=== PATIENT | male | born 1955 | race Caucasian/White ===

== ENCOUNTER → 2020-07-17 09:44 | Outpatient (BNV) | payer MEDICAID, MEDICARE, SELFPAY | PROVIDERS: Visit Provider Internal Medicine | DX: D69.6 Thrombocytopenia, unspecified (principal) | CPT/HCPCS: 99212; 99213; 99214 ==

== ENCOUNTER → 2020-08-08 09:58 | Outpatient (BNVA) | payer MEDICAID, SELFPAY | PROVIDERS: PCP Registered Nurse; Visit Provider Urology ==

== ENCOUNTER → 2020-12-04 10:11 | Outpatient (BNVA) | payer MEDICAID, SELFPAY | PROVIDERS: PCP General Practice; Visit Provider Surgery Vascular Surgery | DX: I71.4 Abdominal aortic aneurysm, without rupture (principal) | CPT/HCPCS: 99212 ==

== ENCOUNTER 2021-01-06 09:40 | Outpatient (REF) | payer MEDICAID, SELFPAY ==
--- NOTE | ~2021-01-06 | CT_ITS ---
EXAMINATION: CT ANGIOGRAM ABDOMEN AND PELVIS CLINICAL INFORMATION: Abdominal aortic aneurysm. COMPARISON: Ultrasound abdomen 07/16/2019. TECHNIQUE: Multiple axial images were obtained through the abdomen and pelvis following the administration of 80 mL of Omnipaque 350 intravenous contrast. Images were reviewed on a dedicated 3-D workstation. This CT examination was performed using dose optimization techniques as appropriate, variously including the following: *Automated exposure control. *Adjustment of mA and/or kV according to patient size (this includes techniques or standardized protocols for targeted exams where dose is matched to indication/reason for exam; i.e. extremities or head). *Use of iterative reconstruction technique. DLP: 220 mGy-cm VASCULAR FINDINGS: There is aneurysmal dilatation of the infrarenal abdominal aorta with a maximal dimension of 4.5 x 4.3 cm. At the time of the patient's prior ultrasound, measurements were 5.2 x 4.3 cm which may have been an exaggeration secondary to measuring technique. Mural thrombus is present within the aneurysm. The aneurysm begins at least 5 cm below the level of the renal arteries. The aneurysm ends at the aortic bifurcation but there is aneurysmal dilatation of the right common iliac artery at 2.2 cm. The iliac bifurcations are patent. Moderate atherosclerotic changes present in both internal iliac arteries. The external iliac arteries show [id number] atherosclerotic changes. Common femoral arteries are mildly diseased. Femoral bifurcations are patent with proximal patent profunda femoris and superficial femoral arteries. The celiac and SMA are patent. The [place] is patent and arises just above the level of the beginning of the aneurysm. Single renal arteries are present on both sides which are patent. NONVASCULAR FINDINGS: LUNG BASES: Dependent ground-glass changes are present in the lungs. Some peripheral bullae are present (503:45) along with a tiny 2 mm right lower lobe nodule (503:45). LIVER, GALLBLADDER, AND BILIARY TREE: The liver is normal in size, shape, and attenuation. No focal hepatic lesion or biliary ductal dilatation is present. The gallbladder is unremarkable with no evidence of radiopaque gallstones, gallbladder wall thickening, or obvious pericholecystic inflammatory changes. PANCREAS: Unremarkable. SPLEEN: Unremarkable. ADRENAL GLANDS: Unremarkable. KIDNEYS AND URETERS: The kidneys are normal in size, shape, and attenuation. A left renal cyst is present. No solid renal mass is seen. No hydronephrosis, hydroureter, or calculi seen. No perinephric stranding. BLADDER: Unremarkable. GASTROINTESTINAL TRACT: Colonic diverticular changes are present without diverticulitis. The small and large bowel are otherwise unremarkable. The appendix is unremarkable. ABDOMINAL WALL: No significant hernia is appreciated. There has been prior lower abdominal wall surgery. LYMPH NODES: No retroperitoneal lymphadenopathy. PELVIC VISCERA: Minimal prostatic enlargement. Seminal vesicles are normal. OSSEOUS STRUCTURES: Degenerative changes are noted in the spine most prominent from L3 through L5. CT/CT angio abdomen pelvis IMPRESSION: 1. A 4.5 cm infrarenal abdominal aortic aneurysm that ends at the aortic bifurcation. 2. Separate aneurysmal dilatation of the right common iliac artery at 2.2 cm. 3. Incidental nonvascular findings include a tiny 2 mm lung nodule, peripheral bullous changes in the lungs, left renal cysts, colonic diverticulosis, mild BPH and degenerative changes in the spine.
== END 2021-01-06 09:41 | disposition home or self-care (01) ==
LOC: HO.CT 09:40
PROVIDERS: Visit Provider Surgery Vascular Surgery
DX: I71.4 Abdominal aortic aneurysm, without rupture (principal)
CPT/HCPCS: 74174

== ENCOUNTER 2021-01-27 10:17 | Outpatient (REF) | payer MEDICAID, SELFPAY ==
[2021-01-27 14:09] LABS: H Pylori Breath Test Positive (Negative)
== END 2021-01-27 10:18 | disposition home or self-care (01) ==
LOC: HO.LNP 10:17
PROVIDERS: PCP General Practice; Referring Provider General Practice; Visit Provider Nurse Practitioner Family
DX: R13.12 Dysphagia, oropharyngeal phase (principal); K21.9 Gastro-esophageal reflux disease without esophagitis
CPT/HCPCS: 83013; 99202

== ENCOUNTER → 2021-02-13 09:30 | Outpatient (BNVA) | payer MEDICAID, SELFPAY | PROVIDERS: PCP General Practice; Visit Provider Surgery Vascular Surgery | DX: I71.4 Abdominal aortic aneurysm, without rupture (principal) | CPT/HCPCS: 99212 ==

== ENCOUNTER → 2021-03-26 08:10 | Outpatient (BNVA) | payer MEDICAID, SELFPAY | PROVIDERS: PCP General Practice; Referring Provider General Practice; Visit Provider Nurse Practitioner Family | DX: K21.9 Gastro-esophageal reflux disease without esophagitis (principal) | CPT/HCPCS: 99212 ==

== ENCOUNTER 2021-04-03 08:48 | Outpatient (REF) | payer MEDICAID, SELFPAY ==
--- NOTE | ~2021-04-03 | US_ITS ---
EXAMINATION: US RETROPERITONEAL LIMITED (AORTA) CLINICAL INFORMATION: History of AAA without rupture. COMPARISON: CT abdomen and pelvis exam 01/06/2021. TECHNIQUE: Vazquez-scale, color Doppler and spectral Doppler evaluation of the abdominal aorta. FINDINGS: The aorta is normal. The measurements of the aorta in maximum AP and transverse dimensions respectively are as follows: Proximal: 2.4 x 2.5 cm. Mid: 2.4 x 2.4 cm. Distal: Aneurysmal outer lumen measures p 4.5 x 4.3 cm. The inner lumen measures 2.7 x 2.4 cm. There is echogenic thrombus seen between the 2 layers. PSV: 62.2 cm/s. The measurements of the common iliac arteries in maximum AP and TRV dimensions are as follows: Right Common Iliac Artery: 1.7 x 1.2 cm. Left Common Iliac Artery: 1.3 x 1.5 cm. US/US abdominal aortic aneurysm IMPRESSION: Aneurysmal dilatation of distal abdominal aorta measuring 4.5 x 4.[address] abdomen exam 01/06/2021, aneurysm measured 4.5 x 4.3 cm.
== END 2021-04-03 08:49 | disposition home or self-care (01) ==
LOC: HO.US 08:48
PROVIDERS: PCP General Practice; Visit Provider General Practice
DX: I71.4 Abdominal aortic aneurysm, without rupture (principal)
CPT/HCPCS: 76706

== ENCOUNTER → 2021-04-15 09:04 | Outpatient (BNVA) | payer MEDICAID, SELFPAY | PROVIDERS: PCP General Practice; Visit Provider Surgery Vascular Surgery ==

== ENCOUNTER → 2021-06-04 09:36 | Outpatient (BNVA) | payer MEDICAID, SELFPAY | PROVIDERS: PCP General Practice; Referring Provider General Practice; Visit Provider Nurse Practitioner Family | DX: K21.9 Gastro-esophageal reflux disease without esophagitis (principal); K59.01 Slow transit constipation; R14.0 Abdominal distension (gaseous) | CPT/HCPCS: 99212 ==

== ENCOUNTER 2021-08-06 09:53 | Outpatient (REF) | payer MEDICAID, SELFPAY ==
--- NOTE | ~2021-08-06 | XR_ITS ---
EXAMINATION: XR LUMBAR SPINE XR BILATERAL KNEE CLINICAL INFORMATION: Low back pain. Knee pain. COMPARISON: None TECHNIQUE: Lumbar spine 3 views. 4 views each knee. FINDINGS: LUMBAR SPINE: There is abnormal segmentation of lumbar spine with 6 lumbar vertebrae. There is mild straightening of lumbar lordosis. The vertebral heights and alignment is normal. There is loss of L4-L5 and L5-S1 disc heights with moderate ventral bridging osteophytes at L4-L5 and L5-L6 disc level. No visible acute fracture, lytic or sclerotic process seen. SI joints are symmetrical and normal. The soft tissues are normal. LEFT KNEE: There is mild loss of lateral compartment joint space. No loose bodies, bony erosive changes or joint effusion seen. There is minimal superior patellar spurring. The soft tissues are normal. There is no acute fracture or dislocation. RIGHT KNEE: The tricompartment joint space is normal. No visible acute fracture, dislocation or subluxation seen. No bony erosive changes. No abnormal joint effusion. No acute fracture or dislocation. XR/XR lumbar spine 2-3V IMPRESSION: Abnormal segmentation of lumbar spine with degenerative disc changes L4-L5 and L5-L6 disc levels with bridging osteophytes. No acute fracture or lytic process. Mild degenerative disc changes lateral compartment left knee with mild spurring superior patella. Unremarkable right knee exam.
--- NOTE | ~2021-08-06 | XR_ITS ---
EXAMINATION: XR LUMBAR SPINE XR BILATERAL KNEE CLINICAL INFORMATION: Low back pain. Knee pain. COMPARISON: None TECHNIQUE: Lumbar spine 3 views. 4 views each knee. FINDINGS: LUMBAR SPINE: There is abnormal segmentation of lumbar spine with 6 lumbar vertebrae. There is mild straightening of lumbar lordosis. The vertebral heights and alignment is normal. There is loss of L4-L5 and L5-S1 disc heights with moderate ventral bridging osteophytes at L4-L5 and L5-L6 disc level. No visible acute fracture, lytic or sclerotic process seen. SI joints are symmetrical and normal. The soft tissues are normal. LEFT KNEE: There is mild loss of lateral compartment joint space. No loose bodies, bony erosive changes or joint effusion seen. There is minimal superior patellar spurring. The soft tissues are normal. There is no acute fracture or dislocation. RIGHT KNEE: The tricompartment joint space is normal. No visible acute fracture, dislocation or subluxation seen. No bony erosive changes. No abnormal joint effusion. No acute fracture or dislocation. XR/XR knee RT 4V IMPRESSION: Abnormal segmentation of lumbar spine with degenerative disc changes L4-L5 and L5-L6 disc levels with bridging osteophytes. No acute fracture or lytic process. Mild degenerative disc changes lateral compartment left knee with mild spurring superior patella. Unremarkable right knee exam.
--- NOTE | ~2021-08-06 | XR_ITS ---
EXAMINATION: XR LUMBAR SPINE XR BILATERAL KNEE CLINICAL INFORMATION: Low back pain. Knee pain. COMPARISON: None TECHNIQUE: Lumbar spine 3 views. 4 views each knee. FINDINGS: LUMBAR SPINE: There is abnormal segmentation of lumbar spine with 6 lumbar vertebrae. There is mild straightening of lumbar lordosis. The vertebral heights and alignment is normal. There is loss of L4-L5 and L5-S1 disc heights with moderate ventral bridging osteophytes at L4-L5 and L5-L6 disc level. No visible acute fracture, lytic or sclerotic process seen. SI joints are symmetrical and normal. The soft tissues are normal. LEFT KNEE: There is mild loss of lateral compartment joint space. No loose bodies, bony erosive changes or joint effusion seen. There is minimal superior patellar spurring. The soft tissues are normal. There is no acute fracture or dislocation. RIGHT KNEE: The tricompartment joint space is normal. No visible acute fracture, dislocation or subluxation seen. No bony erosive changes. No abnormal joint effusion. No acute fracture or dislocation. XR/XR knee LT 4V IMPRESSION: Abnormal segmentation of lumbar spine with degenerative disc changes L4-L5 and L5-L6 disc levels with bridging osteophytes. No acute fracture or lytic process. Mild degenerative disc changes lateral compartment left knee with mild spurring superior patella. Unremarkable right knee exam.
== END 2021-08-06 09:54 | disposition home or self-care (01) ==
LOC: HO.XRAY 09:53
PROVIDERS: PCP General Practice; Visit Provider General Practice
DX: M54.50 Low back pain, unspecified (principal); M25.561 Pain in right knee; M25.562 Pain in left knee
CPT/HCPCS: 72100; 73564

== ENCOUNTER → 2021-08-29 09:42 | Outpatient (BNVA) | payer MEDICAID, SELFPAY | PROVIDERS: PCP General Practice; Visit Provider Orthopaedic Surgery | DX: M54.16 Radiculopathy, lumbar region (principal) | CPT/HCPCS: 99202 ==

== ENCOUNTER 2021-09-22 10:48 | Outpatient (REF) | payer MEDICAID, SELFPAY ==
[2021-09-22 11:56] LABS: Hematocrit 42.6 % (42.0-52.0); Hemoglobin 13.8 g/dl (14.0-18.0); Mean Corpuscular HGB Conc 32.4 g/dl (31.0-36.0); Mean Corpuscular Hemoglobin 34.2 pg (27.0-33.0); Mean Corpuscular Volume 105.4 fL (80.0-98.0); Mean Platelet Volume 12.9 fL (9.4-12.4); Platelet Count 105 X10*3/uL (160-400); Red Blood Count 4.04 X10*6/uL (4.60-5.80); Red Cell Distribution Width 12.3 % (11.0-16.0); White Blood Count 6.6 X10*3/uL (4.8-10.8)
[2021-09-22 12:31] LABS: Alanine Aminotransferase 9 U/L (0-40); Albumin Level 4.1 g/dL (3.5-5.0); Alkaline Phosphatase 75 U/L (39-117); Anion Gap 10 (12-20); Aspartate Amino Transferase 11 U/L (5-37); Bilirubin Total 0.2 mg/dL (0.0-1.0); Blood Urea Nitrogen 20 mg/dL (9-16); Calcium 9.5 mg/dL (8.4-10.2); Carbon Dioxide 27 mmol/L (22-29); Chloride 109 mmol/L (96-108); Estimated Glomerular Filt Rate > 60; Glucose Random 94 mg/dL (60-115); Lipase 48 U/L (8-78); Potassium 4.5 mmol/L (3.3-5.1); Sodium 141 mmol/L (135-145)
[2021-09-22 12:53] LABS: TSH reflex Free T4 1.51 uIU/mL (0.32-4.0)
[2021-09-22 13:05] LABS: Folate > 20.0 ng/mL (> or = 4.0); Vitamin B12 1644 pg/mL (200-900)
[2021-09-26 16:06] LABS: Vitamin D 25-OH, D2 <4 ng/mL; Vitamin D 25-OH, D3 75 ng/mL; Vitamin D 25-OH, Total 75 ng/mL (30-100)
== END 2021-09-22 10:49 | disposition home or self-care (01) ==
LOC: HO.LAB 10:48
PROVIDERS: PCP General Practice; Visit Provider Nurse Practitioner Family
DX: K21.9 Gastro-esophageal reflux disease without esophagitis (principal); R13.10 Dysphagia, unspecified; E55.9 Vitamin D deficiency, unspecified; R14.0 Abdominal distension (gaseous)
CPT/HCPCS: 36415; 80053; 82306; 82607; 82746; 83690; 84443; 85027; 99212

== ENCOUNTER → 2021-09-29 08:24 | Outpatient (BNVA) | payer MEDICAID, SELFPAY | PROVIDERS: PCP General Practice; Visit Provider Nurse Practitioner Family | DX: M47.26 Other spondylosis with radiculopathy, lumbar region (principal); N39.41 Urge incontinence | CPT/HCPCS: 99202 ==

== ENCOUNTER 2021-10-15 15:06 | Outpatient (REF) | payer MEDICAID, SELFPAY ==
--- NOTE | ~2021-10-15 | MR_ITS ---
MR LUMBAR SPINE WITHOUT CONTRAST CLINICAL INFORMATION: Spondylosis without myelopathy or radiculopathy. COMPARISON: Lumbar spine radiographs 08/06/2021. TECHNIQUE: MRI of the lumbar spine was obtained using routine sequences without contrast. FINDINGS: There are 5 nonrib-bearing lumbar-type vertebral bodies. L5 shows a pseudoarticulation with the sacrum on the right side. Hypoplastic ribs the lowermost thoracic type segment. Grade 1 retrolisthesis of L4 on L5. There is moderate to severe disc volume loss at the L3-L4 and L4-L5 levels. There is disc desiccation at all lumbar levels the exception of L1 on L2. Intraosseous hemangioma within the L1 vertebral body. Modic type I endplate signal changes at L4-L5 greater than L3-L4. There is no additional bone marrow edema. There are no acute fractures. Conus terminates at the T12-L1 level. There is a left renal cyst. A 4.5 cm infrarenal abdominal aortic aneurysm is likely unchanged, difficult to compare due to obscuration by the saturation band used for this exam. T12-L1: Diffuse annular disc bulge. No central canal stenosis. Left lateral disc osteophyte and facet arthropathy result in mild left-sided foraminal encroachment. L1-L2: Small annular disc bulge and mild bilateral facet arthropathy. No central canal stenosis and no foraminal stenosis. L2-L3: There is an annular disc bulge eccentric to the left side and there is moderate bilateral facet arthropathy. Central canal remains patent. Disc contacts without compressing the traversing left L3 nerve root within the left subarticular zone. Disc osteophyte and facet arthropathy result in mild bilateral foraminal encroachment. Right lateral annular fissure. L3-L4: Diffuse disc osteophyte eccentric to the left and moderate lateral hypertrophic facet arthropathy and ligamentum flavum thickening. Small superiorly migrating left paracentral disc extrusion. Left lateral disc osteophyte protrusion. Findings in concert result in left subarticular zone stenosis with mass effect on the traversing left L4 nerve root and a left lateral disc osteophyte protrusion results in moderate to severe left foraminal stenosis with compression of the foraminal and extraforaminal segments of the exiting left L3 nerve root. L4-L5: There is a broad-based right paracentral disc protrusion that compresses the traversing right L5 nerve root within the right subarticular zone. Background disc osteophyte and severe right and moderate left hypertrophic facet arthropathy. A right lateral disc osteophyte protrusion results in severe right-sided foraminal stenosis and compression of the foraminal and extraforaminal segments of the exiting right L4 nerve root. L5-S1: At the transitional level, there is a diffuse annular disc bulge and there is right greater than left hypertrophic facet arthropathy. No central canal stenosis. Mild left-sided foraminal encroachment. MR/MR lumbar spine wo con IMPRESSION: - There is transitional anatomy. For the purposes of this report, hypoplastic ribs are considered at the lowermost thoracic type segment and L5 is sacralized, sharing a pseudoarticulation with the sacrum on the right side. Please correlate with plain films prior to any percutaneous or surgical intervention. - At L4-L5, a right paracentral disc protrusion compresses the traversing right L5 nerve root within the right subarticular zone and a right lateral disc osteophyte and advanced right facet arthropathy result in severe right foraminal stenosis with compression of the foraminal and extraforaminal segments of the exiting right L4 nerve root. - At L3-L4, multifactorial degenerative changes result in left subarticular zone stenosis with mass effect on the traversing left L4 nerve root and a left lateral disc osteophyte protrusion results in moderate to severe left foraminal stenosis with compression of the foraminal and extraforaminal segments of the exiting left L3 nerve root. There is a small superiorly migrating left paracentral disc extrusion at this level as well. - At L2-L3, disc contacts without compressing the traversing left L3 nerve root within the left subarticular zone. There is a right lateral annular fissure at this level. - A 4.5 cm infrarenal abdominal aortic aneurysm is likely unchanged, difficult to compare due to obscuration by the saturation band used for this exam.
== END 2021-10-15 15:07 | disposition home or self-care (01) ==
LOC: HO.MRI 15:06
PROVIDERS: Visit Provider Nurse Practitioner Family
DX: M47.816 Spondylosis without myelopathy or radiculopathy, lumbar region (principal); M54.16 Radiculopathy, lumbar region
CPT/HCPCS: 72148

== ENCOUNTER → 2021-10-21 10:20 | Outpatient (BNVA) | payer MEDICAID, SELFPAY | PROVIDERS: PCP General Practice; Visit Provider Nurse Practitioner Family | DX: M47.816 Spondylosis without myelopathy or radiculopathy, lumbar region (principal); M54.16 Radiculopathy, lumbar region; M53.9 Dorsopathy, unspecified; I71.4 Abdominal aortic aneurysm, without rupture | CPT/HCPCS: 99212 ==

== ENCOUNTER → 2021-11-24 09:45 | Outpatient (BNVA) | payer MEDICAID, SELFPAY | PROVIDERS: PCP General Practice; Visit Provider Nurse Practitioner Family | DX: R13.10 Dysphagia, unspecified (principal); K21.9 Gastro-esophageal reflux disease without esophagitis; K58.2 Mixed irritable bowel syndrome | CPT/HCPCS: 99212 ==

== ENCOUNTER 2021-12-03 09:26 | Outpatient (REF) | payer MEDICAID, SELFPAY ==
--- NOTE | ~2021-12-03 | FL_ITS ---
EXAMINATION: FL BARIUM SWALLOW CLINICAL INFORMATION: Dysphagia. COMPARISON: None. TECHNIQUE: Barium swallow examination is performed using fluoroscopic evaluation in addition to multiple fluoroscopic spot views. The patient is imaged both upright and prone and using both thick and thin sulfate along with effervescent granules. Fluoroscopy time: 2.2 minutes. DAP: 3.273 Gycm2. Images: 64. FINDINGS: Following oral administration of thick barium and barium-coated chicken and solid food there is normal propagation of bolus from the oral cavity through the pharynx and esophagus into the stomach without any evidence of laryngeal penetration or aspiration. No retention of food seen in the piriform sinuses or valleculae. There is no obstructing or constricting lesions seen. Occasional tertiary peristalsis seen in distal esophagus. FL/FL barium swallow IMPRESSION: Occasional tertiary peristalsis in distal esophagus. No evidence of obstruction, laryngeal penetration or aspiration.
== END 2021-12-03 09:27 | disposition home or self-care (01) ==
LOC: HO.XRAY 09:26
PROVIDERS: Visit Provider Nurse Practitioner Family
DX: R13.10 Dysphagia, unspecified (principal)
CPT/HCPCS: 74220

== ENCOUNTER 2022-02-27 10:09 | Outpatient (REF) | payer MEDICAID, SELFPAY ==
--- NOTE | ~2022-02-27 | US_ITS ---
EXAMINATION: US RETROPERITONEAL LIMITED (AORTA) CLINICAL INFORMATION: AAA without rupture. COMPARISON: Ultrasound aorta 04/03/2021 and 05/16/2019. TECHNIQUE: Vazquez-scale, color Doppler and spectral Doppler evaluation of the abdominal aorta. FINDINGS: There is atherosclerotic disease. The measurements of the aorta in maximum AP and transverse dimensions respectively are as follows: Proximal: 2.1 x 2.4 cm. Mid: 2.7 x 2.6 cm. Distal: 4.5 x 4.7 cm. PSV: 60 cm/s. The measurements of the common iliac arteries in maximum AP and TRV dimensions are as follows: Right Common Iliac Artery: 2.4 x 2.5 cm. Left Common Iliac Artery: 1.1 x 1.3 cm. US/US abdominal aortic aneurysm IMPRESSION: Infrarenal abdominal aortic aneurysm measuring 4.7 cm (previously 4.5 cm). Recommend CTA or MRA for further evaluation given increase in size.
== END 2022-02-27 10:10 | disposition home or self-care (01) ==
LOC: HO.US 10:09
PROVIDERS: Visit Provider Surgery Vascular Surgery
DX: I71.40 Abdominal aortic aneurysm, without rupture, unspecified (principal)
CPT/HCPCS: 76706

== ENCOUNTER → 2022-03-12 13:07 | Outpatient (BNVA) | payer MEDICAID, SELFPAY | PROVIDERS: PCP General Practice; Visit Provider Urology | DX: N39.41 Urge incontinence (principal); N40.1 Benign prostatic hyperplasia with lower urinary tract symptoms; R35.0 Frequency of micturition; R35.1 Nocturia | CPT/HCPCS: 51798; 99202 ==

== ENCOUNTER → 2022-04-21 10:02 | Outpatient (BNVA) | payer MEDICAID, SELFPAY | PROVIDERS: PCP General Practice; Visit Provider Surgery Vascular Surgery | DX: I71.40 Abdominal aortic aneurysm, without rupture, unspecified (principal) | CPT/HCPCS: 99212 ==

== ENCOUNTER 2022-04-22 10:07 | Outpatient (REF) | payer MEDICAID, SELFPAY ==
[2022-04-22 12:17] LABS: PSA,Total (Free>4and<10) 1.22 ng/mL (0.00-4.00)
[2022-04-30 15:34] LABS: Testosterone, Free 57.7 pg/mL (35.0-155.0); Testosterone, Total 424 ng/dL (250-1100)
== END 2022-04-22 10:08 | disposition home or self-care (01) ==
LOC: HO.LAB 10:07
PROVIDERS: PCP General Practice; Visit Provider Urology
DX: Z12.5 Encounter for screening for malignant neoplasm of prostate (principal); N52.1 Erectile dysfunction due to diseases classified elsewhere
CPT/HCPCS: 36415; 84153; 84402; 84403

== ENCOUNTER → 2022-06-03 12:35 | Outpatient (BNVA) | payer MEDICAID, SELFPAY | PROVIDERS: PCP General Practice; Visit Provider Urology | DX: N52.9 Male erectile dysfunction, unspecified (principal) | CPT/HCPCS: 51798; 99212 ==

== ENCOUNTER 2022-09-29 09:08 | Outpatient (REF) | payer MEDICARE, MEDICAID, SELFPAY ==
--- NOTE | ~2022-09-29 | US_ITS ---
EXAMINATION: US RETROPERITONEAL LIMITED (AORTA) CLINICAL INFORMATION: Abdominal aortic aneurysm, without rupture. COMPARISON: US retroperitoneal limited (aorta) 02/27/2022 and 04/03/2021. TECHNIQUE: Vazquez-scale, color Doppler and spectral Doppler evaluation of the abdominal aorta. FINDINGS: The measurements of the aorta in maximum AP and transverse dimensions respectively are as follows: Proximal: 2.5 x 2.6 cm. Mid: 2.2 x 2.3 cm. Distal: 4.1 x 4.7 cm. Previously this measured 4.5 x 4.7 cm. Currently the lumen measures 1.4 x 1.5 cm compared to 2.2 x 2.5 cm. PSV: 47 cm/s. The measurements of the common iliac arteries in maximum AP and TRV dimensions are as follows: Right Common Iliac Artery: 2.6 x 2.3 cm. Stable, previously measuring 2.5 x 2.4 cm. Left Common Iliac Artery: 1.0 x 1.2 cm. US/US abdominal aortic aneurysm IMPRESSION: Stable size of infrarenal abdominal aortic aneurysm. The patent lumen is decreased in diameter measuring 1.4 x 1.5 cm compared to 2.2 x 2.5 cm. Best Practice Recommendation: Based on published guidelines in J Am Irlanda Radiol 2013; 10(10):789-794 and J Vasc Surg. 2018; 67:2-77, the recommendation for an aneurysm of 4.5-5.4 cm is: Recommend follow-up every 6 months and continue care with vascular specialist. Stable right common iliac artery aneurysm.
== END 2022-09-29 09:09 | disposition home or self-care (01) ==
LOC: HO.US 09:08
PROVIDERS: PCP General Practice; Visit Provider Surgery Vascular Surgery
DX: I71.40 Abdominal aortic aneurysm, without rupture, unspecified (principal)
CPT/HCPCS: 76706

== ENCOUNTER 2022-10-08 09:37 | Outpatient (AMB) | payer MEDICARE, MEDICAID, SELFPAY ==
--- NOTE | 2022-10-08 07:29 | A.OFFVIS_ITS ---
Intake Intake Visit Reasons: 4 month follow up Intake Note: Patient presents today for a follow-up on Erectile Dysfunction: Meds- Cialis & Tamsulosin Allergies to Antibiotic- No Known Allergies Blood Thinner- None PSA- 1.22 ng/mL 04/22/2022 Test Engineering Intern Required: Yes Test Engineering Intern Language: Leasing Agent Name: NATHALY Yañez/JACINTO MARTINEZ Information Interpreted: non-clinical & clinical Accompanied by: Self / Same As Patient Allergies No Known Allergies [No Known Allergies*] Allergy (Verified 10/08/22 10:56) HPI HPI Comments History of Present Illness Details Curt is a 66-year-old male who presents to the office for FU erectile dysfunction and OAB symptoms. 10/08/2022-- Curt is a 67-year-old male who presents today to the office for a follow up on erectile dysfunction. He was last seen on 06/03/22. Significant PMH: PVD. He was prescribed Cialis 5 mg daily. He states that he has not been sexually active because he is unablt to maintain an erection. He was informed cigarette smoking is a risk factor for erectile dysfunction. He was prescribed oxybutynin 10 mg daily for LUTS of urinary freq/urgency I have discussed adding Cialis 20 mg 2 x a week, Alternative treatment for erectile dysfunction including penile pump surgically, and using injectable medications discussed Review of chart: 06/03/2022-- I? reviewed with him PSA and testosterone levels. Levels are within normal limits.? The patient has history of peripheral vascular disease . I have discussed with him that this is also co-morbidity for ED. Discussed Cialis 5 mg daily. Total PSA levels reviewed?04/22/2022-- 1.22. Total testosterone levels reviewed--04/22/22--424. Evaluation today: Blood: negative, Leukocytes: 15 Cristi/uL. Bladder scan PVR: 28 mL. Plan: Cialis 5 mg QD was ordered. Follow-up after 4 months.? 10/17/22-Evaluation today UA: leukocytes: negative; blood: negative. Plan: Cont oxybutynin 10 mg daily, tamsulosin 0.4 mg daily Continue Cialis 5mg daily Start Cialis 20 mg 2 times a week prn with sexual intercourse; patient instructed not to use Cialis 20 mg more than 2 days in a week. Follow up in 2 months televisit. [facility] Medical History AAA (abdominal aortic aneurysm) without rupture Alcohol abuse with withdrawal Alcohol withdrawal seizure History of depression HTN (hypertension) Orthostatic hypotension Proteus mirabilis infection Thrombocytopenia Surgical History Hx of colonoscopy Hx of hernia repair Family History Sister Cancer Father Diabetes mellitus Mother No problems noted. Social History Household Members: Caregiver Housing: Apartment Alcohol intake: former Patient Tobacco Use Status: Current everyday Tobacco user Tobacco use type: Cigarette service: No Current occupational status: retired and disabled Review of Systems Const Reports no additional complaints Eyes Reports no additional complaints ENT Denies neck pain Card Denies leg edema Resp Denies cough GI Denies constipation Musc Reports no additional complaints and Denies neck pain Skin/Breast Denies rash and Denies unusual bruising Neuro Reports no additional complaints Psych Reports no additional complaints Endo Reports no additional complaints Casa/Lymph Reports no additional complaints Aller/Immun Reports no additional complaints Physical Exam Const General: no acute distress and well developed Orientation/consciousness: patient oriented x3 HEENT Head: Yes normocephalic and Yes atraumatic Eyes Conjunctivae: conjunctivae normal Neck Neck: Yes normal visual inspection Chest Chest palpation & inspection: normal inspection of the chest Resp Effort & Inspection: normal respiratory effort Cardio Rate: regular rate GI Inspection: Yes normal to inspection Other: Prostate Exam: Smooth no suspicious nodules, nontender Skin General skin exam: no rashes or lesions noted Neuro General: patient oriented x3 Extrem General: No pedal edema Psych Appearance: grossly normal Affect: normal affect Results AMB Urinalysis, Automated UA Leukoctes 0 Cristi/uL Last Edit by Karsten Price, A on 10/08/22 10:54 UA Nitrite Negative Last Edit by Karsten Price, [facility] on 10/08/22 10:54 UA Urobilinogen 0.2 mg/dL Last Edit by Karsten Price, A on 10/08/22 10:5 4 UA Protein 30 mg/dL Last Edit by Karsten Price, [facility] on 10/08/22 10:54 1+ Karsten Price 10/08/22 10:54 UA pH 6.0 Last Edit by Karsten Price, A on 10/08/22 10:54 UA Blood 0 Srinivas/uL Last Edit by Karsten Price, [facility] on 10/08/22 10:54 UA Specific [place] 1.025 Last Edit by Karsten Price, [facility] on 10/08/22 10: 54 UA Ketone Negative Last Edit by Karsten Price, [facility] on 10/08/22 10:54 UA Bilirubin 0 mg/dL Last Edit by Karsten Price, [facility] on 10/08/22 10:54 UA Glucose 0 mg/dL Last Edit by Karsten Price, [facility] on 10/08/22 10:54 Results Reviewed Results Reviewed: Laboratory Last Values Urine pH (Auto) 6.0 10/08/22 10:52 Specific [place] (Auto) 1.025 10/08/22 10:52 Urine Protein (Auto) 30 mg/dL 10/08/22 10:52 Glucose (UA)(Auto) 0 mg/dL 10/08/22 10:52 Urine Ketones (Auto) Negative 10/08/22 10:52 Urine Blood (Auto) 0 Srinivas/uL 10/08/22 10:52 Urine Nitrite (Auto) Negative 10/08/22 10:52 Urine Bilirubin (Auto) 0 mg/dL 10/08/22 10:52 Urine Urobilinogen (Auto) 0.2 mg/dL 10/08/22 10:52 Leukocyte Esterase (Auto) 0 Cristi/uL 10/08/22 10:52 Assessment & Plan Assessment & Plan (1) Erectile dysfunction: Code(s): N52.9 - Male erectile dysfunction, unspecified (2) Nicotine dependence: Code(s): F17.200 - Nicotine dependence, unspecified, uncomplicated (3) Urge incontinence: Code(s): N39.41 - Urge incontinence (4) Urinary frequency: Code(s): R35.0 - Frequency of micturition (5) BPH associated with nocturia: Code(s): N40.1 - Benign prostatic hyperplasia with lower urinary tract symptoms; R35.1 - Nocturia Plan Cont oxybutynin 10 mg daily, tamsulosin 0.4 mg daily Continue Cialis 5mg daily Start Cialis 20 mg 2 times a week prn with sexual intercourse; patient instructed not to use Cialis 20 mg more than 2 days in a week. Follow up in 2 months televisit. Orders: Orders AMB Urinalysis Automated 10/08/22 Z13.9 - Encounter for screening, unspecified Patient Instructions: The patient had an opportunity to ask questions regarding treatment plan. All questions were answered. Laboratory studies and physical exam results were discussed and reviewed in detail. No major barriers to understanding were identified. The patient expressed understanding and agreement with the above treatment plan.? ? ? The patient is aware they should contact our office by phone for worsening of their current condition or the appearance of new symptoms. Compliance is encouraged with any medications and followup testing that is ordered.? ? ? It is a privilege to be allowed the opportunity to participate in the urologic care of your patient. If you have any questions or concerns regarding treatment for the above conditions please do not hesitate to contact me. The office telephone contact is [phone].? ? ? This note is constructed in part using voice recognition software. While every effort has been made to ensure accuracy armament installer errors may have been included.? ? ? Yours sincerely,? ? ? Orlando Buck MD? Coding Level of Care Code Est Pt Level 4 (49435) Diagnoses Erectile dysfunction N52.9 Nicotine dependence F17.200 Urge incontinence N39.41 Urinary frequency R35.0 BPH associated with nocturia N40.1; R35.1
== END 2022-10-08 11:21 | disposition home or self-care (01) ==
PROVIDERS: PCP General Practice; Visit Provider Urology
DX: N52.9 Male erectile dysfunction, unspecified (principal); F17.200 Nicotine dependence, unspecified, uncomplicated; N39.41 Urge incontinence; R35.0 Frequency of micturition; N40.1 Benign prostatic hyperplasia with lower urinary tract symptoms; R35.1 Nocturia
CPT/HCPCS: 99214

== ENCOUNTER → 2022-10-08 09:37 | Outpatient (BNVA) | payer MEDICARE, MEDICAID, SELFPAY | PROVIDERS: PCP General Practice; Visit Provider Urology | DX: N52.9 Male erectile dysfunction, unspecified (principal); N40.1 Benign prostatic hyperplasia with lower urinary tract symptoms; R35.1 Nocturia; R35.0 Frequency of micturition; N39.41 Urge incontinence; F17.210 Nicotine dependence, cigarettes, uncomplicated; Z79.899 Other long term (current) drug therapy | CPT/HCPCS: 99212 ==

== ENCOUNTER 2022-11-20 13:40 | Outpatient (REF) | payer MEDICARE, MEDICAID, SELFPAY ==
[2022-11-20 16:01] LABS: MANUAL DIFF FLAG NO
[2022-11-20 16:12] LABS: Prothrombin Time 12.4 SEC (11.1-13.3)
[2022-11-20 16:17] LABS: Basophils Absolute Auto 0.1 X10*3/uL (0.0-0.2); Basophils Percent Auto 0.7 % (0-2); Eosinophils Absolute Auto 0.2 X10*3/uL (0.0-0.4); Eosinophils Percent Auto 1.8 % (0-4); Hematocrit 42.6 % (42.0-52.0); Hemoglobin 13.9 g/dl (14.0-18.0); Imm Gran Abs Auto 0.06 X10*3/uL (0.00-0.03); Imm Gran Pct Auto 0.5 % (0.0-0.4); Lymphocytes Absolute Auto 3.7 X10*3/uL (1.2-4.9); Lymphocytes Percent Auto 30.4 % (20-40); Mean Corpuscular HGB Conc 32.6 g/dl (31.0-36.0); Mean Corpuscular Volume 107.3 fL (80.0-98.0); Mean Platelet Volume 13.5 fL (9.4-12.4); Monocytes Absolute Auto 0.7 X10*3/uL (0.1-1.2); Monocytes Percent Auto 5.7 % (2-11); Neutrophils Absolute Auto 7.4 x10*3/uL (2.0-8.3); Neutrophils Percent Auto 60.9 % (45-73); Platelet Count 129 X10*3/uL (160-400); Red Blood Count 3.97 X10*6/uL (4.60-5.80); Red Cell Distribution Width 13.1 % (11.0-16.0); White Blood Count 12.2 X10*3/uL (4.8-10.8)
[2022-11-20 16:25] LABS: Alanine Aminotransferase 9 U/L (0-40); Albumin Level 4.1 g/dL (3.5-5.0); Alkaline Phosphatase 70 U/L (39-117); Anion Gap 12 (12-20); Aspartate Amino Transferase 17 U/L (5-37); Bilirubin Total 0.5 mg/dL (0.0-1.0); Blood Urea Nitrogen 10 mg/dL (9-16); Calcium 9.9 mg/dL (8.4-10.2); Carbon Dioxide 27 mmol/L (22-29); Chloride 106 mmol/L (96-108); Estimated Glomerular Filt Rate 57; Glucose Random 86 mg/dL (60-115); Potassium 4.5 mmol/L (3.3-5.1); Sodium 140 mmol/L (135-145); Total Protein 7.7 g/dL (6.5-8.0)
== END 2022-11-20 13:41 | disposition home or self-care (01) ==
LOC: HO.HHCL 13:40
PROVIDERS: Visit Provider General Practice
DX: F10.20 Alcohol dependence, uncomplicated (principal); I71.40 Abdominal aortic aneurysm, without rupture, unspecified; I42.0 Dilated cardiomyopathy
CPT/HCPCS: 36415; 80053; 85025; 85610

== ENCOUNTER 2022-11-24 09:28 | Outpatient (AMB) | payer MEDICARE, MEDICAID, SELFPAY ==
--- NOTE | 2022-11-24 09:33 | A.OFFVIS_ITS ---
Intake Vital Signs 11/24/22 09:38 Height 5 ft 6 in Weight 132 lb BMI 21.3 Intake Visit Reasons: Follow Up 09/29 Ultrasound Intake Note: 6 months fu AAA S/P abd aortic us on 09/29/22 pt states he's still having trouble swallowing but denies having stomach pain General Operations Agent Required: Yes General Operations Agent Language: Teletray Operator Name: nuvia tomas Information Interpreted: clinical only Allergies No Known Allergies [No Known Allergies*] Allergy (Verified 10/08/22 10:56) HPI Follow Up 09/29 Ultrasound HPI Details Very pleasant 66-year-old gentleman presents from follow-up evaluation regarding his aorta. This had routine surveillance ultrasound. He reports no interval issues. In general appears to be doing well. Now for routine surveillance follow-up. [facility] Medical History AAA (abdominal aortic aneurysm) without rupture Alcohol abuse with withdrawal Alcohol withdrawal seizure History of depression HTN (hypertension) Orthostatic hypotension Proteus mirabilis infection Thrombocytopenia Surgical History Hx of colonoscopy Hx of hernia repair Family History Sister Cancer Father Diabetes mellitus Mother No problems noted. Social History Household Members: Caregiver Housing: Apartment Alcohol intake: former Patient Tobacco Use Status: Current everyday Tobacco user Tobacco use type: Cigarette service: No Current occupational status: retired and disabled Review of Systems Const All systems reviewed & are unremarkable except as noted in HPI and below Reports no additional complaints ENT Reports Normal hearing present Card Denies chest pain, Denies chest pain at rest, Denies chest pain with activity and Denies pedal edema Resp Denies cough GI Denies abdominal pain Musc Denies abnormal gait, Denies muscle cramps and Denies radiating pain into limb Skin/Breast Denies skin ulcer and Denies wounds Neuro Reports Normal hearing present and Denies abnormal gait Psych Reports no additional complaints Physical Exam Vital Signs: BMI result Body Mass Index 21.3 Const General: cooperative, healthy appearing and comfortable Orientation/consciousness: oriented to person, oriented to place and oriented to time HEENT Head: Yes normal to inspection Neck Neck: Yes normal visual inspection Carotids: no bruits Chest Chest palpation & inspection: normal inspection of the chest Resp Effort & Inspection: normal respiratory effort and able to speak in complete se ntences Auscultation: clear to auscultation bilaterally, no crackles, no rales, no rhonchi and no wheezes Cardio Rate: regular rate Rhythm: regular rhythm Heart sounds: S1 normal heart sound present and S2 normal heart sound present Bruits: no carotid bruits Peripheral pulses: Peripheral pulses 2+ throughout GI Inspection: Yes normal to inspection Skin Wounds: no wounds Hair: normal Neuro General: oriented to person, oriented to place and oriented to time Cranial nerves: Yes CN's II-XII intact bilaterally and Yes Normal hearing present Cognition (Neuro): normal cognition Motor exam (neuro): 5/5 motor strength present throughout Extrem Other: venous exam: No significant superficial varicosities or spider telangiectasi as, minimal edema General: No clubbing, No cyanosis and No edema Psych Appearance: grossly normal Mental Status: mental status grossly normal Speech and movement: Normal speech and movement present Results Reviewed Results Reviewed: Aortic testing dated 09/29/2022 demonstrates aortic aneurysm and the distal portion measuring 4.1 x 4.7 cm. Approximately similar to prior findings. Written report and images were reviewed. Assessment & Plan Assessment & Plan (1) AAA (abdominal aortic aneurysm) without rupture: Code(s): I71.4 - Abdominal aortic aneurysm, without rupture Qualifiers: Abdominal aorta location: infrarenal aorta Qualified Code(s): I71.43 - Infrarenal abdominal aortic aneurysm, without rupture Plan: In short patient has radiologic evidence of a AAA on 4.1 cm on ultrasound. We have discussed the pathophysiology of aortic aneurysms and the risk of ruptures. We have discussed rupture risk based on size. In addition we have discussed conservative measures and risk factor modification for prevention of increase in size of the aneurysm. the patient is scheduled for surveillance follow-up in approximately 1 year. Thank you for allowing us to participate in the care of this patient Orders: Orders US abdominal aortic aneurysm 364 Days I71.43 - Infrarenal abdominal aortic aneurysm, without rupture Coding Level of Care Code Est Pt Level 4 (67249) Diagnoses Infrarenal abdominal aortic aneurysm (AAA) without rupture I71.43 Abdominal aorta location: infrarenal aorta
[2022-11-24 09:38] VITALS: BMI 21.3
== END 2022-11-24 09:57 | disposition home or self-care (01) ==
PROVIDERS: PCP General Practice; Visit Provider Surgery Vascular Surgery
DX: I71.43 Infrarenal abdominal aortic aneurysm, without rupture (principal)
CPT/HCPCS: 99213

== ENCOUNTER → 2022-11-24 09:28 | Outpatient (BNVA) | payer MEDICARE, MEDICAID, SELFPAY | PROVIDERS: PCP General Practice; Visit Provider Surgery Vascular Surgery | DX: I71.43 Infrarenal abdominal aortic aneurysm, without rupture (principal) | CPT/HCPCS: 99212 ==

== ENCOUNTER 2023-08-09 09:56 | Outpatient (REF) | payer MEDICARE, MEDICAID, SELFPAY ==
--- NOTE | 2023-08-09 12:30 | MHC.AU.HA1 ---
Hearing Aid Evaluation Date of Visit: 08/09/23 Job Training Specialist Used: Welsh- In Person Historical Information: Description of Hearing: Mild to moderate sensorineural hearing loss, bilateral. Current personal amplification information, if applicable: None, described past use of OTC devices. Summary: Seen for evaluation. Amplification recommended. Reviewed options. Recommended [facility]. Pt. selected rechargeable. Has an Android phone he may want to pair with. Pt. notes difficulty hearing his LIABILITY CLAIMS MANAGER at home. Encouraged bringing LIABILITY CLAIMS MANAGER to fitting appointment so they can learn about hearing aid care and maintenance as well. Hearing Aid Prescription: Based on the individual?s shared listening needs, communication environments, dexterity, desire for connectivity, and personal preferences, the following prescription for amplification has been made: Right ear: Make, Model, Color: Phonak Audeo L 70 R silver Battery Size: Rechargeable Durability Technician/Slim Tube: 2M Type of Earmold/Dome/CShell/SlimTip: sm vented Left ear: Make, Model, Color: Phonak Audeo L70 R silver Battery Size: Rechargeable Durability Technician/Slim Tube: 2M Type of Earmold/Dome/CShell/SlimTip: small vented Plan of Care: Patient wishes to purchase hearing aids as prescribed Action Taken/Action Needed: Medical Clearance to be requested from PCP/ENT Hearing Instrument Fitting to be scheduled when materials arrive Primary Diagnosis: H90.3 Bilateral Sensorineural Hearing Loss Signature: Provider: Luis Fernando Miller, CCC-A
== END 2023-08-09 09:57 | disposition home or self-care (01) ==
LOC: HO.SH 09:56
PROVIDERS: Visit Provider General Practice
DX: Z01.118 Encounter for examination of ears and hearing with other abnormal findings (principal); Z46.1 Encounter for fitting and adjustment of hearing aid; H90.3 Sensorineural hearing loss, bilateral
CPT/HCPCS: 92557; 92591

== ENCOUNTER 2023-08-31 09:55 | Outpatient (REF) | payer MEDICARE, MEDICAID, SELFPAY ==
[2023-08-31 11:51] LABS: Prostate Specific Antigen 1.19 ng/mL (<0.05-4.0)
[2023-08-31 15:05] LABS: ~HepC Num1 0.13 S/CO (0.00-0.79); ~Hepatitis C Antibody Nonreactive (Nonreactive)
== END 2023-08-31 09:56 | disposition home or self-care (01) ==
LOC: HO.HHCL 09:55
PROVIDERS: Visit Provider General Practice
DX: Z12.5 Encounter for screening for malignant neoplasm of prostate (principal); Z11.59 Encounter for screening for other viral diseases; N40.1 Benign prostatic hyperplasia with lower urinary tract symptoms
CPT/HCPCS: 36415; 84153; 86803

== ENCOUNTER 2023-09-09 09:35 | Outpatient (REF) | payer MEDICARE, MEDICAID, SELFPAY ==
--- NOTE | 2023-09-09 10:26 | MHC.AU.HA2 ---
Hearing Instrument Fitting- Adult- Binaural Date of Visit: 09/09/23 Hearing Instruments Dispensed: Right Ear: Make, Model, Color, Serial Number: Phonak Audeo L 70 R silver S#[id number] Glue Line Operator Repair Warranty: 09/11/2026 Glue Line Operator Loss and Damage Warranty: 09/11/2026 [facility] Service Plan: 09/08/24 Battery Size: Rechargeable Engraved Roller Inspector/Slim Tube: 2M Earmold/Dome/CShell/SlimTip: sm vented Type of Wax Guard: cerustop Left Ear: Make, Model, Color, Serial Number: Phonak Audeo L70 R silver S#[id number] Glue Line Operator Repair Warranty: 09/11/2026 Glue Line Operator Loss and Damage Warranty: 09/11/2026 [facility] Service Plan: 09/08/24 Battery Size: Rechargeable Engraved Roller Inspector/Slim Tube: 2M Earmold/Dome/CShell/SlimTip: small vented Type of Wax Guard: cerustop Accessories/Assistive Technology: Phonak gearman ease [id number] Summary of Fitting: Fit with and oriented to binaural Phonak Audeo L70 R HAs. Accompanied by CENTRIFUGAL CHILLER TECHNICIAN. [facility] commercial drone software developer present. Verified to [facility] adult 5 targets. Practiced insertion and removal. Demonstrated charging. Reviewed maintenance and precautions. Not connected with a phone at this time. VC disabled. Good subjective comfort and benefit reported. Recommendations: Recommendations: Hearing instrument care and maintenance were discussed and practiced. A hearing instrument follow-up was scheduled. Diagnosis Code(s): Primary Diagnosis: H90.3 Bilateral Sensorineural Hearing Loss Signature: Provider: Luis Fernando Miller, [facility]
== END 2023-09-09 09:36 | disposition home or self-care (01) ==
LOC: HO.HAP 09:35
PROVIDERS: Visit Provider General Practice
DX: Z46.1 Encounter for fitting and adjustment of hearing aid (principal); H90.3 Sensorineural hearing loss, bilateral
CPT/HCPCS: V5011; V5020; V5160; V5261

== ENCOUNTER 2023-10-01 09:13 | Outpatient (REF) | payer MEDICARE, MEDICAID, SELFPAY | END 2023-10-01 09:14 | disposition home or self-care (01) | LOC: HO.HAP 09:13 | PROVIDERS: Visit Provider General Practice | DX: Z13.89 Encounter for screening for other disorder (principal) ==

== ENCOUNTER 2023-10-21 08:56 | Outpatient (REF) | payer MEDICARE, MEDICAID, SELFPAY ==
--- NOTE | 2023-10-21 09:43 | MHC.AU.HA3 ---
Hearing Instrument Follow-Up- Binaural Date of Visit: 10/21/23 Right Ear: Shon, Model, Color, Serial Number: Ousmane Gar 70 R roxanne S#[id number] Site Acquisition Specialist Repair Warranty: 09/11/2026 Site Acquisition Specialist Loss and Damage Warranty: 09/11/2026 [facility] Service Plan: 09/08/24 Battery Size: Rechargeable Engine Emission Technician/Slim Tube: 2M Earmold/Dome/CShell/SlimTip:sm vented Type of Wax Guard: cerustop Dispensed By: [facility] Date of Fittin09/09/23 Left Ear: Shon, Model, Color, Serial Number: Ousmane Gar70 Sunshine oliveira [id number] Site Acquisition Specialist Repair Warranty: 09/11/2026 Site Acquisition Specialist Loss and Damage Warranty: 09/11/2026 [facility] Service Plan: 09/08/24 Battery Size: Rechargeable Engine Emission Technician/Slim Tube: 2M Earmold/Dome/CShell/SlimTip: small vented Type of Wax Guard: cerustop Dispensed By: [facility] Date of Fittin09/09/23 Follow-Up Summary: Here for follow up. Phone electro mechanical technologist used. Once again arrived with domes not in ear canals. Curt reports difficulty feeling the hearing aids with his hands. Recommended custom earmolds to help with insertion and retention. Curt is amenable to this. Impressions taken without incidence Au. His hearing aids are stored here on the shelf. He has his smelter charger at home. Needs appointment for earmold fitting. Recommendations: Recommendations: Patient will be contacted when materials have arrived. Diagnosis Code(s): Primary Diagnosis: H90.3 Bilateral Sensorineural Hearing Loss Signature: Provider: Luis Fernando Miller, [facility]
== END 2023-10-21 08:57 | disposition home or self-care (01) ==
LOC: HO.HAP 08:56
PROVIDERS: Visit Provider General Practice
DX: Z46.1 Encounter for fitting and adjustment of hearing aid (principal); H90.3 Sensorineural hearing loss, bilateral
CPT/HCPCS: V5275

== ENCOUNTER 2023-11-18 09:16 | Outpatient (REF) | payer MEDICARE, MEDICAID, SELFPAY | END 2023-11-18 09:17 | disposition home or self-care (01) | LOC: HO.HAP 09:16 | PROVIDERS: Visit Provider General Practice | DX: Z46.1 Encounter for fitting and adjustment of hearing aid (principal); H90.3 Sensorineural hearing loss, bilateral | CPT/HCPCS: V5264 ==

== ENCOUNTER 2023-11-23 08:42 | Outpatient (REF) | payer MEDICARE, MEDICAID, SELFPAY ==
--- NOTE | ~2023-11-23 | US_ITS ---
EXAMINATION: US ABDOMINAL AORTA CLINICAL INFORMATION: Infrarenal abdominal aortic aneurysm. COMPARISON: Aortic ultrasound 09/29/2022. TECHNIQUE: Grayscale, color Doppler and spectral Doppler evaluation of the abdominal aorta. FINDINGS: The measurements of the aorta in maximum AP and transverse dimensions respectively are as follows: PROXIMAL: 2.2 x 2.4 cm. MID: 2.6 x 2.7 cm. DISTAL: 4.3 x 4.4 cm. The aneurysm measured 4.1 x 4.7 cm on 09/29/2022 and 4.5 x 4.7 cm on 02/27/2022. Likely no significant change from prior. There is mural thrombus. The patent lumen measures 1.8 x 2.4 cm, which is similar to prior. The measurements of the common iliac arteries in maximum AP dimension are as follows: RIGHT COMMON ILIAC ARTERY: 2.6 x 2.4 cm. Stable, previously measuring 2.6 x 2.3 cm. LEFT COMMON ILIAC ARTERY: 1.2 x 1.3 cm. US/US abdominal aortic aneurysm IMPRESSION: Stable infrarenal abdominal aortic aneurysm. Stable right common iliac artery aneurysm. Electronically signed by: Riaz Salinas MD 11/24/2023 10:36 AM EDT
== END 2023-11-23 08:43 | disposition home or self-care (01) ==
LOC: HO.US 08:42
PROVIDERS: PCP General Practice; Visit Provider Surgery Vascular Surgery
DX: I71.43 Infrarenal abdominal aortic aneurysm, without rupture (principal)
CPT/HCPCS: 76706

== ENCOUNTER 2024-01-11 10:39 | Outpatient (AMB) | payer MEDICARE, MEDICAID, SELFPAY ==
[2024-01-11 10:52] VITALS: BP 112/68; BMI 21.8
--- NOTE | 2024-01-11 10:52 | A.OFFVIS_ITS ---
Vital Signs 01/11/24 10:52 Height 5 ft 6 in Weight 135 lb BMI 21.8 BP 112/68 Blood Pressure Location Lt brachial Position Sitting Intake Visit Reasons: 1yr follow up s/p AAA US 11/23/23 Intake Note: Curt is a 68 year old male who presents to the office today for a 1 year follow up s/p AAA US 11/23/23. Pt states sometimes he will have pain in his abdomen but states otherwise he is feeling okay. Gear Milling Machine Set Up Operator Required: Yes Gear Milling Machine Set Up Operator Language: Hand Box Folder Services: Gear Milling Machine Set Up Operator Present Gear Milling Machine Set Up Operator Name: Rj Noland ([id number]) Allergies No Known Allergies [No Known Allergies*] Allergy (Verified 01/11/24 10:55) HPI HPI 1yr follow up s/p AAA US 11/23/23: Details: Very pleasant 68-year-old gentleman presents for routine aortic surveillance. He has had no interval issues. Appears to be doing relatively well. He now presents for routine surveillance follow-up. [facility] Medical History AAA (abdominal aortic aneurysm) without rupture History of depression Orthostatic hypotension HTN (hypertension) Thrombocytopenia Proteus mirabilis infection Alcohol withdrawal seizure Alcohol abuse with withdrawal Surgical History Hx of colonoscopy Hx of hernia repair Family History Sister Cancer Father Diabetes mellitus Mother No problems noted. Social History Household Members: Caregiver Housing: Apartment Alcohol intake: former Patient Tobacco Use Status: Current everyday Tobacco user Tobacco use type: Cigarette service: No Current occupational status: retired and disabled Review of Systems Const All systems reviewed & are unremarkable except as noted in HPI and below Reports no additional complaints ENT Reports Normal hearing present Card Denies chest pain, Denies chest pain at rest, Denies chest pain with activity and Denies pedal edema Resp Denies cough GI Denies abdominal pain Musc Denies abnormal gait, Denies muscle cramps and Denies radiating pain into limb Skin/Breast Denies skin ulcer and Denies wounds Neuro Reports Normal hearing present and Denies abnormal gait Psych Reports no additional complaints Physical Exam Vital Signs: Last Vital Signs BP 112/68 01/11/24 10:52 BMI result Body Mass Index 21.8 Const General: cooperative, healthy appearing and comfortable Orientation/consciousness: oriented to person, oriented to place and oriented to time HEENT Head: Yes normal to inspection Neck Neck: Yes normal visual inspection Carotids: no bruits Chest Chest palpation & inspection: normal inspection of the chest Resp Effort & Inspection: normal respiratory effort and able to speak in complete sentences Auscultation: clear to auscultation bilaterally, no crackles, no rales, no rhonchi and no wheezes Cardio Rate: regular rate Rhythm: regular rhythm Heart sounds: S1 normal heart sound present and S2 normal heart sound present Bruits: no carotid bruits Peripheral pulses: Peripheral pulses 2+ throughout GI Inspection: Yes normal to inspection Skin Wounds: no wounds Hair: normal Neuro General: oriented to person, oriented to place and oriented to time Cranial nerves: Yes CN's II-XII intact bilaterally and Yes Normal hearing present Cognition (Neuro): normal cognition Motor exam (neuro): 5/5 motor strength present throughout Extrem Other: venous exam: No significant superficial varicosities or spider telangiectasias, minimal edema General: No clubbing, No cyanosis and No edema Psych Appearance: grossly normal Mental Status: mental status grossly normal Speech and movement: Normal speech and movement present Results Reviewed Results Reviewed: Noninvasive arterial testing dated 11/23/2023 demonstrates distal aorta measuring 4.3 x 4.4 cm. Written report and images were reviewed. Assessment & Plan Assessment & Plan (1) AAA (abdominal aortic aneurysm) without rupture: Code(s): I71.4 - Abdominal aortic aneurysm, without rupture Category: Medical Qualifiers: Abdominal aorta location: infrarenal aorta Qualified Code(s): I71.43 - Infrarenal abdominal aortic aneurysm, without rupture Plan: In short patient has radiologic evidence of a AAA on on ultrasound. We have discussed the pathophysiology of aortic aneurysms and the risk of ruptures. We have discussed rupture risk based on size. In addition we have discussed conservative measures and risk factor modification for prevention of increase in size of the aneurysm. the patient is scheduled for surveillance follow-up in approximately 1 year. Thank you for allowing us to participate in the care of this patient Orders: Orders US abdominal aortic aneurysm 1 Year I71.43 - Infrarenal abdominal aortic aneurysm, without rupture Coding Level of Care Code Est Pt Level 4 (10396) Diagnoses Infrarenal abdominal aortic aneurysm (AAA) without rupture I71.43 Abdominal aorta location: infrarenal aorta
== END 2024-01-11 11:17 | disposition home or self-care (01) ==
PROVIDERS: PCP General Practice; Visit Provider Surgery Vascular Surgery
DX: I71.43 Infrarenal abdominal aortic aneurysm, without rupture (principal)
CPT/HCPCS: 99214

== ENCOUNTER → 2024-01-11 10:39 | Outpatient (BNVA) | payer MEDICARE, MEDICAID, SELFPAY | PROVIDERS: PCP General Practice; Visit Provider Surgery Vascular Surgery | DX: I71.43 Infrarenal abdominal aortic aneurysm, without rupture (principal) | CPT/HCPCS: 99212 ==

== ENCOUNTER 2024-04-07 08:42 | Outpatient (REF) | payer MEDICARE, MEDICAID, SELFPAY ==
--- OUTSIDE RECORDS SUMMARY | 2024-04-10 09:02 | XMS_ITS | Encounter Summary ---
Author Organization [employer] Address [address] [facility] 7t [place] [address] Care Team Providers Care Yard Caller Name Role Phone Chasity Rincon MD Primary Care Provider [phone] Reason for Visit * Reason Onset Date Comments recall 03/17/2024 Encounter Details Date Type Department Care Team ([facility] st Contact Info) Description 03/17/2024 Telephone [facility] MEDICINE [address] [place], [place] [phone] Taisha Macedo MA recall Social History Tobacco Use Types Packs/Day Years Used Date Smoking Tobacco: Every Day Cigarettes Smokeless Tobacco: Never Alcohol Use Standard Drinks/Week Comments Never 0 (1 standard drink = 0.6 oz pur e alcohol) Alcohol Answer Date Recorded Frequency of Alcohol Consumption Not on file 08/30/2023 Average Number of Drinks Not on file 024 Frequency of Binge Drinking Not on file 03/2023 Score 0 08/30/2023 Depression Answer Date Recorded Patient Health Questionnaire-9 Score 0 08/30/2023 Patient Health Questionnaire-9 Score 0 08/30/2023 Last PHQ-9: Questionnaire Data Not on file 0 08/30/2023 Housing Stability Answer Date Recorded What is your housing situation today? I have vasiliy spence 08/19/[address] you li ve. Do you have problems with any of the following? None of the above 08/19/2023 Food Insecurity Answer Date Recorded Within the past 12 months, y ou worried that your food would run out before you got money to buy more: Never True 08/19/2023 Within the past 12 months,th e food you bought just didn't last and you didn't have enough money to get more: Never True Transportation Answer Date Recorded In the past 12 months, has l ack of transportation kept you from medical appts, meetings, work or from getting things needed for daily living? Yes, it has kept me from medical appointments or getting medications. 08/30/2023 Utilities Answer Date Recorded In the past 12 months, has t he electric, gas, oil or water company threatened to shut off services in your home? No 08/19/2023 Depression Answer Date Recorded Patient Health Questionnaire-2 Score 0 08/30/2023 Internet Access Answer Date Recorded Internet Access Q1 Yes 11/01/2023 Internet Access Q2 Not on file 11/01/2023 Sex and Gender Information Value Date Recorded Sex Assigned at Male 12/29/2021 10:21 AM EDT Legal Sex Male 10:21 AM EDT Gender Identity Male 12/29/2021 10:21 AM EDT Sexual Orientation Choose not to disclose 2021 10:21 AM EDT documented as of this encounter Miscellaneous Notes * Telephone Encounter - Taisha Macedo MA - 03/17/2024 12:59 PM EST T/C placed spoke with pt, pt agreed to come in on 05/12/24 at 9:30am documented in this encounter Plan of Treatment Upcoming Encounters Date Type Department Care Team (Late st Contact Info) Description 05/12/2024 9:30 AM EDT Office Visit [facility] MEDICINE [address] [place] [address] Chasity Rincon MD [address] [place] [address] documented as of this encounter Visit Diagnoses Not on filedocumented in this encounter Additional Health Concerns Assessment Noted Time PHQ-9 Depression Total Score: 0 08/30/19 24 1:31 PM EDT documented as of this encounter Care Teams Yard Caller Relationship Specialty Start Date End Date Chasity Rincon MD [address] [place] [id number] PCP - General Family Medicine 10/21/20 documented as of this encounter
--- OUTSIDE RECORDS SUMMARY | 2024-04-10 09:02 | XMS_ITS | Encounter Summary ---
Author Organization [employer] [facility] Address [address] [place] [address] 7[address] [place] [address] Care Team Providers Care Bookmobile Driver Name Role Phone Chasity Rincon MD Primary Care Provider [phone] Encounter Details Date Type Department Care Team (Late Contact Info) Description 05/06/2022 Orders Only [facility] MEDICINE [address] [place] [address] Chasity Rincon MD [address] [place] [address] [phone] Erectile dysfunction, unspecified erectile dysfunction type (Primary Dx) Social History Tobacco Use Types Packs/Day Years Used Date Smoking Tobacco: Never Assessed Sex and Gender Information Value Date Recorded Sex Assigned at Male 12/29/2021 10:21 AM EDT Legal Sex Male 10:21 AM EDT Gender Identity Male 12/29/2021 10:21 AM EDT Sexual Orientation Choose not to disclose 2021 10:21 AM EDT documented as of this encounter Plan of Treatment Upcoming Encounters Date Type Department Care Team (Late st Contact Info) Description 05/12/2024 9:30 AM EDT Office Visit [facility] MEDICINE [address] [place] [phone] Chasity Rincon MD [address] [place] [address] [phone] documented as of this encounter Visit Diagnoses Diagnosis Erectile dysfunction, unspecified erectile dysfunction type- Primary documented in this encounter Care Teams Bookmobile Driver Relationship Specialty Start Date End Date Chasity Rincon MD [address] [place] [address] [phone] PCP - General Family Medicine 10/21/20 documented as of this encounter
--- OUTSIDE RECORDS SUMMARY | 2024-04-10 09:02 | XMS_ITS | Encounter Summary ---
Author Organization [employer] Address [address] [facility] 7t [place] [address] Care Team Providers Care Supervisor Filling And Packing Name Role Phone Chasity Rincon MD Primary Care Provider [phone] Reason for Visit * Reason Comments Dentures Encounter Details Date Type Department Care Team ([facility] st Contact Info) Description 04/05/2024 9:00 AM EST Office Visit [facility] ADULT DENTAL [address] [place], [place] [phone] Tremayne Rose DDS [address] [place] [address] Ill-fitting dentures (Primary Dx) Social History Tobacco Use Types [...] the past 12 months, has t he [employer], gas, oil or water company threatened to [...] AM EDT documented as of this encounter Last Filed Vital Signs Vital Sign Reading Time Taken Comments Blood Pressure 128/74 04/05/2024 8:41 AM EST Pulse - - Temperature - - Respiratory Rate - - Oxygen Saturation - - Inhaled Oxygen Concentration - - Weight - - Height - - Body Mass Index - - documented in this encounter Progress Notes * Tremayne Rose DDS - 04/05/2024 9:00 AM EST Dental procedures in this visit D0140 - LIMITED ORAL EVALUATION - PROBLEM FOCUSED (Completed) Service provider: Tremayne Rose DDS Billing provider: Tremayne Rose DDS [id number] - ADJUNCTIVE GENERAL SERVICES - PROFESSIONAL VISITS - CASE PRESENTATION, SUBSEQUENT TO DETAILED AND EXTENSIVE TREATMENT PLANNING (Completed) Service provider: Tremayne Rose DDS Billing provider: Tremayne Rose DDS Patient ID: Curt Ramires is a 68 y.o. male. Time Out: Timeout Date: 04/05/24 (broken partial), Timeout Time: 0841 Location: [facility] Tooth: Mandible Procedure: Dentures Verified the above with patient, automotive service assistant, and provider. Confirmed via patient's chart, intraorally and by radiographs. Twisting Operator: not applicable Chief Complaint Patient presents with Dentures Medical Hx: Vitals: Blood pressure 128/74. Past Medical History: Diagnosis Date AAA (abdominal aortic aneurysm) without rupture (CMS/HCC) Alcohol dependence with alcohol-induced persisting dementia (CMS/HCC) Arthritis BPH (benign prostatic hyperplasia) ED (erectile dysfunction) HLD (hyperlipidemia) Hypertension Medications: Outpatient Encounter Medications as of 04/05/2024 Medication Sig Dispense Refill acetaminophen (Tylenol) 500 MG tablet Take 1 tablet (500 mg) by mouth every 6 (six) hours if neededfor mild pain for up to 20 doses. 20 tablet 0 Artificial Tears 1.4 % ophthalmic solution PLACE 1 DROP INTO THE AFFECTED EYE(S) 4-6 TIMES DAILY ASNEEDED ascorbid acid ER (Vitamin C) 500 MG ER capsule TAKE 1 CAPSULE BY MOUTH EVERY OTHER DAY IN THE MORNING WITH WATER 45 capsule 3 atorvastatin (Lipitor) 20 MG tablet TAKE 1 Tablet BY MOUTH AT BEDTIME 90 tablet 3 buPROPion SR (Wellbutrin SR) 150 MG 12 hr tablet TAKE 1 TABLET BY MOUTH TWICE DAILY IN THE MORNING AND IN THE EVENING cyanocobalamin (Vitamin B-12) 1000 MCG tablet Take 1,000 mcg by mouth at bedtime. D3 Super Strength 50 MCG (2000 UT) capsule TAKE 1 CAPSULE BY MOUTH EVERY MORNING 90 capsule 3 docusate sodium (Colace) 100 MG capsule TAKE 1 CAPSULE BY MOUTH TWICE DAILY NEEDED FOR CONSTIPATION 180 capsule 3 DULoxetine (Cymbalta) [address] capsule Take 60 mg by mouth in the evening. Ferrous Sulfate (iron) 325 (65 Fe) MG tablet TAKE 1 TABLET BY MOUTH EVERY OTHER DAY IN THE MORNING WITH WATER OR ORANGE JUICE 45 tablet 3 fluticasone (Flonase) 50 MCG/ACT nasal spray USE 2 SPRAYS IN EACH NOSTRIL EVERY MORNING 48 g 5 folic acid (Folvite) 1 MG tablet TAKE 1 TABLET BY MOUTH EVERY MORNING 90 tablet 3 gabapentin (Neurontin) 300 MG capsule TAKE 1 CAPSULE BY MOUTH THREE TIMES DAILY IN THE MORNING, EVENING, AND BEDTIME 90 capsule 11 ketorolac (Acular) 0.5 % ophthalmic solution PLACE 1 DROP IN THE AFFECTED EYE THREE TIMES DAILY DIRECTED STARTING 2 DAYS BEFORE YOUR SURGERY, CONTINUE DIRECTED Lidoderm 5 % patch APPLY 2 PATCHES TOPICALLY TO AFFECTED AREA(S) ONCE DAILY FOR PAIN loratadine (Claritin) 10 MG tablet TAKE 1 TABLET BY MOUTH EVERY MORNING 90 tablet 3 Multiple Vitamin (Multivitamin) tablet TAKE 1 TABLET BY MOUTH EVERY MORNING 90 tablet 3 OLANZapine (ZyPREXA) 2.5 MG tablet Take 1 tablet by mouth in the morning. omeprazole (PriLOSEC) [address] capsule TAKE 1 CAPSULE BY MOUTH TWICE DAILY DO NOT BREAK, CRUSH, DISSOLVE OR CHEW 180 capsule 3 oxybutynin XL (Ditropan-XL) 10 MG 24 hr tablet Take 10 mg by mouth at bedtime. sildenafil (Viagra) 50 MG tablet Take 0.5-1 tablets (25-50 mg) by mouth if needed each day for erectile dysfunction. 15 tablet 3 thiamine (Vitamin B-1) 100 MG tablet TAKE 1 TABLET BY MOUTH EVERY MORNING 90 tablet 3 traZODone (Desyrel) 150 MG tablet TAKE 2 TABLETS BY MOUTH EVERY DAY AT BEDTIME (NO MORE THAN 2 TABLETS NIGHTLY) 60 tablet 11 [DISCONTINUED] atorvastatin (Lipitor) 20 MG tablet TAKE 1 TABLET BY MOUTH AT BEDTIME 90 tablet 3 [DISCONTINUED] docusate sodium (Colace) 100 MG capsule TAKE 1 CAPSULE BY MOUTH TWICE DAILY NEEDED FOR CONSTIPATION 180 capsule 3 No facility-administered encounter medications on file as of 04/05/2024. Subjective: Pain: No Duration: No Objective: Tooth: #23, #24, #25, and #26 Radiographs Taken: No Radiographic Findings: No Clinical Findings: Fractured devonte. RPD involving teeth #s 23 to 26 Swelling: No Endo Testing: N/A Perio: Stable Other Findings: Max. Denture good retention Diagnosis: Ill-fitting devonte. RPD Assessment/Plan: Wash impressions taken / sent to [facility] Repair devonte. RPD fractured flange / add a mesh / lingual bar to it. Prescriptions: No Pt tolerated procedure well, all questions answered. Dismissed in good condition. NV: Delivery repair Marine Operations Coordinator: Maira Carrasco Dentist: Tremayne Rose DDS documented in this encounter Plan of Treatment Upcoming Encounters Date Type Department Care Team (Late st Contact Info) Description 05/12/2024 9:30 AM EDT Office Visit [facility] MEDICINE [address] [place] [address] Chasity Rincon MD [address] [place] [address] Scheduled Orders Name Type Priority Associated Diagnoses Orde r Schedule PROSTHODONTICS (REMOVABLE) - REPAIRS TO PARTIAL DENTURES - REPAIR RESIN PARTIAL DENTURE BASE, MANDIBULAR Dental Routine [address] arting 04/05/2024 documented as of this encounter Procedures Procedure Name Priority Date/Time Associated Diagnosis Comments LIMITED ORAL EVALUATION - PROBLEM FOCUSED Routine 04/05/2024 9:00 AM EST ADJUNCTIVE GENERAL SERVICES - PROFESSIONAL VISITS - CASE PRESENTATION, SUBSEQUENT TO DETAILED AND EXTENSIVE TREATMENT PLANNING Routine 04/05/2024 9:00 AM EST documented in this encounter Visit Diagnoses Diagnosis Ill-fitting dentures- Primary documented in this encounter Additional Health Concerns Assessment Noted Time PHQ-9 Depression Total Score: 0 08/30/19 24 1:31 PM EDT documented as of this encounter Care Teams Supervisor Filling And Packing Relationship Specialty Start Date End Date Chasity Rincon MD [address] [place] [address] PCP - General Family Medicine 10/21/20 documented as of this encounter
--- OUTSIDE RECORDS SUMMARY | 2024-04-10 09:02 | XMS_ITS | Encounter Summary ---
Author Organization [email or web address] Address [address] [place] [address] [address] [place] [address] Care Team Providers Care Community Health Program Coordinator Name Role Phone Chasity Rincon MD Primary Care Provider [phone] Reason for Visit * Reason Comments Med Refill Encounter Details Date Type Department Care Team ([facility] Contact Info) Description 12/02/2022 Refill [facility] CHC MED & PEDS [address] [place], [place] [phone] Chasity Rincon MD [address] [place], [place] [phone] Gastroesophageal reflux disease without esophagitis Social History Tobacco Use Types Packs/Day Years Used Date Smoking Tobacco: Every Day Cigarettes Smokeless Tobacco: Never Alcohol Use Standard Drinks/Week Comments Never 0 (1 standard drink = 0.6 oz pur e alcohol) PHQ-2 Answer Date Recorded Patient Health Questionnaire-2 Score 0 07/20/2022 Depression Answer Date Recorded Patient Health Questionnaire-2 Score 0 07/20/2022 Sex and Gender Information Value Date Recorded Sex Assigned at Male 12/29/2021 10:21 AM EDT Legal Sex Male 10:21 AM EDT Gender Identity Male 12/29/2021 10:21 AM EDT Sexual Orientation Choose not to disclose 2021 10:21 AM EDT documented as of this encounter Plan of Treatment Upcoming Encounters Date Type Department Care Team ([facility] Contact Info) Description 05/12/2024 9:30 AM EDT Office Visit [facility] MEDICINE [address] [place], [place] [phone] Chasity Rincon MD [address] [place], [place] [phone] documented as of this encounter Visit Diagnoses Diagnosis Gastroesophageal reflux disease without esophagitis Esophageal reflux documented in this encounter Care Teams Community Health Program Coordinator Relationship Specialty Start Date End Date Chasity Rincon MD [address] [place] [phone] PCP - General Family Medicine 10/21/20 documented as of this encounter
--- OUTSIDE RECORDS SUMMARY | 2024-04-10 09:02 | XMS_ITS | Encounter Summary ---
Author Organization [facility] Address [address] [place] [address] 7t [place] [address] Care Team Providers Care Powerhouse Oiler Name Role Phone Chasity Rincon MD Primary Care Provider [phone] Encounter Details Date Type Department Care Team (Late st Contact Info) Description 03/13/2022 Orders Only [facility] MEDICINE [address] [place], [place] [phone] Ioana Blood LPN Social History Tobacco Use Types Packs/Day Years Used Date Smoking Tobacco: Never Assessed Sex and Gender Information Value Date Recorded Sex Assigned at Male 12/29/2021 10:21 AM EDT Legal Sex Male 10:21 AM EDT Gender Identity Male 12/29/2021 10:21 AM EDT Sexual Orientation Choose not to disclose 2021 10:21 AM EDT documented as of this encounter Miscellaneous Notes * Result Encounter Note - Chasity Rincon MD - 03/13/2022 8:42 AM EST Please let patient know normal testosterone levels and normal prostate function. documented in this encounter Plan of Treatment Upcoming Encounters Date Type Department Care Team (Late st Contact Info) Description 05/12/2024 9:30 AM EDT Office Visit [facility] MEDICINE [address] [place], [place] [phone] Chasity Rincon MD [address] [place], [place] [phone] documented as of this encounter Procedures Procedure Name Priority Date/Time Associated Diagnosis Comments PSA, TOTAL WITH REFLEX TO PSA, FREE Routine 04/22/2022 10:41 AM EST TESTOSTERONE, FREE (DIALYSIS) AND TOTAL,MS Routine 04/22/2022 10:41 AM EST documented in this encounter Results * Testosterone, Free (Dialysis) And Total, MS (04/22/2022 10:41 AM EST) Testosterone, Total 424 250 - 1100 ng/dL [facility] Comment:Men with clinically significant hypogonadalsymptoms and testosterone values repeatedly inthe range of the 200-300 ng/dL or less, maybenefit from testosterone treatment afteradequate risk and benefits counseling.For additional information, please refer tohttp://[email or web address]/faq/[email or web address](This link is being provided for informational/educational purposes only.)This test was developed and its analytical performancecharacteristics have been determined by [place] It hasnot been cleared or approved by the U.S. Food and DrugAdministration. This assay has been validated pursuantto the CLIA regulations and is used for clinicalpurposes. Testosterone, Free 57.7 35.0 - 155.0 pg/mL [facility] Comment:This test was develo ped and its analytical performancecharacteristics have been determined by [employer] [place], [place]. It hasnot been cleared or approved by the U.S. Food and DrugAdministration. This assay has been validated pursuantto the CLIA regulations and is used for clinicalpurposes.THIS TEST WAS PERFORMED AT:[employer] [id number] [place] [id number] DE LA VEGA MD,PHD 04/22/2022 10:4 1 AM EST 04/22/2022 10:41 AM EST us [facility] External Provider LAB BLO OD ORDERABLES Final Result [facility] [address] [place] [address] [phone] * PSA, Total With Reflex to PSA, Free (04/22/2022 10:41 AM EST) PSA,Total (Free>4and<10) 1.22 0.00 - 4.00 ng/mL [facility] Comment:A Free PSA was not p erformed: The percentage of Free PSA can be used to enhance the differentiation of prostate cancer from benign prostatic disease in subjects whose PSA levels are between 4.0 and 10.0 ng/mL. For subjects whose PSA levels are below 4.0 or above 10.0 ng/mL, the risk of prostate cancer is determined on the basis of the PSA alone. Therefore the % Free PSA is recommended only for those subjects whose PSA levels are between 4.0 and 10.0 ng/mL.PSA methodology: [employer] ChemiluminescentMicroparticle Immunoassay (CMIA) 04/22/2022 10:4 1 AM EST 04/22/2022 10:41 AM EST [facility] External Provider LAB BLO OD ORDERABLES Final Result [facility] [address] [place] [address] [phone] documented in this encounter Visit Diagnoses Not on filedocumented in this encounter Care Teams Powerhouse Oiler Relationship Specialty Start Date End Date Chasity Rincon MD [address] [place] [phone] PCP - General Family Medicine 10/21/20 documented as of this encounter
--- OUTSIDE RECORDS SUMMARY | 2024-04-10 09:02 | XMS_ITS | Clinical Summary ---
Author Organization [employer] Address [address] [place] [address] 7[address] [place] [address] Care Team Providers Care Passenger Train Braker Name Role Phone Chasity Rincon MD Primary Care Provider [phone] Allergies No known active allergies Medications fluticasone (Flonase) 50 MCG/ACT nasal sprayIndications: Allergic rhinitis, unspecified seasonality, unspecified trigger USE 2 SPRAYS IN EACH NOSTRIL EVERY MORNING 48 g 5 023 Active cyanocobalamin (Vitamin B-12) 1000 MCG tablet Take 1,000 mcg by mouth at bedtime. 022 Active Lidoderm 5 % patch APPLY 2 PATCHES TOPICALLY TO AFFECTED AREA(S) ONCE DAILY FOR PAIN Active Artificial Tears 1.4 % ophthalmic solution PLACE 1 DROP INTO THE AFFECTED EYE(S) 4-6 TIMES DAILY NEEDED 022 Active sildenafil (Viagra) 50 MG tabletIndications :Erectile dysfunction, unspecified erectile dysfunction type Take 0.5-1 tablets (25-50 mg) by mouth if needed each day for erectile dysfunction. 15 tablet 3 023 Active traZODone (Desyrel) 150 MG tabletIndications :Primary insomnia TAKE 2 TABLETS BY MOUTH EVERY DAY AT BEDTIME (NO MORE THAN 2 TABLETS NIGHTLY) 60 tablet 11 023 Active buPROPion SR (Wellbutrin SR) 150 MG 12 hr tablet TAKE 1 TABLET BY MOUTH TWICE DAILY IN THE MORNING AND IN THE EVENING Active DULoxetine (Cymbalta) [address] capsule Take 60 mg by mouth in the evening. 023 Active oxybutynin XL (Ditropan-XL) 10 MG 24 hr tablet Take 10 mg by mouth at bedtime. 023 Active folic acid (Folvite) 1 MG tabletIndications :Alcoholism (CMS/HCC) TAKE 1 TABLET BY MOUTH EVERY MORNING 90 tablet 3 024 Active D3 Super Strength 50 MCG (1999 UT) capsuleIndication s:Alcoholism (CMS/HCC) TAKE 1 CAPSULE BY MOUTH EVERY MORNING 90 capsule 3 024 Active thiamine (Vitamin B-1) 100 MG tabletIndications :Alcoholism (CMS/HCC) TAKE 1 TABLET BY MOUTH EVERY MORNING 90 tablet 3 024 Active ketorolac (Acular) 0.5 % ophthalmic solution PLACE 1 DROP IN THE AFFECTED EYE THREE TIMES DAILY DIRECTED STARTING 2 DAYS BEFORE YOUR SURGERY, CONTINUE DIRECTED Active acetaminophen (Tylenol) 500 MG tablet Take 1 tablet (500 mg) by mouth every 6 (six) hours if needed for mild pain for up to 20 doses. 20 tablet 024 Active Ferrous Sulfate (iron) 325 (65 Fe) MG tablet TAKE 1 TABLET BY MOUTH EVERY OTHER DAY IN THE MORNING WITH WATER OR ORANGE JUICE 45 tablet 3 024 Active ascorbid acid ER (Vitamin C) 500 MG ER capsule TAKE 1 CAPSULE BY MOUTH EVERY OTHER DAY IN THE MORNING WITH WATER 45 capsule 3 024 Active OLANZapine (ZyPREXA) 2.5 MG tablet Take 1 tablet by mouth in the morning. 024 Active omeprazole (PriLOSEC) [address] capsule TAKE 1 CAPSULE BY MOUTH TWICE DAILY DO NOT BREAK, CRUSH, DISSOLVE OR CHEW 180 capsule 3 024 Active loratadine (Claritin) 10 MG tablet TAKE 1 TABLET BY MOUTH EVERY MORNING 90 tablet 3 024 Active Multiple Vitamin (Multivitamin) tabletIndications :Healthcare maintenance TAKE 1 TABLET BY MOUTH EVERY MORNING 90 tablet 3 024 Active gabapentin (Neurontin) 300 MG capsule TAKE 1 CAPSULE BY MOUTH THREE TIMES DAILY IN THE MORNING, EVENING, AND BEDTIME 90 capsule 11 025 Active atorvastatin (Lipitor) 20 MG tabletIndications :Secondary nonischemic congestive cardiomyopathy (CMS/HCC) TAKE 1 Tablet BY MOUTH AT BEDTIME 90 tablet 3 025 Active docusate sodium (Colace) 100 MG capsuleIndication s:Other constipation TAKE 1 CAPSULE BY MOUTH TWICE DAILY NEEDED FOR CONSTIPATION 180 capsule 3 025 Active docusate sodium (Colace) 100 MG capsuleIndication s:Other constipation TAKE 1 CAPSULE BY MOUTH TWICE DAILY NEEDED FOR CONSTIPATION 180 capsule 3 024 2024 Discontinued atorvastatin (Lipitor) 20 MG tabletIndications :Secondary nonischemic congestive cardiomyopathy (CMS/HCC) TAKE 1 TABLET BY MOUTH AT BEDTIME 90 tablet 3 024 2024 Discontinued Active Problems Problem Noted Date Diagnosed Date Ill-fitting dentures 04/05/2024 Severe dental caries 08/31/2023 Pre-op evaluation 06/25/2023 Assessment & Plan (06/25/2023 1:54 PM EDT): Patient is average risk for low risk procedure Hold NSAIDs and ASA 5-7 days prior to procedure Routine pain control Mixed conductive and sensori neural hearing loss of both ears 06/25/2023 Assessment & Plan (06/25/2023 1:52 PM EDT): Referral to audiology Tried over the counter hearing aids, but they were not useful Partial edentulism 2022 Periodontal disease 2022 Blurry vision 07/20/2022 Assessment & Plan (11/24/2022 12:06 PM EDT): Called vision center and confirmed that patient can go down and make an appointment Abdominal aortic aneurysm without rupture 2022 Assessment & Plan (08/31/2023 6:59 AM EDT): Stable in size < 5cm Continue f/u with Dr Jayla Dotson for annual ultrasound, gave him the order to [facility] radiology Assessment & Plan (11/24/2022 12:05 PM EDT): Stable in size < 5cm Continue f/u with Dr Dickerson Assessment & Plan (07/20/2022 10:55 AM EDT): Follow up with vascular for annual exam Last measurement AAA at 4.5cm Assessment & Plan (03/29/2022 6:15 PM EST): Follow up with vascular for annual exam Closed fracture of iliac wing 03/27/2022 Urge incontinence of urine 03/27/2022 Lumbar radiculopathy 11/24/2021 Osteoarthritis of left knee 11/24/2021 Assessment & Plan (08/31/2023 7:02 AM EDT): Walk with cane for gait aid and safety Can use NSAIDs sparingly, Ibuprofen 400-600mg Continue Cymbalta 60mg daily Continue prn Tylenol Explained that the risks of opioid use probably outweigh the benefits for him If he changes his mind about injections or surgery, he can always return to orthopedics Assessment & Plan (07/20/2022 10:56 AM EDT): Walk with cane Can use NSAIDs sparingly, Ibuprofen 600mg ordered Assessment & Plan (03/29/2022 6:15 PM EST): Continue to walk as tolerated Weight bearing exercise Max 3gm of Tylenol daily Can reconsult ortho if he desires Postural dizziness 11/24/2021 Erectile dysfunction 11/25/2020 Assessment & Plan (08/31/2023 7:00 AM EDT): Sees urology at [facility], Catherine Bunn Continue prn Viagra Alcoholism 05/26/2017 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 Tremor 05/26/2017 Allergic rhinitis 12/05/2014 Cigarette smoker 12/05/2014 Assessment & Plan (08/31/2023 7:05 AM EDT): Declines cessation aids Encouraged this as it could help with pain and aneurysm 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 Assessment & Plan (08/31/2023 6:58 AM EDT): Encouraged continued abstinence, to the greatest degree possible Essential hypertension 12/05/2014 Assessment & Plan (08/31/2023 6:59 AM EDT): Maintenance: Lisinipril-hydrochlorothiazide 20/25 BMP: Cr 1.12 eGFR > 60 Lipid Panel: On Atorvastatin 20mg ASCVD Risk: The 10-year ASCVD risk score (Sydney GRACIA, et al., 2019) is: 20.4% Values used to calculate the score: Age: 68 years Sex: Male Is Non- : No Diabetic: No Tobacco smoker: Yes Systolic Blood Pressure: 150 mmHg Is BP treated: No HDL Cholesterol: 41 mg/dL Total Cholesterol: 135 mg/dL EKG: Obtain baseline at f/u - Aerobic exercise to reduce BP. Initial goal of 30 min walk 3-5x/week. Increase as tolerated. - low-sodium diet (goal: <2g/day) and heart healthy diet such as DASH to reduce BP and prevent ASCVD. - Home BP monitoring 1-2 x day with goal of <140/90. - Seek immediate medical attention for chest pain, palpitations, SOB, syncope, or sudden changes in mental status. - Do not change or discontinue current prescriptions without first consulting health care provider Assessment & Plan (07/20/2022 10:57 AM EDT): Maintenance: Lisinipril-hydrochlorothiazide 20/25 BMP: Cr 1.12 eGFR > 60 Lipid Panel: On Atorvastatin 20mg ASCVD Risk: Calculate pending updated labs EKG: Obtain baseline at f/u - Aerobic exercise to reduce BP. Initial goal of 30 min walk 3-5x/week. Increase as tolerated. - low-sodium diet (goal: <2g/day) and heart healthy diet such as DASH to reduce BP and prevent ASCVD. - Home BP monitoring 1-2 x day with goal of <140/90. - Seek immediate medical attention for chest pain, palpitations, SOB, syncope, or sudden changes in mental status. - Do not change or discontinue current prescriptions without first consulting health care provider Assessment & Plan (03/29/2022 6:17 PM EST): Maintenance: LIsinipril-hydrochlorothiazide 20/25 BMP: Cr 0.8. eGFR > 90 Lipid Panel: On Atorva 20mg ASCVD Risk: Calculate pending updated labs EKG: Obtain baseline at f/u - Aerobic exercise to reduce BP. Initial goal of 30 min walk 3-5x/week. Increase as tolerated. - low-sodium diet (goal: <2g/day) and heart healthy diet such as DASH to reduce BP and prevent ASCVD. - Home BP monitoring 1-2 x day with goal of <140/90. - Seek immediate medical attention for chest pain, palpitations, SOB, syncope, or sudden changes in mental status. - Do not change or discontinue current prescriptions without first consulting health care provider Vitamin D deficiency 12/05/2014 Encounters Date Type Department Care Team Description 04/05/2024 9:00 AM EST Office Visit [facility] [address] [place] [address] Tremayne Rose DDS Ill-fitting dentures (Primary Dx) 04/04/2024 Refill [facility] [address] [place] [address] Chasity Rincon MD Secondary nonischemic congestive cardiomyopathy (CMS/HCC); Other constipation 03/17/2024 Telephone [facility] [address] [place] [address] Taisha Macedo MS recall 03/03/2024 Refill [facility] [address] [place] [address] Chasity Rincon MD 02/22/2024 Refill [facility] [address] [place] [address] Chasity Rincon MD Healthcare maintenance 01/25/2024 Refill [facility] [address] [place] [address] Chasity Rincon MD 01/10/2024 Telephone [facility] [address] [place] [address] Chasity Rincon MD from Last 3 Months Immunizations Name Administration Dates Next Due Influenza High-dose Quadrivalent Preservative Fr ee 01/06/2022 Influenza, Split (incl. purified surface antigen ) 01/23/2013,12/10/2011 Pneumococcal Polysaccharide PPSV23 12/03/2010 Td (adult), 5 Lf tetanus tox oid, preservative free, adsorbed 11/29/2013 Tdap 10/24/2015,12/03/2010 Family History Medical History Relation Name Comments Diabetes Father Relation Name Status Comments Father Social History Tobacco Use Types Packs/Day Years Used Date Smoking Tobacco: Every Day Cigarettes Smokeless Tobacco: Never Tobacco Cessation:Ready to Q uit: Not Asked; Counseling Given: Not Answered Alcohol Use Standard Drinks/Week Comments Never 0 [...] the past 12 months, has t he [employer], gas, oil or water company threatened to [...] not to disclose 2021 10:21 AM EDT Last Filed Vital Signs Vital Sign Reading Time Taken Comments Blood Pressure 128/74 04/05/2024 8:41 AM EST Pulse 80 08/31/2023 8:51 AM EDT Temperature 36.3 ??C (97.3 ??F) 08/30/2023 1:29 PM ED T Respiratory Rate 20 08/30/2023 1:29 PM EDT Oxygen Saturation 98% 12/01/2022 11:20 AM EDT Inhaled Oxygen Concentration - - Weight 62 kg (136 lb 9.6 oz) 08/30/2023 1:29 PM EDT Height 170.2 cm (5' 7 ) 08/30/2023 1:29 PM EDT Body Mass Index 21.39 08/30/2023 1:29 PM EDT Plan of Treatment Upcoming Encounters Date Type Department Care Team (Late st Contact Info) Description 05/12/2024 9:30 AM EDT Office Visit [facility] [address] [place], [place] [phone] Chasity Rincon MD [address] [place], [place] [phone] Health Maintenance Due Date Last Done Comments CT Colonography 1957 Colonoscopy 1957 Colorectal Cancer Screening 1957 FIT DNA/Cologuard 1957 FIT 1957 FOBT 1957 Sigmoidoscopy 1957 Hepatitis A Vaccines (1 of 2 - Risk 2-dose series) 1976 Zoster Vaccines (1 of 2) 08/11/2007 Pneumococcal Vaccine: 50+ Years (2 of 2 - PCV) 12/04/2011 12/03/2010 Dental X-Ray: Bitewings 11/16/2015 11/14/2014, 11/05 Dental Prophylaxis 02/26/2023 08/26/2022, 0 06/07/2020, 01/13/2016, Additional history exists COVID-19 Vaccine ( season) 2023 03/14/2021, 09/10/2020, 08/20/2020 Influenza Vaccine (#1) 2023 , 01/23/2013, 12/10/2011 Dental Oral Exam 03/03/2024 08/31/2023, 01/2023, 06/07/2020, Additional history exists Alcohol/Substance Use Screening 08/29/2024 08/30/2023 Depression Screening 08/29/2024 08/30/2023, 08/30/19 24 SDOH Screening 08/29/2024 08/30/2023 Tobacco Screening 04/05/2025 04/05/2024 Dental X-Ray: Full Mouth 08/11/2025 023, 05/30/2013, 11/05/2010 DTaP/Tdap/Td Vaccines (4 - Td or Tdap) 10/23/2025 10/24/2015, 11/29/2013, 12/03/2010 Lipid Panel 01/16/2027 01/16/2022, 04/29/2020 RSV Patients and Patients Aged 60 years or older (1 - 1-dose 75+ series) 2032 Hepatitis C Screening Completed 08/31/2023 HIB Vaccines Aged Out No longer eligi ble based on patient's age to complete this topic HPV Vaccines Aged Out No longer eligi ble based on patient's age to complete this topic Hepatitis B Vaccines Aged Out No long er eligible based on patient's age to complete this topic IPV Vaccines Aged Out No longer eligi ble based on patient's age to complete this topic Meningococcal Vaccine Aged Out No becky sabrina eligible based on patient's age to complete this topic RSV under 20 months Aged Out No longe r eligible based on patient's age to complete this topic Rotavirus Vaccines Aged Out No longer eligible based on patient's age to complete this topic Procedures Procedure Name Priority Date/Time Associated Diagnosis Comments ADJUNCTIVE GENERAL SERVICES - PROFESSIONAL VISITS - CASE PRESENTATION, SUBSEQUENT TO DETAILED AND EXTENSIVE TREATMENT PLANNING Routine 04/05/2024 9:00 AM EST LIMITED ORAL EVALUATION - PROBLEM FOCUSED Routine 04/05/2024 9:00 AM EST HEPATITIS C AB W/REFL TO HCV RNA, QN, PCR Routine 08/31/2023 10:02 AM EDT Need for hepatitis C screening test PERIODIC ORAL EVALUATION - ESTABLISHED PATIENT Routine 08/31/2023 9:00 AM EDT PROPHYLAXIS - ADULT Routine 08/26/2022 1 1:00 AM EDT PANORAMIC RADIOGRAPHIC IMAGE Routine 2022 11:00 AM EDT LIPID PANEL, STANDARD Routine 01/16/2022 8:40 AM EST BITEWINGS - 4 RADIOGRAPHIC IMAGES Routine 11/14/2014 12:00 AM EDT from Last 3 Months or Most Recently Relevant to Health Maintenance Results * Hepatitis C Antibody with Reflex to HCV, RNA, Quantitative, Real-Time PCR (08/31/2023 10:02 AM EDT) Hepatitis C Antibody Nonreactive Nonreactive [facility] Comment:Antibodies to HCV no t detected; does not exclude early acuteHCV infection. Blood Venous blood specimen / Unknown 08/31/2023 10:02 AM EDT 08/31/2023 10:58 AM EDT us Chasity Rincon MD LAB BLOOD ORDERABLES Final Res ult Performing Organization Address City/State/[facility] Co de Phone Number [facility] [address] [place] [phone] * LIPID PANEL, STANDARD (01/16/2022 8:40 AM EST) Chol/HDLC Ratio 3.3 <5.0 (calc) [facility] Cholesterol, Total 135 <200 mg/dL [facility] HDL Cholesterol 41 > OR = 40 mg/dL [facility] LDL Cholesterol 72 mg/dL (calc) [facility] Comment: Reference range: <100 ?? Desirable range <100 mg/dL for primary prevention; ?? <70 mg/dL for patients with CHD or diabetic patients ?? with > or = 2 CHD risk factors. ?? LDL-C is now calculated using the Kavya ?? calculation, which is a validated novel method providing ?? better accuracy than the Friedewald equation in the ?? estimation of LDL-C. ?? Royal DELACRUZ et al. SAURAV. 2013;310(19): 8416-2711 ?? (http://education.Bitcast/faq/MML267) Non-HDL Cholesterol 94 <130 mg/dL (calc) [facility] Comment: For patients with diabetes plus 1 major ASCVD risk ?? factor, treating to a non-HDL-C goal of <100 mg/dL ?? (LDL-C of <70 mg/dL) is considered a therapeutic ?? option. Triglycerides 135 <150 mg/dL [facility] 01/16/2022 8:40 AM EST us Chasity Rincon MD LAB BLOOD ORDERABLES Final Res ult [facility] from Last 3 Months or Most Recently Relevant to Health Maintenance Insurance [facility] STANDARD MEDICARE DENTAL-[facility] MEDICAID STAND ADULT Care Teams Passenger Train Braker Relationship Specialty Start Date End Date Chasity Rincon MD [address] [place] [phone] PCP - General Family Medicine 10/21/20
--- OUTSIDE RECORDS SUMMARY | 2024-04-10 09:02 | XMS_ITS | Encounter Summary ---
Author Organization [employer] [facility] Address [address] [place] [address] [address] [place] [address] Care Team Providers Care Associate Field Service Engineer Name Role Phone Chasity Rincon MD Primary Care Provider [phone] Encounter Details Date Type Department Care Team (Latest Contact Info) Description 06/07/2020 Abstract [facility] CONVERSIONS Dental, Provider, DDS Social History Tobacco Use Types Packs/Day Years [...] Description 05/12/2024 9:30 AM EDT Office Visit [facility] [address] [place] [address] Chasity Rincon MD [address] [place] [address] documented as of this encounter Visit Diagnoses Not on filedocumented in this encounter Care Teams Associate Field Service Engineer Relationship Specialty Start Date End Date Chasity Rincon MD [address] [place] [address] PCP - General Family Medicine 10/21/20 documented as of this encounter
--- OUTSIDE RECORDS SUMMARY | 2024-04-10 09:02 | XMS_ITS | Encounter Summary ---
Author Organization [employer] Address [address] [facility] [address] [place] [address] Care Team Providers Care Loading Machine Adjuster Name Role Phone Chasity Rincon MD Primary Care Provider [phone] Reason for Visit * Reason Comments Med Refill Encounter Details Date Type Department Care Team (Late st Contact Info) Description 04/04/2024 Refill [facility] [address] [place] [address] Chasity Rincon MD [address] [place] [address] Secondary nonischemic congestive cardiomyopathy (CMS/HCC); Other constipation Social History Tobacco Use Types Packs/Day Years [...] the past 12 months, has t he [employer], gas, oil or water company threatened to [...] Description 05/12/2024 9:30 AM EDT Office Visit [facility] [address] [place] [address] Chasity Rincon MD [address] [place] [address] documented as of this encounter Visit Diagnoses Diagnosis Secondary nonischemic congestive cardiomyopathy (CMS/HCC) Other constipation documented in this encounter Additional Health Concerns Assessment Noted Time PHQ-9 Depression Total Score: 0 08/30/19 24 1:31 PM EDT documented as of this encounter Care Teams Loading Machine Adjuster Relationship Specialty Start Date End Date Chasity Rincon MD [address] [place] [address] PCP - General Family Medicine 10/21/20 documented as of this encounter
--- OUTSIDE RECORDS SUMMARY | 2024-04-10 09:02 | XMS_ITS | Encounter Summary ---
Author Organization [employer] Address [address] [place] [address] [address] [place] [address] Care Team Providers Care Sheriff Detective Name Role Phone Chasity Rincon MD Primary Care Provider [phone] Reason for Visit * Reason Comments Med Refill Encounter Details Date Type Department Care Team ([facility] Contact Info) Description 12/01/2022 Refill [facility] [address] [place], [place] [phone] Chasity Rincon MD [address] [place], [place] [phone] Gastroesophageal reflux disease without esophagitis Social History [...] Upcoming Encounters Date Type Department Care Team ([facility] Contact Info) Description 05/12/2024 9:30 AM EDT Office Visit [facility] [address] [place], [place] [phone] Chasity Rincon MD [address] [place], [place] [phone] documented as of this encounter Visit Diagnoses Diagnosis Gastroesophageal reflux disease without esophagitis Esophageal reflux documented in this encounter Care Teams Sheriff Detective Relationship Specialty Start Date End Date Chasity Rincon MD [address] [place] [phone] PCP - General Family Medicine 10/21/20 documented as of this encounter
== END 2024-04-07 08:43 | disposition home or self-care (01) ==
LOC: HO.HOSX 08:42
PROVIDERS: Visit Provider Physician Assistant
DX: Z13.89 Encounter for screening for other disorder (principal)

== ENCOUNTER 2024-05-12 10:04 | Outpatient (REF) | payer MEDICARE, MEDICAID, SELFPAY ==
[2024-05-12 11:23] LABS: MANUAL DIFF FLAG NO
[2024-05-12 11:39] LABS: Basophils Absolute Auto 0.1 X10*3/uL (0.0-0.2); Basophils Percent Auto 0.5 % (0-2); Eosinophils Absolute Auto 0.1 X10*3/uL (0.0-0.4); Eosinophils Percent Auto 0.9 % (0-4); Hematocrit 42.9 % (42.0-52.0); Hemoglobin 14.3 g/dl (14.0-18.0); Imm Gran Abs Auto 0.07 X10*3/uL (0.00-0.03); Imm Gran Pct Auto 0.5 % (0.0-0.4); Lymphocytes Percent Auto 21.7 % (20-40); Mean Corpuscular HGB Conc 33.3 g/dl (31.0-36.0); Mean Corpuscular Hemoglobin 33.4 pg (27.0-33.0); Mean Corpuscular Volume 100.2 fL (80.0-98.0); Mean Platelet Volume 12.5 fL (9.4-12.4); Monocytes Absolute Auto 0.8 X10*3/uL (0.1-1.2); Monocytes Percent Auto 5.5 % (2-11); Neutrophils Absolute Auto 9.8 x10*3/uL (2.0-8.3); Neutrophils Percent Auto 70.9 % (45-73); Platelet Count 167 X10*3/uL (160-400); Red Blood Count 4.28 X10*6/uL (4.60-5.80); Red Cell Distribution Width 12.9 % (11.0-16.0); White Blood Count 13.9 X10*3/uL (4.8-10.8)
[2024-05-12 11:55] LABS: Alanine Aminotransferase 31 U/L (0-40); Albumin Level 3.8 g/dL (3.5-5.0); Alkaline Phosphatase 86 U/L (39-117); Anion Gap 11 (12-20); Aspartate Amino Transferase 38 U/L (5-37); Bilirubin Total 0.4 mg/dL (0.0-1.0); Blood Urea Nitrogen 11 mg/dL (9-16); Calcium 9.5 mg/dL (8.4-10.2); Carbon Dioxide 26 mmol/L (22-29); Chloride 110 mmol/L (96-108); Cholesterol 151 mg/dL (<200); Estimated Glomerular Filt Rate > 60; Glucose Random 97 mg/dL (60-115); HDL Cholesterol 32 mg/dL (>40); LDL Cholesterol Calculated 78 mg/dL (<100); Potassium 3.6 mmol/L (3.3-5.1); Sodium 143 mmol/L (135-145); Total Protein 7.6 g/dL (6.5-8.0); Triglycerides 205 mg/dL (<150)
== END 2024-05-12 10:05 | disposition home or self-care (01) ==
LOC: HO.HHCL 10:04
PROVIDERS: Visit Provider General Practice
DX: I10 Essential (primary) hypertension (principal); F10.27 Alcohol dependence with alcohol-induced persisting dementia
CPT/HCPCS: 36415; 80053; 80061; 85025

== ENCOUNTER 2024-06-12 09:14 | Outpatient (REF) | payer MEDICARE, MEDICAID, SELFPAY ==
--- NOTE | ~2024-06-12 | XR_ITS ---
EXAMINATION: XR SOFT TISSUE NECK CLINICAL INDICATION: feels something stuck in his thorat COMPARISON: Correlation made with CT neck 10/21/2018. TECHNIQUE: 2 views of the soft tissue neck were obtained. FINDINGS: Soft tissue films of the neck demonstrate a normal larynx, pharynx and upper trachea. Normal epiglottis. Patent airway. No prevertebral soft tissue swelling or radiopaque foreign body is demonstrated. There are hearing aids in place. The maxilla is edentulous. The paranasal sinuses demonstrate no evidence of of fluid levels. There are bilateral moderate carotid bulb calcifications. Lung apices are clear. Moderate degenerative spondylosis of the cervical spine most significant at C6-7. XR/XR soft tissue neck IMPRESSION: 1. No radiopaque foreign body identified. 2. Soft tissue structures appear normal. 3. Degenerative changes of the cervical spine. Electronically signed by: Mathew Sinha MD 06/12/2024 09:36 AM EDT
--- OUTSIDE RECORDS SUMMARY | 2024-06-12 10:11 | XMS_ITS | Clinical Summary ---
Author Organization [employer] Address [address] [place] [address] [address] [place] [address] Care Team Providers Care Foreign Legal Consultant Name Role Phone Chasity Rincon MD Primary Care Provider [phone] Allergies No known active allergies Medications fluticasone (Flonase) 50 MCG/ACT nasal sprayIndications: Allergic rhinitis, unspecified seasonality, unspecified trigger USE 2 SPRAYS IN EACH NOSTRIL EVERY MORNING 48 g 5 023 Active cyanocobalamin (Vitamin B-12) 1000 MCG tablet Take 1,000 mcg by mouth at bedtime. 022 Active Artificial Tears 1.4 % ophthalmic solution PLACE 1 DROP INTO THE AFFECTED EYE(S) 4-6 TIMES DAILY NEEDED 022 Active traZODone (Desyrel) 150 MG tabletIndications :Primary insomnia TAKE 2 TABLETS BY MOUTH EVERY DAY AT BEDTIME (NO MORE THAN 2 TABLETS NIGHTLY) 60 tablet 11 023 Active DULoxetine (Cymbalta) [address] capsule Take 60 mg by mouth in the evening. 023 Active Ferrous Sulfate (iron) 325 (65 Fe) [...] FOR CONSTIPATION 180 capsule 3 025 Active thiamine (Vitamin B-1) 100 MG tabletIndications :Alcoholism (CMS/HCC) TAKE 1 TABLET BY MOUTH EVERY MORNING 90 tablet 3 025 Active D3 Super Strength 50 MCG (1999 UT) capsuleIndication s:Alcoholism (CMS/HCC) TAKE 1 CAPSULE BY MOUTH EVERY MORNING 90 capsule 3 025 Active folic acid (Folvite) 1 MG tabletIndications :Alcoholism (CMS/HCC) TAKE 1 TABLET BY MOUTH EVERY MORNING 90 tablet 3 025 Active buPROPion SR (Wellbutrin SR) 150 MG 12 hr tablet Take 1 tablet (150 mg) by mouth 2 times daily. Do not crush, chew, or split. 180 tablet 3 025 Active Lidoderm 5 % patch APPLY 2 PATCHES TOPICALLY TO AFFECTED AREA(S) ONCE DAILY FOR PAIN 022 2024 Discontinued(T herapy completed) sildenafil (Viagra) 50 MG tabletIndications :Erectile dysfunction, unspecified erectile dysfunction type Take 0.5-1 tablets (25-50 mg) by mouth if needed each day for erectile dysfunction. 15 tablet 3 023 2024 Discontinued(T herapy completed) buPROPion SR (Wellbutrin SR) 150 MG 12 hr tablet TAKE 1 TABLET BY MOUTH TWICE DAILY IN THE MORNING AND IN THE EVENING 023 2024 Discontinued(R eorder (will not trigger notification to Pharmacy)) oxybutynin XL (Ditropan-XL) 10 MG 24 hr tablet Take 10 mg by mouth at bedtime. 023 2024 Discontinued(T herapy completed) ketorolac (Acular) 0.5 % ophthalmic solution PLACE 1 DROP IN THE AFFECTED EYE THREE TIMES DAILY DIRECTED STARTING 2 DAYS BEFORE YOUR SURGERY, CONTINUE DIRECTED 024 2024 Discontinued(T herapy completed) acetaminophen (Tylenol) 500 MG tablet Take 1 tablet (500 mg) by mouth every 6 (six) hours if needed for mild pain for up to 20 doses. 20 tablet 024 2024 Discontinued(T herapy completed) oxyCODONE-acetami nophen (Percocet) 5-325 MG tabletIndications :Primary osteoarthritis of left knee TAKE 1 TABLET BY MOUTH DAILY NEEDED FOR SEVERE PAIN 8 tablet 025 2024 Active Problems Problem Noted Date Diagnosed Date Throat pain in adult 06/12/2024 Oropharyngeal dysphagia 06/12/2024 Assessment & Plan (06/12/2024 9:21 AM EDT): Getting worse for the past 2 months. Concerned about malignancy due to strong history of smoking. Will order x-rays of the neck to rule out foreign body obstruction Order upper GI series with barium swallow Reach out to GI for an appointment then reach out to his DOUBLE END PRODUCTION GRINDER who keeps track of his appointments. Continue pantoprazole for GERD Advised to quit smoking Ill-fitting dentures 04/05/2024 Severe dental caries 08/31/2023 Mixed conductive and sensori neural hearing loss [...] < 5cm Continue f/u with Dr Dickerson Overdchelsy for annual ultrasound, gave him the order to [facility] radiology Assessment & Plan (11/24/2022 12:05 [...] of left knee 11/24/2021 Assessment & Plan (05/17/2024 11:58 AM EDT): Walk with cane for gait aid and safety Can use NSAIDs sparingly, Ibuprofen 400-600mg Continue Cymbalta 60mg daily Continue prn Tylenol Offered trial of Percocet 5/325mg once daily x 30 days F/u with me after that time to evaluate pain relief and conduct UDS prior to ongoing prescriptions Assessment & Plan (08/31/2023 7:02 AM EDT): [...] (08/31/2023 7:00 AM EDT): Sees urology at [facility], Catherine Bunn Continue prn Viagra Alcoholism 05/26/2017 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 Assessment & Plan (05/17/2024 11:58 AM EDT): Walk as much as tolerated Smoking cessation advised Tremor 05/26/2017 Allergic rhinitis 12/05/2014 Cigarette smoker [...] Risk: The 10-year ASCVD risk score (Sydney DK, et al., 2019) is: 20.4% Values used [...] health care provider Vitamin D deficiency 12/05/2014 Resolved Problems Problem Noted Date Diagnosed Date Resolved Date Diabetes due to undrl condit ion w oth diabetic neuro comp 05/12/2024 05/17/2024 Pre-op evaluation 06/25/2023 05/17/2024 Assessment & Plan (06/25/2023 1:54 PM EDT): Patient is average risk for low risk procedure Hold NSAIDs and ASA 5-7 days prior to procedure Routine pain control Encounters Date Type Department Care Team Description 06/12/2024 8:40 AM EDT Office Visit [facility] [address] [place] [phone] Throat pain in adult (Primary Dx); Oropharyngeal dysphagia 06/12/2024 Telephone [facility] [address] [place] [phone] Chasity Rincon MD Appointment Confirmation 06/12/[address] [address] Chasity Rincon MD refill 06/12/2024 Travel 05/17/2024 Telephone [facility] [address] [place] [phone] Chasity Rincon MD Results 05/12/2024 9:30 AM EDT Office Visit [address] [address] Chasity Rincon MD Primary osteoarthritis of left knee (Primary Dx); Essential hypertension; Moderate dementia associated with alcoholism, without behavioral disturbance, psychotic disturbance, mood disturbance, or anxiety (CMS/HCC); Abdominal aortic aneurysm (AAA) without rupture, unspecified part (CMS/HCC); Secondary nonischemic congestive cardiomyopathy (CMS/HCC); Cigarette smoker; Mixed conductive and sensorineural hearing loss of both ears 05/12/2024 Refill [facility] [address] [place] [phone] Chasity Rincon MD Primary osteoarthritis of left knee 05/12/2024 Travel 05/04/2024 Patient Outreach [address] [address] Chasity Rincon MD Pre-visit Planning (SDOH screening negative and tobacco screening negative) 05/02/2024 Refill [facility] [address] [place] [phone] Chasity Rincon MD Alcoholism (CMS/HCC) 04/20/2024 9:30 AM EST Office Visit [facility] [address] [place] [phone] Tremayne Rose DDS Partial edentulism, unspecified edentulism class (Primary Dx) 04/05/2024 9:00 AM EST Office Visit [facility] [address] [place] [phone] Tremayne Rose DDS Ill-fitting dentures (Primary Dx) 04/04/2024 Refill [facility] [address] [place], [place] [phone] Chasity Rincon MD Secondary nonischemic congestive cardiomyopathy (CMS/HCC); Other constipation 03/17/2024 Telephone [facility] [address] [place], [place] [phone] Taisha Macedo [place] recall from Last 3 Months Immunizations Name Administration [...] Used Date Smoking Tobacco: Every Day Cigarettes Passive Smoke Exposure: Current Smokeless Tobacco: Never Tobacco Cessation:Ready to Q [...] from getting things needed for daily living? No 05/04/2024 Intimate Partner Violence Answer Date R ecorded Within the last year, have y ou been afraid of your partner or ex-partner? 2 05/17/2024 Within the last year, have y ou been humiliated or emotionally abused in other ways by your partner or ex-partner? 2 Within the last year, have y ou been kicked, hit, slapped, or otherwise physically hurt by your partner or ex-partner? 2 05/17/2024 Within the last year, have y ou been raped or forced to have any kind of sexual activity by your partner or ex-partner? 2 05/17/2024 Utilities Answer Date Recorded In the past [...] Sign Reading Time Taken Comments Blood Pressure 153/82 06/12/2024 8:43 AM EDT Pulse 94 06/12/2024 8:43 AM EDT Temperature 36.4 ??C (97.6 ??F) 06/12/2024 8:43 AM ED T Respiratory Rate 18 05/12/2024 9:10 AM EDT Oxygen Saturation 98% 06/12/2024 8:43 AM EDT Inhaled Oxygen Concentration - - Weight 67.3 kg (148 lb 6 oz) 06/12/2024 8:43 AM EDT Height 170.2 cm (5' 7 ) 06/12/2024 8:43 AM EDT Body Mass Index 23.24 06/12/2024 8:43 AM EDT Plan of Treatment Upcoming Encounters Date Type Department Care Team (Late st Contact Info) Description 07/11/2024 11:30 AM EDT Office Visit [facility] [address] [place] [address] Chasity Rincon MD [address] [place] [address] Health Maintenance Due Date Last Done Comments CT Colonography 1955 Colonoscopy 1955 Colorectal Cancer Screening 1955 FIT DNA/Cologuard 1955 FIT 1955 FOBT 1955 Sigmoidoscopy 1955 Zoster Vaccines (1 of 2) 08/11/2007 Pneumococcal [...] Screening 08/29/2024 08/30/2023, 08/30/19 24 SDOH Screening 05/04/2025 05/04/2024 Tobacco Screening 05/17/2025 05/17/2024 Dental X-Ray: Full Mouth 08/11/2025 023, 05/30/2013, 11/05/2010 DTaP/Tdap/Td Vaccines (4 - Td or Tdap) 10/23/2025 10/24/2015, 11/29/2013, 12/03/2010 Lipid Panel 05/12/2029 05/12/2024, 12/30, 04/29/2020 RSV Patients and Patients Aged 60 years or older (1 - 1-dose 75+ series) 2032 Hepatitis C Screening Completed 08/31/2023 HIB Vaccines Aged Out No longer eligi ble based on patient's age to complete this topic HPV Vaccines Aged Out No longer eligi ble based on patient's age to complete this topic Hepatitis A Vaccines Aged Out No long er eligible [...] Procedure Name Priority Date/Time Associated Diagnosis Comments XR NECK SOFT TISSUE Routine 06/12/2024 9 :15 AM EDT Throat pain in adult CBC WITH AUTO DIFFERENTIAL Routine 05/12/2024 10:07 AM EDT Moderate dementia associated with alcoholism, without behavioral disturbance, psychotic disturbance, mood disturbance, or anxiety (CMS/HCC) LIPID PANEL, STANDARD Routine 05/12/2024 10:07 AM EDT Essential hypertension COMPREHENSIVE METABOLIC PANEL Routine 05/12/2024 10:07 AM EDT Essential hypertension CASE PRESENTATION, DETAILED AND EXTENSIVE TREATMENT PLANNING Routine 04/20/2024 9:30 AM EST REPAIR RESIN PARTIAL DENTURE BASE, NYASIA Routine 04/20/2024 9:30 AM EST CASE PRESENTATION, DETAILED AND EXTENSIVE TREATMENT PLANNING Routine 04/05/2024 [...] RADIOGRAPHIC IMAGE Routine 2022 11:00 AM EDT BITEWINGS - 4 RADIOGRAPHIC IMAGES Routine 11/14/2014 12:00 AM EDT from Last 3 Months or Most Recently Relevant to Health Maintenance Results * XR Neck Soft Tissue (06/12/2024 9:15 AM EDT) Anatomical Region Laterality Modality Head, Neck Radiographic Zaida ging 06/12/2024 9:15 AM EDT Narrative 06/12/2024 9:39 AM EDT ?[facility] ?[address] ?[place] [address] ?XRay Report ? Signed ? Patient: Curt Saravia ?MR#: [id number] ?? [id number] ? : 1955 ?Acct:[id number] ? Age/Sex: 68 / M ?ADM Date: 06/12/24 ? Loc: HO.HHCX ? Attending Dr: Reanna Trevizo MD ? Ordering Physician: Reanna Trevizo MD ?? Date of Service: 06/12/24 ?? Procedure(s): XR soft tissue neck ?? Accession Number(s): [id number] ? cc: Reanna Trevizo MD ? EXAMINATION: ?? XR SOFT TISSUE NECK ? CLINICAL INDICATION: ?? feels something stuck in his thorat ? COMPARISON: ?? Correlation made with CT neck 10/21/2018. ? TECHNIQUE: ?? 2 views of the soft tissue neck were obtained. ? FINDINGS: ?? Soft tissue films of the neck demonstrate a normal larynx, pharynx and ?? upper trachea. Normal epiglottis. Patent airway. ?? No prevertebral soft tissue swelling or radiopaque foreign body is ?? demonstrated. ?? There are hearing aids in place. ?? The maxilla is edentulous. ?? The paranasal sinuses demonstrate no evidence of of fluid levels. ? There are bilateral moderate carotid bulb calcifications. ?? Lung apices are clear. ? Moderate degenerative spondylosis of the cervical spine most ?? significant at C6-7. ? XR/XR soft tissue neck ?? IMPRESSION: ?? 1. No radiopaque foreign body identified. ?? 2. Soft tissue structures appear normal. ?? 3. Degenerative changes of the cervical spine. ? Electronically signed by: ??Mathew Sinha MD ??06/12/2024 09:36 AM EDT RP ?? Work[id number] ? Dictated By: ?Mathew Sinha MD ? Signed By: ?<Electronically signed by Mathew Sinha MD in OV> ?06/12/24 0936 ? DD/ 0915 ? TD/TT: 06/12/24 0930 ? Bolting Machine Operator: ? Procedure Note Donjayantomegadentonter, Image - 06/12/[address] [address] XRay Report Signed Patient: Curt SaraviaMR#: [id number] : 8Acct:[id number] Age/Sex: 68 / MADM Date: 06/12/24 Loc: HO.HHCX Attending Dr: Reanna Trevizo MD Ordering Physician: Reanna Trevizo MD Date of Service: 06/12/24 Procedure(s): XR soft tissue neck Accession Number(s): [id number] cc: Reanna Trevizo MD EXAMINATION: XR SOFT TISSUE NECK CLINICAL INDICATION: feels something stuck in his thorat COMPARISON: Correlation made with CT neck 10/21/2018. TECHNIQUE: 2 views of the soft tissue neck were obtained. FINDINGS: Soft tissue films of the neck demonstrate a normal larynx, pharynx and upper trachea. Normal epiglottis. Patent airway. No prevertebral soft tissue swelling or radiopaque foreign body is demonstrated. There are hearing aids in place. The maxilla is edentulous. The paranasal sinuses demonstrate no evidence of of fluid levels. There are bilateral moderate carotid bulb calcifications. Lung apices are clear. Moderate degenerative spondylosis of the cervical spine most significant at C6-7. XR/XR soft tissue neck IMPRESSION: 1. No radiopaque foreign body identified. 2. Soft tissue structures appear normal. 3. Degenerative changes of the cervical spine. Electronically signed by: Mathew Sinha MD 06/12/2024 09:36 AM EDT Dictated By: Mathew Sinha MD Signed By: <Electronically signed by Mathew Sinha MD in OV> 06/12/2436 DD/ 4 TD/TT: 06/12/24929 Bolting Machine Operator: Reanna Trevizo MD IMG XR PROCEDURES Edited Result - Final * (ABNORMAL) CBC auto differential (05/12/2024 10:07 AM EDT) White Blood Count 13.9(H) 4.8 - 10.8 X10*3/uL [facility] Red Blood Count 4.28(L) 4.60 - 5.80 X10*6/uL [facility] Hemoglobin 14.3 14.0 - 18.0 g/dl [facility] Hematocrit 42.9 42.0 - 52.0 % [facility] Mean Corpuscular Volume 100.2(H) 80.0 - 98.0 fL [facility] Mean Corpuscular Hemoglobin 33.4(H) 27.0 - 33.0 pg [facility] Mean Corpuscular HGB Conc 33.3 31.0 - 36.0 g/dl [facility] Red Cell Distribution Width 12.9 11.0 - 16.0 % [facility] Platelet Count 167 160 - 400 X10*3/uL [facility] Mean Platelet Volume 12.5(H) 9.4 - 12.4 fL [facility] Neutrophils Percent Auto 70.9 45 - 73 % [facility] Imm Gran Pct Auto 0.5(H) 0.0 - 0.4 % [facility] Lymphocytes Percent Auto 21.7 20 - 40 % [facility] Monocytes Percent Auto 5.5 2 - 11 % [facility] Eosinophils Percent Auto 0.9 0 - 4 % [facility] Basophils Percent Auto 0.5 0 - 2 % [facility] NRBC Pct Auto 0.0 0.0 - 0.2 /100WBC [facility] Neutrophils Absolute Auto 9.8(H) 2.0 - 8.3 x10*3/uL [facility] Imm Gran Abs Auto 0.07(H) 0.00 - 0.03 X10*3/uL [facility] Lymphocytes Absolute Auto 3.0 1.2 - 4.9 X10*3/uL [facility] Monocytes Absolute Auto 0.8 0.1 - 1.2 X10*3/uL [facility] Eosinophils Absolute Auto 0.1 0.0 - 0.4 X10*3/uL [facility] Basophils Absolute Auto 0.1 0.0 - 0.2 X10*3/uL [facility] NRBC Abs Auto 0.000 0.0 - 0.012 X10*3/uL [facility] Blood Venous blood specimen / Unknown 05/12/2024 10:07 AM EDT 05/12/2024 11:15 AM EDT us Chasity Rincon MD LAB BLOOD ORDERABLES Final Res ult [facility] [address] [place] [phone] * (ABNORMAL) Lipid Panel, Standard (05/12/2024 10:07 AM EDT) Triglycerides 205(H) <150 mg/dL [facility] Comment:Desirable Triglyceri de: less than 150 mg/dLBorderline High Triglyceride 150-199 mg/dLHigh Triglyceride: 200-499 mg/dLVery High Triglyceride: greater than or equal to 5OO mg/dL Cholesterol 151 <200 mg/dL [facility] Comment:Desirable Cholestero l: less than 200 mg/dLBorderline High Cholesterol: 200-239 mg/dLHigh Cholesterol: greater than 239 mg/dL LDL Cholesterol Calculated 78 <100 mg/dL [facility] Comment:Desirable LDL: less than 100 mg/dLNear Optimal/Above Optimal LDL: 110- 129 mg/dLBorderline High LDL: 130-159 mg/dLHigh LDL: 160-189 mg/dLVery High LDL: greater than or equal to 190 mg/dL HDL Cholesterol 32(L) >40 mg/dL [facility] Comment:Desirable HDL: great er than 40 mg/dL Note: This HDL assay may give artificially low results in patients with liver disease. Blood Venous blood specimen / Unknown 05/12/2024 10:07 AM EDT 05/12/2024 11:15 AM EDT us Chasity Rincon MD LAB BLOOD ORDERABLES Final Res ult [facility] [address] [place] [phone] * (ABNORMAL) Comprehensive Metabolic Panel (05/12/2024 10:07 AM EDT) Sodium 143 135 - 145 mmol/L [facility] Potassium 3.6 3.3 - 5.1 mmol/L [facility] Chloride 110(H) 96 - 108 mmol/L [facility] Carbon Dioxide 26 22 - 29 mmol/L [facility] Anion Gap 11(L) 12 - 20 [facility] Urea Nitrogen (BUN) 11 9 - 16 mg/dL [facility] Creatinine, Serum 0.77 0.5 - 1.4 mg/dL [facility] Estimated Glomerular Filt Rate >60 [facility] Comment:Chronic Kidney Disea se: Estimated GFR < 60 mL/min/[id number] Kidney Disease: Estimated GFR < 15 mL/min/1.73m2 Glucose 97 60 - 115 mg/dL [facility] Calcium 9.5 8.4 - 10.2 mg/dL [facility] Bilirubin, Total 0.4 0.0 - 1.0 mg/dL [facility] Aspartate Amino Transferase 38(H) 5 - 37 U/L [facility] Alanine Aminotransferase 31 0 - 40 U/L [facility] Total Protein 7.6 6.5 - 8.0 g/dL [facility] Albumin Level 3.8 3.5 - 5.0 g/dL [facility] Alkaline Phosphatase 86 39 - 117 U/L [facility] Blood Venous blood specimen / Unknown 05/12/2024 10:07 AM EDT 05/12/2024 11:15 AM EDT us Chasity Rincon MD LAB BLOOD ORDERABLES Final Res ult Performing Organization Address [facility]/ZIP Co de Phone Number [facility] [address] [place] [phone] * Hepatitis C Antibody with Reflex to HCV, RNA, Quantitative, Real-Time PCR (08/31/2023 10:02 AM EDT) Hepatitis C Antibody Nonreactive Nonreactive [facility] Comment:Antibodies to HCV no t detected; does not exclude early acuteHCV infection. Blood Venous blood specimen / Unknown 08/31/2023 10:02 AM EDT 08/31/2023 10:58 AM EDT us Chasity Rincon MD LAB BLOOD ORDERABLES Final Res ult Performing Organization Address [facility] Co de Phone Number [facility] [address] [place] [phone] from Last 3 Months or Most Recently Relevant to Health Maintenance Insurance [facility] STANDARD MEDICARE [place] ST[place] AD[place] Care Teams Foreign Legal Consultant Relationship Specialty Start Date End Date Chasity Rincon MD [address] [place] [address] PCP - General Family Medicine 10/21/20
--- OUTSIDE RECORDS SUMMARY | 2024-06-12 10:11 | XMS_ITS | Encounter Summary ---
Author Organization [employer] Address [address] [place] [address] Care Team Providers Care Pig Iron Loader Name Role Phone Chasity Rincon MD Primary Care Provider [phone] Reason for Visit * Reason Onset Date Comments refill 06/12/2024 Encounter Details Date Type Department Care Team ([facility] st Contact Info) Description 06/12/2024 Telephone [facility] [address] [place], [place] [phone] Chasity Rincon MD [address] [place], [place] [phone] refill Social History Tobacco Use Types Packs/Day Years Used Date Smoking Tobacco: Every Day Cigarettes Passive Smoke Exposure: Current Smokeless Tobacco: Never Alcohol Use Standard Drinks/Week [...] the past 12 months, has t he [employer], gas, oil or water company threatened to [...] encounter Miscellaneous Notes * Telephone Encounter - Alysha Vaughan RN - 06/12/2024 9:51 AM EDT [facility] reviewed 06/12/24, last p/u on 05/19/24 for a 7 day supply. Per OV note on 05/12/24: Osteoarthritis of left knee - Primary Current Assessment & Plan Walk with cane for gait aid and safety Can use NSAIDs sparingly, Ibuprofen 400-600mg Continue Cymbalta 60mg daily Continue prn Tylenol Offered trial of Percocet 5/325mg once daily x 30 days F/u with me after that time to evaluate pain relief and conduct UDS prior to ongoing prescriptions Please review and advise if agreeable to refill Oxycodone-Acetaminophen 5-325 (RN will pend if needed). Thank you! * Telephone Encounter - Gabriela Soto - 06/12/2024 9:43 AM EDT Pt walked in requesting refill for Percocet. documented in this encounter Plan of Treatment Upcoming Encounters Date Type Department Care Team (Late st Contact Info) Description 07/11/2024 11:30 AM EDT Office Visit [facility] [address] [place] [address] Chasity Rincon MD [address] [place] [phone] documented as of this encounter Visit Diagnoses Not on filedocumented in this encounter Additional Health Concerns Assessment Noted Time PHQ-9 Depression Total Score: 0 08/30/19 24 1:31 PM EDT documented as of this encounter Care Teams Pig Iron Loader Relationship Specialty Start Date End Date Chasity Rincon MD [address] [place] [phone] PCP - General Family Medicine 10/21/20 documented as of this encounter
--- OUTSIDE RECORDS SUMMARY | 2024-06-12 10:11 | XMS_ITS | Encounter Summary ---
Author Organization [employer] [facility] Address [address] [place] [address] 7[address] [place] [address] Care Team Providers Care Building Admin Name Role Phone Chasity Rincon MD Primary Care Provider [phone] Encounter Details Date Type Department Care Team (Late st Contact Info) Description 03/13/2022 Orders Only [facility] [address] [place], [place] [phone] Ioana Blood LPN Social History Tobacco Use [...] Description 07/11/2024 11:30 AM EDT Office Visit [facility] [address] [place], [place] [phone] Chasity Rincon MD [address] [place], [place] [phone] documented as of this encounter Procedures Procedure Name Priority Date/Time Associated Diagnosis Comments PSA, TOTAL WITH REFLEX TO PSA, FREE Routine 04/22/2022 10:41 AM EST TESTOSTERONE, FREE (DIALYSIS) AND TOTAL,MS Routine 04/22/2022 10:41 AM EST documented in this encounter Results * Testosterone, Free (Dialysis) And Total, MS (04/22/2022 10:41 AM EST) Testosterone, Total 424 250 - 1100 ng/dL [facility] Comment:Men with clinically significant hypogonadalsymptoms and testosterone values repeatedly inthe range of the 200-300 ng/dL or less, maybenefit from testosterone treatment afteradequate risk and benefits counseling.For additional information, please refer tohttp://education.Isonas/faq/CxhhzRtbjqqccfkevEMJNJRHXH686(This link is being provided for informational/educational purposes only.)This test was developed and its analytical performancecharacteristics have been determined by [employer] [place]. It hasnot been cleared or approved by the U.S. Food and DrugAdministration. This assay has been validated pursuantto the CLIA regulations and is used for clinicalpurposes. Testosterone, Free 57.7 35.0 - 155.0 pg/mL [facility] Comment:This test was develo ped and its analytical performancecharacteristics have been determined by [employer] [place], [place]. It hasnot been cleared or approved by the U.S. Food and DrugAdministration. This assay has been validated pursuantto the CLIA regulations and is used for clinicalpurposes.THIS TEST WAS PERFORMED AT:[employer] [id number] [place] [address]YLLONHCKUSH DE LA VEGA MD,PHD 04/22/2022 10:4 1 AM EST 04/22/2022 10:41 AM EST us [facility] External Provider LAB BLO OD ORDERABLES Final Result [facility] [address] [place] [address] [phone] * PSA, Total With Reflex to PSA, Free (04/22/2022 10:41 AM EST) PSA,Total (Free>4and<10) 1.22 0.00 - 4.00 ng/mL [facility] Comment:A Free PSA was not p [...] are between 4.0 and 10.0 ng/mL.PSA methodology: divorce360nity i ChemiluminescentMicroparticle Immunoassay (CMIA) 04/22/2022 10:4 1 AM EST 04/22/2022 10:41 AM EST [facility] External Provider LAB BLO OD ORDERABLES Final Result [facility] [address] [place] [address] [phone] documented in this encounter Visit Diagnoses Not on filedocumented in this encounter Care Teams Building Admin Relationship Specialty Start Date End Date Chasity Rincon MD [address] [place] [phone] PCP - General Family Medicine 10/21/20 documented as of this encounter
--- OUTSIDE RECORDS SUMMARY | 2024-06-12 10:11 | XMS_ITS | Encounter Summary ---
Author Organization [employer] Address [address] [place] [address] [address] [address] Care Team Providers Care Supervisor Carbon Paper Coating Name Role Phone Chasity Rincon MD Primary Care Provider [phone] Reason for Visit * Reason Comments Med Refill Encounter Details Date Type Department Care Team ([facility] Contact Info) Description 12/01/2022 Refill [facility] MED & PEDS [address] [place], [place] [phone] Chasity Rincon MD [address] [place], [place] [phone] Gastroesophageal reflux disease without esophagitis Social History [...] Upcoming Encounters Date Type Department Care Team ([facility] Contact Info) Description 07/11/2024 11:30 AM EDT Office Visit [facility] MEDICINE [address] [place], [place] [phone] Chasity Rincon MD [address] [place], [place] [phone] documented as of this encounter Visit Diagnoses Diagnosis Gastroesophageal reflux disease without esophagitis Esophageal reflux documented in this encounter Care Teams Supervisor Carbon Paper Coating Relationship Specialty Start Date End Date Chasity Rincon MD [address] [place] [phone] PCP - General Family Medicine 10/21/20 documented as of this encounter
--- OUTSIDE RECORDS SUMMARY | 2024-06-12 10:11 | XMS_ITS | Encounter Summary ---
Author Organization [employer] Address [address] [facility] 7t [place] [address] Care Team Providers Care Junior Recruiter Name Role Phone Chasity Rincon MD Primary Care Provider [phone] Encounter Details Date Type Department Care Team (Latest Contact Info) Description 06/12/2024 Travel Social History Tobacco Use Types Packs/Day Years [...] Description 07/11/2024 11:30 AM EDT Office Visit [facility] [address] [place] [address] Chasity Rincon MD [address] [place] [address] documented as of this encounter Visit Diagnoses Not on filedocumented in this encounter Additional Health Concerns Assessment Noted Time PHQ-9 Depression Total Score: 0 08/30/19 24 1:31 PM EDT documented as of this encounter Care Teams Junior Recruiter Relationship Specialty Start Date End Date Chasity Rincon MD [address] [place] [phone] PCP - General Family Medicine 10/21/20 documented as of this encounter
--- OUTSIDE RECORDS SUMMARY | 2024-06-12 10:11 | XMS_ITS | Encounter Summary ---
Author Organization [employer] Address [address] [place] [address] 7[address] [place] [address] Care Team Providers Care Spray Pilot Name Role Phone Chasity Rincon MD Primary Care Provider [phone] Reason for Visit * Reason Comments Med Refill Encounter Details Date Type Department Care Team ([facility] Contact Info) Description 12/02/2022 Refill [facility] MED & PEDS [address] [place], [place] [phone] Chasity Rincon MD [address] [place], [place] [phone] Gastroesophageal reflux disease without esophagitis Social History [...] Upcoming Encounters Date Type Department Care Team ([facility] Contact Info) Description 07/11/2024 11:30 AM EDT Office Visit [facility] MEDICINE [address] [place], [place] [phone] Chasity Rincon MD [address] [place], [place] [phone] documented as of this encounter Visit Diagnoses Diagnosis Gastroesophageal reflux disease without esophagitis Esophageal reflux documented in this encounter Care Teams Spray Pilot Relationship Specialty Start Date End Date Chasity Rincon MD [address] [place] [phone] PCP - General Family Medicine 10/21/20 documented as of this encounter
--- OUTSIDE RECORDS SUMMARY | 2024-06-12 10:11 | XMS_ITS | Encounter Summary ---
Author Organization [employer] [facility] Address [address] [place] [address] 7t [place] [address] Care Team Providers Care Editor Book Name Role Phone Chasity Rincon MD Primary Care Provider [phone] Encounter Details Date Type Department Care Team (Latest Contact Info) Description 06/07/2020 Abstract [facility] Dental, Provider, DDS Social History Tobacco [...] Description 07/11/2024 11:30 AM EDT Office Visit [facility] [address] [place] [address] Chasity Rincon MD [address] [place] [address] documented as of this encounter Visit Diagnoses Not on filedocumented in this encounter Care Teams Editor Book Relationship Specialty Start Date End Date Chasity Rincon MD [address] [place] [address] PCP - General Family Medicine 10/21/20 documented as of this encounter
--- OUTSIDE RECORDS SUMMARY | 2024-06-12 10:11 | XMS_ITS | Encounter Summary ---
Author Organization [facility] [facility] Address [address] [place] [address] 7t [place] [address] Care Team Providers Care Print And Pattern Designer Name Role Phone Chasity Rincon MD Primary Care Provider [phone] Encounter Details Date Type Department Care Team (Late Contact Info) Description 05/06/2022 Orders Only [facility]ICINE [address] [place] [address] Chasity Rincon MD [address] [place] [address] [phone] Erectile dysfunction, unspecified erectile dysfunction type (Primary [...] Encounters Date Type Department Care Team (Late Contact Info) Description 07/11/2024 11:30 AM EDT Office Visit [facility] MEDICINE [address] [place] [phone] Chasity Rincon MD [address] [place] [address] [phone] documented as of this encounter Visit Diagnoses Diagnosis Erectile dysfunction, unspecified erectile dysfunction type- Primary documented in this encounter Care Teams Print And Pattern Designer Relationship Specialty Start Date End Date Chasity Rincon MD [address] [place] [address] [phone] PCP - General Family Medicine 10/21/20 documented as of this encounter
--- OUTSIDE RECORDS SUMMARY | 2024-06-12 10:11 | XMS_ITS | Encounter Summary ---
Author Organization [employer] Address [address] [place] [address] 7t [place] [address] Care Team Providers Care Agricultural Crop Farm Manager Name Role Phone Chasity Rincon MD Primary Care Provider Reason for Referral * Imaging (Routine) - Authorized Specialty Diagnoses / Procedures Referred By Marino telles Referred To Contact Radiology Diagnoses Throat pain in adult Oropharyngeal dysphagia Procedures FL Upper GI w/air w/Barium Swallow Reanna Trevizo MD [address] [place] [address] Phone: tel: fax: [facility] [address] [place] [address] Phone: tel: fax: Referral ID Status Reason Start Date Expiration Date Visits Requested Visits Authorized [id number] Authorized Perform Procedure 06/12/2024 06/12/2025 1 1 Reason for Visit * Reason Comments Throat Problem Encounter Details Date Type Department Care Team (Late st Contact Info) Description 06/12/2024 8:40 AM EDT Office Visit [facility] [address] [place] [address] Throat pain in adult (Primary Dx); Oropharyngeal dysphagia Social History Tobacco Use Types Packs/Day Years [...] Frequency of Binge Drinking Not on file 070 03/2023 Score 0 08/30/2023 Depression Answer Date [...] 06/12/2024 8:43 AM ED T Respiratory Rate - - Oxygen Saturation 98% 06/12/2024 8:43 AM EDT Inhaled Oxygen Concentration - - Weight 67.3 kg (148 lb 6 oz) 06/12/2024 8:43 AM EDT Height 170.2 cm (5' 7 ) 06/12/2024 8:43 AM EDT Body Mass Index 23.24 06/12/2024 8:43 AM EDT documented in this encounter Miscellaneous Notes * Assessment & Plan Note - Reanna Trevizo MD - 06/12/2024 9:19 AM EDT Associated Problem(s): Oropharyngeal dysphagia Getting worse for the past 2 months. Concerned about malignancy due to strong history of smoking. Will order x-rays of the neck to rule out foreign body obstruction Order upper GI series with barium swallow Reach out to GI for an appointment then reach out to his INSTALLER HELPER who keeps track of his appointments. Continue pantoprazole for GERD Advised to quit smoking documented in this encounter Plan of Treatment Upcoming Encounters Date Type Department Care Team (Late st Contact Info) Description 07/11/2024 11:30 AM EDT Office Visit [facility]INE [address] [place] [address] Chasity Rincon MD [address] [place] [address] Scheduled Orders Name Type Priority Associated Diagnoses Orde r Schedule FL Upper GI w/air w/Barium Swallow Imaging Routine Throat pain in adult Oropharyngeal dysphagia Expected: 06/12/2024 (Approximate), Expires: 06/12/2025 documented as of this encounter Procedures Procedure Name Priority Date/Time Associated Diagnosis Comments XR NECK SOFT TISSUE Routine 06/12/2024 9 :15 AM EDT Throat pain in adult documented in this encounter Results * XR Neck Soft Tissue (06/12/2024 9:15 AM EDT) Anatomical Region Laterality Modality Head, Neck Radiographic Zaida ging 06/12/2024 9:15 AM EDT Narrative 06/12/2024 9:39 AM EDT ?[facility] ?[address] ?[place] [address] ?XRay Report ? Signed ? Patient: Curt Saravia ?MR#: [id number] ?? [id number] ? : 1955 ?Acct:[id number] ? Age/Sex: 68 / M ?ADM Date: 06/12/24 ? Loc: HO.HHCX ? Attending Dr: Reanna Trevizo MD ? Ordering Physician: Reanna Trevizo MD ?? Date of Service: 06/12/24 ?? Procedure(s): XR soft tissue neck ?? Accession Number(s): [id number] ? cc: Raenna Trevizo MD ? EXAMINATION: ?? XR SOFT [...] Sinha MD ??06/12/2024 09:36 AM EDT RP ? Dictated By: ?Mathew Sinha MD ? Signed By: ?<Electronically signed by Mathew Sinha MD in OV> ?06/12/24 0936 ? DD/ 0915 ? TD/TT: 06/12/24 0930 ? Computing Architect: ? Procedure Note Donotuseinterpreter, Image - 06/12/[address] [address] XRay Report Signed Patient: Meagan Saravia#: [id number] : 8Acct:[id number] Age/Sex: 68 / MADM Date: 06/12/24 Loc: .HHCX Attending Dr: Reanna Trevizo MD Ordering Physician: Reanna Trevizo MD Date of Service: 06/12/24 Procedure(s): XR soft tissue neck Accession Number(s): [id number] cc: Reanna Trevizo MD EXAMINATION: XR SOFT [...] Mathew Sinha MD 06/12/2024 09:36 AM EDT RP Dictated By: Mathew Sinha MD Signed By: <Electronically signed by Mathew Sinha MD in OV> 06/12/24935 DD/ 4 TD/TT: 06/12/24929 Computing Architect: Reanna Trevizo MD IMG XR PROCEDURES Edited Result - Final documented in this encounter Visit Diagnoses Diagnosis Throat pain in adult- Primary Oropharyngeal dysphagia Dysphagia, oropharyngeal phase documented in this encounter Additional Health Concerns Assessment Noted Time PHQ-9 Depression Total Score: 0 08/30/19 24 1:31 PM EDT documented as of this encounter Care Teams Agricultural Crop Farm Manager Relationship Specialty Start Date End Date Chasity Rincon MD [address] [place] [address] PCP - General Family Medicine 10/21/20 documented as of this encounter
--- OUTSIDE RECORDS SUMMARY | 2024-06-12 10:11 | XMS_ITS | Encounter Summary ---
Author Organization [employer] Address [address] [facility] 7t [place] [address] Care Team Providers Care Jewel Gauger Name Role Phone Chasity Rincon MD Primary Care Provider Reason for Visit * Reason Onset Date Comments Appointment Confirmation 06/12/2024 Encounter Details Date Type Department Care Team ([facility] st Contact Info) Description 06/12/2024 Telephone [facility] MEDICINE [address] [place], [place] [phone] Chasity Rincon MD [address] [place], [place] [phone] Appointment Confirmation Social History Tobacco Use Types Packs/Day Years [...] the past 12 months, has t he [place], gas, oil or water [employer] threatened to shut off services in your [...] encounter Miscellaneous Notes * Telephone Encounter - Olga Ring MA - 06/12/2024 9:51 AM EDT [place] [facility] [place] any upcoming appt for pt. [facility] [place] didn't answer. I called [facility] ONCOLOGY RESEARCH, and provided GI office phone number so RN ONCOLOGY RESEARCH can schedule appt for pt. RN ONCOLOGY RESEARCH agreed to schedule and stated pt didn't want to attend last appt. documented in this encounter Plan of Treatment Upcoming Encounters Date Type Department Care Team (Late st Contact Info) Description 07/11/2024 11:30 AM EDT Office Visit [facility] MEDIC[facility] [address] [place] [address] Chasity Rincon MD [address] [place] [address] documented as of this encounter Visit Diagnoses Not on filedocumented in this encounter Additional Health Concerns Assessment Noted Time PHQ-9 Depression Total Score: 0 08/30/19 24 1:31 PM EDT documented as of this encounter Care Teams Jewel Gauger Relationship Specialty Start Date End Date Chasity Rincon MD [address] [place] [address] PCP - General Family Medicine 10/21/20 documented as of this encounter
== END 2024-06-12 09:15 | disposition home or self-care (01) ==
LOC: HO.HHCX 09:14
PROVIDERS: Visit Provider Internal Medicine
DX: R07.0 Pain in throat (principal)
CPT/HCPCS: 70360

== ENCOUNTER → 2024-06-12 09:15 | Outpatient (BNV) | payer MEDICARE, MEDICAID, SELFPAY | PROVIDERS: Visit Provider Radiology Diagnostic Radiology | DX: R22.1 Localized swelling, mass and lump, neck (principal) | CPT/HCPCS: 70360 ==

== ENCOUNTER 2024-09-21 08:02 | Outpatient (REF) | payer MEDICARE, MEDICAID, SELFPAY ==
--- OUTSIDE RECORDS SUMMARY | 2024-09-21 08:05 | XMS_ITS | Encounter Summary ---
Author Organization [facility] [facility] Address [address] [facility] 7t [place] [address] Care Team Providers Care Welt Treater Name Role Phone Chasity Rincon MD Primary Care Provider [phone] Encounter Details Date Type Department Care Team (Late Contact Info) Description 05/06/2022 Orders Only [facility] MEDICINE [address] [place] [phone] Chasity Rincon MD [address] [place] [address] [phone] Erectile dysfunction, unspecified erectile dysfunction type (Primary [...] Department Care Team (Late Contact Info) Description 10/13/2024 9:45 AM EDT Office Visit [facility] MEDICINE [address] [place] [phone] Chasity Rincon MD [address] [place] [address] [phone] documented as of this encounter Visit Diagnoses Diagnosis Erectile dysfunction, unspecified erectile dysfunction type- Primary documented in this encounter Care Teams Welt Treater Relationship Specialty Start Date End Date Chasity Rincon MD [address] [place] [address] [phone] PCP - General Family Medicine 10/21/20 documented as of this encounter
== END 2024-09-21 08:03 | disposition home or self-care (01) ==
LOC: HO.XRAY 08:02
PROVIDERS: PCP Internal Medicine; Visit Provider Internal Medicine
DX: Z13.89 Encounter for screening for other disorder (principal)

== ENCOUNTER 2024-10-04 13:08 | Outpatient (AMB) | payer MEDICARE, MEDICAID, SELFPAY ==
--- NOTE | 2024-10-04 13:09 | A.OFFVIS_ITS ---
Vital Signs 10/04/24 13:20 Height 5 ft 6 in Weight 142 lb BMI 22.9 BP 140/70 H Blood Pressure Location Rt brachial Position Sitting Pulse 94 Pulse Source Pulse Oximeter Pulse Oximetry (%) 93 Oxygen Delivery Method Room Air Intake Visit Reasons: 30 m. FREDRICK 2021. Dysphagia + screening Intake Note: New pt for colo consult + mgmt of dysphagia. [facility] 2021. CC: Pt is a poor historian and does not remember much about his medical history. He states that his medications are same as always but is not sure what he takes. Pt does not recall ever having a colonoscopy despite one being on record. Pt only reports that he is experiencing dysphagia and a foreign body sensation in the esophagus for ~ 1 year. Claims Supervisor Required: Yes Claims Supervisor Services: Claims Supervisor Present Claims Supervisor Name: Sarai [id number] Information Interpreted: clinical only Accompanied by: Family/Other Allergies No Known Allergies (No Known Allergies*) Allergy (Verified 10/04/24 13:10) HPI HPI 30 m. FREDRICK 2021. Dysphagia + screening: Details: LAST VISIT: 11/24/2021 GERD (gastroesophageal reflux disease) Continue pantoprazole. Discussed with patient avoiding dietary triggers. Patient was encouraged to go and get stool sample for H pylori testing. We will schedule him for upper endoscopy Dysphagia Patient reports trouble swallowing even coffee. Patient reports that he is taking pantoprazole every morning. However patient is very forgetful. Has not done for barium swallow yet. We made an appointment for him for December 03. Written instructions given to him. Patient was reminded to get his stool sample to the lab. Patient states that he does have the containers at home and will try to bring them in. We will also schedule upper endoscopy to further evaluate as mentioned above patient had history of Schatzki ring ballooned in 2013. IBS (irritable bowel syndrome) FODMAP diet discussed with patient. Patient has occasional loose stools, then he will be constipated. Patient was encouraged to eat more fiber. Drink plenty fluids I will see him after his barium swallow to discuss upper endoscopy. Patient is agreeable to this plan and verbalizes understanding of instructions. He was given the opportunity to ask questions and all questions answered. ? Thank you for allowing me to participate in his care TODAY'S VISIT Patient is here today for requested visit. Last office visit in October of 2021. Patient has been worked up for dysphagia in the past. Barium swallow did not show anything in 2021 except for tertiary peristalsis. Patient is taking pantoprazole every morning. Patient reports that he actually feels small round ball when he presses on the right side of his neck that when he swallows it hurts and he is unable to swallow well. X-ray of soft tissue and neck from May did not show any acute findings. Patient continues to smoke cigarettes. Patient denies choking episodes. Reports dysphagia and odynophagia without dyspepsia. Patient never had colonoscopy in the past. [facility] Medical History AAA (abdominal aortic aneurysm) without rupture History of depression Orthostatic hypotension HTN (hypertension) Thrombocytopenia Proteus mirabilis infection Alcohol withdrawal seizure Alcohol abuse with withdrawal Surgical History Hx of colonoscopy Hx of hernia repair Family History Sister Cancer Father Diabetes mellitus Mother No problems noted. Social History Household Members: Caregiver Housing: Apartment Alcohol intake: former Patient Tobacco Use Status: Current everyday Tobacco user Tobacco use type: Cigarette service: No Current occupational status: retired and disabled Review of Systems Const Denies weight gain and Denies weight loss ENT Reports no additional complaints, Reports dysphagia and Reports odynophagia Card Reports no additional complaints Resp Reports no additional complaints GI Denies abdominal pain, Denies belching, Denies melena, Denies bloating, Denies change in bowel habits, Reports dysphagia, Denies excessive flatus, Denies dyspepsia, Denies heartburn, Denies diarrhea, Denies loose stools, Denies nausea, Reports odynophagia and Denies vomiting Reports no additional complaints Musc Reports no additional complaints Neuro Reports no additional complaints Psych Reports no additional complaints Endo Reports no additional complaints Physical Exam Const General: healthy appearing, no acute distress and well developed Nutritional Appearance: well nourished Orientation/consciousness: patient oriented x3 HEENT Head: Yes normal to inspection Mouth: Normal oral and palatal mucosa present, tongue normal and oropharynx normal Throat: No tonsils normal (Enlarged tonsils bilaterally) Neck Neck: Yes normal visual inspection, Yes no lymphadenopathy and Yes trachea midline Resp Effort & Inspection: normal respiratory effort, able to speak in complete sentences, no tracheal deviation and symmetric chest movement Auscultation: clear to auscultation bilaterally Cardio Rate: regular rate GI Inspection: Yes normal to inspection and No distended Palpation (GI): Soft to palpation, not firm, nontender and No hepatosplenomegaly present Auscultation: normal bowel sounds General: Yes no CVA tenderness Back/Spine/Pelvis Back: no CVA tenderness Skin General skin exam: elasticity normal, turgor normal and dry skin Neuro General: patient oriented x3 Psych Appearance: grossly normal Mental Status: mental status grossly normal Results Reviewed Results Reviewed: UPPER GI WITH BARIUM SWALLOW 12/03/2021 FINDINGS: Following oral administration of thick barium and barium-coated chicken and solid food there is normal propagation of bolus from the oral cavity through the pharynx and esophagus into the stomach without any evidence of laryngeal penetration or aspiration. No retention of food seen in the piriform sinuses or valleculae. There is no obstructing or constricting lesions seen. Occasional tertiary peristalsis seen in distal esophagus. FL/FL barium swallow IMPRESSION: Occasional tertiary peristalsis in distal esophagus. No evidence of obstruction, laryngeal penetration or aspiration. Assessment & Plan Assessment & Plan (1) Gastroesophageal reflux disease: Code(s): K21.9 - Gastro-esophageal reflux disease without esophagitis Qualifiers: Esophagitis presence: esophagitis presence not specified Qualified Code(s): K21.9 - Gastro-esophageal reflux disease without esophagitis (2) Dysphagia: Code(s): R13.10 - Dysphagia, unspecified Qualifiers: Dysphagia type: oropharyngeal phase Qualified Code(s): R13.12 - Dysphagia, oropharyngeal phase (3) Irritable bowel syndrome: Code(s): K58.9 - Irritable bowel syndrome, unspecified Qualifiers: Irritable bowel syndrome type: without diarrhea Qualified Code(s): K58.9 - Irritable bowel syndrome, unspecified Plan Patient will be sent to ENT. Will send him for CT soft tissue neck with IV contrast. Will order modified barium swallow with speech therapy. Patient was encouraged to chew well and eat small bites. He will return in 6 weeks, sooner on as needed basis. He is agreeable to this plan and verbalizes understanding of instructions. He was given the opportunity to ask questions and all questions answered Thank you for allowing me to participate in his care Orders: Orders FL Modified Barium Swallow Today R13.10 - Dysphagia, unspecified CT soft tissue neck w IV con Today R13.10 - Dysphagia, unspecified Comprehensive Met. Panel Today K21.9 - Gastro-esophageal reflux disease without esophagitis Referrals Ear/Nose/Throat Referral R13.10 - Dysphagia, unspecified Coding Level of Care Code Est Pt Level 4 (45639) Complex EM visit Add On G2211 Diagnoses Gastroesophageal reflux disease, unspecified whether esophagitis present K21.9 Esophagitis presence: esophagitis presence not specified Oropharyngeal dysphagia R13.12 Dysphagia type: oropharyngeal phase Irritable bowel syndrome without diarrhea K58.9 Irritable bowel syndrome type: without diarrhea Time Spent (min) 40 Comment 25 minutes spent with patient and additional 15 minutes spent reviewing his records
[2024-10-04 13:20] VITALS: BP 140/70; PULSE 94; O2SAT 93; BMI 22.9
--- OUTSIDE RECORDS SUMMARY | 2024-10-04 13:42 | XMS_ITS | Encounter Summary ---
Author Organization [employer] [facility] Address [address] [facility] 7t [place] [address] Care Team Providers Care Mathematics Lecturer Name Role Phone Chasity Rincon MD Primary Care Provider [phone] Encounter Details Date Type Department Care Team (Late Contact Info) Description 05/06/2022 Orders Only [facility] [address] [place] [phone] Chasity Rincon MD [address] [place] [address] [phone] Erectile dysfunction, unspecified erectile dysfunction type (Primary [...] Description 10/13/2024 9:45 AM EDT Office Visit [facility] [address] [place] [address] [phone] Chasity Rincon MD [address] [place] [address] [phone] documented as of this encounter Visit Diagnoses Diagnosis Erectile dysfunction, unspecified erectile dysfunction type- Primary documented in this encounter Care Teams Mathematics Lecturer Relationship Specialty Start Date End Date Chasity Rincon MD [address] [place] [address] [phone] PCP - General Family Medicine 10/21/20 documented as of this encounter
== END 2024-10-04 13:55 | disposition home or self-care (01) ==
LOC: HO.HGI 13:08
PROVIDERS: Visit Provider Nurse Practitioner Family
DX: K21.9 Gastro-esophageal reflux disease without esophagitis (principal); R13.12 Dysphagia, oropharyngeal phase; K58.9 Irritable bowel syndrome, unspecified
CPT/HCPCS: 99214; G2211

== ENCOUNTER → 2024-10-04 13:08 | Outpatient (BNVA) | payer MEDICARE, MEDICAID, SELFPAY | PROVIDERS: Visit Provider Nurse Practitioner Family | DX: K21.9 Gastro-esophageal reflux disease without esophagitis (principal); K58.9 Irritable bowel syndrome, unspecified; R13.12 Dysphagia, oropharyngeal phase | CPT/HCPCS: 99212 ==

== ENCOUNTER 2024-10-05 08:07 | Outpatient (REF) | payer MEDICARE, MEDICAID, SELFPAY ==
--- OUTSIDE RECORDS SUMMARY | 2024-10-05 08:11 | XMS_ITS | Encounter Summary ---
Author Organization [facility] Address [address] [facility] 7t [place] [address] Care Team Providers Care Bonding Machine Operator Name Role Phone Chasity Rincon MD Primary Care Provider [phone] Encounter Details Date Type Department Care Team (Late Contact Info) Description 05/06/2022 Orders Only [facility] [address] [place] [phone] Chasity Rincon MD [address] [place] [address] [phone] Erectile dysfunction, unspecified erectile dysfunction type (Primary [...] Description 10/13/2024 9:45 AM EDT Office Visit [facility] [address] [place] [phone] Chasity Rincon MD [address] [place] [address] [phone] documented as of this encounter Visit Diagnoses Diagnosis Erectile dysfunction, unspecified erectile dysfunction type- Primary documented in this encounter Care Teams Bonding Machine Operator Relationship Specialty Start Date End Date Chasity Rincon MD [address] [place] [address] [phone] PCP - General Family Medicine 10/21/20 documented as of this encounter
[2024-10-05 09:05] LABS: Alanine Aminotransferase 11 U/L (0-40); Albumin Level 4.0 g/dL (3.5-5.0); Alkaline Phosphatase 88 U/L (39-117); Anion Gap 12 (12-20); Aspartate Amino Transferase 18 U/L (5-37); Blood Urea Nitrogen 11 mg/dL (9-16); Calcium 9.4 mg/dL (8.4-10.2); Carbon Dioxide 27 mmol/L (22-29); Chloride 107 mmol/L (96-108); Estimated Glomerular Filt Rate > 60; Potassium 3.7 mmol/L (3.3-5.1); Sodium 142 mmol/L (135-145); Total Protein 7.3 g/dL (6.5-8.0)
== END 2024-10-05 08:08 | disposition home or self-care (01) ==
LOC: HO.LAB 08:07
PROVIDERS: PCP General Practice; Visit Provider Nurse Practitioner Family
DX: K21.9 Gastro-esophageal reflux disease without esophagitis (principal)
CPT/HCPCS: 36415; 80053

== ENCOUNTER 2024-10-13 10:31 | Outpatient (REF) | payer MEDICARE, MEDICAID, SELFPAY ==
--- NOTE | ~2024-10-13 | XR_ITS ---
EXAMINATION: XR CHEST 2 VIEWS HISTORY: SOB with minimal exertion COMPARISON: Comparison is made with the prior examination dated 05/29/2017. FINDINGS: PA and lateral views of the chest are submitted. The lungs are expanded and clear. There is no pleural effusion, pneumothorax, or pulmonary vascular congestion. The heart is normal in size. The bones are intact. XR/XR chest 2V IMPRESSION: No acute cardiopulmonary abnormality. Electronically signed by: Champ Grewal MD 10/13/2024 12:13 PM EDT
--- OUTSIDE RECORDS SUMMARY | 2024-10-13 10:37 | XMS_ITS | Encounter Summary ---
Author Organization [employer] Address [address] [facility] 7t [place] [address] Care Team Providers Care Back End Engineer Name Role Phone Chasity Rincon MD Primary Care Provider [phone] Encounter Details Date Type Department Care Team (Late st Contact Info) Description 05/06/2022 Orders Only [facility] [address] [place], [place] [phone] Chasity Rincon MD [address] [place], [place] [phone] Erectile dysfunction, unspecified erectile dysfunction type (Primary [...] as of this encounter Plan of Treatment Not on file documented as of this encounter Visit Diagnoses Diagnosis Erectile dysfunction, unspecified erectile dysfunction type- Primary documented in this encounter Care Teams Back End Engineer Relationship Specialty Start Date End Date Chasity Rincon MD [address] [place], [place] [phone] PCP - General Family Medicine 10/21/20 documented as of this encounter
[2024-10-13 13:29] LABS: MANUAL DIFF FLAG NO
[2024-10-13 13:42] LABS: Hematocrit 41.9 % (42.0-52.0); Hemoglobin 13.4 g/dl (14.0-18.0); Imm Gran Abs Auto 0.02 X10*3/uL (0.00-0.03); Imm Gran Pct Auto 0.2 % (0.0-0.4); Lymphocytes Absolute Auto 3.4 X10*3/uL (1.2-4.9); Mean Corpuscular HGB Conc 32.0 g/dl (31.0-36.0); Mean Corpuscular Hemoglobin 32.4 pg (27.0-33.0); Mean Corpuscular Volume 101.2 fL (80.0-98.0); NRBC Abs Auto 0.000 X10*3/uL (0.0-0.012); NRBC Pct Auto 0.0 /100WBC (0.0-0.2); Platelet Count 158 X10*3/uL (160-400); Red Blood Count 4.14 X10*6/uL (4.60-5.80); White Blood Count 9.4 X10*3/uL (4.8-10.8)
== END 2024-10-13 10:32 | disposition home or self-care (01) ==
LOC: HO.HHCX 10:31
PROVIDERS: PCP General Practice; Visit Provider General Practice
DX: R06.02 Shortness of breath (principal); J18.9 Pneumonia, unspecified organism; R59.0 Localized enlarged lymph nodes
CPT/HCPCS: 36415; 71046; 83615; 85025; 85652

== ENCOUNTER → 2024-10-13 10:45 | Outpatient (BNV) | payer MEDICARE, MEDICAID, SELFPAY | PROVIDERS: PCP General Practice; Visit Provider Radiology Diagnostic Radiology | DX: R06.02 Shortness of breath (principal) | CPT/HCPCS: 71046 ==

== ENCOUNTER 2024-10-18 13:39 | Outpatient (REF) | payer MEDICARE, MEDICAID, SELFPAY ==
--- NOTE | ~2024-10-18 | CT_ITS ---
EXAMINATION: CT SOFT TISSUE NECK WITH CONTRAST CLINICAL INFORMATION: Dysphagia unspecified. COMPARISON: None available. TECHNIQUE: Following the intravenous administration of 100 mL of Omnipaque 350 intravenous contrast, helical imaging was performed in the axial plane with generation of coronal and sagittal reformatted images. This CT examination was performed using dose optimization techniques as appropriate, variously including the following: *Automated exposure control *Adjustment of mA and/or kV according to patient size (this includes techniques or standardized protocols for targeted exams where dose is matched to indication/reason for exam; i.e. extremities or head) *Use of iterative reconstruction technique FINDINGS: Lymph Nodes: -Normal. None enlarged by size criteria. Carotid Sheath Structures: -There are moderate bilateral carotid bulb calcifications. -The jugular veins are patent. Salivary Glands: -Normal. Tongue Base/Floor of Mouth: -Normal Mucosal Space: -There is a small enhancing nodular focus involving the right area epiglottic fold, for which direct visualization is recommended. This is best seen (series 2, image 78; series 5, image 42). -Remainder of the mucosal space is normal in appearance. No additional enhancing abnormality. Visceral Space: -Thyroid gland: Normal. -Larynx is normal. -Subglottic trachea is normal. -Cervical esophagus is normal. Retropharangeal Space: -Normal. Parapharyngeal Fat Planes: -Normal. Tableau Developer Spaces: -Normal. Anterior Cervical Space: -Normal. Imaged Intracranial Contents: -No mass effect, edema, or abnormal enhancement. Cortical and dural venous sinuses are patent. The skull base is normal. Globes and Orbits: -Normal. Paranasal Sinuses/Mastoids/Tympanic Spaces: -Moderate mucosal thickening and fluid noted in both maxillary sinuses with small air-fluid levels. -Remainder of the paranasal sinuses are normally aerated. -Mastoids and tympanic cavities are aerated. Lung Apices and Superior Mediastinal Structures: -Imaged lung apices demonstrate moderate paraseptal emphysema, with right apical scarring. No suspicious nodule evident. There are a few calcified granulomata. -Imaged superior mediastinal structures is straightening moderate to heavy calcific atheromatous disease of the great vessels and aorta. Bony Structures: -No suspicious bone lesions. No fractures. -Normal TM joints. -Moderate degenerative spondylosis of the cervical spine most significant at C5-6 and C6-7. -The maxilla is edentulous. CT/CT soft tissue neck w IV con IMPRESSION: 1. Nodular focus of enhancement involving the right aryepiglottic fold, suspicious, for which direct visualization is recommended. 2. No abnormal lymphadenopathy within the neck. 3. Maxillary paranasal sinus disease with thickening and air-fluid levels bilaterally. 4. Paraseptal emphysematous changes in the imaged lung apices. 5. Moderate to heavy calcific atheromatous disease of the arterial structures. Electronically signed by: Mathew Sinha MD 10/18/2024 03:28 PM EDT
--- OUTSIDE RECORDS SUMMARY | 2024-10-18 14:36 | XMS_ITS | Encounter Summary ---
Author Organization [facility] Address [address] [facility] 7t [place] [address] Care Team Providers Care Automotive Glazier Name Role Phone Chasity Rincon MD Primary Care Provider [phone] Encounter Details Date Type Department Care Team (Late st Contact Info) Description 05/06/2022 Orders Only [facility] [address] [place], [place] [phone] Chasity Rincon MD [address] [place], [place] [phone] Erectile dysfunction, unspecified erectile dysfunction type (Primary [...] Primary documented in this encounter Care Teams Automotive Glazier Relationship Specialty Start Date End Date Chasity Rincon MD [address] [place], [place] [phone] PCP - General Family Medicine 10/21/20 documented as of this encounter
[2024-10-18] MEDS: iohexoL 350 MG/ML 100 ML INFUS..BTL 85 ML IV (15:10)
== END 2024-10-18 13:40 | disposition home or self-care (01) ==
LOC: HO.CT 13:39
PROVIDERS: PCP General Practice; Visit Provider Nurse Practitioner Family
DX: R13.10 Dysphagia, unspecified (principal)
CPT/HCPCS: 70491; Q9967

== ENCOUNTER → 2024-10-18 13:41 | Outpatient (BNV) | payer MEDICARE, MEDICAID, SELFPAY | PROVIDERS: PCP General Practice; Visit Provider Radiology Diagnostic Radiology | DX: R22.2 Localized swelling, mass and lump, trunk (principal) | CPT/HCPCS: 70491 ==

== ENCOUNTER 2024-12-12 13:54 | Outpatient (REF) | payer OTHER, SELFPAY ==
--- NOTE | ~2024-12-12 | FL_ITS ---
EXAMINATION: Modified Barium Swallow CLINICAL INFORMATION: Dysphagia COMPARISON: None TECHNIQUE: Modified barium swallow was performed under lateral fluoroscopy with patient in standing position. Barium mixed with solids and liquids of different consistencies was administered by the speech pathologist. Examination was recorded in the fluoroscopy suite. FINDINGS: Patient was administered multiple consistencies. There was flash laryngeal penetration on thin liquids. There was no subglottic aspiration present. FLUOROSCOPY TIME: 47 seconds Number of Spot Images: N/A DOSE AREA PRODUCT: 328 uGy-m2 (microgray-meter squared) FL/FL Modified Barium Swallow IMPRESSION: Flash laryngeal penetration on thin liquids. No subglottic aspiration. Please refer to the full speech therapy report to follow for further detail. Electronically signed by: Mathew Sinha MD 12/12/2024 02:43 PM EDT RP
--- NOTE | 2024-12-12 16:28 | MHC.SL.IMP ---
Date of Plan of Treatment: 12/12/24 Onset of Symptoms/Illness: 12/13/23 Date Treatment Started: 12/12/24 Admitting Diagnosis: Hx Schatzki ring Primary Speech & Language Diagnosis: R13.14 Pharyngoesophageal Phase Dysphagia Reason for Today's Visit: 32308 Modified Barium Swallow Study Pre-evaluation Dietary Consistencies: Regular Pre-evaluation Liquid Consistency: Thin Pre-evaluation Medication Administration: UNK Medical History: Modified Barium Swallow Study Fluoroscopic Evaluation of Swallowing Function CPT Code 97639 Evaluation Year: 2024 Reason for Study: Pt reporting difficulty swallowing. Referring Physician: Racquel Finch CURTAIN CLEANER-BC Evaluating Clinician: Mona Hernandez MA, CCC-MECHANICAL METER TESTER Study Number: 1 Patient Name: Curt Ramires Status: Outpatient, Ambulatory Age: 69 Sex: Male Medical History Medical History (Reviewed 10/04/24 @ 13:09 by Cliff Villareal [facility]) AAA (abdominal aortic aneurysm) without rupture History of depression Orthostatic hypotension HTN (hypertension) Thrombocytopenia Proteus mirabilis infection Alcohol withdrawal seizure Alcohol abuse with withdrawal Surgical History (Reviewed 10/04/24 @ 13:09 by Cliff Villareal [facility]) Hx of colonoscopy Hx of hernia repair Current (pre-evaluation) Intake/Diet: Route: PO Diet Grade: Regular Liquid Consistencies: Thin Pre-Study Functional Oral Intake Scale (FOIS): 7- Total oral intake with no restrictions Pain: None reported at time of study SUBJECTIVE: Patient is a 69 year old male referred for a modified barium swallow study by the GI office. Patient reports a foreign body sensation in his esophagus for approximately 1 year. Patient reports feeling a ?small round ball? when he presses on the right side of his neck. He also reports pain with swallowing and ?effortful swallowing? in order to get food and liquid down. He denies choking, vomiting, or regurgitating any food. Patient?s history is significant for Schatzki ring ballooned in 2013. He reportedly has been taking pantoprazole daily. His Chest X-Ray 10/13 showed no acute cardiopulmonary abnormality. 10/[address] showed, ?1. Nodular focus of enhancement involving the right aryepiglottic fold, suspicious, for which direct visualization is recommended. 2. No abnormal lymphadenopathy within the neck. 3. Maxillary paranasal sinus disease with thickening and air-fluid levels bilaterally. 4. Paraseptal emphysematous changes in the imaged lung apices. 5. Moderate to heavy calcific atheromatous disease of the arterial structures.? Oral Motor Exam Facial Symmetry: Symmetrical Mouth Occlusion: Normal Oral-Facial Teeth Characteristics: Dentures Oral-Facial Teeth Miscellaneous Observation: Partials Oral-Facial Lip Pucker Description: Normal Oral-Facial Smile (Lips) Description: Normal Oral-Facial Puff Cheeks Description: Normal Tongue Size: Normal Tongue Excursion Description: Normal Tongue Range of Movement Description: Normal Tongue Speed of Movement Description: Normal Tongue Strength of Movement (against opposing pressure): Normal Tongue Movement Characteristics: Normal/Absent Food and Liquid Trials: Oral Impairment: Lip Closure: 1=Interlabial escape; no progression to anterior tip Oral Impairment: Tongue Control During Bolus Hold: 2=Posterior escape of less than half of bolus Oral Impairment: Bolus Preparation/Mastication: 1=Slow prolonged chewing/mashing with complete re-collection Oral Impairment: Bolus Transport/Lingual Motion: 2=Slowed tongue motion Oral Impairment: Oral Residue: 2=Residue collection on oral structures Oral Impairment:Initiation of Pharyngeal Swallow: 3=Bolus head in pyriforms Pharyngeal Impairment: Soft Palate Elevation: 0=No bolus between soft palate (SP)/pharyngeal wall (PW) Pharyngeal Impairment: Laryngeal Elevation: 1=Partial thyroid cartilage/arytenoids to epiglottic petiole movement Pharyngeal Impairment: Anterior Hyoid Excursion: 1=Partial anterior movement Pharyngeal Impairment: Epiglottic Movement: 1=Partial inversion Pharyngeal Impairment: Laryngeal Vestibular Closure:: 1=Incomplete: narrow column air/contrast in laryngeal vestibule Pharyngeal Impairment: Pharyngeal Stripping Wave: 0=Present: complete Pharyngeal Impairment: Pharyngeal Contraction: Did not test Pharyngeal Impairment: Pharyngoesophageal Segment Openin=Complete distension and complete duration: no obstruction of flow Pharyngeal Impairment: Tongue Base (TB) Retraction: 2=Narrow column of contrast/air between TB and posterior PW Pharyngeal Impairment: Pharyngeal Residue: 2=Collection of residue within or on pharyngeal structures Pharyngeal Impairment: Esophageal Clearance Upright Position: Did not test Impressions and Recommendations OBJECTIVE: Time-out: performed at 14:30 Evaluation Start: 14:00; Stop: 14:10 Patient Positioning: Standing Viewing Planes: LATERAL ONLY Contrast: MBSImP? Standardized Protocol using commercially prepared, standardized Barium viscosities, including: Varibar? THIN LIQUID (40% w/v, <15 cps) , Varibar? PUDDING (40% w/v, <7525-0612 cps) , 1/2 Shortbread Cookie (1 x1 x.25 ) [facility] ID: [id number] Results: Lip closure for intraoral bolus containment resulted in interlabial escape, without progression to the anterior lip. Tongue control during bolus hold resulted in posterior escape of less than half of the bolus. Bolus preparation and mastication resulted in slow, prolonged chewing/mashing but with complete re-collection. Bolus transport/lingual motion was with slowed tongue motion. Oral residue was a collection on oral structures. Initiation of the pharyngeal swallow occurred when the bolus head was in the pyriform sinuses. Soft palate elevation resulted in no bolus between the soft palate and the pharyngeal wall. Laryngeal elevation was decreased, with partial superior movement of the thyroid cartilage/partial approximation of the arytenoids to the epiglottic petiole. Anterior hyoid excursion demonstrated partial anterior movement. Epiglottic movement resulted in partial inversion. Laryngeal vestibular closure was incomplete, with a narrow column of air/contrast noted within the laryngeal vestibule at the height of the swallow. Pharyngeal stripping wave was present and complete. Pharyngeal contraction could not be determined due to logistical reasons not related to physiologic impairment. Pharyngoesophageal segment opening was completely distended for complete duration with no obstruction of bolus flow. Tongue base retraction allowed a narrow column of contrast or air between the retracted tongue base and the posterior pharyngeal wall. Pharyngeal residue was a collection of residue within or on pharyngeal structures. Esophageal clearance in the upright position could not be assessed due to logistical reasons not related to physiologic impairment. Oral Impairment Score: 10 Pharyngeal Impairment Score: 8 (absence of score, component 13) Esophageal Impairment Score: --- (absence of score, component 17) Laryngeal Penetration and Aspiration: Neither penetration nor aspiration was observed in today's study with Cookie, Pudding-thick. Penetration was observed in today's study. Thin Contrast entered the airway, remained above the vocal folds, and was ejected from the airway. ASSESSMENT: This exam was performed by the radiologist and the speech pathologist. Patient was able to feed himself independently. He trialed the following consistencies: -Thin liquid (via individual cup sips) -Puree (mixture applesauce with barium pudding) -Regular solid (shortbread cookies coated in barium pudding) There was trace contrast escaping into the interlabial space. Also appreciated premature posterior escape from the oral cavity, with contrast pooling to the valleculae prior to initiation of the pharyngeal swallow trigger. Mastication was mildly slowed, characterized by piece meal deglutition pattern. Posterior lingual motion was delayed and slowed. Pharyngeal swallow trigger was also delayed, initiated as the bolus reached the pyriforms. Post-swallow, there was mild collection of residue on the tongue and palate, which cleared on secondary swallows. No evidence of nasopharyngeal reflux. Partial laryngeal elevation with partial epiglottic inversion and partial laryngeal vestibular closure. There was flash penetration seen with thin liquids. A trace amount of contrast entered the airway above the vocal folds and spontaneously cleared. No evidence of aspiration during this exam. Trace residue in the valleculae on trials of solids. More pooling seen in the valleculae and pyriforms with liquids, but still minimal and cleared with subsequent swallows. Liquid Intake Recommendation: Thin Liquid Intake Strategies: Dietary Recommendations: Regular Medication Administration: Whole with Liquid Please contact the pharmacy regarding appropriate crushable or liquid drug formulations that are available whenever modified delivery is recommended. Compensatory Strategies Recommended: Sitting Upright (90 deg) Small Bites and Sips Alternate Liquids/Solids Rate of Ingestion Change Recommendation for Speech Therapy: NA:Typical Evaluation Text Comment: Intake Recommendations: Route: PO Diet Grade: Regular Liquid Consistencies: Thin Post-Study Functional Oral Intake Scale (FOIS): 7- Total oral intake with no restrictions Flash penetration seen with thin liquids, but no subsequent aspiration. Minimal residue on the tongue and in the valleculae and pyriforms cleared with secondary swallows. Suggested Referrals: The patient might benefit from a referral to: Gastroenterology Indication for Referral: Follow up as indicated, patient c/o of globus sensation/ ?foreign body sensation?; MBSS w/ good oral and pharyngeal clearance. Therapy Recommendations: Diet modification and speech therapy are not indicated at this time. Patient to follow-up with [facility]. as indicated. Clinician - Supplemental, Miscellaneous Communication: It is important to note MBSS objective studies are snapshots in time and Patient function might vary with factors such as time of day or concomitant medical conditions. For this reason, the final treatment plan for this patient should rest with their medical care team. Additional recommendations should be considered with the totality of the Patient in mind. Thank for the opportunity to participate in the care of this patient. If you have any questions about the content of this report, please contact the [facility] at [facility]. Education: Education regarding findings from today's study and plans for therapy were provided to Patient only through Verbal Instruction. Understanding was expressed by the Patient only. Seismograph Observer Clinician/Clinical Fellow: No Supervisory Statement: N/A Speech Language Pathologist: Mona Hernandez M.A., CCC-MECHANICAL METER TESTER
--- OUTSIDE RECORDS SUMMARY | 2024-12-12 16:54 | XMS_ITS | Encounter Summary ---
Author Organization [facility] Address [address] [place] [address] Care Team Providers Care Journeyman Electrician Pv Installer Name Role Phone Chasity Rincon MD Primary Care Provider [phone] Encounter Details Date Type Department Care Team (Late st Contact Info) Description 03/13/2022 Orders Only [facility] [address] [place], [place] [phone] Ioana Blood LPN Social History Tobacco Use [...] Care Team (Late st Contact Info) Description 12/19/2024 9:00 AM EDT Office Visit [facility] ADULT DENTAL [address], [place] [phone] Tremayne Rose DDS [address], [place] [phone] documented as of this encounter Procedures Procedure Name Priority Date/Time Associated Diagnosis Comments PSA, TOTAL WITH REFLEX TO PSA, FREE Routine 04/22/2022 10:41 AM EST TESTOSTERONE, FREE (DIALYSIS) AND TOTAL,MS Routine 04/22/2022 10:41 AM EST documented in this encounter Results * Testosterone, Free (Dialysis) And Total, MS (04/22/2022 10:41 AM EST) Testosterone, Total 424 250 - 1100 ng/dL [facility] Comment:Men with clinically significant hypogonadalsymptoms and testosterone values repeatedly inthe range of the 200-300 ng/dL or less, maybenefit from testosterone treatment afteradequate risk and benefits counseling.For additional information, please refer tohttp://education.AudioEye/faq/[email or web address](This link is being provided for informational/educational purposes only.)This test was developed and its analytical performancecharacteristics have been determined by [employer] [place], [place]. It hasnot been cleared or approved by the U.S. Food and DrugAdministration. This assay has been validated pursuantto the CLIA regulations and is used for clinicalpurposes. Testosterone, Free 57.7 35.0 - 155.0 pg/mL [facility] Comment:This test was develo ped and its analytical performancecharacteristics have been determined by [employer] [place], [place]. It hasnot been cleared or approved by the U.S. Food and DrugAdministration. This assay has been validated pursuantto the CLIA regulations and is used for clinicalpurposes.THIS TEST WAS PERFORMED AT:[id number] [place] [id number] DE LA VEGA MD,PHD 04/22/2022 10:4 1 AM EST 04/22/2022 10:41 AM EST us [facility] External Provider LAB BLO OD ORDERABLES Final Result [facility] [address] [place] [phone] * PSA, Total With Reflex to PSA, Free (04/22/2022 10:41 AM EST) PSA,Total (Free>4and<10) 1.22 0.00 - 4.00 ng/mL [facility] Comment:A Free PSA was [...] are between 4.0 and 10.0 ng/mL.PSA methodology: Apricot Treesnity i ChemiluminescentMicroparticle Immunoassay (CMIA) 04/22/2022 10:4 1 AM EST 04/22/2022 10:41 AM EST us [facility] External Provider LAB BLO OD ORDERABLES Final Result [facility] [address] [place] [address] [phone] documented in this encounter Visit Diagnoses Not on filedocumented in this encounter Care Teams Journeyman Electrician Pv Installer Relationship Specialty Start Date End Date Chasity Rincon MD [address] [place] [phone] PCP - General Family Medicine 10/21/20 documented as of this encounter
--- OUTSIDE RECORDS SUMMARY | 2024-12-12 16:54 | XMS_ITS | Encounter Summary ---
Author Organization [employer] [facility] Address [address] [facility] 7t [place] [address] Care Team Providers Care Manufacturing Scheduler Name Role Phone Chasity Rincon MD Primary Care Provider [phone] Encounter Details Date Type Department Care Team (Late Contact Info) Description 05/06/2022 Orders Only [facility] [address] [place] [address] Chasity Rincon MD [address] [place] [address] Erectile dysfunction, unspecified erectile dysfunction type (Primary [...] Department Care Team (Late Contact Info) Description 12/19/2024 9:00 AM EDT Office Visit [facility] [address] [place] [address] Tremayne Rose DDS [address] [place] [address] documented as of this encounter Visit Diagnoses Diagnosis Erectile dysfunction, unspecified erectile dysfunction type- Primary documented in this encounter Care Teams Manufacturing Scheduler Relationship Specialty Start Date End Date Chasity Rincon MD [address] [place] [address] PCP - General Family Medicine 10/21/20 documented as of this encounter
--- OUTSIDE RECORDS SUMMARY | 2024-12-12 16:55 | XMS_ITS | Clinical Summary ---
Author Organization [employer] Address [address] [facility] 7t [place] [address] Care Team Providers Care Level Vial Marker Name Role Phone Chasity Rincon MD Primary Care Provider [phone] Allergies No known active allergies Medications fluticasone [...] by mouth in the evening. 023 Active OLANZapine (ZyPREXA) 2.5 MG tablet Take 1 tablet by mouth in the morning. 024 Active loratadine (Claritin) 10 MG tablet [...] MG tabletIndications :Secondary nonischemic congestive cardiomyopathy (CMS/HCC) (HCC) TAKE 1 Tablet BY MOUTH AT BEDTIME 90 tablet 3 025 Active docusate sodium (Colace) 100 MG capsuleIndication s:Other constipation TAKE 1 CAPSULE BY MOUTH TWICE DAILY NEEDED FOR CONSTIPATION 180 capsule 3 025 Active thiamine (Vitamin B-1) 100 MG tabletIndications :Alcoholism ([facility]) ([facility]) TAKE 1 TABLET BY MOUTH EVERY MORNING 90 tablet 3 025 Active D3 Super Strength 50 MCG (2000 UT) capsuleIndication s:Alcoholism (CMS/[facility]) ([facility]) TAKE 1 CAPSULE BY MOUTH EVERY MORNING 90 capsule 3 025 Active folic acid (Folvite) 1 MG tabletIndications :Alcoholism ([facility]) ([facility]) TAKE 1 TABLET BY MOUTH EVERY MORNING 90 tablet 3 025 Active buPROPion SR (Wellbutrin SR) 150 MG 12 hr tablet Take 1 tablet (150 mg) by mouth 2 times daily. Do not crush, chew, or split. 180 tablet 3 025 Active Lidocaine 5 % cream Apply 1 Application topically 3 times daily. 30 g 1 025 Active ascorbid acid ER (Vitamin C) 500 MG ER capsule TAKE 1 CAPSULE BY MOUTH EVERY OTHER DAY IN THE MORNING (WITH WATER) 45 capsule 3 025 Active Ferrous Sulfate (iron) 325 (65 Fe) MG tablet TAKE 1 TABLET BY MOUTH EVERY OTHER DAY IN THE MORNING WITH WATER OR ORANGE JUICE 45 tablet 3 025 Active Lidocaine, Anorectal, 5 % creamIndications: Primary osteoarthritis of left knee APPLY TO THE AFFECTED AREA(S) TOPICALLY THREE TIMES DAILY 025 Active omeprazole (PriLOSEC) [address] capsule TAKE 1 CAPSULE BY MOUTH TWICE DAILY DO NOT BREAK, CRUSH, DISSOLVE OR CHEW 180 capsule 3 025 Active omeprazole (PriLOSEC) [address] capsule TAKE 1 CAPSULE BY MOUTH TWICE DAILY DO NOT BREAK, CRUSH, DISSOLVE OR CHEW 180 capsule 3 024 2024 Discontinued Active Problems Problem Noted Date Diagnosed Date Chronic use of opiate drug for therapeutic purpo se 10/16/2024 Overview (10/16/2024): Dx: Bilateral knee OA Rx: Percocet 5/325 BID Last PRINTER TECHNICIAN agreement: 06/2024 Tier II (visit every 3 [...] this test, I cannot find UGIS on [employer]) Reach out to GI for an appointment then reach out to his EMERGENCY MEDICINE PHYSICIAN who keeps track of his appointments. Continue [...] annual ultrasound, gave him the order to [facility] radiology Assessment & Plan (11/24/2022 12:05 PM EDT): Stable in size < 5cm Continue f/u with Dr Dickerson Assessment & Plan (07/20/2022 10:55 AM EDT): Follow up with vascular for annual exam Last measurement AAA at 4.5cm Assessment & Plan (03/29/2022 6:15 PM EST): Follow up with vascular for annual exam Closed fracture of iliac wing ([facility]) 03/27/19 23 Urge incontinence of urine 03/27/2022 Lumbar radiculopathy 11/24/2021 Assessment & Plan (07/14/2024 7:15 AM EDT): Perocet daily prn Will need to discuss at next visit whether he accepts risks and benefits of continuing this medication, will need to come to PRINTER TECHNICIAN program if so Osteoarthritis of left knee [...] (08/31/2023 7:00 AM EDT): Sees urology at [facility], Catherine Bunn Continue prn Viagra Alcoholism ([facility]) 05/26/2017 Secondary nonischemic congestive cardiomyopathy ([facility]) 05/26/2017 Assessment & Plan (05/17/2024 11:58 AM EDT): Walk as much as tolerated Smoking cessation advised Tremor 05/26/2017 Allergic rhinitis 12/05/2014 Cigarette smoker 12/05/2014 Assessment & Plan (08/31/2023 7:05 AM EDT): Declines cessation aids Encouraged this as it could help with pain and aneurysm Dementia associated with alcoholism ([facility]) Assessment & Plan (08/31/2023 6:58 AM EDT): [...] Date Resolved Date Throat pain in adult 06/12/202410/16/ 025 Diabetes due to undrl condit ion w oth diabetic neuro comp 05/12/2024 05/17/2024 Pre-op evaluation 06/25/2023 05/17/2024 Assessment & Plan (06/25/2023 1:54 PM EDT): Patient is average risk for low risk procedure Hold NSAIDs and ASA 5-7 days prior to procedure Routine pain control Encounters Date Type Department Care Team Description 12/12/2024 Orders Only [facility] External Provider, [facility] 11/20/2024 Refill [facility] [address] [place] [phone] Chasity Rincon MD 10/18/2024 Results Follow-Up [address] [address] Soft Tissue Neck w/ Contrast 10/18/2024 Orders Only [facility] External Provider, [facility] 10/17/[address] [address] Tiara Kaba RN Medication Follow Up 10/13/2024 9:45 AM EDT Office Visit [address] [address] Chasity Rincon MD Pneumonia of upper lobe [...] for therapeutic purpose 10/13/2024 Travel 10/11/[address] [address] Chasity Rincon MD chart prep 10/04/2024 Patient Outreach [address] [address] Chasity Rincon MD Pre-visit Planning ([facility] screening completed on 05/04/2024) from Last 3 [...] 10/13/2024 9:48 AM EDT Plan of Treatment Upcoming Encounters Date Type Department Care Team (Late st Contact Info) Description 12/19/2024 9:00 AM EDT Office Visit [facility] [address] [place] [address] Tremayne Rose DDS [address] [place] [address] Health Maintenance Due Date Last Done Comments [...] 03/14/2021, 09/10/2020, 08/20/2020 Influenza Vaccine (#1) 2024 , 01/23/2013, 12/10/2011 Depression Monitoring 04/15/2025 10/13/2024, 025 [...] Procedure Name Priority Date/Time Associated Diagnosis Comments FL BARIUM SWALLOW MODIFIED Routine 12/12/2024 2:[address] SOFT TISSUE NECK W CONTRAST Routine [...] Recently Relevant to Health Maintenance Results * FL BARIUM SWALLOW MODIFIED (12/12/2024 2:13 PM EDT) Anatomical Region Laterality Modality Head, Neck Radiographic Zaida ging 12/12/2024 2:13 PM EDT Narrative 12/12/2024 2:46 PM EDT [address] [address] Fluoroscopy Report Signed Patient: Curt Saravia MR#: [id number] : 1955 Acct:[id number] Age/Sex: 69 / M ADM Date: 12/12/24 Loc: [facility] Attending Dr: Racquel Finch SEWAGE SCREEN OPERATOR- Ordering Physician: Racquel Finch SEWAGE SCREEN OPERATOR-MARC Date of Service: 12/12/24 Procedure(s): FL Modified Barium Swallow Accession Number(s): [id number] cc: Chasity Rincon; Racquel Finch SEWAGE SCREEN OPERATOR-MARC Reason for Exam: R13.10 - Dysphagia, unspecified EXAMINATION: Modified Barium Swallow CLINICAL INFORMATION: Dysphagia COMPARISON: None TECHNIQUE: Modified barium swallow was performed under lateral fluoroscopy with patient in standing position. Barium mixed with solids and liquids of different consistencies was administered by the speech pathologist. Examination was recorded in the fluoroscopy suite. FINDINGS: Patient was administered multiple consistencies. There was flash laryngeal penetration on thin liquids. There was no subglottic aspiration present. FLUOROSCOPY TIME: 47 seconds Number of Spot Images: N/A DOSE AREA PRODUCT: 328 uGy-m2 (microgray-meter squared) FL/FL Modified Barium Swallow IMPRESSION: Flash laryngeal penetration on thin liquids. No subglottic aspiration. Please refer to the full speech therapy report to follow for further detail. Electronically signed by: Mathew Sinha MD 12/12/2024 02:43 PM EDT Dictated By: Mathew Sinha MD Signed By: <Electronically signed by Mathew Sinha MD in OV> 12/12/24 1443 DD/ 1413 TD/TT: 12/12/24 1422 Glass Furnace Operator: Procedure Note Donotuseinterpreter, Image - 12/12/2024 [place] [address] Fluoroscopy Report Signed Patient: Curt Saravia#: [id number] : 8Acct:[id number] Age/Sex: 69 / MADM Date: 12/12/24 Loc: [facility] Attending Dr: Racquel Finch [facility]- Ordering Physician: Racquel FinchP-MARC Date of Service: 12/12/24 Procedure(s): FL Modified Barium Swallow Accession Number(s): [id number] cc: Chasity Rincon; Racquel Finch [facility]-MARC Reason for Exam: R13.10 - Dysphagia, unspecified EXAMINATION: Modified Barium Swallow CLINICAL INFORMATION: Dysphagia COMPARISON: None TECHNIQUE: Modified barium swallow was performed under lateral fluoroscopy with patient in standing position. Barium mixed with solids and liquids of different consistencies was administered by the speech pathologist. Examination was recorded in the fluoroscopy suite. FINDINGS: Patient was administered multiple consistencies. There was flash laryngeal penetration on thin liquids. There was no subglottic aspiration present. FLUOROSCOPY TIME: 47 seconds Number of Spot Images: N/A DOSE AREA PRODUCT: 328 uGy-m2 (microgray-meter squared) FL/FL Modified Barium Swallow IMPRESSION: Flash laryngeal penetration on thin liquids. No subglottic aspiration. Please refer to the full speech therapy report to follow for further detail. Electronically signed by: Mathew Sinha MD 12/12/2024 02:43 PM EDT Dictated By: Mathew Sinha MD Signed By: <Electronically signed by Mathew Sinha MD in OV> 12/12/24 1443 DD/ 1413 TD/TT: 12/12/24 1422 Glass Furnace Operator: [facility] External Provider IMG FLU OROSCOPY PROCEDURES Final Result * CT Soft Tissue Neck w/ Contrast (10/18/2024 2:41 PM EDT) Anatomical Region Laterality Modality Head, Neck Computed Tomogra phy 10/18/2024 2:41 PM EDT Narrative 10/18/2024 3:30 PM EDT [address] [address] [address] Scan Report Signed Patient: Curt Saravia MR#: [id number] : 1955 Acct:[id number] Age/Sex: 69 / M ADM Date: 10/18/24 Loc: HO.CT Attending Dr: Racquel Finch SEWAGE SCREEN OPERATOR- Ordering Physician: Racquel Finch Date of Service: 10/18/24 Procedure(s): CT soft tissue neck w IV con Accession Number(s): [id number] cc: Chasity Rincon; Racquel Finch [facility]- Report Number: [id number]: Total DLP = 240.00 mGy-cm EXAMINATION: CT [...] Retropharangeal Space: -Normal. Parapharyngeal Fat Planes: -Normal. Drain Cleaner Plumber Spaces: -Normal. Anterior Cervical Space: -Normal. Imaged [...] Mathew Sinha MD 10/18/2024 03:28 PM EDT RP Dictated By: Mathew Sinha MD Signed By: <Electronically signed by Mathew Sinha MD in OV> 10/18/24 1528 DD/ 1441 TD/TT: 10/18/24 1511 Glass Furnace Operator: Procedure Note Donotuseinterpreter, Image - 10/18/[address] [place] [address] [address] Scan Report Signed Patient: Curt SaraviaMR#: [id number] : 8Acct:[id number] Age/Sex: 69 / MADM Date: 10/18/24 Loc: HO.CT Attending Dr: Racquel RIVERA-MARC Ordering Physician: Racquel Finch Date of Service: 10/18/24 Procedure(s): CT soft tissue neck w IV con Accession Number(s): [id number] cc: Chasity Rincon; Racquel Finch [facility]- Report Number: [id number]: Total DLP = 240.00 mGy-cm EXAMINATION: CT [...] Retropharangeal Space: -Normal. Parapharyngeal Fat Planes: -Normal. Drain Cleaner Plumber Spaces: -Normal. Anterior Cervical Space: -Normal. Imaged [...] 10/18/24 1528 DD/ 1441 TD/TT: 10/18/24 1511 Glass Furnace Operator: [facility] External Provider IMG CT PROCEDURES Final Result * (ABNORMAL) CBC auto differential (10/13/2024 11:02 AM EDT) White Blood Count 9.4 4.8 - 10.8 X10*3/uL [facility] Red Blood Count 4.14(L) 4.60 - 5.80 X10*6/uL [facility] Hemoglobin 13.4(L) 14.0 - 18.0 g/dl [facility] Hematocrit 41.9(L) 42.0 - 52.0 % [facility] Mean Corpuscular Volume 101.2(H) 80.0 - 98.0 fL [facility] Mean Corpuscular Hemoglobin 32.4 27.0 - 33.0 pg [facility] Mean Corpuscular HGB Conc 32.0 31.0 - 36.0 g/dl [facility] Red Cell Distribution Width 12.6 11.0 - 16.0 % [facility] Platelet Count 158(L) 160 - 400 X10*3/uL [facility] Mean Platelet Volume 13.0(H) 9.4 - 12.4 fL [facility] Neutrophils Percent Auto 53.1 45 - 73 % [facility] Imm Gran Pct Auto 0.2 0.0 - 0.4 % [facility] Lymphocytes Percent Auto 35.7 20 - 40 % [facility] Monocytes Percent Auto 7.7 2 - 11 % [facility] Eosinophils Percent Auto 2.2 0 - 4 % [facility] Basophils Percent Auto 1.1 0 - 2 % [facility] NRBC Pct Auto 0.0 0.0 - 0.2 /100WBC [facility] Neutrophils Absolute Auto 5.0 2.0 - 8.3 x10*3/uL [facility] Imm Gran Abs Auto 0.02 0.00 - 0.03 X10*3/uL [facility] Lymphocytes Absolute Auto 3.4 1.2 - 4.9 X10*3/uL [facility] Monocytes Absolute Auto 0.7 0.1 - 1.2 X10*3/uL [facility] Eosinophils Absolute Auto 0.2 0.0 - 0.4 X10*3/uL [facility] Basophils Absolute Auto 0.1 0.0 - 0.2 X10*3/uL [facility] NRBC Abs Auto 0.000 0.0 - 0.012 X10*3/uL [facility] Blood Venous blood specimen / Unknown 10/13/2024 11:02 AM EDT 10/13/2024 1:25 PM EDT Chasity Rincon MD LAB BLOOD ORDERABLES Final Res ult Performing Organization Address City/[facility]/ZIP Co de Phone Number [facility] [address] [place] [phone] * (ABNORMAL) Sed Rate by Modified Torey (10/13/2024 11:02 AM EDT) Erythrocyte Sedimentation Rate 75(H) 0 - 15 MM/HR [facility] Comment:Patients with polycy themia and many hemoglobin abnormalitiesmay have depressed sed rates whereas patients with anemiamay have elevated sed rates. Blood Venous blood specimen / Unknown 10/13/2024 11:02 AM EDT 10/13/2024 1:25 PM EDT Chasity Rincon MD LAB BLOOD ORDERABLES Final Res ult Performing Organization Address City/[facility]/ZIP Co de Phone Number [facility] [address] [place] [phone] * Lactate Dehydrogenase (LD) (10/13/2024 11:02 AM EDT) Lactate Dehydrogenase 185 118 - 273 U/L [facility] Blood Venous blood specimen / Unknown 10/13/2024 11:02 AM EDT 10/13/2024 1:25 PM EDT Chasity Rincon MD LAB BLOOD ORDERABLES Final Res ult [facility] [address] [place] [phone] [phone] * XR Chest 2 Views (10/13/2024 10:05 AM EDT) Anatomical Region Laterality Modality Chest Radiographic Zaida ging 10/13/2024 10:0 5 AM EDT Narrative 10/13/2024 12:17 PM EDT [address] [address] XRay Report Signed Patient: Curt Saravia MR#: [id number] : 1955 Acct:[id number] Age/Sex: 69 / M ADM Date: 10/13/24 Loc: HO.HHCX Attending Dr: Chasity Rincon MD Ordering Physician: Chasity Rincon Date of Service: 10/13/24 Procedure(s): XR chest 2V Accession Number(s): [id number] cc: Chasity Rincon EXAMINATION: XR CHEST 2 [...] Champ Grewal MD 10/13/2024 12:13 PM EDT RP Dictated By: Champ Grewal MD Signed By: <Electronically signed by Champ Grewal MD in OV> 08/15/25 1213 DD/ 1005 TD/TT: 10/13/24 1015 Glass Furnace Operator: Procedure Note Cameronter, Image - 10/13/2024 [facility] [address] [place] [address] XRay Report Signed Patient: Curt SaraviaMR#: [id number] : 8Acct:[id number] Age/Sex: 69 / MADM Date: 10/13/24 Loc: HO.HHCX Attending Dr: Chasity Rincon MD Ordering Physician: Chasity Rincon Date of Service: 10/13/24 Procedure(s): XR chest 2V Accession Number(s): [id number] cc: Chasity Rincon EXAMINATION: XR CHEST 2 [...] Champ Grewal MD 10/13/2024 12:13 PM EDT RP Dictated By: Champ Grewal MD Signed By: <Electronically signed by Champ Grewal MD in OV> 10/13/24 1213 DD/ 1005 TD/TT: 10/13/24 1015 Glass Furnace Operator: Chasity Rincon MD IMG XR PROCEDURES Final Result * (ABNORMAL) Comprehensive Metabolic Panel (10/05/2024 8:15 AM EDT) Sodium 142 135 - 145 mmol/L [facility] Potassium 3.7 3.3 - 5.1 mmol/L [facility] Chloride 107 96 - 108 mmol/L [facility] Carbon Dioxide 27 22 - 29 mmol/L [facility] Anion Gap 12 12 - 20 [facility] Urea Nitrogen (BUN) 11 9 - 16 mg/dL [facility] Creatinine, Serum 1.06 0.5 - 1.4 mg/dL [facility] Estimated Glomerular Filt Rate >60 [facility] Comment:Chronic Kidney Disea se: Estimated GFR < 60 mL/min/1.88c2Fqgevr Kidney Disease: Estimated GFR < 15 mL/min/1.73m2 Glucose 133(H) 60 - 115 mg/dL [facility] Calcium 9.4 8.4 - 10.2 mg/dL [facility] Bilirubin, Total 0.5 0.0 - 1.0 mg/dL [facility] Aspartate Amino Transferase 18 5 - 37 U/L [facility] Alanine Aminotransferase 11 0 - 40 U/L [facility] Total Protein 7.3 6.5 - 8.0 g/dL [facility] Albumin Level 4.0 3.5 - 5.0 g/dL [facility] Alkaline Phosphatase 88 39 - 117 U/L [facility] 10/05/2024 8:15 AM EDT 10/05/2024 8:18 AM EDT us Generic External Data Provider LAB BLOOD ORDERAB LES Final Result Performing Organization Address City/State/[facility] Co de Phone Number [facility] [address] [place] [phone] * (ABNORMAL) Lipid Panel, Standard (05/12/2024 10:07 AM EDT) Triglycerides 205(H) <150 mg/dL [facility] Comment:Desirable Triglyceri de: less than 150 mg/dLBorderline High Triglyceride 150-199 mg/dLHigh Triglyceride: 200-499 mg/dLVery High Triglyceride: greater than or equal to 5OO mg/dL Cholesterol 151 <200 mg/dL [facility] Comment:Desirable Cholestero l: less than 200 mg/dLBorderline High Cholesterol: 200-239 mg/dLHigh Cholesterol: greater than 239 mg/dL LDL Cholesterol Calculated 78 <100 mg/dL [facility] Comment:Desirable LDL: less than 100 mg/dLNear Optimal/Above Optimal LDL: 110- 129 mg/dLBorderline High LDL: 130-159 mg/dLHigh LDL: 160-189 mg/dLVery High LDL: greater than or equal to 190 mg/dL HDL Cholesterol 32(L) >40 mg/dL [facility] Comment:Desirable HDL: great er than 40 mg/dL Note: This HDL assay may give artificially low results in patients with liver disease. Blood Venous blood specimen / Unknown 05/12/2024 10:07 AM EDT 05/12/2024 11:15 AM EDT us Chasity Rincon MD LAB BLOOD ORDERABLES Final Res ult Performing Organization Address [facility] [place] [facility] Co de Phone Number [facility] [address] [place] [phone] [phone] * Hepatitis C Antibody with Reflex to HCV, RNA, Quantitative, Real-Time PCR (08/31/2023 10:02 AM EDT) Hepatitis C Antibody Nonreactive Nonreactive [facility] Comment:Antibodies to HCV no t detected; does not exclude early acuteHCV infection. Blood Venous blood specimen / Unknown 08/31/2023 10:02 AM EDT 08/31/2023 10:58 AM EDT us Chasity Rincon MD LAB BLOOD ORDERABLES Final Res ult Performing Organization Address [facility] [place] [facility] Co de Phone Number [facility] [address] [place] [phone] from Last 3 Months or Most Recently Relevant to Health Maintenance Insurance [facility] STANDARD MEDICARE DENTAL-[facility] MEDICAID STAND ADULT Care Teams Level Vial Marker Relationship Specialty Start Date End Date Chasity Rincon MD [address] [place] [address] PCP - General Family Medicine 10/21/20
--- OUTSIDE RECORDS SUMMARY | 2024-12-12 16:55 | XMS_ITS | Encounter Summary ---
Author Organization [employer] [facility] Address [address] [facility] [address] [place] [address] Care Team Providers Care Medical Social Consultant Name Role Phone Chasity Rincon MD Primary Care Provider [phone] Encounter Details Date Type Department Care Team (Latest Contact Info) Description 06/07/2020 Abstract [facility] CONVERSIONS Dental, Provider, DDS Social History [...] Description 12/19/2024 9:00 AM EDT Office Visit [facility] ADULT [facility] [address] [place] [address] Tremayne Rose DDS [address] [place] [address] documented as of this encounter Visit Diagnoses Not on filedocumented in this encounter Care Teams Medical Social Consultant Relationship Specialty Start Date End Date Chasity Rincon MD [address] [place] [address] PCP - General Family Medicine 10/21/20 documented as of this encounter
--- OUTSIDE RECORDS SUMMARY | 2024-12-12 16:55 | XMS_ITS | Encounter Summary ---
Author Organization [employer] Address [address] [facility] 7t [place] [address] Care Team Providers Care Procurement Professional Name Role Phone Chasity Rincon MD Primary Care Provider [phone] Reason for Visit * Reason Comments Med Refill Encounter Details Date Type Department Care Team ([facility] Contact Info) Description 12/01/2022 Refill [facility] [address] [place] [address] Chasity Rincon MD [address] [place] [address] Gastroesophageal reflux disease without esophagitis Social History [...] Upcoming Encounters Date Type Department Care Team ([facility] Contact Info) Description 12/19/2024 9:00 AM EDT Office Visit [facility] [address] [place] [address] Tremayne Rose DDS [address] [place], [place] [phone] documented as of this encounter Visit Diagnoses Diagnosis Gastroesophageal reflux disease without esophagitis Esophageal reflux documented in this encounter Care Teams Procurement Professional Relationship Specialty Start Date End Date Chasity Rincon MD [address] [place] [address] PCP - General Family Medicine 10/21/20 documented as of this encounter
--- OUTSIDE RECORDS SUMMARY | 2024-12-12 16:55 | XMS_ITS | Encounter Summary ---
Author Organization [employer] Address [address] [facility] [address] [place] [address] Care Team Providers Care Concrete Inspector Name Role Phone Chasity Rincon MD Primary Care Provider [phone] Reason for Visit * Reason Comments Med Refill Encounter Details Date Type Department Care Team ([facility] Contact Info) Description 12/02/2022 Refill [facility] PEDS [address] [place] [address] Chasity Rincon MD [address] [place] [address] Gastroesophageal reflux disease without esophagitis Social History [...] Upcoming Encounters Date Type Department Care Team ([facility] Contact Info) Description 12/19/2024 9:00 AM EDT Office Visit [facility] ADULT DENTAL [address] [place] [address] Tremayne Rose DDS [address] [place], [place] [phone] documented as of this encounter Visit Diagnoses Diagnosis Gastroesophageal reflux disease without esophagitis Esophageal reflux documented in this encounter Care Teams Concrete Inspector Relationship Specialty Start Date End Date Chasity Rincon MD [address] [place] [address] PCP - General Family Medicine 10/21/20 documented as of this encounter
--- OUTSIDE RECORDS SUMMARY | 2024-12-12 16:55 | XMS_ITS | Encounter Summary ---
Author Organization [employer] Address [address] [facility] [facility] [address] [place] [address] Care Team Providers Care Video Software Engineer Name Role Phone Chasity Rincon MD Primary Care Provider [phone] Encounter Details Date Type Department Care Team (Late st Contact Info) Description 12/12/2024 Orders Only [facility] External Provider, [facility] Social History Tobacco Use Types Packs/Day Years [...] Description 12/19/2024 9:00 AM EDT Office Visit [facility] ADULT DENTAL [address] [place] [address] Tremayne Rose DDS [address] [place] [address] documented as of this encounter Procedures Procedure Name Priority Date/Time Associated Diagnosis Comments FL BARIUM SWALLOW MODIFIED Routine 12/12/2024 2:13 PM EDT documented in this encounter Results * FL BARIUM SWALLOW MODIFIED (12/12/2024 2:13 PM EDT) Anatomical Region Laterality Modality Head, Neck Radiographic Zaida ging 12/12/2024 2:13 PM EDT Narrative 12/12/2024 2:46 PM EDT [address] [address] Fluoroscopy Report Signed Patient: Curt Saravia MR#: [id number] : 1955 Acct:[id number] Age/Sex: 69 / M ADM Date: 12/12/24 Loc: HO.BOOGIEAY Attending Dr: Racquel Finch [facility]- Ordering Physician: Racquel Finhc [facility] Date of Service: 12/12/24 Procedure(s): FL Modified Barium Swallow Accession Number(s): [id number] cc: Chasity Rincon; Racquel Finch [facility] Reason for Exam: R13.10 - Dysphagia, unspecified [...] 12/12/24 1443 DD/ 1413 TD/TT: 12/12/24 1422 French Folding Machine Operator: Procedure Note Donotuseinterpreter, Image - 12/12/[address] [address] Fluoroscopy Report Signed Patient: Curt SaraviaMR#: [id number] : 1955cct:[id number] Age/Sex: 69 / MADM Date: 12/12/24 Loc: CHUCK Attending Dr: Racquel Finch [facility] Ordering Physician: Racquel Finch Date of Service: 12/12/24 Procedure(s): FL Modified Barium Swallow Accession Number(s): [id number] cc[facility]ity [facility]incon; [facility] Reason for Exam: R13.10 - Dysphagia, unspecified [...] 12/12/24 1443 DD/ 1413 TD/TT: 12/12/24 1422 French Folding Machine Operator: [facility] External Provider IMG FLU OROSCOPY PROCEDURES Final Result documented in this encounter Visit Diagnoses Not on filedocumented in this encounter Additional Health Concerns Assessment Noted Time PHQ-9 Depression Total Score: 15 025 9:50 AM EDT documented as of this encounter Care Teams Video Software Engineer Relationship Specialty Start Date End Date Chasity Rincon MD [address] [place] [address] PCP - General Family Medicine 10/21/20 documented as of this encounter
== END 2024-12-12 13:55 | disposition home or self-care (01) ==
LOC: HO.XRAY 13:54
PROVIDERS: PCP General Practice; Visit Provider Nurse Practitioner Family
DX: R13.14 Dysphagia, pharyngoesophageal phase (principal)
CPT/HCPCS: 74230; 92611

== ENCOUNTER → 2024-12-12 14:00 | Outpatient (BNV) | payer OTHER, SELFPAY | PROVIDERS: PCP General Practice; Visit Provider Radiology Diagnostic Radiology | DX: R13.10 Dysphagia, unspecified (principal) | CPT/HCPCS: 74230 ==

== ENCOUNTER 2024-12-13 07:57 | Day surgery (SDC) | payer OTHER, SELFPAY ==
--- OUTSIDE RECORDS SUMMARY | 2024-11-09 18:22 | XMS_ITS | Encounter Summary ---
Author Organization [employer] Address [address] [facility] [address]t [place] [address] Care Team Providers Care Hospital Carrier Name Role Phone Chasity Rincon MD Primary Care Provider [phone] Encounter Details Date Type Department Care Team (Late st Contact Info) Description 05/06/2022 Orders Only [facility] [address] [place], [place] [phone] Chasity Rincon MD [address] [place], [place] [phone] Erectile dysfunction, unspecified erectile dysfunction type (Primary [...] Primary documented in this encounter Care Teams Hospital Carrier Relationship Specialty Start Date End Date Chasity Rincon MD [address] [place], [place] [phone] PCP - General Family Medicine 10/21/20 documented as of this encounter
--- OUTSIDE RECORDS SUMMARY | 2024-11-09 18:22 | XMS_ITS | Encounter Summary ---
Author Organization [employer] Address [address] [facility] [address] [place] [address] Care Team Providers Care Temporary Receptionist Name Role Phone Chasity Rincon MD Primary Care Provider [phone] Encounter Details Date Type Department Care Team (Late st Contact Info) Description 03/13/2022 Orders Only [facility] [address] [place] [address] Ioana Blood LPN Social History Tobacco Use [...] documented in this encounter Plan of Treatment Not on file documented as of this encounter Procedures Procedure Name Priority Date/Time Associated Diagnosis Comments PSA, TOTAL WITH REFLEX TO PSA, FREE Routine 04/22/2022 10:41 AM EST TESTOSTERONE, FREE (DIALYSIS) AND TOTAL,MS Routine 04/22/2022 10:41 AM EST documented in this encounter Results * Testosterone, Free (Dialysis) And Total, MS (04/22/2022 10:41 AM EST) Testosterone, Total 424 250 - 1100 ng/dL [facility] Comment:Men with clinically significant hypogonadalsymptoms and testosterone values repeatedly inthe range of the 200-300 ng/dL or less, maybenefit from testosterone treatment afteradequate risk and benefits counseling.For additional information, please refer [email or web address]/[email or web address](This link is being provided for informational/educational purposes only.)This test was developed and its analytical performancecharacteristics have been determined by [employer] [facility], [place]. It hasnot been cleared or approved by the U.S. Food and DrugAdministration. This assay has been validated pursuantto the CLIA regulations and is used for clinicalpurposes. Testosterone, Free 57.7 35.0 - 155.0 pg/mL [facility] Comment:This test was develo ped and its analytical performancecharacteristics have been determined by [employer] [place], [place]. It hasnot been cleared or approved by the U.S. Food and DrugAdministration. This assay has been validated pursuantto the CLIA regulations and is used for clinicalpurposes.THIS TEST WAS PERFORMED AT:[employer] [id number] [place] [id number] DE LA VEGA MD,PHD 04/22/2022 10:4 1 AM EST 04/22/2022 10:41 AM EST us [facility] External Provider LAB BLO OD ORDERABLES Final Result [facility] [address] [place] [phone] * PSA, Total With Reflex to PSA, Free (04/22/2022 10:41 AM EST) PSA,Total (Free>4and<10) 1.22 0.00 - 4.00 ng/mL [facility] Comment:A Free PSA was not [...] are between 4.0 and 10.0 ng/mL.PSA methodology: [employer] Alinity i ChemiluminescentMicroparticle Immunoassay (CMIA) 04/22/2022 10:4 1 AM EST 04/22/2022 10:41 AM EST [facility] External Provider LAB BLO OD ORDERABLES Final Result [facility] [address] [place] [phone] documented in this encounter Visit Diagnoses Not on filedocumented in this encounter Care Teams Temporary Receptionist Relationship Specialty Start Date End Date Chasity Rincon MD [address] [place] [phone] PCP - General Family Medicine 10/21/20 documented as of this encounter
--- OUTSIDE RECORDS SUMMARY | 2024-11-09 18:22 | XMS_ITS | Encounter Summary ---
Author Organization [employer] Address [address] [facility] 7t [place] [address] Care Team Providers Care Dispatcher Service Chief Name Role Phone Chasity Rincon MD Primary Care Provider [phone] Encounter Details Date Type Department Care Team (Latest Contact Info) Description 06/07/2020 Abstract [facility] CONVERSIONS Dental, Provider, DDS Social History Tobacco [...] on filedocumented in this encounter Care Teams Dispatcher Service Chief Relationship Specialty Start Date End Date Chasity Rincon MD [address] [place] [address] PCP - General Family Medicine 10/21/20 documented as of this encounter
--- OUTSIDE RECORDS SUMMARY | 2024-11-09 18:23 | XMS_ITS | Encounter Summary ---
Author Organization [employer] Address [address] [facility] 7t [place] [address] Care Team Providers Care Highway Safety Engineer Name Role Phone Chasity Rincon MD Primary Care Provider [phone] Reason for Visit * Reason Comments Med Refill Encounter Details Date Type Department Care Team ([facility] st Contact Info) Description 12/01/2022 Refill C [facility] [address] [place], [place] [phone] Chasity Rincon MD [address] [place], [place] [phone] Gastroesophageal reflux disease without esophagitis Social History [...] reflux documented in this encounter Care Teams Highway Safety Engineer Relationship Specialty Start Date End Date Chasity Rincon MD [address] [place], [place] [phone] PCP - General Family Medicine 10/21/20 documented as of this encounter
--- OUTSIDE RECORDS SUMMARY | 2024-11-09 18:23 | XMS_ITS | Encounter Summary ---
Author Organization [employer] Address [address] [facility] [address]t [place] [address] Care Team Providers Care Correspondence Review Clerk Name Role Phone Chasity Rincon MD Primary Care Provider [phone] Reason for Visit * Reason Comments Med Refill Encounter Details Date Type Department Care Team ([facility] st Contact Info) Description 12/02/2022 Refill C [facility] [address] [place], [place] [phone] Chasity Rincon MD [address] [place], [place] [phone] Gastroesophageal reflux disease without esophagitis Social History [...] reflux documented in this encounter Care Teams Correspondence Review Clerk Relationship Specialty Start Date End Date Chasity Rincon MD [address] [place], [place] [phone] PCP - General Family Medicine 10/21/20 documented as of this encounter
--- OUTSIDE RECORDS SUMMARY | 2024-11-09 18:23 | XMS_ITS | Clinical Summary ---
Author Organization [employer] Address [address] [facility] [address] [place] [address] Care Team Providers Care B2B Sales Manager Name Role Phone Chasity Rincon MD Primary Care Provider [phone] Allergies No known active allergies Medications fluticasone (Flonase) 50 MCG/ACT nasal sprayIndications:A llergic rhinitis, unspecified seasonality, unspecified trigger USE 2 SPRAYS IN EACH NOSTRIL EVERY MORNING 48 g 5 03/13/19 23 Active cyanocobalamin (Vitamin B-12) 1000 MCG tablet Take 1,000 mcg by mouth at bedtime. 02/21/20 22 Active Artificial Tears 1.4 % ophthalmic solution PLACE 1 DROP INTO THE AFFECTED EYE(S) 4-6 TIMES DAILY NEEDED 04/24/19 22 Active traZODone (Desyrel) 150 MG tabletIndications: Primary insomnia TAKE 2 TABLETS BY MOUTH EVERY DAY AT BEDTIME (NO MORE THAN 2 TABLETS NIGHTLY) 60 tablet 11 05/20/19 23 Active DULoxetine (Cymbalta) [address] capsule Take 60 mg by mouth in the evening. 07/03/19 23 Active OLANZapine (ZyPREXA) 2.5 MG tablet Take 1 tablet by mouth in the morning. 08/03/19 24 Active omeprazole (PriLOSEC) [address] capsule TAKE 1 CAPSULE BY MOUTH TWICE DAILY DO NOT BREAK, CRUSH, DISSOLVE OR CHEW 180 capsule 3 10/25/19 24 Active loratadine (Claritin) 10 MG tablet TAKE 1 TABLET BY MOUTH EVERY MORNING 90 tablet 3 01/25/20 24 Active Multiple Vitamin (Multivitamin) tabletIndications: Healthcare maintenance TAKE 1 TABLET BY MOUTH EVERY MORNING 90 tablet 3 02/22/20 24 Active gabapentin (Neurontin) 300 MG capsule TAKE 1 CAPSULE BY MOUTH THREE TIMES DAILY IN THE MORNING, EVENING, AND BEDTIME 90 capsule 11 03/03/19 25 Active atorvastatin (Lipitor) 20 MG tabletIndications: Secondary nonischemic congestive cardiomyopathy (CMS/HCC) TAKE 1 Tablet BY MOUTH AT BEDTIME 90 tablet 3 04/04/19 25 Active docusate sodium (Colace) 100 MG capsuleIndications :Other constipation TAKE 1 CAPSULE BY MOUTH TWICE DAILY NEEDED FOR CONSTIPATION 180 capsule 3 04/04/19 25 Active thiamine (Vitamin B-1) 100 MG tabletIndications: Alcoholism (CMS/HCC) TAKE 1 TABLET BY MOUTH EVERY MORNING 90 tablet 3 05/03/19 25 Active D3 Super Strength 50 MCG (2000 UT) capsuleIndications :Alcoholism (CMS/HCC) TAKE 1 CAPSULE BY MOUTH EVERY MORNING 90 capsule 3 05/03/19 25 Active folic acid (Folvite) 1 MG tabletIndications: Alcoholism (CMS/HCC) TAKE 1 TABLET BY MOUTH EVERY MORNING 90 tablet 3 05/03/19 25 Active buPROPion SR (Wellbutrin SR) 150 MG 12 hr tablet Take 1 tablet (150 mg) by mouth 2 times daily. Do not crush, chew, or split. 180 tablet 3 05/18/19 25 Active Lidocaine 5 % cream Apply 1 Application topically 3 times daily. 30 g 1 07/12/19 25 Active ascorbid acid ER (Vitamin C) 500 MG ER capsule TAKE 1 CAPSULE BY MOUTH EVERY OTHER DAY IN THE MORNING (WITH WATER) 45 capsule 3 08/03/19 25 Active Ferrous Sulfate (iron) 325 (65 Fe) MG tablet TAKE 1 TABLET BY MOUTH EVERY OTHER DAY IN THE MORNING WITH WATER OR ORANGE JUICE 45 tablet 3 08/03/19 25 Active Lidocaine, Anorectal, 5 % creamIndications:P rimary osteoarthritis of left knee APPLY TO THE AFFECTED AREA(S) TOPICALLY THREE TIMES DAILY 07/12/19 25 Active doxycycline (Vibramycin) 100 MG capsuleIndications :Pneumonia of upper lobe due to infectious organism, unspecified laterality Take 1 capsule (100 mg) by mouth 2 times daily for 7 days. Take with at least 8 ounces (large glass) of water, do not lie down for 30 minutes after 14 capsule 10/14/19 25 025 amoxicillin-clavul anate (Augmentin) 875-125 MG tabletIndications: Pneumonia of upper lobe due to infectious organism, unspecified laterality Take 1 tablet by mouth 2 times daily for 7 days. 14 tablet 10/14/19 25 025 Active Problems Problem Noted Date Diagnosed Date Chronic use of opiate drug for therapeutic purpo se 10/16/2024 Overview (10/16/2024): Dx: Bilateral knee OA Rx: Percocet 5/325 BID Last CUSTOM STOCK MAKER agreement: 06/2024 Tier II (visit every 3 months) Additional considerations: Timeline: Cervical lymphadenopathy 10/16/2024 Oropharyngeal dysphagia 06/12/2024 Assessment & Plan (06/12/2024 4:46 PM EDT): Getting worse for the past 2 months. Concerned about malignancy due to strong history of smoking. Will order x-rays of the neck to rule out foreign body obstruction Order upper GI series with barium swallow (patient apparently had had an appointment last year but she does not recall going to have this test, I cannot find [facility] on [employer]) Reach out to GI for an appointment then reach out to his OBJECT ORIENTED PROGRAMMER who keeps track of his appointments. Continue pantoprazole for GERD Advised to quit smoking Patient to follow-up with PCP as scheduled Ill-fitting dentures 04/05/2024 Severe dental caries 08/31/2023 [...] annual ultrasound, gave him the order to [facility] radiology Assessment & Plan (11/24/2022 12:05 PM [...] incontinence of urine 03/27/2022 Lumbar radiculopathy 11/24/2021 Assessment & Plan (07/14/2024 7:15 AM EDT): Perocet daily prn Will need to discuss at next visit whether he accepts risks and benefits of continuing this medication, will need to come to CUSTOM STOCK MAKER program if so Osteoarthritis of left knee 11/24/2021 Assessment & [...] 7:00 AM EDT): [place] [facility] [place] Catherine Bunn Continue prn Viagra Alcoholism 05/26/2017 [...] ASCVD Risk: The 10-year ASCVD risk score (ySdney GRACIA, et al., 2019) is: 20.4% Values [...] Problem Noted Date Diagnosed Date Resolved Date Throat pain in adult 06/12/2024 025 Diabetes due to undrl condit ion w oth diabetic neuro comp 05/12/2024 05/17/2024 Pre-op evaluation 06/25/2023 05/17/2024 Assessment & Plan (06/25/2023 1:54 PM EDT): Patient is average risk for low risk procedure Hold NSAIDs and ASA 5-7 days prior to procedure Routine pain control Encounters Date Type Department Care Team Description 10/18/2024 Results Follow-Up [address] [address] [address] Soft Tissue Neck w/ Contrast 10/18/2024 Orders Only [facility] External Provider, [facility] 10/17/[address] [address] Tiara Kaba RN Medication Follow Up 10/13/2024 9:45 AM EDT Office Visit [address] [address] Chasity Rincon MD Pneumonia of upper lobe due to infectious organism, unspecified laterality (Primary Dx); Cervical lymphadenopathy; Secondary nonischemic congestive cardiomyopathy (CMS/HCC); Essential hypertension; Mixed conductive and sensorineural hearing loss of both ears; Oropharyngeal dysphagia; Moderate dementia associated with alcoholism, without behavioral disturbance, psychotic disturbance, mood disturbance, or anxiety (CMS/HCC); Primary osteoarthritis of left knee; Chronic use of opiate drug for therapeutic purpose 10/13/2024 Travel 10/11/[address] [address] Chasity Rincon MD chart prep 10/04/2024 Patient Outreach [address] [address] Chasity Rincon MD Pre-visit Planning ([facility] screening completed on 05/04/2024) from Last 3 Months Immunizations Immunization Administration Dates Next Due Influenza High-dose Quadrivalent [...] Answer Date Recorded Patient Health Questionnaire-9 Score 15 10/13/2024 Patient Health Questionnaire-9 Score 15 10/13/2024 Last PHQ-9: Questionnaire Data Not on file 0 10/13/2024 Housing Stability Answer Date Recorded What is your housing situation today? I have vasiliyakshat spence 08/19/[address] you [...] Answer Date Recorded Patient Health Questionnaire-2 Score 2 10/13/2024 Internet Access Answer Date Recorded Internet Access Q1 No 10/13/2024 Internet Access Q2 I do not want or need it 09/29 Sex and Gender Information Value Date Recorded Sex Assigned at Male 12/29/2021 10:21 AM EDT Legal Sex Male 10:21 AM EDT Gender Identity Male 12/29/2021 10:21 AM EDT Sexual Orientation Choose not to disclose 2021 10:21 AM EDT Last Filed Vital Signs Vital Sign Reading Time Taken Comments Blood Pressure 139/64 10/13/2024 9:48 AM EDT Pulse 78 10/13/2024 9:48 AM EDT Temperature 36.1 C (97 F) 10/13/2024 9:48 AM EDT Respiratory Rate 20 10/13/2024 9:48 AM EDT Oxygen Saturation 98% 10/13/2024 9:48 AM EDT Inhaled Oxygen Concentration - - Weight 65.7 kg (144 lb 12.8 oz) 10/13/2024 9:48 AM EDT Height 170.2 cm (5' 7 ) 10/13/2024 9:48 AM EDT Body Mass Index 22.68 10/13/2024 9:48 AM EDT Plan of Treatment Health Maintenance Due Date Last Done Comments CT Colonography 1955 Colonoscopy 1955 Colorectal Cancer Screening 1955 FIT DNA/Cologuard 1955 FIT 1955 FOBT 1955 Sigmoidoscopy 1957 Alcohol/Substance Use Screening 1969 Zoster Vaccines (1 of 2) 08/11/2007 Pneumococcal Vaccine: 50+ Years (2 of 2 - PCV) 12/04/2011 12/03/2010 Dental X-Ray: Bitewings 11/16/2015 11/14/2014, 11/05 Dental Prophylaxis 02/26/2023 08/26/2022, 0 06/07/2020, 01/13/2016, Additional history exists Dental Oral Exam 03/03/2024 08/31/2023, 01/2023, 06/07/2020, Additional history exists COVID-19 Vaccine ( season) 2024 03/14/2021, 09/10/2020, 08/20/2020 Influenza Vaccine (#1) 2024 2, 01/23/2013, 12/10/2011 Depression Monitoring 04/15/2025 10/13/2024, 025 Dental X-Ray: Full Mouth 08/11/2025 023, 05/30/2013, 11/05/2010 SDOH Screening 10/13/2025 10/13/2024 Tobacco Screening 10/16/2025 10/16/2024 DTaP/Tdap/Td Vaccines (4 - Td or Tdap) [...] patient's age to complete this topic Meningococcal B Vaccine Aged Out No l onger eligible based on patient's age to complete [...] Procedure Name Priority Date/Time Associated Diagnosis Comments CT SOFT TISSUE NECK W CONTRAST Routine 10/18/2024 2:41 PM EDT LD Routine 10/13/2024 11:02 AM EDT Cervical lymphadenopathy SED RATE BY MODIFIED WESTERGREN Routine 10/13/2024 11:02 AM EDT Cervical lymphadenopathy CBC WITH AUTO DIFFERENTIAL Routine 10/13/2024 11:02 AM EDT Cervical lymphadenopathy XR CHEST 2 VIEWS Routine 10/13/2024 10:0 5 AM EDT Pneumonia of upper lobe due to infectious organism, unspecified laterality COMPREHENSIVE METABOLIC PANEL Routine 10/05/2024 8:15 AM EDT LIPID PANEL, STANDARD Routine 05/12/2024 10:07 AM EDT Essential hypertension HEPATITIS C AB W/REFL TO HCV RNA, [...] Recently Relevant to Health Maintenance Results * CT Soft Tissue Neck w/ Contrast (10/18/2024 2:41 PM EDT) Anatomical Region Laterality Modality Head, Neck Computed Tomogra phy 10/18/2024 2:41 PM EDT Narrative 10/18/2024 3:30 PM EDT [place] [address] CT Scan Report Signed Patient: Curt Saravia MR#: [id number] : 1955 Acct:[id number] Age/Sex: 69 / M ADM Date: 10/18/24 Loc: HO.CT Attending Dr: Racquel RIVERA-BC Ordering Physician: Racquel Finch Date of Service: 10/18/24 Procedure(s): CT soft tissue neck w IV con Accession Number(s): [id number] cc: Chasity Rincon; Racquel Finch-BC Report Number: [id number]: Total DLP = 240.00 mGy-cm EXAMINATION: CT SOFT TISSUE NECK WITH CONTRAST CLINICAL INFORMATION: Dysphagia unspecified. COMPARISON: None available. TECHNIQUE: Following the intravenous administration of 100 mL of Omnipaque 350 intravenous contrast, helical imaging was performed in the axial plane with generation of coronal and sagittal reformatted images. This CT examination was performed using dose optimization techniques as appropriate, variously including the following: *Automated exposure control *Adjustment of mA and/or kV according to patient size (this includes techniques or standardized protocols for targeted exams where dose is matched to indication/reason for exam; i.e. extremities or head) *Use of iterative reconstruction technique FINDINGS: Lymph Nodes: -Normal. None enlarged by size criteria. Carotid Sheath Structures: -There are moderate bilateral carotid bulb calcifications. -The jugular veins are patent. Salivary Glands: -Normal. Tongue Base/Floor of Mouth: -Normal Mucosal Space: -There is a small enhancing nodular focus involving the right area epiglottic fold, for which direct visualization is recommended. This is best seen (series 2, image 78; series 5, image 42). -Remainder of the mucosal space is normal in appearance. No additional enhancing abnormality. Visceral Space: -Thyroid gland: Normal. -Larynx is normal. -Subglottic trachea is normal. -Cervical esophagus is normal. Retropharangeal Space: -Normal. Parapharyngeal Fat Planes: -Normal. Hot Blaster Spaces: -Normal. Anterior Cervical Space: -Normal. Imaged Intracranial Contents: -No mass effect, edema, or abnormal enhancement. Cortical and dural venous sinuses are patent. The skull base is normal. Globes and Orbits: -Normal. Paranasal Sinuses/Mastoids/Tympanic Spaces: -Moderate mucosal thickening and fluid noted in both maxillary sinuses with small air-fluid levels. -Remainder of the paranasal sinuses are normally aerated. -Mastoids and tympanic cavities are aerated. Lung Apices and Superior Mediastinal Structures: -Imaged lung apices demonstrate moderate paraseptal emphysema, with right apical scarring. No suspicious nodule evident. There are a few calcified granulomata. -Imaged superior mediastinal structures is straightening moderate to heavy calcific atheromatous disease of the great vessels and aorta. Bony Structures: -No suspicious bone lesions. No fractures. -Normal TM joints. -Moderate degenerative spondylosis of the cervical spine most significant at C5-6 and C6-7. -The maxilla is edentulous. CT/CT soft tissue neck w IV con IMPRESSION: 1. Nodular focus of enhancement involving the right aryepiglottic fold, suspicious, for which direct visualization is recommended. 2. No abnormal lymphadenopathy within the neck. 3. Maxillary paranasal sinus disease with thickening and air-fluid levels bilaterally. 4. Paraseptal emphysematous changes in the imaged lung apices. 5. Moderate to heavy calcific atheromatous disease of the arterial structures. Electronically signed by: Mathew Sinha MD 10/18/2024 03:28 PM EDT Dictated By: Mathew Sinha MD Signed By: <Electronically signed by Mathew Sinha MD in OV> 10/18/24 1528 DD/ 1441 TD/TT: 10/18/24 1511 [employer] Director: Procedure Note Donotuseinterpreter, Image - 10/18/[address] [place] [address] [address] Scan Report Signed Patient: Curt Saravia#: [id number] : 8Acct:[id number] Age/Sex: 69 / MADM Date: 10/18/24 Loc: HO.CT Attending Dr: Racquel Finch [facility]- Ordering Physician: Racquel Finch Date of Service: 10/18/24 Procedure(s): CT soft tissue neck w IV con Accession Number(s): [id number] cc: Chasity Rincon; Racquel Finch [facility]- Report Number: [id number]: Total DLP = 240.00 mGy-cm EXAMINATION: CT SOFT TISSUE NECK WITH CONTRAST CLINICAL INFORMATION: Dysphagia unspecified. COMPARISON: None available. TECHNIQUE: Following the intravenous administration of 100 mL of Omnipaque 350 intravenous contrast, helical imaging was performed in the axial plane with generation of coronal and sagittal reformatted images. This CT examination was performed using dose optimization techniques as appropriate, variously including the following: *Automated exposure control *Adjustment of mA and/or kV according to patient size (this includes techniques or standardized protocols for targeted exams where dose is matched to indication/reason for exam; i.e. extremities or head) *Use of iterative reconstruction technique FINDINGS: Lymph Nodes: -Normal. None enlarged by size criteria. Carotid Sheath Structures: -There are moderate bilateral carotid bulb calcifications. -The jugular veins are patent. Salivary Glands: -Normal. Tongue Base/Floor of Mouth: -Normal Mucosal Space: -There is a small enhancing nodular focus involving the right area epiglottic fold, for which direct visualization is recommended. This is best seen (series 2, image 78; series 5, image 42). -Remainder of the mucosal space is normal in appearance. No additional enhancing abnormality. Visceral Space: -Thyroid gland: Normal. -Larynx is normal. -Subglottic trachea is normal. -Cervical esophagus is normal. Retropharangeal Space: -Normal. Parapharyngeal Fat Planes: -Normal. Hot Blaster Spaces: -Normal. Anterior Cervical Space: -Normal. Imaged Intracranial Contents: -No mass effect, edema, or abnormal enhancement. Cortical and dural venous sinuses are patent. The skull base is normal. Globes and Orbits: -Normal. Paranasal Sinuses/Mastoids/Tympanic Spaces: -Moderate mucosal thickening and fluid noted in both maxillary sinuses with small air-fluid levels. -Remainder of the paranasal sinuses are normally aerated. -Mastoids and tympanic cavities are aerated. Lung Apices and Superior Mediastinal Structures: -Imaged lung apices demonstrate moderate paraseptal emphysema, with right apical scarring. No suspicious nodule evident. There are a few calcified granulomata. -Imaged superior mediastinal structures is straightening moderate to heavy calcific atheromatous disease of the great vessels and aorta. Bony Structures: -No suspicious bone lesions. No fractures. -Normal TM joints. -Moderate degenerative spondylosis of the cervical spine most significant at C5-6 and C6-7. -The maxilla is edentulous. CT/CT soft tissue neck w IV con IMPRESSION: 1. Nodular focus of enhancement involving the right aryepiglottic fold, suspicious, for which direct visualization is recommended. 2. No abnormal lymphadenopathy within the neck. 3. Maxillary paranasal sinus disease with thickening and air-fluid levels bilaterally. 4. Paraseptal emphysematous changes in the imaged lung apices. 5. Moderate to heavy calcific atheromatous disease of the arterial structures. Electronically signed by: Mathew Sinha MD 10/18/2024 03:28 PM EDT Dictated By: Mathew Sinha MD Signed By: <Electronically signed by Mathew Sinha MD in OV> 10/18/24 1528 DD/ 1441 TD/TT: 10/18/24 1511 [employer] Director: [facility] External Provider IMG CT PROCEDURES Final Result * (ABNORMAL) CBC auto differential (10/13/2024 11:02 AM EDT) White Blood Count 9.4 4.8 - 10.8 X10*3/uL [facility] Red Blood Count 4.14(L) 4.60 - 5.80 X10*6/uL [facility] Hemoglobin 13.4(L) 14.0 - 18.0 g/dl [facility] Hematocrit 41.9(L) 42.0 - 52.0 % [facility] Mean Corpuscular Volume 101.2(H) 80.0 - 98.0 fL [facility] Mean Corpuscular Hemoglobin 32.4 27.0 - 33.0 pg [facility] Mean Corpuscular HGB Conc 32.0 31.0 - 36.0 g/dl [facility] Red Cell Distribution Width 12.6 11.0 - 16.0 % [facility] Platelet Count 158(L) 160 - 400 X10*3/uL [facility] Mean Platelet Volume 13.0(H) 9.4 - 12.4 fL [facility] Neutrophils Percent Auto 53.1 45 - 73 % [facility] Imm Gran Pct Auto 0.2 0.0 - 0.4 % [facility] Lymphocytes Percent Auto 35.7 20 - 40 % [facility] Monocytes Percent Auto 7.7 2 - 11 % [facility] Eosinophils Percent Auto 2.2 0 - 4 % [facility] Basophils Percent Auto 1.1 0 - 2 % [facility] NRBC Pct Auto 0.0 0.0 - 0.2 /100WBC [facility] Neutrophils Absolute Auto 5.0 2.0 - 8.3 x10*3/uL [facility] Imm Gran Abs Auto 0.02 0.00 - 0.03 X10*3/uL [facility] Lymphocytes Absolute Auto 3.4 1.2 - 4.9 X10*3/uL [facility] Monocytes Absolute Auto 0.7 0.1 - 1.2 X10*3/uL [facility] Eosinophils Absolute Auto 0.2 0.0 - 0.4 X10*3/uL [facility] Basophils Absolute Auto 0.1 0.0 - 0.2 X10*3/uL [facility] NRBC Abs Auto 0.000 0.0 - 0.012 X10*3/uL [facility] Blood Venous blood specimen / Unknown 10/13/2024 11:02 AM EDT 10/13/2024 1:25 PM EDT Chasity Rincon MD LAB BLOOD ORDERABLES Final Res ult Performing Organization Address [facility]/ZIP Co de Phone Number [facility] [address] [place] [phone] * (ABNORMAL) Sed Rate by Modified Ntaalyren (10/13/2024 11:02 AM EDT) Erythrocyte Sedimentation Rate 75(H) 0 - 15 MM/HR [facility] Comment:Patients with polycy themia and many hemoglobin abnormalitiesmay have depressed sed rates whereas patients with anemiamay have elevated sed rates. Blood Venous blood specimen / Unknown 10/13/2024 11:02 AM EDT 10/13/2024 1:25 PM EDT us Chasity Rincon MD LAB BLOOD ORDERABLES Final Res ult Performing Organization Address City/[facility]/ZIP Co de Phone Number [facility] [address] [place] [phone] * Lactate Dehydrogenase (LD) (10/13/2024 11:02 AM EDT) Lactate Dehydrogenase 185 118 - 273 U/L [facility] Blood Venous blood specimen / Unknown 10/13/2024 11:02 AM EDT 10/13/2024 1:25 PM EDT us Chasity Rincon MD LAB BLOOD ORDERABLES Final Res ult [facility] [address] [place] [address] [phone] * XR Chest 2 Views (10/13/2024 10:05 AM EDT) Anatomical Region Laterality Modality Chest Radiographic Zaida ging 10/13/2024 10:0 5 AM EDT Narrative 10/13/2024 12:17 PM EDT [address] [address] XRay Report Signed Patient: Curt Saravia MR#: [id number] : 1955 Acct:[id number] Age/Sex: 69 / M ADM Date: 10/13/24 Loc: HO.HHCX Attending Dr: Chasity Rincon MD Ordering Physician: Chasity Rincon Date of Service: 10/13/24 Procedure(s): XR chest 2V Accession Number(s): [id number] cc: Chasity Rincon EXAMINATION: XR CHEST 2 VIEWS HISTORY: SOB with minimal exertion COMPARISON: Comparison is made with the prior examination dated 05/29/2017. FINDINGS: PA and lateral views of the chest are submitted. The lungs are expanded and clear. There is no pleural effusion, pneumothorax, or pulmonary vascular congestion. The heart is normal in size. The bones are intact. XR/XR chest 2V IMPRESSION: No acute cardiopulmonary abnormality. Electronically signed by: Champ Grewal MD 10/13/2024 12:13 PM EDT Dictated By: Champ Grewal MD Signed By: <Electronically signed by Champ Grewal MD in OV> 10/13/24 1213 DD/ 1005 TD/TT: 10/13/24 1015 [employer] Director: Procedure Note Donotuseinterpreter, Image - 10/13/2024 [facility] [address] [place] [address] XRay Report Signed Patient: Curt SaraviaMR#: [id number] : 8Acct:[id number] Age/Sex: 69 / MADM Date: 10/13/24 Loc: HO.HHCX Attending Dr: Chasity Rincon MD Ordering Physician: Chasity Rincon Date of Service: 10/13/24 Procedure(s): XR chest 2V Accession Number(s): [id number] cc: Chasity Rincon EXAMINATION: XR CHEST 2 VIEWS HISTORY: SOB with minimal exertion COMPARISON: Comparison is made with the prior examination dated 05/29/2017. FINDINGS: PA and lateral views of the chest are submitted. The lungs are expanded and clear. There is no pleural effusion, pneumothorax, or pulmonary vascular congestion. The heart is normal in size. The bones are intact. XR/XR chest 2V IMPRESSION: No acute cardiopulmonary abnormality. Electronically signed by: Champ Grewal MD 10/13/2024 12:13 PM EDT Dictated By: Champ Grewal MD Signed By: <Electronically signed by Champ Grewal MD in OV> 10/13/24 1213 DD/ 1005 TD/TT: 10/13/24 1015 [employer] Director: Chasity Rincon MD IMG XR PROCEDURES Final Result * (ABNORMAL) Comprehensive Metabolic Panel (10/05/2024 8:15 AM EDT) Sodium 142 135 - 145 mmol/L [facility] Potassium 3.7 3.3 - 5.1 mmol/L [facility] Chloride 107 96 - 108 mmol/L [facility] Carbon Dioxide 27 22 - 29 mmol/L [facility] Anion Gap 12 12 - 20 [facility] Urea Nitrogen (BUN) 11 9 - 16 mg/dL [facility] Creatinine, Serum 1.06 0.5 - 1.4 mg/dL [facility] Estimated Glomerular Filt Rate >60 [facility] Comment:Chronic Kidney Disea se: Estimated GFR < 60 mL/min/1.99s5Gtwvev Kidney Disease: Estimated GFR < 15 mL/min/1.73m2 Glucose 133(H) 60 - 115 mg/dL [facility] Calcium 9.4 8.4 - 10.2 mg/dL [facility] Bilirubin, Total 0.5 0.0 - 1.0 mg/dL [facility] Aspartate Amino Transferase 18 5 - 37 U/L [facility] Alanine Aminotransferase 11 0 - 40 U/L [facility] Total Protein 7.3 6.5 - 8.0 g/dL [facility] LABS Albumin Level 4.0 3.5 - 5.0 g/dL [facility] Alkaline Phosphatase 88 39 - 117 U/L [facility] 10/05/2024 8:15 AM EDT 10/05/2024 8:18 AM EDT us Generic External Data Provider LAB BLOOD ORDERAB LES Final Result [facility] [address] [place] [address] [phone] * (ABNORMAL) Lipid Panel, Standard (05/12/2024 10:07 AM EDT) Triglycerides 205(H) <150 mg/dL [facility] Comment:Desirable Triglyceri de: less than 150 mg/dLBorderline High Triglyceride 150-199 mg/dLHigh Triglyceride: 200-499 mg/dLVery High Triglyceride: greater than or equal to 5OO mg/dL Cholesterol 151 <200 mg/dL [facility] Comment:Desirable Cholestero l: less than 200 mg/dLBorderline High Cholesterol: 200-239 mg/dLHigh Cholesterol: greater than 239 mg/dL LDL Cholesterol Calculated 78 <100 mg/dL [facility] Comment:Desirable LDL: less than 100 mg/dLNear Optimal/Above Optimal LDL: 110- 129 mg/dLBorderline High LDL: 130-159 mg/dLHigh LDL: 160-189 mg/dLVery High LDL: greater than or equal to 190 mg/dL HDL Cholesterol 32(L) >40 mg/dL [facility] Comment:Desirable HDL: great er than 40 mg/dL Note: This HDL assay may give artificially low results in patients with liver disease. Blood Venous blood specimen / Unknown 05/12/2024 10:07 AM EDT 05/12/2024 11:15 AM EDT us Chasity Rincon MD LAB BLOOD ORDERABLES Final Res ult Performing Organization Address City/[facility] Co de Phone Number [facility] [address] [place] [address] [phone] * Hepatitis C Antibody with Reflex to HCV, RNA, Quantitative, Real-Time PCR (08/31/2023 10:02 AM EDT) Hepatitis C Antibody Nonreactive Nonreactive [facility] Comment:Antibodies to HCV no t detected; does not exclude early acuteHCV infection. Blood Venous blood specimen / Unknown 08/31/2023 10:02 AM EDT 08/31/2023 10:58 AM EDT us Chasity Rincon MD LAB BLOOD ORDERABLES Final Res ult Performing Organization Address [facility] Co de Phone Number [facility] [address] [place] [phone] from Last 3 Months or Most Recently Relevant to Health Maintenance [facility] MEDICAID STAND ADULT Care Teams B2B Sales Manager Relationship Specialty Start Date End Date Chasity Rincon MD [address] [place] [address] PCP - General Family Medicine 10/21/20
--- NOTE | 2024-12-08 11:35 | HO.ANESPROP2 ---
Documented by User: Rosie Mercer NP 12/08/24 11:37 HPI - Anesthesia Eval Consult details Narrative: 69 yr old male for Upper Endoscopy and Colonoscopy AAA: follows [facility], last visit 10/2023, screening US done then showed stable AAA 4.3 x 4.4 cm, advised to repeat in 1 yr (which has not yet been done). PMFSH Active Problems Active Problems: All Active Problems Nicotine dependence (Acute) Erectile dysfunction (Acute) BPH associated with nocturia (Acute) Urinary frequency (Acute) Screening PSA (prostate specific antigen) (Acute) Erectile disorder due to medical condition in male (Acute) Multilevel degenerative disc disease (Acute) AAA (abdominal aortic aneurysm) without rupture (Acute) Lumbar spondylosis (Acute) Urge incontinence (Acute) Lumbar radiculopathy (Acute) Thrombocytopenia (Chronic) Past Medical History Medical History AAA (abdominal aortic aneurysm) without rupture History of depression Orthostatic hypotension HTN (hypertension) Thrombocytopenia Proteus mirabilis infection Alcohol withdrawal seizure Alcohol abuse with withdrawal Family History Family History Sister Cancer Father Diabetes mellitus Mother No problems noted. Surgical History Surgical History Hx of colonoscopy Hx of hernia repair Social History Social History Household Members: Caregiver Housing: Apartment Alcohol intake: former Patient Tobacco Use Status: Current everyday Tobacco user Tobacco use type: Cigarette Use of substances other than those prescribed or required for medical reasons: No Advance Directives: No Advance Directives Information Provided: Yes service: No Current occupational status: retired and disabled Meds Allergies Allergy/AdvReac Type Severity Reaction Status Date / Time No Known Allergies (No Known Allergy Verified 10/04/24 13:10 Allergies*) Home Medications ?Medication ?Instructions ?Recorded ?Confirmed ?Last Taken ?Type folic acid 1 mg tablet 1 mg PO DAILY 07/17/20 12/08/24 Unknown History gabapentin 300 mg capsule 300 mg PO TID 07/17/20 12/08/24 Unknown History lisinopril 10 mg tablet 10 mg PO DAILY 07/17/20 12/08/24 Unknown History multivitamin 1 tab PO DAILY 07/17/20 12/08/24 Unknown History tamsulosin 0.4 mg capsule 0.4 mg PO DAILY 07/17/20 12/08/24 Unknown History thiamine HCl (vitamin B1) 100 mg 100 mg PO DAILY 07/17/20 12/08/24 Unknown History tablet cholecalciferol (vitamin D3) 50 50 mcg PO QAM 12/04/20 12/08/24 Unknown History mcg (2,000 unit) capsule docusate sodium 100 mg capsule 100 mg PO BID PRN constipation 12/04/20 12/08/24 Unknown History naproxen 250 mg tablet 250 mg PO DAILY PRN Pain 06/04/21 12/08/24 Unknown History ascorbic acid (vitamin C) 500 mg 0 mg PO 09/29/21 06/03/22 Unknown History capsule,extended release atorvastatin 20 mg tablet 20 mg PO BEDTIME 09/29/21 12/08/24 Unknown History ferrous sulfate 325 mg (65 mg 325 mg PO Q OTHER DAY 09/29/21 12/08/24 Unknown History iron) tablet (FeroSul) fluticasone propionate 50 2 spray intranasal [facility] 09/29/21 12/08/24 Unknown History mcg/actuation nasal spray,suspension trazodone 150 mg tablet 300 mg PO BEDTIME 09/29/21 12/08/24 Unknown History bupropion HCl 150 mg tablet,12 hr 150 mg PO BID 10/04/24 12/08/24 Unknown History sustained-release duloxetine 60 mg capsule,delayed 60 mg PO DAILY 10/04/24 12/08/24 Unknown History release loratadine 10 mg tablet 10 mg PO QAM 10/04/24 12/08/24 Unknown History olanzapine 2.5 mg tablet 2.5 mg PO BEDTIME 10/04/24 12/08/24 Unknown History Documented by User: Jose Pascal MD 12/13/24 09:02 [facility] Past Medical History Medical History AAA (abdominal aortic aneurysm) without rupture History of depression Orthostatic hypotension HTN (hypertension) Thrombocytopenia Proteus mirabilis infection Alcohol withdrawal seizure Alcohol abuse with withdrawal Family History Family History Sister Cancer Father Diabetes mellitus Mother No problems noted. Family history of problems with anesthesia: No Surgical History Surgical History Hx of colonoscopy Hx of hernia repair History of Problems with Anesthesia: No Social History Social History Household Members: Caregiver Housing: Apartment Alcohol intake: former Patient Tobacco Use Status: Current everyday Tobacco user Tobacco use type: Cigarette Use of substances other than those prescribed or required for medical reasons: No Advance Directives: No Advance Directives Information Provided: Yes service: No Current occupational status: retired and disabled Meds Allergies Allergy/AdvReac Type Severity Reaction Status Date / Time No Known Allergies (No Known Allergy Verified 10/04/24 13:10 Allergies*) Home Medications ?Medication ?Instructions ?Recorded ?Confirmed ?Last Taken ?Type folic acid 1 mg tablet 1 mg PO DAILY 07/17/20 12/08/24 Unknown History gabapentin 300 mg capsule 300 mg PO TID 07/17/20 12/08/24 Unknown History lisinopril 10 mg tablet 10 mg PO DAILY 07/17/20 12/08/24 Unknown History multivitamin 1 tab PO DAILY 07/17/20 12/08/24 Unknown History tamsulosin 0.4 mg capsule 0.4 mg PO DAILY 07/17/20 12/08/24 Unknown History thiamine HCl (vitamin B1) 100 mg 100 mg PO DAILY 07/17/20 12/08/24 Unknown History tablet cholecalciferol (vitamin D3) 50 50 mcg PO QAM 12/04/20 12/08/24 Unknown History mcg (2,000 unit) capsule docusate sodium 100 mg capsule 100 mg PO BID PRN constipation 12/04/20 12/08/24 Unknown History naproxen 250 mg tablet 250 mg PO DAILY PRN Pain 06/04/21 12/08/24 Unknown History ascorbic acid (vitamin C) 500 mg 0 mg PO 09/29/21 06/03/22 Unknown History capsule,extended release atorvastatin 20 mg tablet 20 mg PO BEDTIME 09/29/21 12/08/24 Unknown History ferrous sulfate 325 mg (65 mg 325 mg PO Q OTHER DAY 09/29/21 12/08/24 Unknown History iron) tablet (FeroSul) fluticasone propionate 50 2 spray intranasal QAM 09/29/21 12/08/24 Unknown History mcg/actuation nasal spray,suspension trazodone 150 mg tablet 300 mg PO BEDTIME 09/29/21 12/08/24 Unknown History bupropion HCl 150 mg tablet,12 hr 150 mg PO BID 10/04/24 12/08/24 Unknown History sustained-release duloxetine 60 mg capsule,delayed 60 mg PO DAILY 10/04/24 12/08/24 Unknown History release loratadine 10 mg tablet 10 mg PO QAM 10/04/24 12/08/24 Unknown History olanzapine 2.5 mg tablet 2.5 mg PO BEDTIME 10/04/24 12/08/24 Unknown History Exam Exam Date and Time: 12/13/2024 Airway Mallampati Class: II TM Dist: >3cm Neck ROM: Full Loose/Missing/Broken Teeth: Yes (multiple missing tooth. poor dentition) Heart: rrr Lungs: cta Other: normal Assessment and Plan Assessment Anesthesia Assessment: Anesthesia Plan Discussed and Smoking Cess. Discussed Final Anesthetic Review Family History of Problems with Anesthesia: No History of Problems with Anesthesia: No NPO: Yes ASA Class: III Final Preanesthetic Review: No Changes in Pt Med Stat, Meds/Allgs Chart Reviewed, Consent Obtained/Reviewed and Anes Risks/Benef Reviewed Patient Risk: Low Procedure Risk: Low Anesthetic Plan Anesthetic Plan: MAC: Disposition: Standard PACU
[2024-12-08 11:56] VITALS: BMI 22.9
[2024-12-13 08:23] VITALS: BP 168/79; PULSE 86; RESP 16; TEMP 36.4; O2SAT 98
[2024-12-13] MEDS: Lactated Ringers 1,000 ML 100 ML IVCONT (08:26)
--- NOTE | 2024-12-13 08:44 | MHC.SHP ---
Pre-Procedural Eval Section A - 24 Hr Update-Section A only Date of Service: 12/13/24 Section B - Complete if H&P > 30 days Chief Complaint: screening,dysphagia Relevant Family History (Specify if Yes): No Relevant Social History: Tobacco Use Present Medications: see Short Stay Collaborative assessment Medical History: Significant History (AAA (abdominal aortic aneurysm) without rupture History of depression Orthostatic hypotension HTN (hypertension) Thrombocytopenia Proteus mirabilis infection Alcohol withdrawal seizure Alcohol abuse with withdrawal) History of Previous Operations: Relevant previous surgery/procedure and date(s) ( Hx of colonoscopy Hx of hernia repair) Allergies: Allergies Allergy/AdvReac Type Severity Reaction Status Date / Time No Known Allergies (No Known Allergy Verified 10/04/24 13:10 Allergies*) Review of Systems Sugical H&P ROS: Negative: Constitution, Cardiovascular, Respiratory, Neurological, Psychiatric, Hem-Onc, Allergic/Immunologic, Gastrointestinal, Genitourinary, Musculoskeletal, Integumentary, Endocrine and Eyes/Ears/Nose/Throat Exam Surgical H&P Exam: Normal: HEENT, Normal: Heart, Normal: Lungs, Normal: Extremities, Normal: Abdomen, Normal: Skin and Normal: Neurological Plan Diagnosis/Plan: Unchanged I have reviewed the history and physical and performed a pertinent physical examination on my patient. No changes have occurred unless specified. Time Spent With Patient Time: Total time managing care of this patient today ____ minutes.
--- NOTE | 2024-12-13 09:08 | PM.ANESCN ---
History of Present Illness Consult details Consult date: 12/13/24 Review of Systems Review of Systems: Yes all other systems are reviewed and are negative Constitutional: Constitutional: Reports as per HPI and Reports no additional constitutional complaints Eyes: Eyes: Reports as per HPI and Reports no additional eye complaints ENT: Reports system reviewed and no additional complaints, except as documented Cardiovascular: Cardiovascular: Reports as per HPI Respiratory: Respiratory: Reports as per HPI Gastrointestinal: Gastrointestinal: Reports as per HPI Genitourinary: Genitourinary: Reports no additional male genitourinary complaints Musculoskeletal: Musculoskeletal: Reports no additional musculoskeletal complaints Integumentary/Breasts: Skin/Breast: Reports system reviewed and no additional complaints, except as docu Neurologic: Reports system reviewed and no additional complaints, except as documented Psychiatric: Psychiatric: Reports no additional psychiatric complaints Endocrine: Endocrine: Reports no additional endocrine complaints Hematologic/Lymphatic: Hematologic/Lymphatic: Reports no additional hematologic/lymphatic complaints Allergic/Immunologic: Allergic/Immunologic: Reports no additional allergic/immunologic complaints PMFSH Past Medical History Medical History AAA (abdominal aortic aneurysm) without rupture History of depression Orthostatic hypotension HTN (hypertension) Thrombocytopenia Proteus mirabilis infection Alcohol withdrawal seizure Alcohol abuse with withdrawal Family History Family History Sister Cancer Father Diabetes mellitus Mother No problems noted. Surgical History Surgical History Hx of colonoscopy Hx of hernia repair Social History Social History Household Members: Caregiver Housing: Apartment Alcohol intake: former Patient Tobacco Use Status: Current everyday Tobacco user Tobacco use type: Cigarette Use of substances other than those prescribed or required for medical reasons: No Advance Directives: No Advance Directives Information Provided: Yes service: No Current occupational status: retired and disabled Meds Allergies Allergy/AdvReac Type Severity Reaction Status Date / Time No Known Allergies (No Known Allergy Verified 10/04/24 13:10 Allergies*) Active Medications: Current Medications Lactated Ringer's (Lr) 1,000 mls @ 100 mls/hr IVCONT .Q10H LELAND Last Admin: 12/13/24 08:26 Dose: 100 mls/hr Home Medications ?Medication ?Instructions ?Recorded ?Confirmed ?Last Taken ?Type folic acid 1 mg tablet 1 mg PO DAILY 07/17/20 12/08/24 Unknown History gabapentin 300 mg capsule 300 mg PO TID 07/17/20 12/08/24 Unknown History lisinopril 10 mg tablet 10 mg PO DAILY 07/17/20 12/08/24 Unknown History multivitamin 1 tab PO DAILY 07/17/20 12/08/24 Unknown History tamsulosin 0.4 mg capsule 0.4 mg PO DAILY 07/17/20 12/08/24 Unknown History thiamine HCl (vitamin B1) 100 mg 100 mg PO DAILY 07/17/20 12/08/24 Unknown History tablet cholecalciferol (vitamin D3) 50 50 mcg PO QAM 12/04/20 12/08/24 Unknown History mcg (2,000 unit) capsule docusate sodium 100 mg capsule 100 mg PO BID PRN constipation 12/04/20 12/08/24 Unknown History naproxen 250 mg tablet 250 mg PO DAILY PRN Pain 06/04/21 12/08/24 Unknown History ascorbic acid (vitamin C) 500 mg 0 mg PO 09/29/21 06/03/22 Unknown History capsule,extended release atorvastatin 20 mg tablet 20 mg PO BEDTIME 09/29/21 12/08/24 Unknown History ferrous sulfate 325 mg (65 mg 325 mg PO Q OTHER DAY 09/29/21 12/08/24 Unknown History iron) tablet (FeroSul) fluticasone propionate 50 2 spray intranasal QAM 09/29/21 12/08/24 Unknown History mcg/actuation nasal spray,suspension trazodone 150 mg tablet 300 mg PO BEDTIME 09/29/21 12/08/24 Unknown History bupropion HCl 150 mg tablet,12 hr 150 mg PO BID 10/04/24 12/08/24 Unknown History sustained-release duloxetine 60 mg capsule,delayed 60 mg PO DAILY 10/04/24 12/08/24 Unknown History release loratadine 10 mg tablet 10 mg PO QAM 10/04/24 12/08/24 Unknown History olanzapine 2.5 mg tablet 2.5 mg PO BEDTIME 10/04/24 12/08/24 Unknown History Physical Exam Vital Signs: Vital Signs: Last Vital Signs Temp 97.5 F 12/13/24 08:23 Pulse 86 10/15/25 08:23 Resp 16 12/13/24 08:23 BP 168/79 H 12/13/24 08:23 Pulse Ox 98 12/13/24 08:23 O2 Del Method Room Air 12/13/24 08:23 BMI result Body Mass Index 22.9 Results Labs Labs: All other labs normal. Procedures Date of Service Date of Service: 12/13/24
--- NOTE | 2024-12-13 09:59 | W.PM.OPN ---
Operative Note Operative Note Date of Service: 12/13/24 Narrative: Procedure Description: EGD Indication: dysphagia Anesthesia: MAC FLEXIBLE TRANSORAL UPPER GASTROINTESTINAL ENDOSCOPY UPPER ENDOSCOPY Consent: Indications for the procedure and potential complications of bleeding, perforation, reaction to medications and missed diagnosis were discussed with the patient and informed consent was obtained. Instrument: Olympus GIF H 190 J mid size upper endoscope Monitoring: Vital signs and clinical assessment, continuous EKG monitoring, Pulse oximetry, Carbon Dioxide monitoring and blood pressure monitoring were done throughout the procedure. Procedure: The patient was placed in the left lateral decubitis position and pre-procedure medications were administered and a bite block was placed. The endoscope was inserted into the mouth and advanced under direct vision to the third part of duodenum. A careful inspection was made as the upper endoscope was withdrawn including a retroflexed examination of the proximal stomach; Findings and interventions are described below. Findings: Larynx: mass like lesion noted on right arytenoid area and whitish lesion on true vocal cord Esophagus: GE junction at 40 cm, diaphragm hiatus at 44 cm, schatzki ring noted dialted using ballon to 18 mm with superficial tears seen, also proximal esophagus dilated to 15 mm, no tears seen, bx taken from distal and proximal esophagus Stomach: patchy erythema and granularity. . Biopsies were obtained. Grade 2 flap valve on retroflexed examination of the cardia. Duodenum: Normal bulb and descending duodenum, Intervention: Biopsies as noted above, balloon dilation Impression/Findings: gastritis schatzki ring 4 cm fixed hiatal hernia patulous GEJ arytenoid mass/lesion PLAN: refer ENT CT head,neck and chest IV contrast GERD precautions cont with PPI
[2024-12-13 10:03] VITALS: BP 114/61; PULSE 70; RESP 16; TEMP 36.1; O2SAT 95
[2024-12-13 10:18] VITALS: BP 161/75; PULSE 72; RESP 16; TEMP 36.1; O2SAT 97
[2024-12-13] MEDS: Mag&Al/Sim/Diphenhyd/Lidocaine 10 ML ORAL.SUSP PO (10:31)
== END 2024-12-13 10:58 | disposition home or self-care (01) ==
PROVIDERS: PCP General Practice; Visit Provider Internal Medicine Gastroenterology
PROC: (CPT 43239; principal; 2024-12-13 09:30)
DX: R13.10 Dysphagia, unspecified (principal); K58.9 Irritable bowel syndrome, unspecified; K21.9 Gastro-esophageal reflux disease without esophagitis; K29.70 Gastritis, unspecified, without bleeding; K44.9 Diaphragmatic hernia without obstruction or gangrene; B96.89 Other specified bacterial agents as the cause of diseases classified elsewhere; K22.89 Other specified disease of esophagus; K31.89 Other diseases of stomach and duodenum; Q40.8 Other specified congenital malformations of upper alimentary tract; J38.7 Other diseases of larynx
CPT/HCPCS: 43239; 43249; 43245; 88305; 88313; 88342; J2704; J3010

== ENCOUNTER → 2024-12-13 07:57 | Outpatient (BNV) | payer OTHER, SELFPAY | PROVIDERS: PCP General Practice; Visit Provider Internal Medicine Gastroenterology | DX: R13.10 Dysphagia, unspecified (principal); K22.2 Esophageal obstruction; J38.7 Other diseases of larynx; K29.70 Gastritis, unspecified, without bleeding | CPT/HCPCS: 43239; 43249 ==

== ENCOUNTER 2025-01-12 07:39 | Outpatient (REF) | payer OTHER, SELFPAY ==
--- OUTSIDE RECORDS SUMMARY | 2025-01-09 11:00 | XMS_ITS | Encounter Summary ---
Author Organization [employer] Address [address] [facility] [address] [place] [address] Care Team Providers Care Rock Singer Name Role Phone Chasity Rincon MD Primary Care Provider [phone] Encounter Details Date Type Department Care Team (Late st Contact Info) Description 01/09/2025 11:00 AM EST Office Visit [facility] ADULT DENTAL [address] [place], [place] [phone] Tremayne Rose DDS [address] [place], [place] [phone] Complete edentulism, unspecified edentulism class (Primary Dx) Social History Tobacco Use Types [...] the past 12 months, has t he [employer], gas, oil or water company threatened to [...] AM EDT documented as of this encounter Progress Notes * Tremayne Rose, DDS - 01/09/2025 11:00 AM EST Patient ID: Curt Ramires is a 69 y.o. male. Time Out: Timeout Date: 01/09/25, Timeout Time: 1036 Location: [facility] Tooth: Mandible Procedure: Dentures Verified the above with patient, education assistant, and provider. Confirmed via patient's chart, intraorally and by radiographs. Glass Edger: not applicable No chief complaint on file. Medical Hx: Vitals: There were no vitals taken for this visit. Medications, Med Hx reviewed with patient and updated in chart. Consent Obtained: The risks, benefits, indications, potential complications, and alternatives were explained to the patient and informed consent was obtained with good understanding. Treatment Provided: Dental procedures in this visit D5750.2 - DENTURE FOLLOWUP (Completed) Service provider: Tremayne Rose DDS Billing provider: Tremayne Rose DDS D5110.7 - DENTURE IMPRESSION (Completed) Service provider: Tremayne Rose DDS Billing provider: Tremayne Rose DDS Impression taken with [place] of Mandible / upper denture for bite reg. (Returned to [facility]) Case sent to lab to fabricate custom trays. Lab used: [email or web address] Lab Due Date: 01-15-25 Patient discharged alert, oriented, and in stable condition. NV: Bite reg Remote Sensing Scientist: Maira Carrasco Dentist: Tremayne Rose DDS documented in this encounter Plan of Treatment Upcoming Encounters Date Type Department Care Team (Late st Contact Info) Description 01/23/2025 8:00 AM EST Office Visit [facility] ADULT DENTAL [address] [place] [phone] Tremayne Rose DDS [address] [place] [address] 03/28/2025 10:45 AM EST Office Visit [facility] MEDICINE [address] [place] [address] Chasity Rincon MD [address] [place] [address] Scheduled Orders Name Type Priority Associated Diagnoses Orde r Schedule BITE REGISTRATION Dental Routine 1 Occur rences starting 01/09/2025 WAX TRY IN Dental Routine 1 Occurrences starting 01/09/2025 Vicente Vicente COMPLETE DENTURE - MANDIBULAR Dental Routine 1 Occurrenc es starting 01/09/2025 documented as of this encounter Procedures Procedure Name Priority Date/Time Associated Diagnosis Comments DENTURE FOLLOWUP Routine 01/09/2025 11:00 AM EST DENTURE IMPRESSION Routine 01/09/2025 11:00 AM EST documented in this encounter Visit Diagnoses Diagnosis Complete edentulism, unspecified edentulism class- Primary documented in this encounter Additional Health Concerns Assessment Noted Time PHQ-9 Depression Total Score: 15 025 9:50 AM EDT documented as of this encounter Care Teams Rock Singer Relationship Specialty Start Date End Date Chasity Rincon MD [address] [place] [address] PCP - General Family Medicine 10/21/20 documented as of this encounter
--- NOTE | ~2025-01-12 | US_ITS ---
CLINICAL HISTORY: I71.43 - Infrarenal abdominal aortic aneurysm, without rupture US Abdomen (AAA) Comparison: US/SC/SR - US ABDOMINAL AORTIC ANEURYSM - 11/23/23 09:01 EDT Findings: Aorta proximal 2.6 x 2.5 cm. Aorta mid 2.7 x 2.8 cm. Aorta distal 4.5 x 5.3 cm with peripheral thrombus. Previously, it measured 4.3 x 4.4 cm. The patent central component measures 1.9 x 2.6 cm in diameter. Peak systolic velocity within the distal aorta measures 34.4 cm/sec. Right common iliac artery size cm. Left common iliac artery 2.6 x 2.6 1.3 x 1.7 cm. IMPRESSION: Distal abdominal aorta measures up to 4.5 x 5.3cm with peripheral mural thrombus. It has increased in size compared to prior exam. This document has been electronically signed by: Fozia Orellana MD on 01/12/2025 19:43:12
--- OUTSIDE RECORDS SUMMARY | 2025-01-12 07:41 | XMS_ITS | Clinical Summary ---
Author Organization [employer] Address [address] [facility] [address] [place] [address] Care Team Providers Care Parachute Marker Name Role Phone Chasity Rincon MD Primary Care Provider [phone] Allergies No known active allergies Medications fluticasone [...] mouth in the morning. 08/03/19 24 Active loratadine (Claritin) 10 MG tablet [...] MG tabletIndications: Secondary nonischemic congestive cardiomyopathy (CMS/HCC) (HCC) TAKE 1 Tablet BY MOUTH AT BEDTIME 90 tablet 3 04/04/19 25 Active docusate sodium (Colace) 100 MG capsuleIndications :Other constipation TAKE 1 CAPSULE BY MOUTH TWICE DAILY NEEDED FOR CONSTIPATION 180 capsule 3 04/04/19 25 Active thiamine (Vitamin B-1) 100 MG tabletIndications: Alcoholism (CMS/HCC) ([facility]) TAKE 1 TABLET BY MOUTH EVERY MORNING 90 tablet 3 05/03/19 25 Active D3 Super Strength 50 MCG (1999 UT) capsuleIndications :Alcoholism (CMS/HCC) ([facility]) TAKE 1 CAPSULE BY MOUTH EVERY MORNING 90 capsule 3 05/03/19 25 Active folic acid (Folvite) 1 MG tabletIndications: Alcoholism (CMS/HCC) ([facility]) TAKE 1 TABLET BY MOUTH EVERY MORNING [...] TOPICALLY THREE TIMES DAILY 07/12/19 25 Active omeprazole (PriLOSEC) [address] capsule TAKE 1 CAPSULE BY MOUTH TWICE DAILY DO NOT BREAK, CRUSH, DISSOLVE OR CHEW 180 capsule 3 11/22/19 25 Active acetaminophen (Tylenol 8 Hour) 650 MG ER tablet Take 1 tablet (650 mg) by mouth every 8 (eight) hours if needed for mild pain. Do not crush, chew, or split. 30 tablet 12/20/19 25 Active amoxicillin (Amoxil) 500 MG capsule Take 1 capsule (500 mg) by mouth every 8 (eight) hours for 7 days. 21 capsule 12/20/19 25 025 Active Problems Problem Noted Date Diagnosed Date Complete edentulism 01/09/2025 Mass of larynx 12/26/2024 Assessment & Plan (12/26/2024 1:12 PM EDT): Initially noted on CT: Nodular focus of enhancement involving the right aryepiglottic fold, suspicious, for which direct visualization is recommended. Pt underwent EGD: 12/13/2024 that showed: Larynx: mass like lesion noted on right arytenoid area and whitish lesion on true vocal cord. An urgent referral to ENT was placed on: 10/19/2024. for laryngoscopy and biopsy of the lesion. Pt has an appointment 01/05/2025. Today we reminded him of the appointment and we gave him the address and time and date of appointment. I discussed with him the importance of this. Chest pain 12/26/2024 Assessment & Plan (12/26/2024 1:10 PM EDT): Pt here with c/o Chest pain episodes described as moderate and burning, with normal electrocardiogram at time of evaluation. Cardiac etiology not excluded; further assessment needed. Today no chest pain Plan: Referral to cardiology for evaluation and diagnostic studies. Advised to seek emergency care if chest pain recurs. 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 Continue pantoprazole for GERD Advised to quit smoking Patient to follow-up with PCP as scheduled Ill-fitting dentures 04/05/2024 Dental caries 08/31/2023 Mixed conductive and sensori neural [...] annual ultrasound, gave him the order to [facility] radiology Assessment & Plan (11/24/2022 12:05 PM EDT): Stable in size < 5cm Continue f/u with Dr Dickerson Assessment & Plan (07/20/2022 10:55 AM EDT): Follow up with vascular for annual exam Last measurement AAA at 4.5cm Assessment & Plan (03/29/2022 6:15 PM EST): Follow up with vascular for annual exam Closed fracture of iliac wing ([facility]/HCC) 03/27/19 23 Urge incontinence of urine 03/27/2022 Lumbar radiculopathy 11/24/2021 Assessment & Plan (07/14/2024 7:15 AM EDT): Perocet daily prn Will need to discuss at next visit whether he accepts risks and benefits of continuing this medication, will need to come to ABSORBER OPERATOR program if so Osteoarthritis of left knee [...] (08/31/2023 7:00 AM EDT): Sees urology at [facility], Catherine Bunn Continue prn Viagra Alcoholism ([facility]) 05/26/2017 Secondary nonischemic congestive cardiomyopathy ([facility]) 05/26/2017 Assessment & Plan (05/17/2024 11:58 AM EDT): Walk as much as tolerated Smoking cessation advised Tremor 05/26/2017 Allergic rhinitis 12/05/2014 Cigarette smoker 12/05/2014 Assessment & Plan (08/31/2023 7:05 AM EDT): Declines cessation aids Encouraged this as it could help with pain and aneurysm Dementia associated with alcoholism ([facility]) Assessment & Plan (08/31/2023 6:58 AM EDT): [...] 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 05/12/2024 05/17/2024 Pre-op evaluation 06/25/2023 05/17/2024 Assessment & Plan (06/25/2023 1:54 PM EDT): Patient is average risk for low risk procedure Hold NSAIDs and ASA 5-7 days prior to procedure Routine pain control Encounters Date Type Department Care Team Description 01/11/2025 Telephone [facility] [address] [place] [phone] Chasity Rincon MD Call Back Request 01/09/2025 11:00 AM EST Office Visit [facility] [address] [place] [phone] Tremayne Rose DDS Complete edentulism, unspecified edentulism class (Primary Dx) 12/26/2024 11:30 AM EDT Office Visit [facility] [address] [place] [phone] Oskar Mayorga MD Chest pain, unspecified type (Primary Dx); Mass of larynx 12/26/2024 Travel 12/26/2024 Telephone [facility] [address] [place] [phone] Chasity Rincon MD Nurse Triage 12/19/2024 9:00 AM EDT Office Visit [facility] [address] [place] [address] [place] [address] Tremayne Rose DDS Periodontal disease (Primary Dx); Dental caries; Ankylosis of teeth 12/13/2024 Orders Only GENERIC EXTERNAL DATA DEPARTMENT Provider, Generic External Data 12/12/2024 Orders Only [facility] External Provider, [facility] 11/20/2024 Refill [facility] [address] [place] [address] Chasity Rincon MD 10/18/2024 Results Follow-Up [facility] [address] [place] [address] Soft Tissue Neck w/ Contrast 10/18/2024 Orders Only [facility] External Provider, [facility] 10/17/2024 Telephone [facility] [address] [place] [address] Tiara Kaba RN Medication Follow Up 10/13/2024 9:45 AM EDT Office Visit [facility] [address] [place] [phone] Chasity Rincon MD Pneumonia of upper lobe [...] opiate drug for therapeutic purpose 10/13/2024 Travel from Last 3 Months Immunizations Immunization Administration [...] Sign Reading Time Taken Comments Blood Pressure 150/80 12/26/2024 11:28 AM EDT Pulse 104 12/26/2024 11:28 AM EDT Temperature 36.2 C (97.2 F) 12/26/2024 11:28 AM EDT Respiratory Rate 20 12/26/2024 11:28 AM EDT Oxygen Saturation 98% 10/13/2024 9:48 AM EDT Inhaled Oxygen Concentration - - Weight 69 kg (152 lb 2 oz) 12/26/2024 11:28 AM E DT Height 170.2 cm (5' 7 ) 12/26/2024 11:28 AM EDT Body Mass Index 23.83 12/26/2024 11:28 AM EDT Plan of Treatment Upcoming Encounters Date Type Department Care Team (Late st Contact Info) Description 01/23/2025 8:00 AM EST Office Visit [facility] [address] [place] [address] Tremayne Rose DDS [address] [place] [address] 03/28/2025 10:45 AM EST Office Visit [facility] [address] [place] [address] Chasity Rincon MD [address] [place] [address] Health Maintenance Due Date Last Done Comments CT Colonography 1955 Colonoscopy 1955 Colorectal Cancer Screening 1955 FIT DNA/Cologuard 1955 FIT 1955 FOBT 1955 Sigmoidoscopy 1955 Alcohol/Substance Use Screening 1969 Zoster Vaccines (1 of 2) 08/11/2007 Pneumococcal Vaccine: 50+ Years (2 of 2 - PCV) 12/04/2011 12/03/2010 Dental X-Ray: Bitewings 11/16/2015 11/14/2014, 11/05 COVID-19 Vaccine (4 - 2024- season) 2024 03/14/2021, 09/10/2020, 08/20/2020 Influenza Vaccine (#1) 2024 , 01/23/2013, 12/10/2011 Depression Monitoring 04/15/2025 10/13/2024, 025 Dental Oral Exam 06/20/2025 12/19/2024, 04/2023, 2022, Additional history exists SDOH Screening 10/13/2025 10/13/2024 DTaP/Tdap/Td Vaccines (4 - Td or Tdap) 10/23/2025 10/24/2015, 11/29/2013, 12/03/2010 Tobacco Screening 01/09/2026 01/09/2025 Dental X-Ray: Full Mouth 12/21/2027 025, 2022, 05/30/2013, Additional history exists Lipid Panel 05/12/2029 05/12/2024, 12/30, 04/29/2020 RSV Patients and Patients Aged 60 years or older (1 - 1-dose 75+ series) 2032 Dental Prophylaxis Discontinued 08/26/2022, 0 06/07/2020, 01/13/2016, Additional history exists Hepatitis C Screening Completed 08/31/2023 HIB Vaccines [...] Name Priority Date/Time Associated Diagnosis Comments DENTURE IMPRESSION Routine 01/09/2025 11 :00 AM EST DENTURE FOLLOWUP Routine 01/09/2025 11:0 0 AM EST ECG 12-LEAD Routine 12/26/2024 1:07 PM EDT Chest pain, unspecified type 27 EXTRACTION, ERUPTED TOOTH REQ REMOVAL OF BONE AND/OR SECTIONING OF TOOTH Routine 12/19/2024 9:00 AM EDT 22 EXTRACTION, ERUPTED TOOTH REQ REMOVAL OF BONE AND/OR SECTIONING OF TOOTH Routine 12/19/2024 9:00 AM EDT 21 EXTRACTION, ERUPTED TOOTH REQ REMOVAL OF BONE AND/OR SECTIONING OF TOOTH Routine 12/19/2024 9:00 AM EDT PERIODIC ORAL EVALUATION - ESTABLISHED PATIENT Routine 12/19/2024 9:00 AM EDT CASE PRESENTATION, DETAILED AND EXTENSIVE TREATMENT PLANNING Routine 12/19/2024 9:00 AM EDT PANORAMIC RADIOGRAPHIC IMAGE Routine 12/19/2024 9:00 AM EDT HEMATOXYLIN AND EOSIN STAIN Routine 12/13/2024 9:57 AM EDT FL BARIUM SWALLOW MODIFIED Routine 12/12/2024 2:13 [...] lobe due to infectious organism, unspecified laterality LIPID PANEL, STANDARD Routine 05/12/2024 10:07 AM EDT Essential hypertension HEPATITIS C AB W/REFL TO HCV RNA, QN, PCR Routine 08/31/2023 10:02 AM EDT Need for hepatitis C screening test PROPHYLAXIS - ADULT Routine 08/26/2022 1 1:00 AM EDT BITEWINGS - 4 RADIOGRAPHIC IMAGES Routine 11/14/2014 12:00 AM EDT from Last 3 Months or Most Recently Relevant to Health Maintenance Results * ECG 12 lead (12/26/2024 1:07 PM EDT) Narrative Oskar Mayorga MD - 12/26/2024 1:07 PM EDT Sinus rhythm, no acute st t changes us Oskar Hill MD ECG ORDERABLES Final Result * Hematoxylin and Eosin Stain (12/13/2024 9:57 AM EDT) 12/13/2024 9:57 AM EDT 12/13/2024 11:20 AM EDT [facility] - 12/15/2024 11:00 AM EDT ----- ------- Name: Curt Saravia Age/Sex: 69/M : 1955 Unit#: [id number] Attend Dr: Federico Anand MD Re12/13/24 Status: [facility] Location: [facility] Disch: ----- ------- SPEC : [id number] RECD: 12/13/24 STATUS: DUC VELÁSQUEZ NUM: [id number] JACINDA: 12/13/[address] [facility] [address]: Federico Anand MD ENTERED: 12/13/24 SP TYPE: Surgical OTHR DR: Chasity Rincon ORDERED: HE Stain/3, Gross Micro L4/3, IHC, Special st. 2, H. pylori, AB/PAS Diagnosis A. Stomach, biopsy: Antral-type and oxyntic mucosa with mild chronic inactive inflammation; no Helicobacter organisms seen. B. Esophagus, distal, biopsy: Squamous epithelium within normal limits; no inflammation seen. C. Esophagus, proximal, biopsy: Squamous epithelium within normal limits; no inflammation seen. Clinical History Pre-Op Dx: Screening, dysphagia Post-Op Dx: Schatzki's rings, vocal cord mass, hiatal hernia Microscopic Description A-C. Microscopic sections examined. No metaplastic changes are seen, supported by AB/PAS stains (A); no Helicobacter organisms are seen, supported by H. pylori immunostain (A). Material Received A. Stomach bxs B. Distal esophagus bxs C. Proximal esophagus bxs Gross Description A. Received in formalin are 3 huynh 1 mm soft tissue fragments, totally submitted in cassettes A1. B. Received in formalin are 2 white 1 and 3 mm soft tissue fragments, totally submitted in cassette B1. C. Received in formalin are 2 white 1 mm soft tissue fragments, totally submitted in cassette C1. (DTL) Special studies ordered and performed: Immunostain for H. pylori on A; AB/PAS stains on A IHC S/NG Disclaimer NOTE: Unless otherwise stated, all tissue is formalin-fixed and paraffin-embedded. Some or all of the immunohistochemical tests reported herein may have been developed and their performance characteristics determined by [facility]. They have not been cleared or approved by the U.S. Food and Drug Administration (FDA). However, the FDA CONTINUED ON NEXT PAGE ----- ------- Name: Curt Saravia Age/Sex: 69/M [facility] 1955 [id number]#: [id number] Attend Dr: Federico Anand MD Re12/13/24 Status: [facility] Location: [facility] Disch: ----- ------- SPEC : [id number] RECD: 12/13/24 STATUS: DUC VELÁSQUEZ NUM: [id number] JACINDA: 12/13/[address] [facility] [address]: Federico Anand MD ENTERED: 12/13/24 SP TYPE: Surgical OTHR DR: Chasity Rincon ORDERED: HE Stain/3, Gross Micro L4/3, IHC, Special st. 2, H. pylori, AB/PAS IHC S/NG Disclaimer (Continued) has determined that such clearance or approval is not necessary. This laboratory is certified under the Clinical Laboratory Improvement Amendments of 1988 (CLIA) as qualified to perform high complexity clinical laboratory testing. Copies To: Federico Anand MD [facility] [address] [place] [phone] Chasity Rincon [address] [address] ----- ------- Signed (signature on file) Charles Pang MD 12/15/24 1100 ----- ------- END OF REPORT us Generic External Data Provider LAB BLOOD ORDERAB LES Final Result Performing Organization Address City/State/[facility] Co de Phone Number [facility] [address] [place], [place] [phone] * FL BARIUM SWALLOW MODIFIED (12/12/2024 2:13 PM EDT) Anatomical Region Laterality Modality Head, Neck Radiographic Zaida ging 12/12/2024 2:13 PM EDT Narrative 12/12/2024 2:46 PM EDT [place] [address] Fluoroscopy Report Signed Patient: Curt Saravia MR#: [id number] : 1955 Acct:[id number] Age/Sex: 69 / M ADM Date: 12/12/24 Loc: CHUCK Attending Dr: Racquel Finch [facility] Ordering Physician: [facility] Date of Service: 12/12/24 Procedure(s): FL Modified Barium Swallow Accession Number(s): [id number] cc: Chasity Rincon; [facility] Reason for Exam: R13.10 - Dysphagia, unspecified [...] 12/12/24 1443 DD/ 1413 TD/TT: 12/12/24 1422 Derrick Car Operator: Procedure Note Donotuseinterpreter, Image - 12/12/2024 [place] [address] Fluoroscopy Report Signed Patient: Curt Saravia#: [id number] : 8Acct:[id number] Age/Sex: 69 / MADM Date: 12/12/24 Loc: CHUCK Attending Dr: Racquel Finch [facility] Ordering Physician: Racquel Finch [facility] Date of Service: 12/12/24 Procedure(s): FL Modified Barium Swallow Accession Number(s): [id number] cc: Chasity Rincon; Racquel Finch [facility] Reason for Exam: R13.10 - Dysphagia, unspecified [...] 12/12/24 1443 DD/ 1413 TD/TT: 12/12/24 1422 Derrick Car Operator: [facility] External Provider IMG FLU OROSCOPY PROCEDURES Final Result * CT Soft Tissue Neck w/ Contrast (10/18/2024 2:41 PM EDT) Anatomical Region Laterality Modality Head, Neck Computed Tomogra phy 10/18/2024 2:41 PM EDT Narrative 10/18/2024 3:30 PM EDT [place] [address] [address] Scan Report Signed Patient: Curt Saravia MR#: [id number] : 1955 Acct:[id number] Age/Sex: 69 / M ADM Date: 10/18/24 Loc: HO.CT Attending Dr: Racquel Finch [facility] Ordering Physician: Racquel Finch [facility] Date of Service: 10/18/24 Procedure(s): CT soft tissue neck w IV con Accession Number(s): [id number] cc: Chasity Rincon; Racquel Finch [facility] Report Number: [id number]: Total DLP = 240.00 mGy-cm EXAMINATION: CT [...] Retropharangeal Space: -Normal. Parapharyngeal Fat Planes: -Normal. Research Mechanic Spaces: -Normal. Anterior Cervical Space: -Normal. Imaged [...] 10/18/24 1528 DD/ 1441 TD/TT: 10/18/24 1511 Derrick Car Operator: Procedure Note Donotuseinterpreter, Image - 10/18/[address] [address] [address] Scan Report Signed Patient: Curt SaraviaMR#: [id number] : 8Acct:[id number] Age/Sex: 69 / MADM Date: 10/18/24 Loc: HO.CT Attending Dr: Racquel Finch [employer] Ordering Physician: Racquel Finch [facility] [facility] [facility] Date of Service: 10/18/24 Procedure(s): CT soft tissue neck w IV con Accession Number(s): [id number] cc: Chasity Rincon; Racquel Finch [employer]IPPING CL[facility] Report Number: [id number]: Total DLP = 240.00 mGy-cm EXAMINATION: CT [...] Retropharangeal Space: -Normal. Parapharyngeal Fat Planes: -Normal. Research Mechanic Spaces: -Normal. Anterior Cervical Space: -Normal. Imaged [...] 10/18/24 1528 DD/ 1441 TD/TT: 10/18/24 1511 Derrick Car Operator: [facility] External Provider IMG CT PROCEDURES Final Result * (ABNORMAL) CBC auto differential (10/13/2024 11:02 AM EDT) White Blood Count 9.4 4.8 - 10.8 X10*3/uL [facility] Red Blood Count 4.14(L) 4.60 - 5.80 X10*6/uL [facility] Hemoglobin 13.4(L) 14.0 - 18.0 g/dl [facility] Hematocrit 41.9(L) 42.0 - 52.0 % [facility] Mean Corpuscular Volume 101.2(H) 80.0 - 98.0 fL [facility] Mean Corpuscular Hemoglobin 32.4 27.0 - 33.0 pg [facility] Mean Corpuscular HGB Conc 32.0 31.0 - 36.0 g/dl [facility] Red Cell Distribution Width 12.6 11.0 - 16.0 % [facility] Platelet Count 158(L) 160 - 400 X10*3/uL [facility] Mean Platelet Volume 13.0(H) 9.4 - 12.4 fL [facility] Neutrophils Percent Auto 53.1 45 - 73 % [facility] Imm Gran Pct Auto 0.2 0.0 - 0.4 % [facility] Lymphocytes Percent Auto 35.7 20 - 40 % [facility] Monocytes Percent Auto 7.7 2 - 11 % [facility] Eosinophils Percent Auto 2.2 0 - 4 % [facility] Basophils Percent Auto 1.1 0 - 2 % [facility] NRBC Pct Auto 0.0 0.0 - 0.2 /100WBC [facility] Neutrophils Absolute Auto 5.0 2.0 - 8.3 x10*3/uL [facility] Imm Gran Abs Auto 0.02 0.00 - 0.03 X10*3/uL [facility] Lymphocytes Absolute Auto 3.4 1.2 - 4.9 X10*3/uL [facility] Monocytes Absolute Auto 0.7 0.1 - 1.2 X10*3/uL [facility] Eosinophils Absolute Auto 0.2 0.0 - 0.4 X10*3/uL [facility] Basophils Absolute Auto 0.1 0.0 - 0.2 X10*3/uL [facility] NRBC Abs Auto 0.000 0.0 - 0.012 X10*3/uL [facility] Blood Venous blood specimen / Unknown 10/13/2024 11:02 AM EDT 10/13/2024 1:25 PM EDT Chasity Rincon MD LAB BLOOD ORDERABLES Final Res ult Performing Organization Address [facility] Co de Phone Number [facility] [address] [place] [phone] * (ABNORMAL) Sed Rate by Modified Torey (10/13/2024 11:02 AM EDT) Erythrocyte Sedimentation Rate 75(H) 0 - 15 MM/HR [facility] Comment:Patients with polycy themia and many hemoglobin abnormalitiesmay have depressed sed rates whereas patients with anemiamay have elevated sed rates. Blood Venous blood specimen / Unknown 10/13/2024 11:02 AM EDT 10/13/2024 1:25 PM EDT Chasity Rincon MD LAB BLOOD ORDERABLES Final Res ult Performing Organization Address [facility] Co de Phone Number [facility] [address] [place] [phone] * Lactate Dehydrogenase (LD) (10/13/2024 11:02 AM EDT) Lactate Dehydrogenase 185 118 - 273 U/L [facility] Blood Venous blood specimen / Unknown 10/13/2024 11:02 AM EDT 10/13/2024 1:25 PM EDT Chasity Rincon MD LAB BLOOD ORDERABLES Final Res ult Performing Organization Address [facility] Co de Phone Number [facility] [address] [place] [phone] * XR Chest 2 Views (10/13/2024 10:05 AM EDT) Anatomical Region Laterality Modality Chest Radiographic Zaida ging 10/13/2024 10:0 5 AM EDT Narrative 10/13/2024 12:17 [place] [address] XRay Report Signed Patient: Curt Saravia MR#: [id number] : 1955 Acct:[id number] Age/Sex: 69 / M ADM Date: 10/13/24 Loc: FELI Attending Dr: Chasity Rincon MD Ordering Physician: Chasity Rincon Date of Service: 10/13/24 Procedure(s): XR chest 2V Accession Number(s): [id number] cc: Chasity Rincon EXAMINATION: XR CHEST 2 [...] 10/13/24 1213 DD/ 1005 TD/TT: 10/13/24 1015 Derrick Car Operator: Procedure Note Donotuseinterpreter, Image - 10/13/[address] [address] XRay Report Signed Patient: Curt SaraviaMR#: [id number] : 1955cct:[id number] Age/Sex: 69 / MADM Date: 10/13/24 Loc: FELI Attending Dr: Chasity Rincon MD Ordering Physician: Chasity Rincon Date of Service: 10/13/24 Procedure(s): XR chest 2V Accession Number(s): [id number] cc: Chasity Rincon EXAMINATION: XR CHEST 2 [...] 10/13/24 1213 DD/ 1005 TD/TT: 10/13/24 1015 Derrick Car Operator: Chasity Rincon MD IMG XR PROCEDURES Final Result * (ABNORMAL) Lipid Panel, Standard (05/12/2024 10:07 AM EDT) Triglycerides 205(H) <150 mg/dL [facility] Comment:Desirable Triglyceri de: less than 150 mg/dLBorderline High Triglyceride 150-199 mg/dLHigh Triglyceride: 200-499 mg/dLVery High Triglyceride: greater than or equal to 5OO mg/dL Cholesterol 151 <200 mg/dL [facility] Comment:Desirable Cholestero l: less than 200 mg/dLBorderline High Cholesterol: 200-239 mg/dLHigh Cholesterol: greater than 239 mg/dL LDL Cholesterol Calculated 78 <100 mg/dL [facility] Comment:Desirable LDL: less than 100 mg/dLNear Optimal/Above Optimal LDL: 110- 129 mg/dLBorderline High LDL: 130-159 mg/dLHigh LDL: 160-189 mg/dLVery High LDL: greater than or equal to 190 mg/dL HDL Cholesterol 32(L) >40 mg/dL [facility] Comment:Desirable HDL: great er than 40 mg/dL Note: This HDL assay may give artificially low results in patients with liver disease. Blood Venous blood specimen / Unknown 05/12/2024 10:07 AM EDT 05/12/2024 11:15 AM EDT us Chasity Rincon MD LAB BLOOD ORDERABLES Final Res ult Performing Organization Address [facility] Co de Phone Number [facility] [address] [place] [phone] * Hepatitis C Antibody with Reflex to HCV, RNA, Quantitative, Real-Time PCR (08/31/2023 10:02 AM EDT) Hepatitis C Antibody Nonreactive Nonreactive [facility] Comment:Antibodies to HCV no t detected; does not exclude early acuteHCV infection. Blood Venous blood specimen / Unknown 08/31/2023 10:02 AM EDT 08/31/2023 10:58 AM EDT us Chasity Rincon MD LAB BLOOD ORDERABLES Final Res ult Performing Organization Address [facility] Co de Phone Number [facility] [address] [place] [phone] from Last 3 Months or Most Recently Relevant to Health Maintenance Insurance [facility] FPC OPTIONS (HMO D-SNP) JI LYN [id number] [place] ADULT Care Teams Parachute Marker Relationship Specialty Start Date End Date Chasity Rincon MD [address] [place] [address] PCP - General Family Medicine 10/21/20
--- OUTSIDE RECORDS SUMMARY | 2025-01-12 07:41 | XMS_ITS | Encounter Summary ---
Author Organization [employer] Address [address] [facility] 7t [place] [address] Care Team Providers Care Electronic Equipment Trades Worker Name Role Phone Chasity Rincon MD Primary Care Provider [phone] Encounter Details Date Type Department Care Team (Late Contact Info) Description 03/13/2022 Orders Only [facility] MEDICINE [address] [place] [address] [phone] Ioana Blood LPN Social History Tobacco Use [...] Description 01/23/2025 8:00 AM EST Office Visit [facility] ADULT DENTAL [address] [place], [place] [phone] Tremayne Rose DDS [address] [place] [address] 03/28/2025 10:45 AM EST Office Visit [facility] MEDICINE [address] [place], [place] [phone] Chasity Rincon MD [address] [place] [address] documented as of this encounter Procedures Procedure Name Priority Date/Time Associated Diagnosis Comments PSA, TOTAL WITH REFLEX TO PSA, FREE Routine 04/22/2022 10:41 AM EST TESTOSTERONE, FREE (DIALYSIS) AND TOTAL,MS Routine 04/22/2022 10:41 AM EST documented in this encounter Results * Testosterone, Free (Dialysis) And Total, MS (04/22/2022 10:41 AM EST) Testosterone, Total 424 250 - 1100 ng/dL [facility] Comment:Men with clinically significant hypogonadalsymptoms and testosterone values repeatedly inthe range of the 200-300 ng/dL or less, maybenefit from testosterone treatment afteradequate risk and benefits counseling.For additional information, please refer tohttp://education.[employer]/faq/CrbspGxiixziuxziaXEBHXCRKX353(This link is being provided for informational/educational purposes only.)This test was developed and its analytical performancecharacteristics have been determined by [employer] [place], [place]. It hasnot been cleared or approved by the U.S. Food and DrugAdministration. This assay has been validated pursuantto the CLIA regulations and is used for clinicalpurposes. Testosterone, Free 57.7 35.0 - 155.0 pg/mL [facility] Comment:This test was develo ped and its analytical performancecharacteristics have been determined by [facility] [place]. It hasnot been cleared or approved by the U.S. Food and DrugAdministration. This assay has been validated pursuantto the CLIA regulations and is used for clinicalpurposes.THIS TEST WAS PERFORMED AT:[employer] [id number] [place] [address]RJTLFQFKUSH DE LA VEGA MD,PHD 04/22/2022 10:4 1 AM EST 04/22/2022 10:41 AM EST [facility] External Provider LAB BLO OD ORDERABLES Final Result Performing Organization Address [facility] de Phone Number [facility] [address] [place] [address] [phone] * PSA, Total With Reflex to PSA, Free (04/22/2022 10:41 AM EST) PSA,Total (Free>4and<10) 1.22 0.00 - 4.00 ng/mL [facility] Comment:A Free PSA was not p [...] are between 4.0 and 10.0 ng/mL.PSA methodology: Griffin Alinity i ChemiluminescentMicroparticle Immunoassay (CMIA) 04/22/2022 10:4 1 AM EST 04/22/2022 10:41 AM EST [facility] External Provider LAB BLO OD ORDERABLES Final Result Performing Organization Address [facility] Co de Phone Number [facility] [address] [place] [phone] documented in this encounter Visit Diagnoses Not on filedocumented in this encounter Care Teams Electronic Equipment Trades Worker Relationship Specialty Start Date End Date Chasity Rincon MD [address] [place] [phone] PCP - General Family Medicine 10/21/20 documented as of this encounter
--- OUTSIDE RECORDS SUMMARY | 2025-01-12 07:41 | XMS_ITS | Encounter Summary ---
Author Organization [facility] Address [address] [facility] 7t [place] [address] Care Team Providers Care Rod Tape Operator Name Role Phone Chasity Rincon MD Primary Care Provider [phone] Encounter Details Date Type Department Care Team (Latest Contact Info) Description 06/07/2020 Abstract [facility] CONVERSIONS Dental, Provider, DDS Social History [...] Upcoming Encounters Date Type Department Care Team ( st Contact Info) Description 01/23/2025 8:00 AM EST Office Visit [facility] ADULT DENTAL [address] [place] [address] Tremayne Rose DDS [address] [place] [address] 03/28/2025 10:45 AM EST Office Visit [facility] MEDICINE [address] [place] [address] Chasity Rincon MD [address] [place] [address] documented as of this encounter Visit Diagnoses Not on filedocumented in this encounter Care Teams Rod Tape Operator Relationship Specialty Start Date End Date Chasity Rincon MD [address] [place] [address] PCP - General Family Medicine 10/21/20 documented as of this encounter
--- OUTSIDE RECORDS SUMMARY | 2025-01-12 07:41 | XMS_ITS | Data Portability ---
Author Organization [place] [facility], [facility] Address [address] [address] Care Team Providers Care Nurse Informaticist Name Role Phone [facility] (DENTAL) Primary Care Prov ider Assessment Encounter Date Assessment Date Assessment LastModified by Organization Details LastModified Time 01/05/2025 01/05/2025 69-year-old male with a history of dysphagia and concerning findings on CT scan for right AE fold mass. Flexible laryngoscopy today showed: 0.5 to 1 cm superficial, superior portion of the right aryepiglottic fold with pooling in the hypopharynx. Surgical Discussion: After reviewing their history and discussing the physical exam, including office fiberoptic laryngoscopy, I recommend we proceed to the operating room for direct laryngoscopy with biopsy. Risks include bleeding, infection, pain, airway fire, and damage to surrounding structures, including the lips, teeth, gums, tongue, palate, oropharynx, larynx, and trachea. If biopsy of the vocal cords is performed, there is a risk of scarring, temporary or permanent dysphonia, or the need for further airway-related procedures. There is also the possibility of further intervention to support the airway, such as tracheotomy. Pending results of pathology, further treatment planning may be discussed, including additional surgery or referral to the appropriate care team Procedure Documentation: -Flexible laryngoscopy performed [email or web address] Not available 01/05/2025 14:39:19 Plan of Treatment Reminders Order Date Submit Date Provider Last Modified By Organization Details Last Modified Time Details Appointments Post Op 2024 11:30A Mikayla Sherman, DO Not available Not available Not available Lab None recorded. Referral None recorded. Procedures None recorded. Surgeries direct microscop ic laryngosc opy (SURG) 2024 025 [email or web address] Not available 01/05/2025 14:44:29 Imaging None recorded. Medication Orders None recorded. Patient TargetsNo targets recorded. Patient Instructions Encounter Date Encounter Id Patient Instructions Last Modified By Organization Details Last Modified Time 01/05/2025 [id number] - Await scheduling for biopsy procedure. - Follow up promptly for pathology results and further treatment recommendations. [email or web address] Not available 01/05/2025 14:36:02 Please note: Parts of this encounter note have been generated by AI based on audio conversation. Patient consent was required prior to utilizing this technology. Content review was required prior to finalizing the note. [email or web address] Not available 01/05/2025 14:36:02 Reason for Referral None Reported. Problems Name Problem SNOMED Code Status Onset Date Resolution Date Notes Provider Name and Address Organization Details Recorded Time Mass of neck 455913449 Active 2024 Lance Sherman [address] [address], [place], [phone], [facility] - [facility] 12:39:03 Oropharynge al lesion 7142531955091 9 Active 2024 Lance Sherman [address] [address], [place], [phone], [facility] 12:39:16 Supraglotti c lesion 025207095 Active 2024 Lance Sherman [address] [address], [place], [phone], [facility] - [facility] 12:39:16 Problem Notes None recorded. Procedures Surgical History Date Name Laterality Status Provider Name and Address Organization Details Recorded Time 01/05/2025 FOL_normal _DHL completed Lance Sherman [address], [address], [facility] 01/05/2025 14:38:34 Imaging Results None recorded. Procedure Notes None recorded. Medical Equipment None Reported. Allergies No known drug allergies Medications Name Sig Start Date Stop Date Status Note LastModified by Organization Details LastModified Time multivitami n tablet TAKE 1 TABLET BY MOUTH EVERY MORNING active Not Available Not Available No t Available amoxicillin 500 mg capsule TAKE 1 CAPSULE BY MOUTH EVERY 8 HOURS FOR 7 DAYS 01/05 completed Not Available Not Available Not Available diphenhydra mine 12.5 mg/5 mL oral liquid MIX Karla-dryl WITH Lidocaine and Maalox, THEN TAKE 10 ML BY MOUTH FOUR TIMES DAILY DIRECTED active Not Available Not Available No t Available bupropion HCl SR 150 mg tablet,12 hr sustained-r elease TAKE 1 TABLET BY MOUTH TWICE DAILY IN THE MORNING AND IN THE EVENING DO NOT BREAK, CRUSH, DISSOLVE OR CHEW active Not Available Not Available No t Available doxycycline hyclate 100 mg capsule TAKE 1 CAPSULE TWICE DAILY FOR 7 DAYS Do not lie down for 30 minutes after taking. TAKE WITH A FULL GLASS OF WATER 01/05 completed Not Available Not Available Not Available atorvastati n 20 mg tablet TAKE 1 TABLET BY MOUTH AT BEDTIME active Not Available Not Available No t Available lidocaine 5 % topical cream APPLY TO THE AFFECTED AREA(S) TOPICALLY THREE TIMES DAILY 01/05 completed Not Available Not Available Not Available cyanocobala min (vit B-12) 1,000 mcg tablet TAKE 1 TABLET BY MOUTH AT BEDTIME active Not Available Not Available No t Available thiamine HCl (vitamin B1) 100 mg tablet TAKE 1 TABLET BY MOUTH EVERY MORNING active Not Available Not Available No t Available olanzapine 2.5 mg tablet TAKE 1 TABLET BY MOUTH EVERY MORNING active Not Available Not Available No t Available acetaminoph en ER 650 mg tablet,exte nded release TAKE 1 TABLET BY MOUTH EVERY 8 HOURS NEEDED FOR MILD PAIN, DO NOT BREAK, CRUSH, DISSOLVE OR CHEW active Not Available Not Available No t Available oxycodone-a cetaminophe n 5 mg-325 mg tablet TAKE 1 TABLET BY MOUTH EVERY DAY NEEDED FOR SEVERE PAIN 01/05 completed Not Available Not Available Not Available trazodone 150 mg tablet TAKE 2 TABLETS BY MOUTH EVERY DAY AT BEDTIME active Not Available Not Available No t Available ferrous sulfate 325 mg (65 mg iron) tablet TAKE 1 TABLET BY MOUTH EVERY OTHER DAY IN THE MORNING WITH WATER OR ORANGE JUICE active Not Available Not Available No t Available ascorbic acid (vitamin C) ER 500 mg capsule,ext ended release TAKE 1 CAPSULE BY MOUTH EVERY OTHER DAY IN THE MORNING (WITH WATER) active Not Available Not Available No t Available docusate sodium 100 mg capsule TAKE 1 CAPSULE BY MOUTH TWICE DAILY NEEDED FOR CONSTIPAT ION active Not Available Not Available No t Available gabapentin 300 mg capsule TAKE 1 CAPSULE BY MOUTH THREE TIMES DAILY IN THE MORNING, EVENING, AND BEDTIME active Not Available Not Available No t Available lidocaine HCl 2 % mucosal solution MIX lidocaine WITH Karla-dryl and Karla-Lant a, THEN TAKE 10 ML BY MOUTH FOUR TIMES DAILY DIRECTED active Not Available Not Available No t Available omeprazole 20 mg capsule,del ayed release TAKE 1 CAPSULE BY MOUTH TWICE DAILY, DO NOT BREAK, CRUSH, DISSOLVE OR CHEW active Not Available Not Available No t Available folic acid 1 mg tablet TAKE 1 TABLET BY MOUTH EVERY MORNING active Not Available Not Available No t Available loratadine 10 mg tablet TAKE 1 TABLET BY MOUTH EVERY MORNING active Not Available Not Available No t Available amoxicillin 875 mg-potassiu m clavulanate 125 mg tablet TAKE 1 TABLET TWICE DAILY FOR 7 DAYS 01/05 completed Not Available Not Available Not Available duloxetine 60 mg capsule,del ayed release TAKE 1 CAPSULE BY MOUTH EVERY EVENING active Not Available Not Available No t Available Vitamin D3 50 mcg (2,000 unit) capsule TAKE 1 CAPSULE BY MOUTH EVERY MORNING active Not Available Not Available No t Available Karla-Lanta 400 mg-400 mg-40 mg/5 mL oral suspension MIX Karla-Lant a WITH Lidocaine and Karla-Dryl , THEN TAKE 10 ML BY MOUTH FOUR TIMES DAILY DIRECTED active Not Available Not Available No t Available Vitals None Recorded Social History None recorded. Functional Status None recorded. Mental Status None recorded. Family History Nothing Reported. Medical History Condition Response Allergies/Hayfever Y Heart Problems Y Arthritis Y Hearing Loss Y Dementia Y Hypertension Y Past Encounters Encounter ID Performer Location Encounter Start Date Encounter Closed Date Diagnosis/Indication Diagnosis SNOMED-CT Code Diagnosis ICD10 Code Diagnosis IMO Codes Diagnosis Note [id number] Lance Sherman, DO [facility] [address] [address] 01/05/2025 13:49:37 01/05/2025 14:36:33 Mass of neck 427581562 J38.7 [id number] Finding of tobacco use and exposure 719400192 Z72.0 528232 Supraglottic lesion 3012 36268 J38.7 4943299 Health Concerns Section Related Observation LastModified by Organization Detai ls LastModified Time None Recorded Concern Status LastModified by Organization Details LastModified Time None Recorded Advance Directives Directive None Recorded Payers Insurance Date Sequence Insurance Name Policy Number Policy Howard Covered Member ID Howard Member ID Guarantor Name 10/20/2024 1 [place] Curt Ramires [id number] Curt Ramires 12/26/2024 1 [place] [facility] Curt Ramires [id number] Curt Ramires 12/26/2024 2 [place] Curt Ramires [id number] Curt Ramires 01/08/2025 1 [facility] - DOS ON OR AFTER 2022 - MEDICARE [place]VANTAGE [place] (MEDICARE REPLACEMENT/AD VANTAGE - PPO) Curt Ramires [id number] Curt Ramires Notes Date Note Type Note Provider Name and Address Organization Details Recorded Time 01/05/2025 text/html Record review: Patient with history of cigarette use, EtOH use, essential hypertension has right lower jaw pain and noted to have right submandibular lymphadenopathy. Per chart review the CT scan showed an area of nodular enhancement in the right aryepiglottic fold from 10/18/2024. No prior biopsy. Curt Ramires is a 69-year-old male who presents for evaluation of the throat. He reports difficulty swallowing, particularly when drinking water or taking pills, which has been ongoing for a long time. A prior swallow study and a CAT scan demonstrated an area of concern near the vocal folds. He has a history of tobacco use, which places him at higher risk for growths in the throat. Lance Sherman, [address] [facility],[address] [address], [place], [address], [place] - [facility] 01/05/2025 14:39:33
--- OUTSIDE RECORDS SUMMARY | 2025-01-12 07:41 | XMS_ITS | Clinical Summary ---
Author Organization [facility] Address [address] [place] [phone] Phone Care Team Providers Care Laborer Heading Name Role Phone Unavailable Primary Care Provider Unavailabl e Allergies No known active allergies Medications acetaminophen (TYLENOL 8 HOUR) 650 mg 8 hr tablet Take 1 tablet (650 mg total) by mouth every 8 hours as needed. 12/19/2024 Active ascorbic acid (VITAMIN C) 500 mg CR capsule TAKE 1 CAPSULE BY MOUTH EVERY OTHER DAY IN THE MORNING (WITH WATER) 08/02/2024 Active ferrous sulfate 325 mg (65 mg elemental iron) tablet TAKE 1 TABLET BY MOUTH EVERY OTHER DAY IN THE MORNING WITH WATER OR ORANGE JUICE 08/02/2024 Active fluticasone propionate (FLONASE) 50 mcg/actuation nasal spray USE 2 SPRAYS IN EACH NOSTRIL EVERY MORNING 03/13/2022 Active gabapentin (NEURONTIN) 300 mg capsule TAKE 1 CAPSULE BY MOUTH THREE TIMES DAILY IN THE MORNING, EVENING, AND BEDTIME 03/03/2024 Active folic acid (FOLVITE) 1 mg tablet Take 1 tablet (1,000 mcg total) by mouth 1 (one) time each day in the morning. 05/02/2024 Active OLANZapine (ZyPREXA) 2.5 mg tablet Take 1 tablet (2.5 mg total) by mouth 1 (one) time each day in the morning. 08/03/2023 Active loratadine (CLARITIN) 10 mg tablet Take 1 tablet (10 mg total) by mouth 1 (one) time each day in the morning. 01/25/2024 Active polyvinyl alcohol (ARTIFICIAL TEARS) 1.4 % ophthalmic solution PLACE 1 DROP INTO THE AFFECTED EYE(S) 4-6 TIMES DAILY NEEDED 04/24/2021 Active traZODone (DESYREL) 150 mg tablet TAKE 2 TABLETS BY MOUTH EVERY DAY AT BEDTIME (NO MORE THAN 2 TABLETS NIGHTLY) 05/19/2022 Active Surgical History Surgery Date Site/Laterality Comments EYE SURGERY Left CATARACT EXTRACTION Medical History Medical History Date Comments AAA (abdominal aortic aneurysm) (CMS/HCC V24) Arthritis Tremors of nervous system Dysphagia Dental disease Thrombocythemia Chest pain Social History Tobacco Use Types Packs/Day Years Used Date Smoking Tobacco: Never Assessed Sex and Gender Information Value Date Recorded Sex Assigned at Not on file Legal Sex Male 9:45 AM EST Gender Identity Not on file Sexual Orientation Not on file Obstetrics History Last Filed Vital Signs Vital Sign Reading Time Taken Comments Blood Pressure - - Pulse - - Temperature - - Respiratory Rate - - Oxygen Saturation - - Inhaled Oxygen Concentration - - Weight 71.7 kg (158 lb) 01/10/2025 11:00 AM EST Height 170.2 cm (5' 7 ) 01/10/2025 11:00 AM EST Body Mass Index 24.75 01/10/2025 11:00 AM EST Plan of Treatment Health Maintenance Due Date Last Done Comments Colorectal Cancer Screening: Colonoscopy 1955 Hepatitis A Vaccines (1 of 2 - Risk 2-dose series) 1976 Zoster Vaccines (1 of 2) 08/11/2007 Pneumococcal Vaccine: 50+ Years (2 of 2 - PCV) 12/04/2011 12/03/2010 Depression Screening 03/01/2024 COVID-19 Vaccine (1 - 2024-2 6 season) 2024 Influenza Vaccine (#1) 2024 , 01/23/2013, 12/10/2011 Falls Risk Assessment 01/09/2025 Hypertension/CHF/CAD Annual BMP Blood Test 01/09/2025 Social Influencers of Health Screening 01/09/2025 DTaP,Tdap,and Td Vaccines (4 - Td or Tdap) 10/23/2025 10/24/2015, 11/29/2013, 12/03/2010 Cholesterol Screening (Lipid Panel) 05/12/2029 05/12/2024 RSV Immunization Adult Patients (1 - 1-dose 75+ series) 2032 Hepatitis [...] on patient's age to complete this topic MMR Vaccines Aged Out No longer eligi ble based on patient's age to complete this topic Meningococcal ACWY Vaccine Aged Out N o longer eligible based on patient's age to complete this topic Meningococcal B Vaccine Aged Out No l onger eligible based on patient's age to complete this topic RSV Immunization Patients Under 20 months Aged Out No longer eligible b ased on patient's age to complete this topic Varicella Vaccines Aged Out No longer eligible based on patient's age to complete this topic
--- OUTSIDE RECORDS SUMMARY | 2025-01-12 07:41 | XMS_ITS | Encounter Summary ---
Author Organization [email or web address] Address 75 [facility] 7t [place] [address] Care Team Providers Care Handicapper Harness Racing Name Role Phone Chasity Rincon MD Primary Care Provider [phone] Reason for Visit * Reason Onset Date Comments Call Back Request 01/11/2025 Encounter Details Date Type Department Care Team ([facility] st Contact Info) Description 01/11/2025 Telephone [facility] MEDICINE [address] [place] [address] Chasity Rincon MD [address] [place] [address] Call Back Request Social History Tobacco Use Types Packs/Day Years [...] your housing situation today? I have vasiliy psence 08/19/[address] you li [...] encounter Miscellaneous Notes * Telephone Encounter - Freddie Forrest - 01/11/2025 9:01 AM EST Tc from [place] with ENT reporting that the apt with PT had to be canceled due to the pt having to be tested for cancer. [facility] is requesting for a nurse to contact the die inspector and make an apt with pt due to pt being hard to follow up with. [facility] would like to be contact once everything is all set. Contact laurel at [phone] documented in this encounter Plan of Treatment Upcoming Encounters Date Type Department Care Team (Late st Contact Info) Description 01/23/2025 8:00 AM EST Office Visit [facility] ADULT DENTAL [address] [place] [address] Tremayne Rose DDS [address] [place] [address] 03/28/2025 10:45 AM EST Office Visit [facility] MEDICINE [address] [place] [address] Chasity Rincon MD [address] [place] [address] documented as of this encounter Visit Diagnoses Not on filedocumented in this encounter Additional Health Concerns Assessment Noted Time PHQ-9 Depression Total Score: 15 08/ 025 9:50 AM EDT documented as of this encounter Care Teams Handicapper Harness Racing Relationship Specialty Start Date End Date Chasity Rincon MD [address] [place] [phone] PCP - General Family Medicine 10/21/20 documented as of this encounter
--- OUTSIDE RECORDS SUMMARY | 2025-01-12 07:41 | XMS_ITS | Encounter Summary ---
Author Organization [employer] Address 75 [facility] 7t [place] [address] Care Team Providers Care Trip Rider Name Role Phone Chasity Rincon MD Primary Care Provider [phone] Reason for Visit * Reason Comments Med Refill Encounter Details Date Type Department Care Team ([facility] Contact Info) Description 12/02/2022 Refill [facility] [address] [place], [place] [phone] Chasity Rincon MD [address] [place], [place] [phone] Gastroesophageal reflux disease without esophagitis Social History [...] Upcoming Encounters Date Type Department Care Team ([facility] Contact Info) Description 01/23/2025 8:00 AM EST Office Visit [facility] ADULT DENTAL [address] [place], [place] [phone] Tremayne Rose DDS [address] [place], [place] [phone] 03/28/2025 10:45 AM EST Office Visit [facility] MEDICINE [address] [place] [address] Chasity Rincon MD [address] [place] [address] documented as of this encounter Visit Diagnoses Diagnosis Gastroesophageal reflux disease without esophagitis Esophageal reflux documented in this encounter Care Teams Trip Rider Relationship Specialty Start Date End Date Chasity Rincon MD [address] [place] [phone] PCP - General Family Medicine 10/21/20 documented as of this encounter
--- OUTSIDE RECORDS SUMMARY | 2025-01-12 07:41 | XMS_ITS | Encounter Summary ---
Author Organization [employer] Address [address] [facility] 7t [place] [address] Care Team Providers Care Graphic User Interface Designer Name Role Phone Chasity Rincon MD Primary Care Provider [phone] Reason for Visit * Reason Comments Med Refill Encounter Details Date Type Department Care Team ([facility] Contact Info) Description 12/01/2022 Refill [facility] CHC MED & PEDS [address] [place], [place] [phone] Chasity Rincon MD [address] [place], [place] [phone] Gastroesophageal reflux disease without esophagitis Social History [...] Upcoming Encounters Date Type Department Care Team ([facility] Contact Info) Description 01/23/2025 8:00 AM EST Office Visit [facility] ADULT DENTAL [address] [place], [place] [phone] Tremayne Rose DDS [address] [place], [place] [phone] 03/28/2025 10:45 AM EST Office Visit [facility] MEDICINE [address] [place] [address] Chasity Rincon MD [address] [place] [address] documented as of this encounter Visit Diagnoses Diagnosis Gastroesophageal reflux disease without esophagitis Esophageal reflux documented in this encounter Care Teams Graphic User Interface Designer Relationship Specialty Start Date End Date Chasity Rincon MD [address] [place] [address] [phone] PCP - General Family Medicine 10/21/20 documented as of this encounter
--- OUTSIDE RECORDS SUMMARY | 2025-01-12 07:41 | XMS_ITS | Continuity of Care Document ---
Author Organization [place] [facility], [facility] Address [address] [place] [address] Care Team Providers Care Welt Maker Name Role Phone [facility] (DENTAL) Primary Care Prov ider Assessment [...] microscop ic laryngosc opy (SURG) 2024 025 Not available 01/05/2025 14:44:29 Imaging None recorded. Medication Orders None recorded. Patient TargetsNo targets recorded. Patient Instructions Encounter Date Encounter Id Patient Instructions Last Modified By Organization Details Last Modified Time 01/05/2025 [id number] - Await scheduling for biopsy procedure. - [...] Organization Details Recorded Time Mass of neck 988541792 Active 2024 Lance Sherman [address] [address], [place], [address], [facility] - [facility] 12:39:03 Oropharynge al lesion 4860569907771 9 Active 2024 Lance Sherman [address] [address], [place], [address], [facility] - [facility] 12:39:16 Supraglotti c lesion 272280914 Active 2024 Lance Sherman [address] [address], [place], [address], [facility] - [facility] 12:39:16 Problem Notes None recorded. Procedures Surgical History Date Name Laterality Status Provider Name and Address Organization Details Recorded Time 01/05/2025 FOL_normal _DHL completed Lance Sherman [address], [address], [facility] 01/05/2025 14:38:34 Imaging Results None recorded. Procedure [...] Condition Response Allergies/Hayfever Y Heart Problems Y Hearing Loss Y Arthritis Y Dementia Y Hypertension Y Past Encounters Encounter ID Performer Location Encounter Start Date Encounter Closed Date Diagnosis/Indication Diagnosis SNOMED-CT Code Diagnosis ICD10 Code Diagnosis IMO Codes Diagnosis Note [id number] Lance Sherman DO ENT[facility] of [address] [address] 01/05/2025 13:49:37 01/05/2025 14:36:33 Mass of neck 155600241 J38.7 [id number] Finding of tobacco use and exposure 461823988 Z72.0 094260 Supraglottic lesion 3012 67187 J38.7 [id number] Health Concerns Section Related Observation LastModified by Organization Detai ls LastModified Time None Recorded Concern Status LastModified by Organization Details LastModified Time None Recorded Payers Encounter Date Sequence Insurance Name Policy Number Policy Howard Covered Member ID Howard Member ID Guarantor Name 01/05/2025 1 [facility] - DOS ON OR AFTER 2022 - MEDICARE ADVANTAGE [place] (MEDICARE REPLACEMENT/ADV ANTAGE - PPO) Curt Ramires [id number] Curt Ramires Notes Date Note Type Note [...] for growths in the throat. Lance Sherman, [address] [address], [place], [address], [place] - [facility] 01/05/2025 14:39:33
--- OUTSIDE RECORDS SUMMARY | 2025-01-12 07:41 | XMS_ITS | Encounter Summary ---
Author Organization [employer] Address [address] [facility] 7t [place] [address] Care Team Providers Care Ultra Sound Technician Name Role Phone Chasity Rincon MD Primary Care Provider [phone] Encounter Details Date Type Department Care Team (Late Contact Info) Description 05/06/2022 Orders Only [facility] MEDICINE [address] [place] [address] Chasity Rincon MD [address] [place] [address] Erectile dysfunction, unspecified erectile dysfunction type (Primary [...] Description 01/23/2025 8:00 AM EST Office Visit [facility] ADULT DENTAL [address] [place] [address] Tremayne Rose DDS [address] [place] [address] 03/28/2025 10:45 AM EST Office Visit [facility] MEDICINE [address] [place] [address] Chasity Rincon MD [address] [place] [address] documented as of this encounter Visit Diagnoses Diagnosis Erectile dysfunction, unspecified erectile dysfunction type- Primary documented in this encounter Care Teams Ultra Sound Technician Relationship Specialty Start Date End Date Chasity Rincon MD [address] [place] [address] PCP - General Family Medicine 10/21/20 documented as of this encounter
== END 2025-01-12 07:40 | disposition home or self-care (01) ==
LOC: HO.US 07:39
PROVIDERS: PCP General Practice; Visit Provider Surgery Vascular Surgery
DX: I71.43 Infrarenal abdominal aortic aneurysm, without rupture (principal)
CPT/HCPCS: 76706

== ENCOUNTER → 2025-01-12 07:40 | Outpatient (BNV) | payer OTHER, SELFPAY | PROVIDERS: PCP General Practice; Visit Provider Student in an Organized Health Care Education/Training Program | DX: I71.43 Infrarenal abdominal aortic aneurysm, without rupture (principal); I51.3 Intracardiac thrombosis, not elsewhere classified | CPT/HCPCS: 76706 ==

== ENCOUNTER 2025-02-13 13:38 | Outpatient (AMB) | payer OTHER, SELFPAY ==
--- NOTE | 2025-02-13 14:00 | MHC.OFFVIS ---
Vital Signs 02/13/25 14:03 Height 5 ft 6 in Weight 146 lb 13.246 oz BMI 23.7 BP 134/62 Blood Pressure Location Lt brachial Pulse 97 Pulse Source Monitor Intake Visit Reasons: Preop for cancer largy Railroad Brake Repairer Required: No Railroad Brake Repairer Name: Nara [id number] Information Interpreted: non-clinical & clinical Accompanied by: Daughter Allergies No Known Allergies (No Known Allergies*) Allergy (Verified 02/13/25 14:08) Medication List - Last Reconciled 02/13/25 by Rob Bynum NP acetaminophen 1,000 mg (2 x 500 mg) PO Q8H PRN ascorbic acid (vitamin C) ER 0 mg PO atorvastatin 20 mg PO BEDTIME bupropion HCl SR 150 mg PO BID cholecalciferol (vitamin D3) 50 mcg PO QAM cyanocobalamin (vitamin B-12) 1,000 mcg PO BEDTIME docusate sodium 100 mg PO BID PRN duloxetine 60 mg PO DAILY ferrous sulfate (FeroSul) 325 mg PO Q OTHER DAY folic acid 1 mg PO DAILY gabapentin 300 mg PO TID loratadine 10 mg PO QAM multivitamin 1 tab PO DAILY olanzapine 2.5 mg PO BEDTIME omeprazole 20 mg PO BID thiamine HCl (vitamin B1) 100 mg PO DAILY trazodone 300 mg PO BEDTIME HPI Comments Details: This is a 69-year-old male patient new to our office referred for preop cardiovascular risk stratification for an upcoming larynx lesion removal. Moving forward- if needed, patient will be all patient under Dr. 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 A warehouse insulation worker was used throughout the visit. Patient with no known history of coronary artery disease, cardiomyopathy, or ischemic heart disease. Patient does note that he has had family members with coronary artery disease. Most recently over a month ago patient reports that he had 2 episodes of chest pain that came on suddenly, nonexertional in nature, lasting couple of minutes. Patient is denying any associated symptoms of shortness of breath, palpitations, dizziness, orthopnea, PND, leg edema, presyncope or syncope. Patient has just looking forward to getting the lesion removed as he has trouble swallowing from it. [facility] Medical History AAA (abdominal aortic aneurysm) without rupture History of depression Orthostatic hypotension HTN (hypertension) Thrombocytopenia Proteus mirabilis infection Alcohol withdrawal seizure Alcohol abuse with withdrawal Surgical History Hx of colonoscopy Hx of hernia repair Family History Sister Cancer Father Diabetes mellitus Mother No problems noted. Social History Household Members: Caregiver Housing: Apartment Alcohol intake: former Patient Tobacco Use Status: Current everyday Tobacco user Tobacco use type: Cigarette service: No Current occupational status: retired and disabled Review of Systems Const Denies daytime sleepiness, Denies difficulty sleeping, Denies snoring, Denies stops breathing during sleep and Denies weakness Card Denies chest pain, Denies rapid heart rate, Denies irregular heart rhythm, Denies claudication, Denies leg edema, Denies lightheadedness, Denies palpitations, Denies dyspnea, Denies dyspnea on exertion, Denies orthopnea, Denies paroxysmal nocturnal dyspnea and Denies slow heart rate Resp Denies cough, Denies dyspnea, Denies dyspnea on exertion and Denies snoring GI Reports no additional complaints, Denies hematochezia, Denies change in stool character and Denies dyspepsia Musc Denies abnormal gait, Denies muscle weakness and Denies numbness Neuro Denies abnormal gait, Denies numbness and Denies weakness Endo Denies palpitations Physical Exam Vital Signs: Last Vital Signs Pulse 97 02/13/25 14:03 BP 134/62 02/13/25 14:03 BMI result Body Mass Index 23.7 Const General: cooperative, healthy appearing, comfortable and no acute distress Orientation/consciousness: patient oriented x3 HEENT Head: Yes normal to inspection Neck Neck: Yes normal visual inspection, Yes trachea midline and Yes supple Chest Chest palpation & inspection: normal inspection of the chest Resp Effort & Inspection: normal respiratory effort Auscultation: clear to auscultation bilaterally, no crackles, no rales, no rhonchi and no wheezes Cardio Jugular venous distension: no JVD Palpation: normal PMI Rate: regular rate Rhythm: regular rhythm Heart sounds: S1 normal heart sound present, S2 normal heart sound present, no click, no gallops, no murmurs and no rubs Peripheral pulses: Peripheral pulses 2+ throughout GI Inspection: Yes normal to inspection Palpation (GI): Soft to palpation Auscultation: normal bowel sounds Skin General skin exam: no rashes or lesions noted Neuro General: patient oriented x3 Extrem General: Yes normal to inspection, No no pedal edema and No calf tenderness Psych Appearance: grossly normal Mental Status: mental status grossly normal Speech and movement: Normal speech and movement present Office Procedures EKG Details: EKG today showed normal sinus rhythm, rate 97 beats per minute, left posterior fascicular block, nonspecific ST-T, [place], [place]. [id number], Complete Assessment & Plan Assessment & Plan (1) Chest pain: Code(s): R07.9 - Chest pain, unspecified (2) Preop cardiovascular exam: Code(s): Z01.810 - Encounter for preprocedural cardiovascular examination Category: Medical Plan Given his reports of chest discomfort, we will get a echocardiogram to assess for LV systolic and diastolic dysfunction as well as wall motion abnormalities. We will also get a stress maybe to assess for ischemia. Patient states he is able to walk on a treadmill but if he is unable then we can switch to [employer]. We will plan to complete these testings soon. EKG today is normal. Blood pressure today is stable. Continue statin therapy. Advised on heart healthy diet, regular exercise, med compliance, and management of vascular risk factors. Following above testings, we will make an addendum to this note in regards to his preop. Follow up after testings. In the interim, patient will call the office with any concerns or change in symptoms. Advised to seek ER care in case of exertional chest pain not resolved with rest. This note was generated using voice recognition software. While every effort has been made to ensure accuracy and proper air conditioning mechanic industrial, there may be occasional errors that could affect the content or meaning of the described symptoms. Orders: Orders AMB EKG-In Office Today Z01.810 - Encounter for preprocedural cardiovascular examination CA stress test 2 Weeks R07.9 - Chest pain, unspecified, Z01.810 - Encounter for preprocedural cardiovascular examination CA echo transthoracic complete 2 Weeks Z01.810 - Encounter for preprocedural cardiovascular examination NM cardiolite stress test 2 Weeks R07.9 - Chest pain, unspecified, Z01.810 - Encounter for preprocedural cardiovascular examination Coding Level of Care Code New Pt Level 4 (08350) Add On Problem Visit Only Diagnoses Chest pain R07.9 Preop cardiovascular exam Z01.810 CPT Codes EKG - CPT: 06134-[id number], Complete ([id number]) Time Spent (min) 32 Comment Time spent in reviewing the chart, test results, assessment, counseling and documentation.
[2025-02-13 14:03] VITALS: BP 134/62; PULSE 97; BMI 23.7
--- OUTSIDE RECORDS SUMMARY | 2025-02-13 17:40 | XMS_ITS | Encounter Summary ---
Author Organization [employer] Address [address] [facility] 7t [place] [address] Care Team Providers Care Swager Operator Name Role Phone Chasity Rincon MD Primary Care Provider [phone] Reason for Visit * Reason Comments Med Refill Encounter Details Date Type Department Care Team ([facility] st Contact Info) Description 02/12/2025 Refill [facility] MEDICINE [address] [place] [address] Chasity Rincon MD [address] [place] [address] Social History Tobacco Use Types Packs/Day Years Used Date Smoking Tobacco: Every Day Cigarettes Passive Smoke Exposure: Current Smokeless Tobacco: Never Alcohol Use Standard Drinks/Week Comments Never 0 (1 standard drink = 0.6 oz pur e alcohol) Alcohol Answer Date Recorded How often do you have a drink containing alcohol ? 0 01/23/2025 Average Number of Drinks Not on file 025 How often do you have six or more drinks on one occasion? 0 01/23/2025 Depression Answer Date Recorded Patient Health Questionnaire-9 [...] Care Team (Late st Contact Info) Description 02/15/2025 11:00 AM EST Office Visit [facility] ADULT DENTAL [address] [place] [address] Tremayne Rose DDS [address] [place] [address] 03/28/2025 10:45 AM EST Office Visit [facility] MEDICINE [address] [place] [address] Chasity Rincon MD [address] [place] [address] documented as of this encounter Visit Diagnoses Not on filedocumented in this encounter Additional Health Concerns Assessment Noted Time PHQ-9 Depression Total Score: 15 025 9:50 AM EDT documented as of this encounter Care Teams Swager Operator Relationship Specialty Start Date End Date Chasity Rincon MD [address] [place] [address] PCP - General Family Medicine 10/21/20 documented as of this encounter
--- OUTSIDE RECORDS SUMMARY | 2025-02-13 17:40 | XMS_ITS | Encounter Summary ---
Author Organization [employer] Address [address] [facility] 7t [place] [address] Care Team Providers Care Aircraft Landing Gear Inspector Name Role Phone Chasity Rincon MD Primary Care Provider [phone] Reason for Visit * Reason Comments Med Refill Encounter Details Date Type Department Care Team (Late Contact Info) Description 12/02/2022 Refill [facility] CHC MED & PEDS [address] [place], [place] [phone] Chasity Rincon MD [address] [place], [place] [phone] Gastroesophageal reflux disease without esophagitis Social History [...] Department Care Team (Late Contact Info) Description 02/15/2025 11:00 AM EST Office Visit [facility] ADULT DENTAL [address] [place], [place] [phone] Tremayne Rose DDS [address] [place], [place] [phone] 03/28/2025 10:45 AM EST Office Visit [facility] MEDICINE [address] [place] [address] Chasity Rincon MD [address] [place] [address] documented as of this encounter Visit Diagnoses Diagnosis Gastroesophageal reflux disease without esophagitis Esophageal reflux documented in this encounter Care Teams Aircraft Landing Gear Inspector Relationship Specialty Start Date End Date Chasity Rincon MD [address] [place] [address] [phone] PCP - General Family Medicine 10/21/20 documented as of this encounter
--- OUTSIDE RECORDS SUMMARY | 2025-02-13 17:40 | XMS_ITS | Clinical Summary ---
Author Organization [facility] Address [address] [place] [phone] Phone Care Team Providers Care Transition Lead Name Role Phone Unavailable Primary Care Provider [...] on file Sexual Orientation Not on file Last Filed Vital Signs Vital Sign Reading [...] 6 season) 2024 Influenza Vaccine (#1) 2024 2, 01/23/2013, 12/10/2011 Falls Risk Assessment 01/09/2025 Hypertension/CHF/CAD [...]
--- OUTSIDE RECORDS SUMMARY | 2025-02-13 17:40 | XMS_ITS | Encounter Summary ---
Author Organization [employer] Address [address] [facility] 7t [place] [address] Care Team Providers Care Lubricating Engineer Name Role Phone Chasity Rincon MD Primary Care Provider [phone] Reason for Visit * Reason Comments Med Refill Encounter Details Date Type Department Care Team ([facility] st Contact Info) Description 02/09/2025 Refill [facility] CHC MED & PEDS [address] [place] [address] Chasity Rincon MD [address] [place] [address] Social History Tobacco Use Types Packs/Day Years [...] Description 02/15/2025 11:00 AM EST Office Visit [facility] ADULT DENTAL [address] [place] [address] Tremayne Rose DDS [address] [place] [address] 03/28/2025 10:45 AM EST Office Visit [facility] MEDICINE [address] [place] [address] Chasity Rincon MD [address] [place] [address] documented as of this encounter Visit Diagnoses Not on filedocumented in this encounter Additional Health Concerns Assessment Noted Time PHQ-9 Depression Total Score: 15 025 9:50 AM EDT documented as of this encounter Care Teams Lubricating Engineer Relationship Specialty Start Date End Date Chasity Rincon MD [address] [place] [address] PCP - General Family Medicine 10/21/20 documented as of this encounter
--- OUTSIDE RECORDS SUMMARY | 2025-02-13 17:40 | XMS_ITS | Encounter Summary ---
Author Organization [employer] [facility] Address [address] [facility] 7t [place] [address] Care Team Providers Care Pony Ride Operator Name Role Phone Chasity Rincon MD Primary Care Provider [phone] Encounter Details Date Type Department Care Team (Latest Contact Info) Description 06/07/[address] [facility] CONVERSIONS Dental, Provider, DDS Social [...] Care Team ( st Contact Info) Description 02/15/2025 11:00 AM EST Office Visit [facility] ADULT DENTAL [address] [place] [address] Tremayne Rose DDS [address] [place] [address] 03/28/2025 10:45 AM EST Office Visit [facility] MEDICINE [address] [place] [address] Chasity Rincon MD [address] [place] [address] documented as of this encounter Visit Diagnoses Not on filedocumented in this encounter Care Teams Pony Ride Operator Relationship Specialty Start Date End Date Chasity Rincon MD [address] [place] [address] PCP - General Family Medicine 10/21/20 documented as of this encounter
--- OUTSIDE RECORDS SUMMARY | 2025-02-13 17:40 | XMS_ITS | Encounter Summary ---
Author Organization [employer] Address [address] [facility] [address] [place] [address] Care Team Providers Care Cooler Man Name Role Phone Chasity Rincon MD Primary Care Provider [phone] Encounter Details Date Type Department Care Team (Late st Contact Info) Description 02/12/2025 Refill [facility] MED & PEDS [address] [place] [address] Chasity Rincon MD [address] [place] [address] Healthcare maintenance Social History Tobacco Use Types Packs/Day Years [...] your housing situation today? I have vasiliy bebe 08/19/[address] you li [...] Description 02/15/2025 11:00 AM EST Office Visit [facility] ADULT DENTAL [address] [place] [address] Tremayne Rose DDS [address] [place] [address] 03/28/2025 10:45 AM EST Office Visit [facility] MEDICINE [address] [place] [address] Chasity Rincon MD [address] [place] [address] documented as of this encounter Visit Diagnoses Diagnosis Healthcare maintenance documented in this encounter Additional Health Concerns Assessment Noted Time PHQ-9 Depression Total Score: 15 025 9:50 AM EDT documented as of this encounter Care Teams Cooler Man Relationship Specialty Start Date End Date Chasity Rincon MD [address] [place] [address] PCP - General Family Medicine 10/21/20 documented as of this encounter
--- OUTSIDE RECORDS SUMMARY | 2025-02-13 17:40 | XMS_ITS | Encounter Summary ---
Author Organization [employer] Address [address] [facility] 7t [place] [address] Care Team Providers Care Catering Assistant Name Role Phone Chasity Rincon MD Primary Care Provider [phone] Reason for Visit * Reason Comments Med Refill Encounter Details Date Type Department Care Team ([facility] st Contact Info) Description 02/04/2025 Refill [facility] CHC MED & PEDS [address] [place] [address] Chasity Rincon MD [address] [place] [address] Social History Tobacco Use Types Packs/Day Years [...] Description 02/15/2025 11:00 AM EST Office Visit [facility] ADULT DENTAL [address] [place] [address] Tremayne Rose DDS [address] [place] [address] 03/28/2025 10:45 AM EST Office Visit [facility] MEDICINE [address] [place] [address] Chasity Rincon MD [address] [place] [address] documented as of this encounter Visit Diagnoses Not on filedocumented in this encounter Additional Health Concerns Assessment Noted Time PHQ-9 Depression Total Score: 15 025 9:50 AM EDT documented as of this encounter Care Teams Catering Assistant Relationship Specialty Start Date End Date Chasity Rincon MD [address] [place] [address] PCP - General Family Medicine 10/21/20 documented as of this encounter
--- OUTSIDE RECORDS SUMMARY | 2025-02-13 17:40 | XMS_ITS | Encounter Summary ---
Author Organization [employer] Address [address] [facility] 7t [place] [address] Care Team Providers Care Book Solicitor Name Role Phone Chasity Rincon MD Primary Care Provider [phone] Encounter Details Date Type Department Care Team (Late Contact Info) Description 05/06/2022 Orders Only [facility] MEDICINE [address] [place] [address] Chasity Rincon MD [address] [place] [address] Erectile dysfunction, unspecified erectile dysfunction type (Primary [...] 11:00 AM EST Office Visit [facility] ADULT DENTAL [address] [place] [address] Tremayne Rose DDS [address] [place] [address] 03/28/2025 10:45 AM EST Office Visit [facility] MEDICINE [address] [place] [address] Chasity Rincon MD [address] [place] [address] documented as of this encounter Visit Diagnoses Diagnosis Erectile dysfunction, unspecified erectile dysfunction type- Primary documented in this encounter Care Teams Book Solicitor Relationship Specialty Start Date End Date Chasity Rincon MD [address] [place] [address] PCP - General Family Medicine 10/21/20 documented as of this encounter
--- OUTSIDE RECORDS SUMMARY | 2025-02-13 17:40 | XMS_ITS | Continuity of Care Document ---
Author Organization [place] - [facility], [facility] Address [address] [place] [address] Care Team Providers Care Courtesy Bus Driver Name Role Phone [facility] (DENTAL) Primary Care Prov ider Assessment [...] Organization Details Last Modified Time Details Appointments None recorded. Lab None recorded. Referral None recorded. Procedures None recorded. Surgeries direct microscopic laryngoscop y (SURG) 2024 025 [email or web address] [id number] Not available 11/07/202 5 14:44:29 Imaging None recorded. Medication Orders None recorded. Patient TargetsNo targets recorded. Patient Instructions Encounter Date Encounter Id Patient Instructions Last Modified By Organization Details Last Modified Time 01/05/2025 [id number] - Await scheduling for biopsy procedure. - [...] Organization Details Recorded Time Mass of neck 686148405 Active 2024 Lance Sherman, [address] [address], [place], [address], [facility] - [facility] 12:39:03 Oropharynge al lesion 2883210556672 9 Active 2024 Lance Sherman, [address] [address], [place], [address], [facility] 12:39:16 Supraglotti c lesion 792293131 Active 2024 Lance Shermna, [address] [address], [place], [address], [facility] 12:39:16 Problem Notes None recorded. Procedures Surgical History Date Name Laterality Status Provider Name and Address Organization Details Recorded Time 01/05/2025 FOL_normal _DHL completed Lance Shermna, [address], [address], [facility] 01/05/2025 14:38:34 Imaging Results None recorded. [...] ICD10 Code Diagnosis IMO Codes Diagnosis Note [id number] Lance Sherman DO ENT[facility] of [address] [address] 01/05/2025 13:49:37 01/05/2025 14:36:33 Mass of neck 793035768 J38.7 [id number] Finding of tobacco use and exposure 565642575 Z72.0 517350 Supraglottic lesion 3012 88115 J38.7 [id number] Health Concerns Section Related Observation LastModified by Organization Rae fallon LastModified Time None Recorded Concern Status LastModified by Organization Details LastModified Time None Recorded Payers Encounter Date Sequence Insurance Name Policy Number Policy Howard Covered Member ID Howard Member ID Guarantor Name 01/05/2025 1 [facility] - DOS ON OR AFTER 2022 - MEDICARE ADVANTAGE [place] (MEDICARE REPLACEMENT/ADV ANTAGE - PPO) Curt Ramires [id number] Curt Ramires Notes Date Note Type Note [...] growths in the throat. Lance Sherman, [address] [address], [place], [address], [place] - [facility] 01/05/2025 14:39:33
--- OUTSIDE RECORDS SUMMARY | 2025-02-13 17:40 | XMS_ITS | Encounter Summary ---
Author Organization [employer] Address [address] [facility] 7t [place] [address] Care Team Providers Care Piped Buttonhole Machine Operator Name Role Phone Chasity Rincon MD Primary Care Provider [phone] Encounter Details Date Type Department Care Team (Late st Contact Info) Description 03/13/2022 Orders Only [facility] MED[facility] [address] [place] [address] [phone] Ioana Blood LPN Social History Tobacco Use [...] Description 02/15/2025 11:00 AM EST Office Visit [facility] ADULT DENTAL [address] [place], [place] [phone] Tremayne Rose DDS [address] [place] [address] 03/28/2025 10:45 AM EST Office Visit [facility] MEDICINE [address] [place], [place] [phone] Chasity Rincon MD [address] [place] [address] documented as of this encounter Procedures Procedure Name Priority Date/Time Associated Diagnosis Comments PSA, TOTAL WITH REFLEX TO PSA, FREE Routine 04/22/2022 10:41 AM EST TESTOSTERONE, FREE, BIOAVAILABLE AND TOTAL, MALES (ADULT), IA Routine 04/22/2022 10:41 AM EST documented in this encounter Results * Testosterone, Free (Dialysis) And Total, MS (04/22/2022 10:41 AM EST) Testosterone, Total 424 250 - 1100 ng/dL [facility] Comment:Men with clinically significant hypogonadalsymptoms and testosterone values repeatedly inthe range of the 200-300 ng/dL or less, maybenefit from testosterone treatment afteradequate risk and benefits counseling.For additional information, please refer tohttp://education.[place] [employer]/faq/[email or web address](This link is being provided for informational/educational purposes only.)This test was developed and its analytical performancecharacteristics have been determined by [employer] [place], [place]. It hasnot been cleared or approved by the U.S. Food and DrugAdministration. This assay has been validated pursuantto the CLIA regulations and is used for clinicalpurposes. Testosterone, Free 57.7 35.0 - 155.0 pg/mL [facility] Comment:This test was develo ped and its analytical performancecharacteristics have been determined by [facility] [place]. It hasnot been cleared or approved by the U.S. Food and DrugAdministration. This assay has been validated pursuantto the CLIA regulations and is used for clinicalpurposes.THIS TEST WAS PERFORMED AT:[employer] [id number] [place] [address]VXDFDYLKUSH DE LA VEGA MD,PHD 04/22/2022 10:4 1 AM EST 04/22/2022 10:41 AM EST [facility] External Provider LAB BLO OD ORDERABLES Final Result Performing Organization Address [facility] Co de Phone Number [facility] [address] [place] [address] [phone] * PSA, Total With Reflex to PSA, Free (04/22/2022 10:41 AM EST) PSA,Total (Free>4and<10) 1.22 0.00 - 4.00 ng/mL [facility] Comment:A Free PSA was not p [...] 1 AM EST 04/22/2022 10:41 AM EST [facility] External Provider LAB BLO OD ORDERABLES Final Result Performing Organization Address [facility] de Phone Number [facility] [address] [place] [phone] documented in this encounter Visit Diagnoses Not on filedocumented in this encounter Care Teams Piped Buttonhole Machine Operator Relationship Specialty Start Date End Date Chasity Rincon MD [address] [place] [phone] PCP - General Family Medicine 10/21/20 documented as of this encounter
--- OUTSIDE RECORDS SUMMARY | 2025-02-13 17:40 | XMS_ITS | Clinical Summary ---
Author Organization [employer] Address [address] [facility] 7t [place] [address] Care Team Providers Care Trip Rider Name Role Phone Chasity Rincon MD Primary Care Provider [phone] Allergies No known active allergies Medications fluticasone [...] by mouth in the morning. 024 Active atorvastatin (Lipitor) 20 MG tabletIndications :Secondary nonischemic congestive cardiomyopathy (CMS/HCC) (HCC) TAKE 1 Tablet BY MOUTH AT BEDTIME 90 tablet 3 025 Active docusate sodium (Colace) 100 MG capsuleIndication s:Other constipation TAKE 1 CAPSULE BY MOUTH TWICE DAILY NEEDED FOR CONSTIPATION 180 capsule 3 025 Active thiamine (Vitamin B-1) 100 MG tabletIndications :Alcoholism (CMS/HCC) (HCC) TAKE 1 TABLET BY MOUTH EVERY MORNING 90 tablet 3 025 Active D3 Super Strength 50 MCG (1999 UT) capsuleIndication s:Alcoholism (CMS/HCC) (HCC) TAKE 1 CAPSULE BY MOUTH EVERY MORNING 90 capsule 3 025 Active folic acid (Folvite) 1 MG tabletIndications :Alcoholism (CMS/HCC) (HCC) TAKE 1 TABLET BY MOUTH EVERY MORNING 90 tablet 3 025 Active Lidocaine 5 % [...] OR CHEW 180 capsule 3 025 Active acetaminophen (Tylenol 8 Hour) 650 MG ER tablet Take 1 tablet (650 mg) by mouth every 8 (eight) hours if needed for mild pain. Do not crush, chew, or split. 30 tablet 025 Active gabapentin (Neurontin) 300 MG capsule Take 1 capsule (300 mg) by mouth 3 times daily. 90 capsule 11 025 Active buPROPion SR (Wellbutrin SR) 150 MG 12 hr tablet Take 1 tablet (150 mg) by mouth 2 times daily. Do not crush, chew, or split. 180 tablet 3 025 Active loratadine (Claritin) 10 MG tablet Take 1 tablet (10 mg) by mouth in the morning. 90 tablet 3 025 Active Multiple Vitamin (Multivitamin) tabletIndications :Healthcare maintenance Take 1 tablet by mouth in the morning. 90 tablet 3 025 Active loratadine (Claritin) 10 MG tablet TAKE 1 TABLET BY MOUTH EVERY MORNING 90 tablet 3 024 2024 Discontinued(R eorder (will not trigger notification to Pharmacy)) Multiple Vitamin (Multivitamin) tabletIndications :Healthcare maintenance TAKE 1 TABLET BY MOUTH EVERY MORNING 90 tablet 3 024 2024 Discontinued(R eorder (will not trigger notification to Pharmacy)) gabapentin (Neurontin) 300 MG capsule TAKE 1 CAPSULE BY MOUTH THREE TIMES DAILY IN THE MORNING, EVENING, AND BEDTIME 90 capsule 11 025 2024 Discontinued(R eorder (will not trigger notification to Pharmacy)) buPROPion SR (Wellbutrin SR) 150 MG 12 hr tablet Take 1 tablet (150 mg) by mouth 2 times daily. Do not crush, chew, or split. 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 Continue [...] < 5cm Continue f/u with Dr Dickerson Overdue for annual ultrasound, gave him the order to [facility] radiology Assessment & Plan (11/24/2022 12:05 PM EDT): Stable in size < 5cm Continue f/u with Dr Dickerson Assessment & Plan (07/20/2022 10:55 AM EDT): Follow up with vascular for annual exam Last measurement AAA at 4.5cm Assessment & Plan (03/29/2022 6:15 PM EST): Follow up with vascular for annual exam Closed fracture of iliac wing (CMS/HCC) 03/27/19 23 Urge incontinence of urine 03/27/2022 Lumbar radiculopathy 11/24/2021 Assessment & Plan (07/14/2024 7:15 AM EDT): Perocet daily prn Will need to discuss at next visit whether he accepts risks and benefits of continuing this medication, will need to come to DESKTOP PUBLISHING OPERATOR program if so Osteoarthritis of left [...] (08/31/2023 7:00 AM EDT): Sees urology at [facility], Catherine Bunn Continue prn Viagra Alcoholism ([facility]) 05/26/2017 Secondary nonischemic congestive cardiomyopathy ([facility]) 05/26/2017 Assessment & Plan (05/17/2024 11:58 AM EDT): Walk as much as tolerated Smoking cessation advised Tremor 05/26/2017 Allergic rhinitis 12/05/2014 Cigarette smoker 12/05/2014 Assessment & Plan (08/31/2023 7:05 AM EDT): Declines cessation aids Encouraged this as it could help with pain and aneurysm Dementia associated with alcoholism ([facility]) Assessment & Plan (08/31/2023 6:58 AM EDT): [...] Encounters Date Type Department Care Team Description 02/12/2025 Refill [facility] [address] [place] [address] Chasity Rincon MD Healthcare maintenance 02/12/2025 Refill [facility] [address] [place] [address] Chasity Rincon MD 02/09/2025 Refill [facility] [address] [place] [address] Chasity Rincon MD 02/04/2025 Refill [facility] [address] [place] [address] Chasity Rincon MD 01/23/2025 8:00 AM EST Office Visit [facility] ADULT DENTAL [address] [place] [address] Tremayne Rose DDS Complete edentulism, unspecified edentulism class (Primary Dx) 01/11/2025 Telephone [facility] [address] [place] [address] Chasity Rincon MD Call Back Request 01/09/2025 11:00 AM EST Office Visit [facility] ADULT [facility]ENT[facility] [address] [place] [phone] Tremayne Rose DDS Complete edentulism, unspecified edentulism class (Primary Dx) 12/26/2024 11:30 AM EDT Office Visit [facility] [address] [place] [address] Oskar Mayorga MD Chest pain, unspecified type (Primary Dx); Mass of larynx 12/26/2024 Travel 12/26/2024 Telephone [facility] [address] [place] [address] Chasity Rincon MD Nurse Triage 12/19/2024 9:00 AM EDT Office Visit [facility] ADULT [facility]ENT[facility] [address] [place] [address] Tremayne Rose DDS Periodontal disease (Primary Dx); Dental caries; Ankylosis of teeth 12/13/2024 Orders Only GENERIC EXTERNAL DATA DEPARTMENT Provider, Generic External Data 12/12/2024 Orders Only [facility] External Provider, [facility] 11/20/2024 Refill [facility] [address] [place] [phone] Chasity Rincon MD from Last 3 Months Immunizations Immunization Administration [...] Reading Time Taken Comments Blood Pressure 128/74 01/23/2025 7:53 AM EST Pulse 104 12/26/2024 11:28 AM EDT Temperature [...] Office Visit [facility]ULT [facility] [address] [place] [address] Tremayne Rose DDS [address] [place] [address] 03/28/2025 10:45 AM EST Office Visit [facility] [address] [place] [address] Chasity Rincon MD [address] [place], [place] [phone] Health Maintenance Due Date Last Done Comments CT Colonography 1955 Colonoscopy 1955 Colorectal Cancer Screening 1955 FIT DNA/Cologuard 1955 FIT 1955 FOBT 1955 Sigmoidoscopy 1955 Zoster Vaccines (1 of 2) 08/11/2007 Pneumococcal Vaccine: 50+ Years (2 of 2 - PCV) 12/04/2011 12/03/2010 Dental X-Ray: Bitewings 11/16/2015 11/14/2014, 11/05 COVID-19 Vaccine ( - season) 2024 03/14/2021, 09/10/2020, 08/20/2020 Influenza Vaccine (#1) 2024 , 01/23/2013, 12/10/2011 Depression Monitoring 04/15/2025 10/13/2024, 025 Dental Oral Exam 06/20/2025 12/19/2024, 04/2023, 2022, Additional history exists SDOH Screening 10/13/2025 10/13/2024 DTaP/Tdap/Td Vaccines (4 - Td or Tdap) 10/23/2025 10/24/2015, 11/29/2013, 12/03/2010 Alcohol/Substance Use Screening 01/23/2026 01/23/2025 Tobacco Screening 01/23/2026 01/23/2025 Dental X-Ray: Full Mouth 12/21/2027 025, 2022, [...] Procedure Name Priority Date/Time Associated Diagnosis Comments BITE REGISTRATION Routine 01/23/2025 8:0 0 AM EST US ABDOMINAL AORTIC ANEURYSM Routine 01/12/2025 7:43 PM EST DENTURE IMPRESSION Routine 01/09/2025 11 :00 AM [...] SWALLOW MODIFIED Routine 12/12/2024 2:13 PM EDT LIPID PANEL, STANDARD Routine 05/12/2024 10:07 AM EDT Essential hypertension HEPATITIS C AB W/REFL TO HCV RNA, QN, PCR Routine 08/31/2023 10:02 AM EDT Need for hepatitis C screening test PROPHYLAXIS - ADULT Routine 08/26/2022 1 1:00 AM EDT BITEWINGS - 4 RADIOGRAPHIC IMAGES Routine 11/14/2014 12:00 AM EDT from Last 3 Months or Most Recently Relevant to Health Maintenance Results * US ABDOMINAL AORTIC ANEURYSM (01/12/2025 7:43 PM EST) Anatomical Region Laterality Modality Abdomen Ultrasound 01/12/2025 7:43 PM EST Narrative 01/12/2025 7:43 PM EST [address] [address] Ultrasound Report Signed Patient: Curt Saravia MR#: [id number] : 1955 Acct:[id number] Age/Sex: 69 / M ADM Date: 01/12/25 Loc: HO.US Attending Dr: Jerson Dickerson MD Ordering Physician: Jerson Dickerson MD Date of Service: 01/12/25 Procedure(s): US abdominal aortic aneurysm Accession Number(s): [id number] cc: Chasity Rincon; Jerson Dickerson MD Reason for Exam: I71.43 - Infrarenal abdominal aortic aneurysm, without rupture CLINICAL HISTORY: I71.43 - Infrarenal abdominal aortic aneurysm, without rupture US Abdomen (AAA) Comparison: US/AL/SR - US ABDOMINAL AORTIC ANEURYSM - 11/23/23 09:01 EDT Findings: Aorta proximal 2.6 x 2.5 cm. Aorta mid 2.7 x 2.8 cm. Aorta distal 4.5 x 5.3 cm with peripheral thrombus. Previously, it measured 4.3 x 4.4 cm. The patent central component measures 1.9 x 2.6 cm in diameter. Peak systolic velocity within the distal aorta measures 34.4 cm/sec. Right common iliac artery size cm. Left common iliac artery 2.6 x 2.6 1.3 x 1.7 cm. IMPRESSION: Distal abdominal aorta measures up to 4.5 x 5.3cm with peripheral mural thrombus. It has increased in size compared to prior exam. This document has been electronically signed by: Fozia Orellana MD on 01/12/2025 19:43:12 Dictated By: Fozia Orellana MD Signed By: <Electronically signed by Fozia Orellana MD in OV> 01/12/251942 DD/ 42 TD/TT: 01/12/251942 Animal Husbandry Professor: Procedure Note Donotuseinterpreter, Image - 01/12/2025 [address] [place] [address] Ultrasound Report Signed Patient: Meagan Saravia#: [id number] : 8Acct:[id number] Age/Sex: 69 / MADM Date: 01/12/25 Loc: .US Attending Dr: Jerson Dickerson MD Ordering Physician: Jerson Dcikerson MD Date of Service: 01/12/25 Procedure(s): US abdominal aortic aneurysm Accession Number(s): [id number] cc: Chasity Rincon; Jerson Dickerson MD Reason for Exam: I71.43 - Infrarenal abdominal aortic aneurysm, withoutrupture CLINICAL HISTORY: I71.43 - Infrarenal abdominal aortic aneurysm, withoutrupture US Abdomen (AAA) Comparison: US/AL/SR - US ABDOMINAL AORTIC ANEURYSM - 11/23/23 09:01 EDT Findings: Aorta proximal 2.6 x 2.5 cm. Aorta mid 2.7 x 2.8 cm. Aorta distal 4.5 x 5.3 cm with peripheral thrombus. Previously, it measured 4.3 x 4.4 cm. The patent central component measures 1.9 x 2.6 cm in diameter. Peak systolic velocity within the distal aorta measures 34.4 cm/sec. Right common iliac artery size cm. Left common iliac artery 2.6 x 2.6 1.3 x 1.7 cm. IMPRESSION: Distal abdominal aorta measures up to 4.5 x 5.3cm with peripheral mural thrombus. It has increased in size compared to prior exam. This document has been electronically signed by: Fozia Orellana MD on 01/12/2025 19:43:12 Dictated By: Fozia Orellana MD Signed By: <Electronically signed by Fozia Orellana MD in OV> 01/12/251942 DD/ 42 TD/TT: 01/12/251942 Animal Husbandry Professor: [facility] External Provider IMG US PROCEDURES Final Result * ECG 12 lead (12/26/2024 1:07 PM EDT) Narrative Oskar Mayorga MD - 12/26/2024 1:07 PM EDT Sinus rhythm, no acute st t changes Oskar Hill MD ECG ORDERABLES Final Result * Hematoxylin and Eosin Stain (12/13/2024 9:57 AM EDT) 12/13/2024 9:57 AM EDT 12/13/2024 11:20 AM EDT [facility] - 12/15/2024 11:00 AM EDT ----- ------- Name: Curt Saravia Age/Sex: 69/M : 1955 Unit#: [id number] Attend Dr: Federico Anand MD Re12/13/24 Status: [facility] Location: [facility] Disch: ----- ------- SPEC : [id number] RECD: 12/13/24 STATUS: DUC VELÁSQUEZ NUM: [id number] JACINDA: 12/13/[address] [facility] [address]: Federico Anand MD ENTERED: 12/13/24 SP [...] developed and their performance characteristics determined by [facility]. They have not been cleared or approved by the U.S. Food and Drug Administration (FDA). However, the FDA CONTINUED ON NEXT PAGE ----- ------- Name: Curt Saravia Age/Sex: 69/M : 1955 Unit#: [id number] Attend Dr: Federico Anand MD Re12/13/24 Status: [facility] Location: [facility] Disch: ----- ------- SPEC : [id number] RECD: 12/13/24 STATUS: DUC VELÁSQUEZ NUM: [id number] JACINDA: 12/13/[address] [facility] [address]: Federico Anand MD ENTERED: 12/13/24 SP [...] laboratory testing. Copies To: Federico Anand MD [facility] [address] [place] [phone] Chasity Rincon [address] [address] ----- ------- Signed (signature on file) Charles Pang MD 12/15/24 1100 ----- ------- END OF REPORT us Generic External Data Provider LAB BLOOD ORDERAB LES Final Result [facility] [address] [place] [address] [phone] * [place] BARIUM SWALLOW MODIFIED (12/12/2024 2:13 PM EDT) Anatomical Region Laterality Modality Head, Neck Radiographic Zaida ging 12/12/2024 2:13 PM EDT Narrative 12/12/2024 2:46 PM EDT [place] [address] Fluoroscopy Report Signed Patient: Curt Saravia MR#: [id number] : 1955 Acct:[id number] Age/Sex: 69 / M ADM Date: 12/12/24 Loc: CHUCK Attending Dr: Racquel Finch [facility]- Ordering Physician: Racquel Finch [facility] Date of Service: 12/12/24 Procedure(s): FL Modified Barium Swallow Accession Number(s): [id number] cc: Chasity Rincon; Racquel Finch [facility] Reason for Exam: R13.10 - Dysphagia, unspecified [...] Mathew Sinha MD 12/12/2024 02:43 PM EDT RP Dictated By: Mathew Sinha MD Signed By: <Electronically signed by Mathew Sinha MD in OV> 12/12/24 1443 DD/ 1413 TD/TT: 12/12/24 1422 Animal Husbandry Professor: Procedure Note Donotuseinterpreter, Image - 12/12/2024 [place] [address] Fluoroscopy Report Signed Patient: Meagan Saravia#: [id number] : 8Acct:[id number] Age/Sex: 69 / MADM Date: 12/12/24 Loc: CHUCK Attending Dr: Racquel BRASHERP-MARC Ordering Physician: Racquel Finch Date of Service: 12/12/24 Procedure(s): FL Modified Barium Swallow Accession Number(s): [id number] cc: Chasity Rincon; Racquel Finch [employer] ATTENDANT-MARC Reason for Exam: R13.10 - Dysphagia, unspecified [...] Mathew Sinha MD 12/12/2024 02:43 PM EDT RP Dictated By: Mathew Sinha MD Signed By: <Electronically signed by Mathew Sinha MD in OV> 12/12/24 1443 DD/ 1413 TD/TT: 12/12/24 1422 Animal Husbandry Professor: [facility] External Provider IMG FLU OROSCOPY PROCEDURES Final Result * (ABNORMAL) Lipid Panel, Standard (05/12/2024 10:07 AM EDT) Triglycerides 205(H) <150 mg/dL [facility] Comment:Desirable Triglyceri de: less than 150 mg/dLBorderline High Triglyceride 150-199 mg/dLHigh Triglyceride: 200-499 mg/dLVery High Triglyceride: greater than or equal to 5OO mg/dL Cholesterol 151 <200 mg/dL [facility] Comment:Desirable Cholestero l: less than 200 mg/dLBorderline High Cholesterol: 200-239 mg/dLHigh Cholesterol: greater than 239 mg/dL LDL Cholesterol Calculated 78 <100 mg/dL [facility] Comment:Desirable LDL: less than 100 mg/dLNear Optimal/Above Optimal LDL: 110- 129 mg/dLBorderline High LDL: 130-159 mg/dLHigh LDL: 160-189 mg/dLVery High LDL: greater than or equal to 190 mg/dL HDL Cholesterol 32(L) >40 mg/dL [facility] Comment:Desirable HDL: great er than 40 mg/dL Note: This HDL assay may give artificially low results in patients with liver disease. Blood Venous blood specimen / Unknown 05/12/2024 10:07 AM EDT 05/12/2024 11:15 AM EDT Chasity Rincon MD LAB BLOOD ORDERABLES Final Res ult [facility] [address] [place] [address] [phone] * Hepatitis C Antibody with Reflex to HCV, RNA, Quantitative, Real-Time PCR (08/31/2023 10:02 AM EDT) Hepatitis C Antibody Nonreactive Nonreactive [facility] Comment:Antibodies to HCV no t detected; does not exclude early acuteHCV infection. Blood Venous blood specimen / Unknown 08/31/2023 10:02 AM EDT 08/31/2023 10:58 AM EDT us Chasity Rincon MD LAB BLOOD ORDERABLES Final Res ult [facility] [address] [place] [address] [phone] from Last 3 Months or Most Recently Relevant to Health Maintenance Insurance [facility] [employer] (HMO D-SNP) [facility] STAND ADULT [facility] Care Teams Trip Rider Relationship Specialty Start Date End Date Chasity Rincon MD [address] [place] [address] PCP - General Family Medicine 10/21/20
--- OUTSIDE RECORDS SUMMARY | 2025-02-13 17:41 | XMS_ITS | Data Portability ---
Author Organization [place] - [facility], Allergy Address [address] [address] Care Team Providers Care Brake Specialist Name Role Phone [facility] (DENTAL) Primary Care Prov ider Assessment [...] direct microscopic laryngoscop y (SURG) 2024 025 9 Not available 14:44:29 Imaging None recorded. Medication Orders None recorded. Patient TargetsNo targets recorded. Patient Instructions Encounter Date Encounter Id Patient Instructions Last Modified By Organization Details Last Modified Time 01/05/2025 [id number] - Await scheduling for biopsy procedure. - [...] Organization Details Recorded Time Mass of neck [id number] Active [address], [address], [facility] - [facility] 12:39:03 Oropharynge al lesion 3424396063175 9 Active 2024 Lance Sherman [address] [address], [place], [address], [facility] 12:39:16 Supraglotti c lesion 035576031 Active 2024 Lance Sherman, [address], [address], [facility] 12:39:16 Problem Notes None recorded. Procedures Surgical History Date Name Laterality Status Provider Name and Address Organization Details Recorded Time 01/05/2025 FOL_normal _DHL completed Lance Sherman, [address], [address], [facility] 01/05/2025 14:38:34 Imaging Results None recorded. Procedure [...] ICD10 Code Diagnosis IMO Codes Diagnosis Note [id number] Lance Sherman DO [facility] of [address] [address] 01/05/2025 13:49:37 01/05/2025 14:36:33 Mass of neck [id number] J38.7 [id number] Finding of tobacco use and exposure 176758283 Z72.0 739361 Supraglottic lesion 3012 99921 J38.7 [id number] Health Concerns Section Related Observation LastModified by Organization Rae fallon LastModified Time None Recorded Concern Status LastModified by Organization Details LastModified Time None Recorded Advance Directives Directive None Recorded Payers Insurance Date Sequence Insurance Name Policy Number Policy Howard Covered Member ID Howard Member ID Guarantor Name 10/20/2024 1 [place] [facility] Curt Ramires [id number] Curt Ramires 12/26/2024 1 MEDICARE B-[place]: [facility] Curt Ramires [id number] Curt Ramires 12/26/2024 2 [place] [facility] Curt Ramires [id number] Curt Ramires 01/17/2025 2 [facility] - DOS ON OR AFTER 2022 - SHELTER OPTIONS AND ONE CARE (MEDICARE REPLACEMENT/AD VANTAGE - PPO) Curt Ramires [id number] Curt Ramires 01/23/2025 1 [facility] - DOS ON OR AFTER 2022 - DUAL ELIGIBLE - SHELTER OPTIONS AND ONE CARE (MEDICARE REPLACEMENT/AD VANTAGE - HMO) Curt Soto Ike [id number] Curt Ramires 01/17/2025 1 [employer] - DOS ON OR AFTER 2022 - MEDICARE [place]VANTAGE [place] (MEDICARE REPLACEMENT/AD VANTAGE - PPO) Curt Ramires [id number] Curt Ramires Notes Date Note Type Note [...] growths in the throat. Lance Sherman, [address] [address], [place], [address], [facility] - [facility] 01/05/2025 14:39:33
--- OUTSIDE RECORDS SUMMARY | 2025-02-13 17:41 | XMS_ITS | Encounter Summary ---
Author Organization [employer] Address [address] [facility] 7t [place] [address] Care Team Providers Care Ems Director Name Role Phone Chasity Rincon MD Primary Care Provider [phone] Reason for Visit * Reason Comments Med Refill Encounter Details Date Type Department Care Team (Late Contact Info) Description 12/01/2022 Refill [facility] PEDS [address] [place], [place] [phone] Chasity Rincon MD [address] [place], [place] [phone] Gastroesophageal reflux disease without esophagitis Social History [...] Upcoming Encounters Date Type Department Care Team ([facility] Contact Info) Description 02/15/2025 11:00 AM EST Office Visit [facility] ADULT DENTAL [address] [place], [place] [phone] Tremayne Rose DDS [address] [place], [place] [phone] 03/28/2025 10:45 AM EST Office Visit [facility] MEDICINE [address] [place] [address] Chasity Rincon MD [address] [place] [address] documented as of this encounter Visit Diagnoses Diagnosis Gastroesophageal reflux disease without esophagitis Esophageal reflux documented in this encounter Care Teams Ems Director Relationship Specialty Start Date End Date Chasity Rinocn MD [address] [place] [phone] PCP - General Family Medicine 10/21/20 documented as of this encounter
== END 2025-02-13 14:42 | disposition home or self-care (01) ==
LOC: HO.HCS 13:39
PROVIDERS: PCP General Practice
DX: R07.9 Chest pain, unspecified (principal); Z01.810 Encounter for preprocedural cardiovascular examination
CPT/HCPCS: 93010; 99204; G2211

== ENCOUNTER → 2025-02-13 13:38 | Outpatient (BNVA) | payer OTHER, SELFPAY | PROVIDERS: PCP General Practice | DX: Z01.810 Encounter for preprocedural cardiovascular examination (principal); R07.9 Chest pain, unspecified; Z71.3 Dietary counseling and surveillance; Z71.82 Exercise counseling; Z68.23 Body mass index [BMI] 23.0-23.9, adult | CPT/HCPCS: 93005; 99202 ==

== ENCOUNTER → 2025-02-19 13:26 | Outpatient (REF) | payer OTHER, SELFPAY ==
--- OUTSIDE RECORDS SUMMARY | 2025-02-15 11:00 | XMS_ITS | Encounter Summary ---
Author Organization [employer] Address 75 [facility] 7t [place] [address] Care Team Providers Care Clinical Services Professional Name Role Phone Chasity Rincon MD Primary Care Provider [phone] Reason for Visit * Reason Comments Dentures Wax try-in Encounter Details Date Type Department Care Team ([facility] st Contact Info) Description 02/15/2025 11:00 AM EST Office Visit [facility] ADULT DENTAL [address] [place] [address] Tremayne Rose DDS [address] [place] [address] Complete edentulism, unspecified edentulism class (Primary Dx) Social History Tobacco Use Types Packs/Day Years Used Date Smoking Tobacco: Every Day Cigarettes Passive Smoke Exposure: Current Smokeless Tobacco: Never Tobacco Cessation:Ready to Q uit: No; Counseling Given: No Alcohol Use Standard Drinks/Week Comments Never 0 (1 standard drink = 0.6 oz pur e alcohol) Alcohol Answer Date Recorded How often do you have a drink containing alcohol ? 0 02/16/2025 Average Number of Drinks Not on file 025 How often do you have six or more drinks on one occasion? 0 02/16/2025 Depression Answer Date Recorded Patient Health Questionnaire-9 [...] Sign Reading Time Taken Comments Blood Pressure 128/76 02/15/2025 10:08 AM EST Pulse 70 02/15/2025 10:08 AM EST Temperature - - Respiratory Rate - - Oxygen Saturation - - Inhaled Oxygen Concentration - - Weight - - Height - - Body Mass Index - - documented in this encounter Progress Notes * Tremayne Rose DDS - 02/15/2025 11:00 AM EST Patient ID: Curt Ramires is a 69 y.o. male. Time Out: No data recorded Location: [facility] Tooth: Mandible only Procedure: Dentures Verified the above with patient, research study assistant, and provider. Confirmed via patient's chart, intraorally and by radiographs. Federal Judicial Law Clerk: not applicable Chief Complaint Patient presents with Dentures Wax try-in Medical Hx: Vitals: Blood pressure 128/76, pulse 70. Medications, Med Hx reviewed with patient and updated in chart. Consent Obtained: The risks, benefits, indications, potential complications, and alternatives were explained to the patient and informed consent was obtained with good understanding. Treatment Provided: Dental procedures in this visit D5110.9 - WAX TRY IN (Completed) Service provider: Tremayne Rose DDS Billing provider: Tremayne Rose DDS Taken / sent to [facility]. Tried in denture(s) -Evaluated for comfort, fit, phonetics, and stability (f, v, s, th sounds; swallow, yawn, etc) -Evaluated for satisfactory esthetics. -Occlusion verified; adjustments made as necessary. Patient has received information sheet for denture care and expectations. Pt was provided with denture case and denture brush. NV: Delivery / expedite / next day in agreement with [employer] Laborer Sawmill: Maira Carrasco Dentist: Tremayne Rose DDS documented in this encounter Plan of Treatment Upcoming Encounters Date Type Department Care Team (Late st Contact Info) Description 03/28/2025 10:45 AM EST Office Visit [facility] MEDICINE [address] [place] [address] Chasity Rincon MD [address] [place] [address] documented as of this encounter Procedures Procedure Name Priority Date/Time Associated Diagnosis Comments Vicente COMPLETE DENTURE - MANDIBULAR Routine 02/15/2025 11:00 AM EST CASE PRESENTATION, DETAILED AND EXTENSIVE TREATMENT PLANNING Routine 02/15/2025 11:00 AM EST documented in this encounter Visit Diagnoses Diagnosis Complete edentulism, unspecified edentulism class- Primary documented in this encounter Additional Health Concerns Assessment Noted Time PHQ-9 Depression Total Score: 15 025 9:50 AM EDT documented as of this encounter Care Teams Clinical Services Professional Relationship Specialty Start Date End Date Chasity Rincon MD [address] [place] [address] PCP - General Family Medicine 10/21/20 documented as of this encounter
--- OUTSIDE RECORDS SUMMARY | 2025-02-16 15:30 | XMS_ITS | Encounter Summary ---
Author Organization [employer] Address 75 [facility] 7t [place] [address] Care Team Providers Care News Editor Name Role Phone Chasity Rincon MD Primary Care Provider [phone] Reason for Visit * Reason Comments Dentures Delivery of lower fu ll denture Encounter Details Date Type Department Care Team (Late st Contact Info) Description 02/16/2025 3:30 PM EST Office Visit [facility] ADULT DENTAL [address] [place] [address] Tremayne Rose DDS [address] [place] [address] Complete edentulism, unspecified edentulism class (Primary Dx) [...] t he electric, gas, oil or water [employer] threatened to shut off services in your [...] of this encounter Progress Notes * Tremayne Rose DDS - 02/16/2025 3:30 PM EST Patient ID: Curt Ramires is a 69 y.o. male. Time Out: No data recorded Location: [facility] Tooth: Mandible only Procedure: Dentures Verified the above with patient, human resources assistant manager, and provider. Confirmed via patient's chart, intraorally and by radiographs. Laundry Housekeeping Aide: not applicable Chief Complaint Patient presents with Dentures Delivery of lower full denture Medical Hx: Vitals: There were no vitals taken for this visit. Medications, Med Hx reviewed with patient and updated in chart. Consent Obtained: The risks, benefits, indications, potential complications, and alternatives were explained to the patient and informed consent was obtained with good understanding. Treatment Provided: Dental procedures in this visit D5120 - COMPLETE DENTURE - MANDIBULAR Vicente (Completed) Service provider: Tremayne Rose DDS Billing provider: Tremayne Rose DDS D9450 - CASE PRESENTATION, DETAILED AND EXTENSIVE TREATMENT PLANNING (Completed) Service provider: Tremayne Rose DDS Billing provider: Tremayne Rose DDS Tried in denture(s) -Evaluated for comfort, fit, phonetics, and stability (f, v, s, th sounds; swallow, yawn, etc) -Evaluated for satisfactory esthetics. -Occlusion verified; adjustments made as necessary. Patient has received information sheet for denture care and expectations. Pt was provided with denture case and denture brush. NV: Adj. As needed / 6 [facility] Child Health Associate: Maira Carrasco Dentist: Tremayne Rose DDS documented in this encounter Plan of Treatment Upcoming Encounters Date Type Department Care Team (Late st Contact Info) Description 03/28/2025 10:45 AM EST Office Visit [facility] MEDICINE [address] [place] [address] Chasity Rincon MD [address] [place] [address] documented as of this encounter Procedures Procedure Name Priority Date/Time Associated Diagnosis Comments Vicente COMPLETE DENTURE - MANDIBULAR Routine 02/16/2025 3:30 PM EST CASE PRESENTATION, DETAILED AND EXTENSIVE TREATMENT PLANNING Routine 02/16/2025 3:30 PM EST documented in this encounter Visit Diagnoses Diagnosis Complete edentulism, unspecified edentulism class- Primary documented in this encounter Additional Health Concerns Assessment Noted Time PHQ-9 Depression Total Score: 15 08/15/2 025 9:50 AM EDT documented as of this encounter Care Teams News Editor Relationship Specialty Start Date End Date Chasity Rincon MD [address] [place] [address], [place] [address] PCP - General Family Medicine 10/21/20 documented as of this encounter
--- NOTE | 2025-02-19 13:30 | CA_ITS ---
Transthoracic Echocardiogram Patient (Last, First, Middle): Curt Saravia, Gender: Male Date of : 1955 Age: 69 Procedure Date: 02/19/2025 Procedure Type: Transthoracic Echocardiogram Location: OP Height: 167.64 cm Weight: 66.23 kg BSA: 1.75 m2 Heart Rate: 69 bpm BP: 134 / 62 mmHg Refrigerating Engineer: PAT Referring MD: Rob Bynum SHEET METAL WELDER Olive Brine Tester: Surinder Browne MD Symptoms: Z01.810 - Encounter for preprocedural cardiovascular examination Study Quality: Adequate w contrast ECG Rhythm: Sinus Conclusions: - 1. Low normal LV ejection fraction of 50-55% with grade 1 diastolic dysfunction 2. Mild aortic regurgitation 3. Normal RV systolic pressure 4. Trivial pericardial effusion Findings Procedure Information Contrast agent, definity, is being given per protocol without apparent complications. Left Ventricle Normal left ventricular cavity size. There is normal left ventricular wall thickness. The left ventricular systolic function is low normal. The visually estimated ejection fraction is between 50-55%. Spectral Doppler is indicative of an impaired relaxation filling pattern. E/E prime ratio is <8, consistent with normal filling pressures. Evidence suggests grade I (mild) diastolic dysfunction. Wall Motion Rest Echo Findings The inferoseptal wall and basal inferior segment are hypokinetic. All other scored wall segments showed normal motion. Right Ventricle Normal right ventricular cavity size and systolic function. Atria The left atrium is normal in size. There is no evidence of interatrial shunt. The right atrium is normal in size. Aortic Valve Normal aortic valve structure and function. There is no aortic valve stenosis. There is mild aortic valve regurgitation. Mitral Valve Normal mitral valve structure and function. There is trace mitral valve regurgitation. There is no mitral valve stenosis. Pulmonic Valve The pulmonic valve is likely normal. There is trace pulmonic valve regurgitation. Tricuspid Valve Normal tricuspid valve structure. There is trace tricuspid valve regurgitation. The right ventricular systolic pressure is normal. The right ventricular systolic pressure is 23 mmHg. Normal right atrial pressure. There is no evidence of pulmonary hypertension. Great Vessels All visible segments of the aorta are normal in size. The pulmonary artery was not well visualized. There is no dilatation of the ascending aorta measuring 3.00 cm. Venous The inferior vena cava is normal in size and collapses greater than 50% with inspiration. Pericardium/Pleural There is a trivial pericardial effusion. Prior Study Comparison No prior study available for comparison. Measurements 2D Linear Measurements IVSd: 0.99 0.6-0.9/0.6-1.0 cm LVIDd: 4.14 3.9-5.3/4.2-5.9 cm LVIDd Index: 2.37 2.4-3.2/2.2-3.1 cm/m2 LVIDs: 2.87 2.0-3.6 cm LVPWd: 0.97 0.7-1.1 cm LA Diam: 2.80 2.7-3.8/3.0-4.0 cm LAIDs Index: 1.60 1.5-2.3 cm/m2 LV Mass: 162.03 67-162/88-224 g LV Mass Index: 92.59 43-95/49-115 g/m2 LVOT Diam: 2.40 3.0+(-)1.3 cm 2D Systolic Function EF 4C: 48.00 >55% EF 2C: 55.20 >55% EF BiP: 51.30 >55% Mitral Valve MV Pk E: 0.47 MV PK A: 0.69 MV Decel Time: 218.00 E/A: 0.70 E'Lateral: 5.87 E'Medial: 4.79 E/E' Med: 9.70 E/E' Lat: 8.00 PHT: 64.00 MVA PHT: 3.44 Decel [place]: 2.14 Aortic Valve AoV Pk Kennedy: 0.95 AoV Mn Kennedy: 0.65 AoV VTI: 0.21 AoV Pk Grad: 4.00 Aov Mn Grad: 2.00 CARY Cont.VTI: 3.66 AI Pk Kennedy: 3.98 AI [place]: 2.04 LVOT LVOT Pk Kennedy: 0.68 LVOT Mn Kennedy: 0.46 LVOT VTI: 0.17 LVOT Pk Grad: 2.00 LVOT Mn Grad: 1.00 LVOT Diam: 2.40 LVOT Area: 4.52 Diastolic Function MV Pk E: 0.47 MV Pk A: 0.69 E/A: 0.70 E'Medial: 4.79 E/E' Med: 9.70 E' Laterial: 5.87 E/E' Lat: 8.00 Right Ventricle TAPSE (mm): 17.50 TVS' Kennedy: 8.81 Tricuspid Valve TR Pk Kennedy: 1.94 TR Pk Grad: 15.00 RA Press: 8.00 RVSP: 23.00 Great Vessels Aorta Sinus of Valsalva: 3.58 2.0-3.5 cm Ao Asc: 3.00 2.1-3.4 cm Updated in Other Vendor System with Status of Final Surinder Browne MD electronically signed on 02/20/2025 4:22:56 PM with status of Final
--- OUTSIDE RECORDS SUMMARY | 2025-02-19 16:50 | XMS_ITS | Encounter Summary ---
Author Organization [employer] [facility] Address [address] [facility] 7t [place] [address] Care Team Providers Care Facing Cutting Machine Operator Name Role Phone Chasity Rincon MD Primary Care Provider [phone] Encounter Details Date Type Department Care Team (Late Contact Info) Description 03/13/2022 Orders Only [facility] MEDICINE [address] [place] [phone] Ioana Blood LPN Social History Tobacco Use [...] Description 03/28/2025 10:45 AM EST Office Visit [facility] MEDICINE [address] [place] [phone] Chasity Rincon MD [address] [place], [place] [phone] documented as of this encounter Procedures Procedure Name Priority Date/Time Associated Diagnosis Comments PSA, TOTAL WITH REFLEX TO PSA, FREE Routine 04/22/2022 10:41 AM EST TESTOSTERONE, FREE, BIOAVAILABLE AND TOTAL, MALES (ADULT), IA Routine 04/22/2022 10:41 AM EST documented in this encounter Results * Testosterone, Free (Dialysis) And Total, MS (04/22/2022 10:41 AM EST) Testosterone, Total 424 250 - 1100 ng/dL [facility] Comment:Men with clinically significant hypogonadalsymptoms and testosterone values repeatedly inthe range of the 200-300 ng/dL or less, maybenefit from testosterone treatment afteradequate risk and benefits counseling.For additional information, please refer tohttp://education.Make YES! Happen/faq/[email or web address](This link is being provided for informational/educational purposes only.)This test was developed and its analytical performancecharacteristics have been determined by [employer] [place], [place]. It hasnot been cleared or approved by the U.S. Food and DrugAdministration. This assay has been validated pursuantto the CLIA regulations and is used for clinicalpurposes. Testosterone, Free 57.7 35.0 - 155.0 pg/mL [facility] Comment:This test was develo ped and its analytical performancecharacteristics have been determined by [employer] [place], [place]. It hasnot been cleared or approved by the U.S. Food and DrugAdministration. This assay has been validated pursuantto the CLIA regulations and is used for clinicalpurposes.THIS TEST WAS PERFORMED AT:[employer] [id number] [place] [address]YDONLGIKUSH DE LA VEGA MD,PHD 04/22/2022 10:4 1 AM EST 04/22/2022 10:41 AM EST us [facility] External Provider LAB BLO OD ORDERABLES Final Result [facility] [address] [place] [address] [place] [address] [phone] * PSA, Total With Reflex to PSA, Free (04/22/2022 10:41 AM EST) PSA,Total (Free>4and<10) 1.22 0.00 - 4.00 ng/mL [facility] Comment:A Free PSA was not [...] are between 4.0 and 10.0 ng/mL.PSA methodology: [employer] Alinity i ChemiluminescentMicroparticle Immunoassay (CMIA) 04/22/2022 10:4 1 AM EST 04/22/2022 10:41 AM EST us [facility] External Provider LAB BLO OD ORDERABLES Final Result [facility] [address] [place] [address] [phone] documented in this encounter Visit Diagnoses Not on filedocumented in this encounter Care Teams Facing Cutting Machine Operator Relationship Specialty Start Date End Date Chasity Rincon MD [address] [place] [address] PCP - General Family Medicine 10/21/20 documented as of this encounter
--- OUTSIDE RECORDS SUMMARY | 2025-02-19 16:50 | XMS_ITS | Clinical Summary ---
Author Organization [employer] Address [address] [facility] 7t [place] [address] Care Team Providers Care Tile Classifier Name Role Phone Chasity Rincon MD Primary Care Provider [phone] Allergies No known active allergies Medications fluticasone [...] knee OA Rx: Percocet 5/325 BID Last MIDWIFE PRACTITIONER agreement: 06/2024 Tier II (visit every 3 [...] this test, I cannot find [facility] on [employer]) Reach out to GI for an appointment then reach out to his WATERWAY TRAFFIC CHECKER who keeps track of his appointments. Continue [...] annual ultrasound, gave him the order to [facility] radiology Assessment & Plan (11/24/2022 12:05 [...] this medication, will need to come to MIDWIFE PRACTITIONER program if so Osteoarthritis of left knee [...] (08/31/2023 7:00 AM EDT): Sees urology at [facility], Catherine Bunn Continue prn Viagra Alcoholism ([facility]) 05/26/2017 Secondary nonischemic congestive cardiomyopathy ([facility]) 05/26/2017 Assessment & Plan (05/17/2024 11:58 AM EDT): Walk as much as tolerated Smoking cessation advised Tremor 05/26/2017 Allergic rhinitis 12/05/2014 Cigarette smoker 12/05/2014 Assessment & Plan (08/31/2023 7:05 AM EDT): Declines cessation aids Encouraged this as it could help with pain and aneurysm Dementia associated with alcoholism ([facility]) Assessment & Plan (08/31/2023 6:58 AM EDT): [...] Encounters Date Type Department Care Team Description 02/16/2025 3:30 PM EST Office Visit [facility] ADULT DENTAL [address] [place] [address] Tremayne Rose DDS Complete edentulism, unspecified edentulism class (Primary Dx) 02/15/2025 11:00 AM EST Office Visit [facility] ADULT DENTAL [address] [place] [address] Tremayne Rose DDS Complete edentulism, unspecified edentulism class (Primary Dx) 02/12/2025 Refill [facility] MED & PEDS [address] [place] [address] Chasity Rincon MD Healthcare maintenance 02/12/2025 Refill [facility] MEDICINE [address] [place] [address] Chasity Rincon MD 02/09/2025 Refill [facility] PEDS [address] [place] [address] Chasity Rincon MD 02/04/2025 Refill [facility] [address] [place] [address] Chasity Rincon MD 01/23/2025 8:00 AM EST Office Visit [facility] ADULT DENTAL [address] [place] [address] Tremayne Rsoe DDS Complete edentulism, unspecified edentulism class (Primary Dx) 01/11/2025 Telephone [facility] MEDICINE [address] [place] [address] Chasity Rincon MD Call Back Request 01/09/2025 11:00 AM EST Office Visit [facility] ADULT DENTAL [address] [place] [address] Tremayne Rose DDS Complete edentulism, unspecified edentulism class (Primary Dx) 12/26/2024 11:30 AM EDT Office Visit [facility] MEDICINE [address] [place] [address] Oskar Mayorga MD Chest pain, unspecified type (Primary Dx); Mass of larynx 12/26/2024 Travel 12/26/2024 Telephone [facility] [address] [place] [address] Chasity Rincon MD Nurse Triage 12/19/2024 9:00 AM EDT Office Visit [facility] ADULT DENTAL [address] [place] [address] Tremayne Rose DDS Periodontal disease (Primary Dx); Dental caries; Ankylosis of teeth 12/13/2024 Orders Only GENERIC EXTERNAL DATA DEPARTMENT Provider, Generic External Data 12/12/2024 Orders Only [facility] External Provider, [facility] 11/20/2024 Refill [facility] [address] [place] [address] Chasity Rincon MD from Last 3 Months [...] Pulse 70 02/15/2025 10:08 AM EST Temperature 36.2 C (97.2 F) 12/26/2024 11:28 [...] Description 03/28/2025 10:45 AM EST Office Visit [facility] MEDICINE [address] [place] [address] Chasity Rincon MD [address] [place], [place] [phone] Health Maintenance Due Date Last Done Comments [...] 10/23/2025 10/24/2015, 11/29/2013, 12/03/2010 Alcohol/Substance Use Screening 02/16/2026 02/16/2025 Tobacco Screening 02/16/2026 02/16/2025 Dental X-Ray: Full Mouth 12/21/2027 025, 2022, [...] Procedure Name Priority Date/Time Associated Diagnosis Comments CASE PRESENTATION, DETAILED AND EXTENSIVE TREATMENT PLANNING Routine 02/16/2025 3:30 PM EST Vicente COMPLETE DENTURE - MANDIBULAR Routine 02/16/2025 3:30 PM EST CASE PRESENTATION, DETAILED AND EXTENSIVE TREATMENT PLANNING Routine 02/15/2025 11:00 AM EST Vicente COMPLETE DENTURE - MANDIBULAR Routine 02/15/2025 11:00 AM EST BITE REGISTRATION Routine 01/23/2025 8:0 0 AM [...] PM EST Narrative 01/12/2025 7:43 PM EST [place] [address] Ultrasound Report Signed Patient: Curt Saravia MR#: [id number] : 1955 Acct:[id number] Age/Sex: 69 / M ADM Date: 01/12/25 Loc: HO.US Attending Dr: Jerson Dickerson MD Ordering Physician: Jerson Dickerson MD Date of Service: 01/12/25 Procedure(s): US abdominal aortic aneurysm Accession Number(s): [id number] cc: Chasity Rincon; Jerson Dickerson MD Reason for Exam: I71.43 - Infrarenal abdominal aortic aneurysm, without rupture CLINICAL HISTORY: I71.43 - Infrarenal abdominal aortic aneurysm, without rupture US Abdomen (AAA) Comparison: US/WI/SR - US ABDOMINAL AORTIC ANEURYSM - 11/23/23 [...] in OV> 01/12/251942 DD/ 42 TD/TT: 01/12/251942 Printed Circuit Board Drafter: Procedure Note Donotuseinterpreter, Image - 01/12/2025 [place] [address] Ultrasound Report Signed Patient: Curt SaraviaMR#: [id number] : 8Acct:[id number] Age/Sex: 69 / MADM Date: 01/12/25 Loc: HO.US Attending Dr: Jerson Dickerson MD Ordering Physician: Jerson Dickerson MD Date of Service: 01/12/25 Procedure(s): US abdominal aortic aneurysm Accession Number(s): [id number] cc: Chasity Rincon; Jerson Dickerson MD Reason for Exam: I71.43 - Infrarenal abdominal aortic aneurysm, withoutrupture CLINICAL HISTORY: I71.43 - Infrarenal abdominal aortic aneurysm, withoutrupture US Abdomen (AAA) Comparison: US/WI/SR - US ABDOMINAL AORTIC ANEURYSM - 9/24/24 09:01 EDT Findings: Aorta proximal 2.6 x [...] in OV> 01/12/251942 DD/ 42 TD/TT: 01/12/251942 Printed Circuit Board Drafter: [facility] External Provider IMG US PROCEDURES Final Result * ECG 12 lead (12/26/2024 1:07 PM EDT) Narrative Oskar Mayorga MD - 12/26/2024 1:07 PM EDT Sinus rhythm, no acute st t changes Oskar Hill MD ECG ORDERABLES Final Result * Hematoxylin and Eosin Stain (12/13/2024 9:57 AM EDT) 12/13/2024 9:57 AM EDT 12/13/2024 11:20 AM EDT [facility] - 12/15/2024 11:00 AM EDT ----- ------- Name: Curt Sarvaia Age/Sex: 69/M : 1955 [id number] [id number] Attend Dr: Federico Anand MD Re12/13/24 Status: [facility] Location: [facility] Disch: ----- ------- SPEC : [id number] RECD: 12/13/24 STATUS: BRITNEYBozena VELÁSQUEZ NUM: [id number] JACINDA: 12/13/[address] [facility] [address]: Federico Anand MD ENTERED: 12/13/24 [...] developed and their performance characteristics determined by [facility]. They have not been cleared or approved by the U.S. Food and Drug Administration (FDA). However, the FDA CONTINUED ON NEXT PAGE ----- ------- Name: Charles RamiresCurt Age/Sex: 69/M : 1955 Unit#: [id number] Attend Dr: Federico Anand MD Re12/13/24 Status: [facility] Location: [facility] Disch: ----- ------- SPEC : [id number] RECD: 12/13/24 STATUS: DUC VELÁSQUEZ NUM: [id number] JACINDA: 12/13/[address] [facility] [address]: Federico Anand MD ENTERED: 12/13/24 [...] laboratory testing. Copies To: Federico Anand MD [facility] [address] [place] [phone] Chasity Rincon [address] [phone] ----- ------- Signed (signature on file) Charles Pang MD 12/15/24 1100 ----- ------- END OF REPORT us Generic External Data Provider LAB BLOOD ORDERAB LES Final Result [facility] [address] [place] [address] [phone] * FL BARIUM SWALLOW MODIFIED (12/12/2024 2:13 PM EDT) Anatomical Region Laterality Modality Head, Neck Radiographic Zaida ging 12/12/2024 2:13 PM EDT Narrative 12/12/2024 2:46 PM EDT [address] [address] Fluoroscopy Report Signed Patient: Curt Saravia MR#: [id number] : 1955 Acct:[id number] Age/Sex: 69 / M ADM Date: 12/12/24 Loc: CHUCK Attending Dr: Racquel Finch [facility] Ordering Physician: Racquel Finch-MARC Date of Service: 12/12/24 Procedure(s): FL Modified Barium Swallow Accession Number(s): [id number] cc: Chasity Rincon; Racquel Finch-MARC Reason for Exam: R13.10 - Dysphagia, unspecified [...] 12/12/24 1443 DD/ 1413 TD/TT: 12/12/24 1422 Printed Circuit Board Drafter: Procedure Note Donotuseinterpreter, Image - 12/12/2024 [place] [address] Fluoroscopy Report Signed Patient: Curt Saravia#: [id number] : 8Acct:[id number] Age/Sex: 69 / MADM Date: 12/12/24 Loc: CHUCK Attending Dr: Racquel BRASHERP-MARC Ordering Physician: Racquel Finch Date of Service: 12/12/24 Procedure(s): FL Modified Barium Swallow Accession Number(s): [id number] cc: Chasity Rincon; Josette,Racquel D DESOLDERER-BC Reason for Exam: R13.10 - Dysphagia, unspecified [...] Sinha MD Signed By: <Electronically signed by Mathwe Sinha MD in OV> 12/12/24 1443 DD/ 1413 TD/TT: 12/12/24 1422 Printed Circuit Board Drafter: [facility] External Provider IMG FLU OROSCOPY PROCEDURES Final Result * (ABNORMAL) Lipid Panel, Standard (05/12/2024 10:07 AM EDT) Triglycerides 205(H) <150 mg/dL [facility] Comment:Desirable Triglyceri de: less than 150 mg/dLBorderline High Triglyceride 150-199 mg/dLHigh Triglyceride: 200-499 mg/dLVery High Triglyceride: greater than or equal to 5OO mg/dL Cholesterol 151 <200 mg/dL [facility] Comment:Desirable Cholestero l: less than 200 mg/dLBorderline High Cholesterol: 200-239 mg/dLHigh Cholesterol: greater than 239 mg/dL LDL Cholesterol Calculated 78 <100 mg/dL [facility] Comment:Desirable LDL: less than 100 mg/dLNear Optimal/Above Optimal LDL: 110- 129 mg/dLBorderline High LDL: 130-159 mg/dLHigh LDL: 160-189 mg/dLVery High LDL: greater than or equal to 190 mg/dL HDL Cholesterol 32(L) >40 mg/dL [facility] Comment:Desirable HDL: great er than 40 mg/dL Note: This HDL assay may give artificially low results in patients with liver disease. Blood Venous blood specimen / Unknown 05/12/2024 10:07 AM EDT 05/12/2024 11:15 AM EDT us Chasity Rincon MD LAB BLOOD ORDERABLES Final Res ult Performing Organization Address [facility] Co de Phone Number [facility] [address] [place] [address] [phone] * Hepatitis C Antibody with Reflex to HCV, RNA, Quantitative, Real-Time PCR (08/31/2023 10:02 AM EDT) Hepatitis C Antibody Nonreactive Nonreactive [facility] Comment:Antibodies to HCV no t detected; does not exclude early acuteHCV infection. Blood Venous blood specimen / Unknown 08/31/2023 10:02 AM EDT 08/31/2023 10:58 AM EDT us Chasity Rincon MD LAB BLOOD ORDERABLES Final Res ult Performing Organization Address [facility] de Phone Number [facility] [address] [place] [phone] from Last 3 Months or Most Recently Relevant to Health Maintenance Insurance [facility] [employer] (HMO D-SNP) DENTAL - [facility] Care Teams Tile Classifier Relationship Specialty Start Date End Date Chasity Rincon MD [address] [place] [address] PCP - General Family Medicine 10/21/20
--- OUTSIDE RECORDS SUMMARY | 2025-02-19 16:50 | XMS_ITS | Encounter Summary ---
Author Organization [employer] Address [address] [facility] 7t [place] [address] Care Team Providers Care Incident Coordinator Name Role Phone Chasity Rincon MD Primary Care Provider [phone] Reason for Visit * Reason Comments Med Refill Encounter Details Date Type Department Care Team ([facility] st Contact Info) Description 02/12/2025 Refill [facility] [address] [place] [address] Chasity Rincon MD [address] [place] [address] Social History Tobacco Use Types Packs/Day Years [...] Description 03/28/2025 10:45 AM EST Office Visit [facility] [address] [place] [address] Chasity Rincon MD [address] [place] [address] documented as of this encounter Visit Diagnoses Not on filedocumented in this encounter Additional Health Concerns Assessment Noted Time PHQ-9 Depression Total Score: 15 025 9:50 AM EDT documented as of this encounter Care Teams Incident Coordinator Relationship Specialty Start Date End Date Chasity Rincon MD [address] [place] [address] PCP - General Family Medicine 10/21/20 documented as of this encounter
--- OUTSIDE RECORDS SUMMARY | 2025-02-19 16:50 | XMS_ITS | Encounter Summary ---
Author Organization [employer] Address [address] [facility] 7t [place] [address] Care Team Providers Care Doll Eye Setter Name Role Phone Chasity Rincon MD Primary Care Provider [phone] Reason for Visit * Reason Comments Med Refill Encounter Details Date Type Department Care Team ([facility] st Contact Info) Description 02/09/2025 Refill [facility] CHC MED & PEDS [address] [place] [address] Chasity Rincon MD [address] [place] [address] Social History Tobacco Use Types Packs/Day Years [...] Description 03/28/2025 10:45 AM EST Office Visit [facility] MEDIC[facility] [address] [place] [address] Chasity Rincon MD [address] [place] [address] documented as of this encounter Visit Diagnoses Not on filedocumented in this encounter Additional Health Concerns Assessment Noted Time PHQ-9 Depression Total Score: 15 025 9:50 AM EDT documented as of this encounter Care Teams Doll Eye Setter Relationship Specialty Start Date End Date Chasity Rincon MD [address] [place] [address] PCP - General Family Medicine 10/21/20 documented as of this encounter
--- OUTSIDE RECORDS SUMMARY | 2025-02-19 16:50 | XMS_ITS | Encounter Summary ---
Author Organization [employer] [facility] Address [address] [facility] 7t [place] [address] Care Team Providers Care Product Examiner Name Role Phone Chasity Rincon MD Primary Care Provider [phone] Encounter Details Date Type Department Care Team (Late Contact Info) Description 05/06/2022 Orders Only [facility] MEDICINE [address] [place] [address] Chasity Rincon MD [address] [place] [address] Erectile dysfunction, unspecified erectile dysfunction type (Primary [...] Department Care Team (Late Contact Info) Description 03/28/2025 10:45 AM EST Office Visit [facility] MED[facility] [address] [place] [address] Chasity Rincon MD [address] [place] [address] [phone] documented as of this encounter Visit Diagnoses Diagnosis Erectile dysfunction, unspecified erectile dysfunction type- Primary documented in this encounter Care Teams Product Examiner Relationship Specialty Start Date End Date Chasity Rincon MD [address] [place] [address] [phone] PCP - General Family Medicine 10/21/20 documented as of this encounter
--- OUTSIDE RECORDS SUMMARY | 2025-02-19 16:50 | XMS_ITS | Encounter Summary ---
Author Organization [employer] [facility] Address [address] [facility] 7t [place] [address] Care Team Providers Care Surgical Tech Name Role Phone Chasity Rincon MD Primary Care Provider [phone] Encounter Details Date Type Department Care Team (Latest Contact Info) Description 06/07/2020 Abstract [facility] CONVERSIONS Dental, Provider, DDS Social History [...] Description 03/28/2025 10:45 AM EST Office Visit [facility] MEDICINE [address] [place] [address] Chasity Rincon MD [address] [place] [address] documented as of this encounter Visit Diagnoses Not on filedocumented in this encounter Care Teams Surgical Tech Relationship Specialty Start Date End Date Chasity Rincon MD [address] [place] [address] PCP - General Family Medicine 10/21/20 documented as of this encounter
--- OUTSIDE RECORDS SUMMARY | 2025-02-19 16:50 | XMS_ITS | Continuity of Care Document ---
Author Organization [place] - [facility], [facility] Address [address] [place] [address] Care Team Providers Care Clay Dry Press Operator Name Role Phone [facility] (DENTAL) Primary Care Prov ider Assessment [...] y (SURG) 2024 025 9 Not available 11/07/202 5 14:44:29 Imaging None recorded. Medication Orders None recorded. Patient TargetsNo targets recorded. Patient Instructions Encounter Date Encounter Id Patient Instructions Last Modified By Organization Details Last Modified Time 01/05/2025 [id number] - Await scheduling for biopsy procedure. - [...] Organization Details Recorded Time Mass of neck 825860351 Active 2024 Lance Sherman, [place] [address], [place], [address], [facility] - [facility] 12:39:03 Oropharynge al lesion 4046765238515 9 Active 2024 Lance Sherman, [place] [address], [place], [address], [facility] 12:39:16 Supraglotti c lesion 429068831 Active 2024 Lance Sherman, [place] [address], [place], [address], [facility] 12:39:16 Problem Notes None recorded. Procedures Surgical History Date Name Laterality Status Provider Name and Address Organization Details Recorded Time 01/05/2025 FOL_normal _DHL completed Lance Sherman, [address], [address], [facility] 01/05/2025 14:38:34 Imaging Results None [...] Problems Y Arthritis Y Hearing Loss Y Hypertension Y Dementia Y Past Encounters Encounter ID Performer Location Encounter Start Date Encounter Closed Date Diagnosis/Indication Diagnosis SNOMED-CT Code Diagnosis ICD10 Code Diagnosis IMO Codes Diagnosis Note [id number] Lance Sherman DO [facility] of [address] [address] 01/05/2025 13:49:37 01/05/2025 14:36:33 Mass of neck 470032001 J38.7 [id number] Finding of tobacco use and exposure 842373340 Z72.0 641916 Supraglottic lesion 3012 50066 J38.7 [id number] Health Concerns Section Related Observation LastModified by Organization Rae fallon LastModified Time None Recorded Concern Status LastModified by Organization Details LastModified Time None Recorded Payers Encounter Date Sequence Insurance Name Policy Number Policy Howard Covered Member ID Howard Member ID Guarantor Name 01/05/2025 1 [facility] - DOS ON OR AFTER 2022 - MEDICARE ADVANTAGE [place] (MEDICARE REPLACEMENT/ADV ANTAGE - PPO) Curt Ramires [id number] Curt Ramires Notes Date Note Type Note [...] growths in the throat. Lance Sherman, [address] [address], [place], [address], [place] - [facility] 01/05/2025 14:39:33
--- OUTSIDE RECORDS SUMMARY | 2025-02-19 16:50 | XMS_ITS | Encounter Summary ---
Author Organization [employer] Address [address] [facility] 7t [place] [address] Care Team Providers Care Biology Specimen Technician Name Role Phone Chasity Rincon MD Primary Care Provider [phone] Reason for Visit * Reason Comments Med Refill Encounter Details Date Type Department Care Team ([facility] st Contact Info) Description 02/04/[address] [facility] CHC MED & PEDS [address] [place] [address] Chasity Rincon MD [address] [place] [address] Social History Tobacco Use Types Packs/Day Years [...] Description 03/28/2025 10:45 AM EST Office Visit [facility] MEDICINE [address] [place] [address] Chasity Rincon MD [address] [place] [address] documented as of this encounter Visit Diagnoses Not on filedocumented in this encounter Additional Health Concerns Assessment Noted Time PHQ-9 Depression Total Score: 15 025 9:50 AM EDT documented as of this encounter Care Teams Biology Specimen Technician Relationship Specialty Start Date End Date Chasity Rincon MD [address] [place] [address] PCP - General Family Medicine 10/21/20 documented as of this encounter
--- OUTSIDE RECORDS SUMMARY | 2025-02-19 16:50 | XMS_ITS | Clinical Summary ---
Author Organization [facility] Address [address] [place] [phone] Phone Care Team Providers Care Machine Sand Mixer Name Role Phone Unavailable Primary Care Provider [...]
--- OUTSIDE RECORDS SUMMARY | 2025-02-19 16:51 | XMS_ITS | Encounter Summary ---
Author Organization [employer] Address [address] [facility] 7t [place] [address] Care Team Providers Care Chest Painting Leader Name Role Phone Chasity Rincon MD Primary Care Provider [phone] Reason for Visit * Reason Comments Med Refill Encounter Details Date Type Department Care Team ([facility] Contact Info) Description 12/02/2022 Refill [facility] MED & PEDS [address] [place], [place] [phone] Chasity Rincon MD [address] [place], [place] [phone] Gastroesophageal reflux disease without esophagitis Social History [...] Upcoming Encounters Date Type Department Care Team ([facility] Contact Info) Description 03/28/2025 10:45 AM EST Office Visit [facility] [address] [place], [place] [phone] Chasity Rincon MD [address] [place], [place] [phone] documented as of this encounter Visit Diagnoses Diagnosis Gastroesophageal reflux disease without esophagitis Esophageal reflux documented in this encounter Care Teams Chest Painting Leader Relationship Specialty Start Date End Date Chasity Rincon MD [address] [place] [address] PCP - General Family Medicine 10/21/20 documented as of this encounter
--- OUTSIDE RECORDS SUMMARY | 2025-02-19 16:51 | XMS_ITS | Encounter Summary ---
Author Organization [employer] Address [address] [facility] 7t [place] [address] Care Team Providers Care Manager Quality Name Role Phone Chasity Rincon MD Primary Care Provider [phone] Reason for Visit * Reason Comments Med Refill Encounter Details Date Type Department Care Team ([facility] Contact Info) Description 12/01/2022 Refill [facility] CH[facility] MED & PEDS [address] [place], [place] [phone] Chasity Rincon MD [address] [place], [place] [phone] Gastroesophageal reflux disease without esophagitis Social History [...] Upcoming Encounters Date Type Department Care Team ([facility] Contact Info) Description 03/28/2025 10:45 AM EST Office Visit [facility] [address] [place], [place] [phone] Chasity Rincon MD [address] [place], [place] [phone] documented as of this encounter Visit Diagnoses Diagnosis Gastroesophageal reflux disease without esophagitis Esophageal reflux documented in this encounter Care Teams Manager Quality Relationship Specialty Start Date End Date Chasity Rincon MD [address] [place] [address] PCP - General Family Medicine 10/21/20 documented as of this encounter
--- OUTSIDE RECORDS SUMMARY | 2025-02-19 16:51 | XMS_ITS | Data Portability ---
Author Organization [place] - [facility], Allergy Address [address] [address] Care Team Providers Care Social Media Strategist Name Role Phone [facility] (DENTAL) Primary Care Prov ider Assessment [...] direct microscopic laryngoscop y (SURG) 2024 025 [id number] Not available 14:44:29 Imaging None recorded. Medication Orders None recorded. Patient TargetsNo targets recorded. Patient Instructions Encounter Date Encounter Id Patient Instructions Last Modified By Organization Details Last Modified Time 01/05/2025 [id number] - Await scheduling for biopsy procedure. - [...] Organization Details Recorded Time Mass of neck [id number] Active [address], [address], [facility] - [facility] 12:39:03 Oropharynge al lesion 8420593103397 9 Active 2024 Lance Sherman [address] [address], [place], [address], [facility] 12:39:16 Supraglotti c lesion 244084663 Active 2024 Lance Sherman, [address], [address], [facility] 12:39:16 Problem Notes None recorded. Procedures Surgical History Date Name Laterality Status Provider Name and Address Organization Details Recorded Time 01/05/2025 FOL_normal _DHL completed Lance Sherman, [address], [address], [facility] 01/05/2025 14:38:34 Imaging Results None recorded. Procedure [...] ICD10 Code Diagnosis IMO Codes Diagnosis Note [id number] Lance Sherman DO [facility]NT[facility] of [address] [address] 01/05/2025 13:49:37 01/05/2025 14:36:33 Mass of neck 575299514 J38.7 [id number] Finding of tobacco use and exposure [id number] Z72.0 882353 Supraglottic lesion 3012 86379 J38.7 0879144 Health Concerns Section Related Observation LastModified by Organization Rae fallon LastModified Time None Recorded Concern Status LastModified by Organization Details LastModified Time None Recorded Advance Directives Directive None Recorded Payers Insurance Date Sequence Insurance Name Policy Number Policy Howard Covered Member ID Howard Member ID Guarantor Name 10/20/2024 1 [place] [facility] Curt Ramires [id number] Curt Ramires 12/26/2024 1 MED[place] B[place] [facility] Curt Ramires [id number] Curt Ramires 12/26/2024 2 [place] [facility] Curt Ramires [id number] Curt Ramires 01/17/2025 2 [facility] DOS ON OR AFTER 2022 - INTERMEDIATE OPTIONS AND ONE CARE (MEDICARE REPLACEMENT/AD VANTAGE - PPO) Curt Ramires [id number] Curt Ramires 01/23/2025 1 [facility] - DOS ON OR AFTER 2022 - DUAL ELIGIBLE - INTERMEDIATE OPTIONS AND ONE CARE (MEDICARE REPLACEMENT/AD VANTAGE - HMO) Curt Soto Ike [id number] Curt Ramires 01/17/2025 1 [facility] - DOS ON OR AFTER 2022 - MEDICARE [place]ANTAGE [place] (MEDICARE REPLACEMENT/AD VANTAGE - PPO) Curt Ramires [id number] Curt Ramires Notes Date Note Type Note [...] growths in the throat. Lance Sherman, [address] [address], [place], [address], [place] - [facility] 01/05/2025 14:39:33
== END ==
LOC: HO.CARD 13:26
PROVIDERS: PCP General Practice
DX: Z01.810 Encounter for preprocedural cardiovascular examination (principal)
CPT/HCPCS: 93306; Q9957

== ENCOUNTER → 2025-02-19 13:30 | Outpatient (BNV) | payer OTHER, SELFPAY | PROVIDERS: PCP General Practice; Visit Provider Internal Medicine Cardiovascular Disease | DX: Z01.810 Encounter for preprocedural cardiovascular examination (principal); I35.1 Nonrheumatic aortic (valve) insufficiency | CPT/HCPCS: 93306 ==

== ENCOUNTER → 2025-02-26 08:28 | Outpatient (REF) | payer OTHER, SELFPAY ==
--- NOTE | 2025-02-26 08:31 | CA_ITS ---
Acquisition Time: 2025-02-26 09:18:08 Total Exercise Time: 00:03:38 Test Indications: CP Medications: SEE H&P Protocol: KB Max HR: 126 BPM 82% of Pred: 153 BPM Max BP: 144/76 mmHG Max Work Load: 4.6 METS Exercise stress test with exercise 3 mins 38 secs of Kb Protocol held at Stage 1, achieving 82% MPHR, requested to stop due to knee discomfort, no EKG changes at achieved workload. Test swicthed to Lexiscan. Pharmacological stress test with Lexiscan while pt moves his left arm, with reports of palpitations and SOB, without any arrythmias, with normotensive response to injection. Nondiagnostic EKG for ischemia. In recovery, pt treated with IVP Aminophylline 75 mg to reverse Lexiscan after which pt feeling back to baseline. Nuclear images pending. Test reveiwed with Dr. Alston. Referred By: Rob Bynum Electronically Signed By: Rob Bynum
--- OUTSIDE RECORDS SUMMARY | 2025-02-26 08:33 | XMS_ITS | Encounter Summary ---
Author Organization [employer] [facility] Address 75 [facility] 7t [place] [address] Care Team Providers Care Director Transition Name Role Phone Chasity Rincon MD Primary Care Provider [phone] Encounter Details Date Type Department Care Team (Late Contact Info) Description 05/06/2022 Orders Only [facility] [address] [place] [phone] Chasity Rincon MD [address] [place] [phone] Erectile dysfunction, unspecified erectile dysfunction type (Primary [...] Description 03/28/2025 10:45 AM EST Office Visit [facility] [address] [place] [address] Chasity Rincon MD [address] [place] [address] [phone] documented as of this encounter Visit Diagnoses Diagnosis Erectile dysfunction, unspecified erectile dysfunction type- Primary documented in this encounter Care Teams Director Transition Relationship Specialty Start Date End Date Chasity Rincon MD [address] [place] [address] [phone] PCP - General Family Medicine 10/21/20 documented as of this encounter
--- OUTSIDE RECORDS SUMMARY | 2025-02-26 08:33 | XMS_ITS | Encounter Summary ---
Author Organization [employer] Address 75 [facility] 7t [place] [address] Care Team Providers Care Rewind Operator Name Role Phone Chasity Rincon MD Primary Care Provider [phone] Reason for Visit * Reason Comments Med Refill Encounter Details Date Type Department Care Team ([facility] st Contact Info) Description 02/09/2025 Refill [facility] MED & PEDS [address] [place] [address] Chasity Rincon MD [address] [place] [address] Social History Tobacco Use Types Packs/Day Years [...] 10:45 AM EST Office Visit [facility] [address] [place] [address] Chasity Rincon MD [address] [place] [address] documented as of this encounter Visit Diagnoses Not on filedocumented in this encounter Additional Health Concerns Assessment Noted Time PHQ-9 Depression Total Score: 15 025 9:50 AM EDT documented as of this encounter Care Teams Rewind Operator Relationship Specialty Start Date End Date Chasity Rincon MD [address] [place] [address] PCP - General Family Medicine 10/21/20 documented as of this encounter
--- OUTSIDE RECORDS SUMMARY | 2025-02-26 08:33 | XMS_ITS | Encounter Summary ---
Author Organization [employer] [facility] Address 75 [facility] 7t [place] [address] Care Team Providers Care Belt Tender Name Role Phone Chasity Rincon MD Primary Care Provider [phone] Encounter Details Date Type Department Care Team (Late Contact Info) Description 03/13/2022 Orders Only [facility] [address] [place] [address] [phone] Ioana Blood LPN Social History Tobacco Use [...] Description 03/28/2025 10:45 AM EST Office Visit [facility] [address] [place] [address] [phone] Chasity Rincon MD 230 [place], [place] [phone] documented as of this encounter Procedures Procedure Name Priority Date/Time Associated Diagnosis Comments PSA, TOTAL WITH REFLEX TO PSA, FREE Routine 04/22/2022 10:41 AM EST TESTOSTERONE, FREE, BIOAVAILABLE AND TOTAL, MALES (ADULT), [place] Routine 04/22/2022 10:41 AM EST documented in this encounter Results * Testosterone, Free (Dialysis) And Total, MS (04/22/2022 10:41 AM EST) Testosterone, Total 424 250 - 1100 ng/dL [facility] Comment:Men with clinically significant hypogonadalsymptoms and testosterone values repeatedly inthe range of the 200-300 ng/dL or less, maybenefit from testosterone treatment afteradequate risk and benefits counseling.For additional information, please refer tohttp://education.Ooploo/faq/[email or web address](This link is being provided for informational/educational purposes only.)This test was developed and its analytical performancecharacteristics have been determined by [employer] [place], [place]. It hasnot been cleared or approved by the U.S. Food and DrugAdministration. This assay has been validated pursuantto the CLIA regulations and is used for clinicalpurposes. Testosterone, Free 57.7 35.0 - 155.0 pg/mL [facility] Comment:This test was develo ped and its analytical performancecharacteristics have been determined by [employer] [place], [place]. It hasnot been cleared or approved by the U.S. Food and DrugAdministration. This assay has been validated pursuantto the CLIA regulations and is used for clinicalpurposes.THIS TEST WAS PERFORMED AT:[employer] [id number] [place] [address]PMWYCBRKUSH DE LA VEGA MD,PHD 04/22/2022 10:4 1 AM EST 04/22/2022 10:41 AM EST us [facility] External Provider LAB BLO OD ORDERABLES Final Result [facility] [address] [place] [address] [place] [address] [phone] * PSA, Total With Reflex to PSA, Free (04/22/2022 10:41 AM EST) PSA,Total (Free>4and<10) 1.22 0.00 - 4.00 ng/mL [facility] Comment:A Free PSA was not [...] are between 4.0 and 10.0 ng/mL.PSA methodology: [employer] i ChemiluminescentMicroparticle Immunoassay (CMIA) 04/22/2022 10:4 1 AM EST 04/22/2022 10:41 AM EST us [facility] External Provider LAB BLO OD ORDERABLES Final Result [facility] [address] [place] [address] [phone] documented in this encounter Visit Diagnoses Not on filedocumented in this encounter Care Teams Belt Tender Relationship Specialty Start Date End Date Chasity Rincon MD [address] [place] [phone] PCP - General Family Medicine 10/21/20 documented as of this encounter
--- OUTSIDE RECORDS SUMMARY | 2025-02-26 08:33 | XMS_ITS | Continuity of Care Document ---
Author Organization [place] - [facility], [facility] Address [address] [place] [address] Care Team Providers Care Forming Machine Upkeep Mechanic Helper Name Role Phone [facility] (DENTAL) [...] By Organization Details Last Modified Time 01/05/2025 [id number] - Await scheduling for biopsy procedure. - [...] Organization Details Recorded Time Mass of neck 412569298 Active 2024 Lance Sherman, [address] [address], [place], [address], [facility] - [facility] 12:39:03 Oropharynge al lesion 0743603616845 9 Active 2024 Lance Sherman, [address] [address], [place], [address], [facility] 12:39:16 Supraglotti c lesion 466960026 Active 2024 Lance Sherman, [address] [address], [place], [address], [facility] 12:39:16 Problem Notes None recorded. Procedures Surgical History Date Name Laterality Status Provider Name and Address Organization Details Recorded Time 01/05/2025 FOL_normal _DHL completed Lance Sherman, [address], [address], [facility] 01/05/2025 14:38:34 Imaging Results None recorded. Procedure [...] ICD10 Code Diagnosis IMO Codes Diagnosis Note [id number] Lance Sherman DO [facility]NT[facility] of [address] [address] 01/05/2025 13:49:37 01/05/2025 14:36:33 Mass of neck 981558955 J38.7 2898340 Finding of tobacco use and exposure 496154246 Z72.0 405838 Supraglottic lesion 3012 55266 J38.7 2343646 Health Concerns Section Related Observation LastModified by Organization Rae fallon LastModified Time None Recorded Concern Status LastModified by Organization Details LastModified Time None Recorded Payers Encounter Date Sequence Insurance Name Policy Number Policy Howard Covered Member ID Howard Member ID Guarantor Name 01/05/2025 1 [facility] - DOS ON OR AFTER 2022 - MEDICARE [place]ANTAGE [place] (MEDICARE REPLACEMENT/ADV ANTAGE - PPO) Curt Ramires [id number] Curt Ramires Notes Date Note Type Note [...] growths in the throat. Lance Sherman, [address] [address], [place], [address], [place] - [facility] 01/05/2025 14:39:33
--- OUTSIDE RECORDS SUMMARY | 2025-02-26 08:33 | XMS_ITS | Encounter Summary ---
Author Organization [employer] Address 75 [facility] 7t [place] [address] Care Team Providers Care Oil Operator Name Role Phone Chasity Rincon MD Primary Care Provider [phone] Reason for Visit * Reason Comments Med Refill Encounter Details Date Type Department Care Team ([facility] st Contact Info) Description 02/04/2025 Refill [facility] CH[facility] MED & PEDS [address] [place] [address] Chasity Rincon MD [address] [place] [address] Social History Tobacco Use Types Packs/Day Years [...] Description 03/28/2025 10:45 AM EST Office Visit [facility] [address] [place] [address] Chasity Rincon MD [address] [place] [address] documented as of this encounter Visit Diagnoses Not on filedocumented in this encounter Additional Health Concerns Assessment Noted Time PHQ-9 Depression Total Score: 15 025 9:50 AM EDT documented as of this encounter Care Teams Oil Operator Relationship Specialty Start Date End Date Chasity Rincon MD [address] [place] [address] PCP - General Family Medicine 10/21/20 documented as of this encounter
--- OUTSIDE RECORDS SUMMARY | 2025-02-26 08:33 | XMS_ITS | Encounter Summary ---
Author Organization [employer] Address 75 [facility] 7t [place] [address] Care Team Providers Care Animal Nursery Worker Name Role Phone Chasity Rincon MD Primary Care Provider Reason for Visit * Reason Comments Med Refill Encounter Details Date Type Department Care Team ([facility] Contact Info) Description 12/02/2022 Refill [facility] CH[facility] MED & PEDS [address] [place], [place] [phone] Chasity Rincon MD [address] [place], [place] [phone] Gastroesophageal reflux disease without esophagitis Social History [...] Upcoming Encounters Date Type Department Care Team ([facility] Contact Info) Description 03/28/2025 10:45 AM EST Office Visit [facility] MEDICINE 230 [place], [place] [phone] Chasity Rincon MD [address] [place], [place] [phone] documented as of this encounter Visit Diagnoses Diagnosis Gastroesophageal reflux disease without esophagitis Esophageal reflux documented in this encounter Care Teams Animal Nursery Worker Relationship Specialty Start Date End Date Chasity Rincon MD [address] [place] [address] PCP - General Family Medicine 10/21/20 documented as of this encounter
--- OUTSIDE RECORDS SUMMARY | 2025-02-26 08:33 | XMS_ITS | Encounter Summary ---
Author Organization [employer] Address [address] [facility] 7t [place] [address] Care Team Providers Care Script Coordinator Name Role Phone Chasity Rincon MD Primary Care Provider [phone] Reason for Visit * Reason Comments Med Refill Encounter Details Date Type Department Care Team ([facility] st Contact Info) Description 02/12/[address] [facility] [address] [place] [address] Chasity Rincon MD [address] [place] [address] Social History Tobacco Use Types Packs/Day Years [...] Office Visit [facility] [address] [place] [address] Chasity Rincon MD [address] [place] [address] documented as of this encounter Visit Diagnoses Not on filedocumented in this encounter Additional Health Concerns Assessment Noted Time PHQ-9 Depression Total Score: 15 025 9:50 AM EDT documented as of this encounter Care Teams Script Coordinator Relationship Specialty Start Date End Date Chasity Rincon MD [address] [place] [address] PCP - General Family Medicine 10/21/20 documented as of this encounter
--- OUTSIDE RECORDS SUMMARY | 2025-02-26 08:33 | XMS_ITS | Clinical Summary ---
Author Organization [employer] Address [address] [facility] [facility] [address] [place] [address] Care Team Providers Care Information Security Analyst Name Role Phone Chasity Rincon MD Primary Care Provider [phone] Allergies No known active allergies Medications fluticasone [...] BY MOUTH EVERY MORNING 90 tablet 3 Active D3 Super Strength 50 MCG (1999 UT) capsuleIndication s:Alcoholism (CMS/HCC) (HCC) TAKE 1 CAPSULE BY MOUTH EVERY MORNING 90 capsule 3 Active folic acid (Folvite) 1 MG tabletIndications :Alcoholism (CMS/HCC) ([facility]) TAKE 1 TABLET BY MOUTH EVERY MORNING 90 tablet 3 Active Lidocaine 5 % cream Apply 1 Application topically 3 times daily. 30 g 1 Active ascorbid acid ER (Vitamin C) 500 MG ER capsule TAKE 1 CAPSULE BY MOUTH EVERY OTHER DAY IN THE MORNING (WITH WATER) 45 capsule 3 Active Ferrous Sulfate (iron) 325 (65 Fe) MG tablet TAKE 1 TABLET BY MOUTH EVERY OTHER DAY IN THE MORNING WITH WATER OR ORANGE JUICE 45 tablet 3 Active Lidocaine, Anorectal, 5 % creamIndications: Primary osteoarthritis of left knee APPLY TO THE AFFECTED AREA(S) TOPICALLY THREE TIMES DAILY Active omeprazole (PriLOSEC) [address] capsule TAKE 1 CAPSULE BY MOUTH TWICE DAILY DO NOT BREAK, CRUSH, DISSOLVE OR CHEW 180 capsule 3 Active acetaminophen (Tylenol 8 Hour) 650 MG ER tablet Take 1 tablet (650 mg) by mouth every 8 (eight) hours if needed for mild pain. Do not crush, chew, or split. 30 tablet 025 Active gabapentin (Neurontin) 300 MG capsule Take 1 capsule (300 mg) by mouth 3 times daily. 90 capsule 11 02/22/20 8:23 AM EST 025 Active buPROPion SR (Wellbutrin SR) 150 MG 12 hr tablet Take 1 tablet (150 mg) by mouth 2 times daily. Do not crush, chew, or split. 180 tablet 3 02/22/20 8:23 AM EST 025 Active loratadine (Claritin) 10 MG tablet Take 1 tablet (10 mg) by mouth in the morning. 90 tablet 3 02/22/20 25 8:23 AM EST 025 Active Multiple Vitamin (Multivitamin) tabletIndications :Healthcare maintenance Take 1 tablet by mouth in the morning. 90 tablet 3 02/22/20 8:23 AM EST 12/15/2 025 Active loratadine (Claritin) 10 MG tablet [...] knee OA Rx: Percocet 5/325 BID Last [employer] OPERATOR HELPER agreement: 06/2024 Tier II (visit every 3 [...] this test, I cannot find [facility] on [employer]) Reach out to GI for an appointment then reach out to his BALANCE WHEEL HAND FILER who keeps track of his appointments. 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 Assessment & Plan (05/17/2024 11:58 AM EDT): Walk as much as tolerated Smoking cessation advised Tremor 05/26/2017 Allergic rhinitis 12/05/2014 Cigarette smoker 12/05/2014 Assessment & Plan (08/31/2023 7:05 AM EDT): Declines cessation aids Encouraged this as it could help with pain and aneurysm Dementia associated with alcoholism ([facility]) Assessment & Plan (08/31/2023 6:58 AM EDT): [...] Description 02/16/2025 3:30 PM EST Office Visit [facility] ADULT DENTAL [address] [place] [address] Tremayne Rose DDS Complete edentulism, unspecified edentulism class (Primary Dx) 02/15/2025 11:00 AM EST Office Visit [facility] ADULT DENTAL [address] [place] [address] Tremayne Rose DDS Complete edentulism, unspecified edentulism class (Primary Dx) 02/12/2025 Refill [facility] MED & PEDS [address] [place] [address] Chasity Rincon MD Healthcare maintenance 02/12/2025 Refill [facility] MEDICINE [address] [place] [address] Chasity Rincon MD 02/09/2025 Refill [facility]EDS [address] [place] [address] Chasity Rincon MD 02/04/2025 Refill [facility]S [address] [place] [address] Chasity Rincon MD 01/23/2025 8:00 AM EST Office Visit [facility] ADULT DENTAL [address] [place] [address] Tremayne Rose DDS Complete edentulism, unspecified edentulism class (Primary Dx) 01/11/[address] [address] Chasity Rincon MD Call Back Request 01/09/2025 11:00 AM EST Office Visit [facility] ADULT DENTAL [address] [place] [address] Tremayne Rose DDS Complete edentulism, unspecified edentulism class (Primary Dx) 12/26/2024 11:30 AM EDT Office Visit [facility] MEDICINE [address] [place] [phone] Oskar Mayorga MD Chest pain, unspecified type (Primary Dx); Mass of larynx 12/26/2024 Travel 12/26/2024 Telephone [facility] MEDICINE [address] [place] [address] Chasity Rincon MD Nurse Triage 12/19/2024 9:00 AM EDT Office Visit [facility] ADULT DENTAL [address] [place] [address] Tremayne Rose DDS Periodontal disease (Primary Dx); Dental caries; Ankylosis of teeth 12/13/2024 Orders Only GENERIC EXTERNAL DATA DEPARTMENT Provider, [facility] External Data 12/12/2024 Orders Only [facility] External Provider, [facility] from Last 3 Months Immunizations Immunization Administration [...] the past 12 months, has t he [employer], gas, oil or water company threatened to [...] Description 03/28/2025 10:45 AM EST Office Visit [facility] MEDICINE [address] [place] [address] Chasity Rincon MD [address] [place] [address] Health Maintenance Due Date Last Done Comments [...] PM EST Narrative 01/12/2025 7:43 PM EST [place] [address] Ultrasound Report Signed Patient: Curt Saravia MR#: [id number] : 1955 Acct:[id number] Age/Sex: 69 / M ADM Date: 01/12/25 Loc: HO.US Attending Dr: Jerson Dickerson MD Ordering Physician: Jerson Dickerson MD Date of Service: 01/12/25 Procedure(s): US abdominal aortic aneurysm Accession Number(s): [id number] cc: Chasity Rincon; Jerson Dickerson MD Reason for Exam: I71.43 - Infrarenal abdominal aortic aneurysm, without rupture CLINICAL HISTORY: I71.43 - Infrarenal abdominal aortic aneurysm, without rupture US Abdomen (AAA) Comparison: US/SC/SR - US ABDOMINAL AORTIC ANEURYSM - 11/23/23 [...] in OV> 01/12/251942 DD/ 42 TD/TT: 01/12/251942 Machine Welt Butter: Procedure Note Donotuseinterpreter, Image - 01/12/2025 [place] [address] Ultrasound Report Signed Patient: Curt Saravia#: [id number] : 8Acct:[id number] Age/Sex: 69 / MADM Date: 01/12/25 Loc: HO.US Attending Dr: Jreson Dickerson MD Ordering Physician: Jerson Dickerson MD Date of Service: 01/12/25 Procedure(s): US abdominal aortic aneurysm Accession Number(s): [id number] cc: Chasity Rincon; Jerson Dickerson MD Reason for Exam: I71.43 - Infrarenal abdominal aortic aneurysm, withoutrupture CLINICAL HISTORY: I71.43 - Infrarenal abdominal aortic aneurysm, withoutrupture US Abdomen (AAA) Comparison: US/SC/SR - US ABDOMINAL AORTIC ANEURYSM - 11/23/23 [...] in OV> 01/12/251942 DD/ 42 TD/TT: 01/12/251942 Machine Welt Butter: [facility] External Provider IMG US PROCEDURES Final Result * ECG 12 lead (12/26/2024 1:07 PM EDT) Narrative Oskar Mayorga MD - 12/26/2024 1:07 PM EDT Sinus rhythm, no acute st t changes Oskar Hill MD ECG ORDERABLES Final Result * Hematoxylin and Eosin Stain (12/13/2024 9:57 AM EDT) 12/13/2024 9:57 AM EDT 12/13/2024 11:20 AM EDT Rolo [facility] - 12/15/2024 11:00 AM EDT ----- ------- Name: Curt Saravia Age/Sex: 69/M : 1955 [facility]#: [id number] Unit#: [id number] Attend Dr: Federico Anand MD Re12/13/24 Status: [facility] Location: [facility] Disch: ----- ------- SPEC : [id number] RECD: 12/13/24 STATUS: BRITNEYBozena VELÁSQUEZ NUM: [id number] JACINDA: 12/13/[address] [facility] DR: Federico Anand MD ENTERED: 12/13/24114 SP TYPE: Surgical OTHR DR: Chasity Rincon [...] developed and their performance characteristics determined by [facility]. They have not been cleared or approved by the U.S. Food and Drug Administration (FDA). However, the FDA CONTINUED ON NEXT PAGE ----- ------- Name: Charles RamiresCurt Age/Sex: 69/M : 1955 Unit#: [id number] Attend Dr: Federico Anand MD Re12/13/24 Status: [facility] Location: [facility] Disch: ----- ------- SPEC : [id number] RECD: 12/13/24 STATUS: DUC VELÁSQUEZ NUM: [id number] JACINDA: 12/13/[address] [facility] DR: Federico Anand MD ENTERED: 12/13/24 [...] laboratory testing. Copies To: Federico Anand MD [facility] [address] [place] [phone] Chasity Rincon [address] [phone] ----- ------- Signed (signature on file) Charles Pang MD 12/15/24 1100 ----- ------- END OF REPORT us Generic External Data Provider LAB BLOOD ORDERAB LES Final Result [facility] [address] [place] [address] [phone] * FL BARIUM SWALLOW MODIFIED (12/12/2024 2:13 PM EDT) Anatomical Region Laterality Modality Head, Neck Radiographic Zaida ging 12/12/2024 2:13 PM EDT Narrative 12/12/2024 2:46 PM EDT [address] [address] Fluoroscopy Report Signed Patient: Curt Saravia MR#: [id number] : 1955 Acct:[id number] Age/Sex: 69 / M ADM Date: 12/12/24 Loc: CHUCK Attending Dr: Racquel BRASHERP- Ordering Physician: Racquel Finch [facility] Date of Service: 12/12/24 Procedure(s): FL Modified Barium Swallow Accession Number(s): [id number] cc: Chasity Rincon; Racquel FinchMARC Reason for Exam: R13.10 - Dysphagia, unspecified [...] 12/12/24 1443 DD/ 1413 TD/TT: 12/12/24 1422 Machine Welt Butter: Procedure Note Donotuseinterpreter, Image - 12/12/[address] [address] Fluoroscopy Report Signed Patient: Curt SaraviaMR#: [id number] : 8Acct:[id number] Age/Sex: 69 / MADM Date: 12/12/24 Loc: CHUCK Attending Dr: Racquel HILLMAN Ordering Physician: Racquel FinchMARC Date of Service: 12/12/24 Procedure(s): FL Modified Barium Swallow Accession Number(s): [id number] cc: Chasity Rincon; Racquel Finch PARTITION SETTER- Reason for Exam: R13.10 - Dysphagia, unspecified [...] 12/12/24 1443 DD/ 1413 TD/TT: 12/12/24 1422 Machine Welt Butter: [facility] External Provider IMG FLU OROSCOPY PROCEDURES Final Result * (ABNORMAL) Lipid Panel, Standard (05/12/2024 10:07 AM EDT) Triglycerides 205(H) <150 mg/dL [facility] Comment:Desirable Triglyceri de: less than 150 mg/dLBorderline High Triglyceride 150-199 mg/dLHigh Triglyceride: 200-499 mg/dLVery High Triglyceride: greater than or equal to 5OO mg/dL Cholesterol 151 <200 mg/dL [facility] Comment:Desirable Cholestero l: less than 200 mg/dLBorderline High Cholesterol: 200-239 mg/dLHigh Cholesterol: greater than 239 mg/dL LDL Cholesterol Calculated 78 <100 mg/dL [facility] Comment:Desirable LDL: less than 100 mg/dLNear Optimal/Above Optimal LDL: 110- 129 mg/dLBorderline High LDL: 130-159 mg/dLHigh LDL: 160-189 mg/dLVery High LDL: greater than or equal to 190 mg/dL HDL Cholesterol 32(L) >40 mg/dL [facility] Comment:Desirable HDL: great er than 40 mg/dL Note: This HDL assay may give artificially low results in patients with liver disease. Blood Venous blood specimen / Unknown 05/12/2024 10:07 AM EDT 05/12/2024 11:15 AM EDT us Chasity Rincon MD LAB BLOOD ORDERABLES Final Res ult Performing Organization Address [facility] Co de Phone Number [facility] [address] [place] [address] [phone] * Hepatitis C Antibody with Reflex to HCV, RNA, Quantitative, Real-Time PCR (08/31/2023 10:02 AM EDT) Hepatitis C Antibody Nonreactive Nonreactive [facility] Comment:Antibodies to HCV no t detected; does not exclude early acuteHCV infection. Blood Venous blood specimen / Unknown 08/31/2023 10:02 AM EDT 08/31/2023 10:58 AM EDT Chasity Rincon MD LAB BLOOD ORDERABLES Final Res ult Performing Organization Address [facility] de Phone Number [facility] [address] [place] [phone] from Last 3 Months or Most Recently Relevant to Health Maintenance Insurance [facility] [employer] OPTIONS (HMO D-SNP) DENTAL - [facility] Care Teams Information Security Analyst Relationship Specialty Start Date End Date Chasity Rincon MD [address] [place] [address] PCP - General Family Medicine 10/21/20
--- OUTSIDE RECORDS SUMMARY | 2025-02-26 08:33 | XMS_ITS | Clinical Summary ---
Author Organization [facility] Address [address] [place] [phone] Phone Care Team Providers Care Salmon Gillnet Vessel Operator Name Role Phone Unavailable Primary Care Provider [...]
--- OUTSIDE RECORDS SUMMARY | 2025-02-26 08:33 | XMS_ITS | Data Portability ---
Author Organization [place] [facility], Allergy Address [address] [address] Care Team Providers Care Nib Assembler Name Role Phone [facility] (DENTAL) Primary Care Prov ider Assessment Encounter [...] direct microscopic laryngoscop y (SURG) 2024 025 [id number] Not available 14:44:29 Imaging None recorded. Medication Orders None recorded. Patient TargetsNo targets recorded. Patient Instructions Encounter Date Encounter Id Patient Instructions Last Modified By Organization Details Last Modified Time 01/05/2025 [id number] - Await scheduling for biopsy procedure. - [...] Organization Details Recorded Time Mass of neck 868508543 Active [address], [phone], [facility] - [facility] 12:39:03 Oropharynge al lesion 4988591734049 9 Active 2024 Lance Sherman [place] [address], [place], [address], [facility] 12:39:16 Supraglotti c lesion 807195178 Active 2024 Lance Sherman, [address], [address], [facility] 12:39:16 Problem Notes None recorded. Procedures Surgical History Date Name Laterality Status Provider Name and Address Organization Details Recorded Time 01/05/2025 FOL_normal _DHL completed Lance Sherman, [address], [address], [facility] [...] ICD10 Code Diagnosis IMO Codes Diagnosis Note [id number] Lance Sherman DO [facility] of [address] [address] 01/05/2025 13:49:37 01/05/2025 14:36:33 Mass of neck 554689008 J38.7 [id number] Finding of tobacco use and exposure 805612333 Z72.0 773540 Supraglottic lesion 3012 16768 J38.7 [id number] Health Concerns Section Related Observation LastModified by Organization Rae fallon LastModified Time None Recorded Concern Status LastModified by Organization Details LastModified Time None Recorded Advance Directives Directive None Recorded Payers Insurance Date Sequence Insurance Name Policy Number Policy Howard Covered Member ID Howard Member ID Guarantor Name 10/20/2024 1 [place] [facility] Curt Ramires [id number] Curt Ramires 12/26/2024 1 [place] [facility] Curt Ramires [id number] Curt Ramires 12/26/2024 2 [place] [facility] Curt Ramires [id number] Curt Ramires 01/17/2025 2 [facility] - DOS ON OR AFTER 2022 - [facility] OPTIONS AND ONE CARE (MEDICARE REPLACEMENT/AD VANTAGE - PPO) Curt Ramires [id number] Curt Ramires 01/23/2025 1 [facility] - DOS ON OR AFTER 2022 - DUAL ELIGIBLE - [facility] OPTIONS AND ONE CARE (MEDICARE REPLACEMENT/AD VANTAGE - HMO) Curt Soto Ike [id number] Curt Ramires 01/17/2025 1 [facility] - DOS ON OR AFTER 2022 - MEDICARE [place]VANTAGE [place] (MEDICARE REPLACEMENT/AD VANTAGE - PPO) Curt Ramires [id number] Curt Ramires Notes Date Note Type Note [...] growths in the throat. Lance Sherman, [address] [address], [place], [address], [facility] 01/05/2025 14:39:33
--- OUTSIDE RECORDS SUMMARY | 2025-02-26 08:33 | XMS_ITS | Encounter Summary ---
Author Organization [employer] Address [address] [facility] [address] [place] [address] Care Team Providers Care Tool Clerk Name Role Phone Chasity Rincon MD Primary Care Provider [phone] Reason for Visit * Reason Comments Med Refill Encounter Details Date Type Department Care Team ([facility] Contact Info) Description 12/01/2022 Refill [facility] MED & PEDS [address] [place], [place] [phone] Chasity Rincon MD [address] [place], [place] [phone] Gastroesophageal reflux disease without esophagitis Social History [...] Upcoming Encounters Date Type Department Care Team ([facility] Contact Info) Description 03/28/2025 10:45 AM EST Office Visit [facility] MEDICINE [address] [place], [place] [phone] Chasity Rincon MD [address] [place], [place] [phone] documented as of this encounter Visit Diagnoses Diagnosis Gastroesophageal reflux disease without esophagitis Esophageal reflux documented in this encounter Care Teams Tool Clerk Relationship Specialty Start Date End Date Chasity Rincon MD [address] [place] [address] PCP - General Family Medicine 10/21/20 documented as of this encounter
--- OUTSIDE RECORDS SUMMARY | 2025-02-26 08:33 | XMS_ITS | Encounter Summary ---
Author Organization [employer] [facility] Address [address] [facility] [address]t [place] [address] Care Team Providers Care Box Office Attendant Name Role Phone Chasity Rincon MD Primary Care Provider [phone] Encounter Details Date Type Department Care Team (Latest Contact Info) Description 06/07/2020 Abstract [facility] CONVERSIONS Dental, Provider, DDS Social [...] Description 03/28/2025 10:45 AM EST Office Visit [facility] MEDICINE [address] [place] [address] Chasity Rincon MD [address] [place] [address] documented as of this encounter Visit Diagnoses Not on filedocumented in this encounter Care Teams Box Office Attendant Relationship Specialty Start Date End Date Chasity Rincon MD [address] [place] [address] PCP - General Family Medicine 10/21/20 documented as of this encounter
== END ==
LOC: HO.CARD 08:28
PROVIDERS: PCP General Practice
DX: Z01.810 Encounter for preprocedural cardiovascular examination (principal); R07.9 Chest pain, unspecified
CPT/HCPCS: 93017; J0280; J2785

== ENCOUNTER → 2025-02-26 08:31 | Outpatient (BNV) | payer OTHER, SELFPAY | PROVIDERS: PCP General Practice | DX: Z01.810 Encounter for preprocedural cardiovascular examination (principal) | CPT/HCPCS: 93016; 93018 ==